=== PATIENT | female | born 1945 | race Caucasian/White ===

== ENCOUNTER → 2018-06-30 09:51 | Outpatient (CLI) | payer MEDICARE, SELFPAY ==
--- NOTE | 2018-06-30 09:55 | BI_ITS ---
MAMMOGRAPHY - BILATERAL SCREENING REASON FOR EXAM: Female, 72 years old. Routine annual screening examination. PERTINENT HISTORY: Non-contributory. Remote right excisional breast biopsy. TECHNIQUE: Digital bilateral breast rin (3D mammographic acquisition) in the CC and MLO projections. 2-D mediolateral oblique (MLO) and craniocaudad (CC) views of both breasts were obtained. CAD: Full Field Digital Mammography with Computer Added Detection was performed. COMPARISON: Comparison is made with prior study dated June 29, 2017 and June 28, 2016. FINDINGS: Breast Composition: There are scattered areas of fibroglandular density. There are no dominant masses or suspicious calcifications. Stable 7.2 mm well-defined nodule in the axillary region of the right breast in keeping with a small lymph node. There are 2 well-defined nodular densities in the retroareolar region of the right breast. The larger measures 4.2 mm. This may represent either a small cyst or dilated retroareolar duct. Correlation with ultrasound is recommended. No other significant abnormalities are identified. There has been no significant change since the prior study. BI/SCREENING MAMM (CAD), BILAT IMPRESSION: Stable bilateral screening mammogram. 2 small nodular densities are seen in the retroareolar region of the right breast. Correlation with ultrasound is recommended. ASSESSMENT CATEGORY: BIRADS Category 0: Incomplete. Need additional imaging evaluation. A letter regarding these results will be sent to the patient by the facility within 30 days. Approximately 10% of breast cancers are not detected by mammography. A normal mammogram should not delay biopsy of a clinically suspicious abnormality. [id number] Electronically Signed: Luke Mcmullen MD at 12:24 EST Tel [phone], Service support ,
--- OUTSIDE RECORDS SUMMARY | 2018-08-25 04:54 | XMS RPT_ITS | Continuity of Care Document ---
:1945 Author Organization [facility] Address [facility] [address] [place] [address] Phone Care Team Providers Name Role Phone Becky De La Cruz DO Unavailable Dr. Wolf Clark Unavailable Carlos Monahan MD Unavailable Sharon Meier Unavailable Unavailable Jessie Sanches Unavailable Unavailable Fannie Madrid Unavailable Unavailable Unavailable Unavailable Problems Name Dates Details Abnormal lung function test (R94.2, 794.2) Status: Active Abnormal mammogram (R92.8, 793.80) Status: Active Abnormal mammogram (R92.8, 793.80) Comments: verify with patietn whether saw surgeon Status: Active Abnormal TSH (R79.89, 790.6) Status: Active Benign Essential Hypertension (Renamed from Benign essential HTN) (I10, 401.1) Comments: chronic stable-continue present regimen Status: Active BMI 30.0-30.9,adult (Z68.30, V85.30) Status: Active Breast screening (Z12.39, V76.10) Status: Active Colon polyp (K63.5, 211.3) Status: Active Colonoscopy 1999 Status: Active Cough (R05, 786.2) Status: Active Deliveries (Parity) Comments: 3 Status: Active Elevated blood pressure (not hypertension) (R03.0, 796.2) Comments: avoid decongestants check bp at home Status: Active Encounter for screening mammogram for breast cancer (Renamed from Encounter for screening mammogram for malignant neoplasm of breast) (Z12.31, V76.12) Comments: end of jun Status: Active Encounter for screening mammogram for breast cancer (Renamed from Encounter for screening mammogram for malignant neoplasm of breast) (Z12.31, V76.12) Status: Active Folliculitis (L73.9, 704.8) Status: Active 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, 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) Status: Active Last Pap Smear, Date 01-Mar-2005 Status: Active Local reaction to immunization, initial encounter (T88.1XXA, 999.52) Comments: take zyrtec if worsen ornot improve in next few days call and will give antiobiic Status: Active Mammogram 13-Apr-2006 Status: Active [facility] Status: Active [facility] Status: Active Migraine (G43.909, 346.80) Comments: chronic stable-continue present regimen Status: Active Mild intermittent asthma without complication (J45.20, 493.90) Comments: no issues even with the weather change Status: Active Need for prophylactic vaccination and inoculation against influenza (Z23, V04.81) Status: Active Need for prophylactic vaccination and inoculation against influenza (Renamed from Need for immunization against influenza) (Z23, V04.81) Status: Active Need for prophylactic vaccination and inoculation against influenza (Renamed from Need for immunization against influenza) (Z23, V04.81) Status: Active Non-smoker (Z78.9, V49.89) Status: Active Osteopenia (M85.80, 733.90) Comments: not due for bone density Status: Active Other hyperlipidemia (E78.49, 272.4) Comments: great control Status: Active Postmenopausal (Renamed from Postmenopausal status) (Z78.0, V49.81) Comments: end of jun Status: Active Pregnancies () Comments: 3 Status: Active Screening for breast cancer (Renamed from Breast cancer screening) (Z12.39, V76.10) Status: Active Unspecified Diagnosis Status: Active Upper respiratory infection, acute (J06.9, 465.9) Status: Active Vitamin D deficiency, unspecified (E55.9, 268.9) Comments: chronic stable-continue present regimen Status: Active Medications Name Dates Details CALCIUM, 500MG (Oral Tablet) Active 1 (one) daily (500 MG) Fluticasone Propionate 50 MCG/ACT Nasal Suspension 2 (two) Suspension each nostril daily, prn for 90 days Quantity: 1 {[place]} Refills: 3 Ordered:22-Aug-2017 Jono ARAYA Becky LYNNnabila Becky A Start : 22-Aug-2017 Active Losartan Potassium 50 MG Oral Tablet 1 (one) Tablet daily for 0 days Quantity: 30 {Tablet} Refills: 6 Ordered:27-Jan-2018 Becky LYNNnabila Becky A Start : 27-Jan-2018 Active Simvastatin 10 MG Oral Tablet 1 (one) Tablet qd for 0 days Quantity: 30 {Tablet} Refills: 6 Ordered:27-Jan-2018 Becky LYNNnabila Becky A Start : 27-Jan-2018 Active Synthroid 88 MCG Oral Tablet 1 (one) Tablet tuesday thru and none tue-tue for 0 days Quantity: 30 {Tablet} Refills: 3 Ordered:21-Mar-2018 Becky LYNNnabila Becky A Start : 21-Mar-2018 Active Vitamin D3 5000 UNIT Oral Capsule 1 (one) Capsule QOD for 0 days Quantity: 30 {Capsule} Refills: 3 Ordered:21-Sep-2017 Becky LYNNnabila , Becky A Start : 21-Sep-2017 Active AUGMENTIN, 875-125MG (Oral Tablet) 1 Tablet Twice daily for 14 days Quantity: 28 {Tablet} Refills: 0 Ordered:28-Jan-2010 Dena Gutierrez CNP Start : 28-Jan-2010 End : 11-Feb-2010 Inactive Calcium 500/D 500-400 MG-UNIT Oral Tablet Chewable 1 (one) Tablet Chewable bid for 0 days Refills: 0 Ordered:21-Sep-2017 Becky LYNNnabila DO, Becky A Start : 10-Jun-2008 End : 21-Sep-2017 Inactive CLARINEX, 5MG (Oral Tablet) 1 (one) Tablet daily for 0 days Quantity: 5 {Tablet} Refills: 0 Ordered:19-Feb-2011 Jessie Sanches Start : 28-Jan-2010 End : 19-Feb-2011 Inactive Doxycycline Hyclate 100 MG Oral Capsule 1 (one) Capsule bid for 0 days Quantity: 20 {Capsule} Refills: 0 Ordered:21-Sep-2017 Fast DO, Becky AFast DO, Becky A Start : 22-Aug-2017 End : 21-Sep-2017 Inactive Losartan Potassium 50 MG Oral Tablet 1 (one) daily (50 MG) Start : 24-Aug-2016 Inactive NASONEX, 50MCG/ACT (Nasal Suspension) 2 (two) Suspension Daily for 0 days Quantity: 1 {Suspension} Refills: 0 Ordered:19-Feb-2011 Jessie Sanches Start : 28-Jan-2010 End : 19-Feb-2011 Inactive BONIVA, 150MG (Oral Tablet) 1 (one) Tablet qmonth for 0 days Quantity: 3 {Tablet} Refills: 3 Ordered:19-Feb-2011 Fast DO, Becky AFast DO, Becky A Start : 19-Feb-2011 End : 19-Feb-2011 Discontinued DOXY-CAPS, 100MG (Oral Capsule) 1 (one) Capsule bid for 0 days Quantity: 20 {Capsule} Refills: 0 Ordered:02-Mar-2010 Jessie Sanches Start : 09-Jan-2010 End : 19-Feb-2011 Discontinued Comments:This order discontinued per [employer]. DRISDOL, 85871JLIK (Oral Capsule) 1 (one) Capsule q week for 0 days Quantity: 12 {Capsule} Refills: 3 Ordered:22-Apr-2015 Fast DO, Becky AFast DO, Becky A Start : 22-Apr-2015 End : 22-Apr-2015 Discontinued FOSAMAX, 35MG (Oral Tablet) one Tablet qweek for 0 days Refills: 0 Ordered:10-Apr-2007 Fast DO, Becky AFast DO, Becky A Start : 10-Apr-2007 End : 10-Apr-2007 Discontinued FOSAMAX, 70MG (Oral Tablet) 1 (one) Tablet q week for 0 days Quantity: 12 {Tablet} Refills: 3 Ordered:10-Apr-2007 Kyra Martines Start : 10-Apr-2007 End : 26-Jun-2008 Discontinued ZITHROMAX Z-BERENICE, 250MG (Oral Tablet) 1 Tablet UAD for 0 days Quantity: 1 {Package(s)} Refills: 0 Ordered:26-Jun-2008 Kyra Martines Start : 26-Jun-2008 End : 01-Jul-2008 Discontinued Allergies and Adverse Reactions Name Dates Details No Known Drug Allergies (Allergy) Onset: 08-Sep-2016 Status: Inactive Prevnar 13 *VACCINES* (Allergy) Status: Active Comments: redness, warmth, swelling and pain at the site after receiving the 2nd vaccine 6 months apart Past Medical History Name Dates Details Abdominal pain, acute, right lower quadrant (R10.31, 789.03) Status: Resolved as of 07-Feb-2012 Acute sinusitis, unspecified (J01.90, 461.9) Status: Resolved as of 02-Mar-2010 Allergic rhinitis due to other allergen (J30.89, 477.8) Status: Inactive as of 21-Sep-2017 BMI 30.0-30.9,adult (Z68.30, V85.30) Status: Inactive as of 11-Apr-2017 BMI 31.0-31.9,adult (Z68.31, V85.31) Status: Inactive as of 21-Sep-2017 boil Status: Resolved as of 02-Mar-2010 Cerumen impaction (H61.20, 380.4) Status: Resolved as of 02-Mar-2010 Encounter for screening mammogram for malignant neoplasm of breast (Z12.31, V76.12) Status: Inactive as of 09-Apr-2013 Foot pain (M79.673, 729.5) Status: Resolved as of 19-Feb-2011 Hematuria (R31.9, 599.7) Comments: us negative -recheck us 5 years Status: Inactive as of 21-Sep-2017 Other specified viral infection, in conditions classified elsewhere and of unspecified site (B97.89, 079.89) Status: Resolved as of 02-Mar-2010 Pharyngitis, acute (J02.9, 462) Status: Resolved as of 02-Mar-2010 Well woman exam with routine gynecological exam (Z01.419, V72.31) Status: Inactive as of 19-Feb-2011 Procedures Procedure Dates Details breast biopsy benign Completed Colonoscopy, Screening Completed May-2015 Comments: small, benign polyps removed from R colon Tonsillectomy Completed Date Value Details 11-Oct-2017 TXT - Blood Flow Screening Result: Comments: See Note; NOTES: [facility] Cardiovascular Services [address] [place] [address] 10/11/17 0832 MR#: [id number] Acct: [id number] Name: AUDREY STREETER Rep #: [id number] : 1945 71 From: Zack Valdes MD Attending Dr: Becky De La Cruz DO Status: REG REF Ordering Dr: Date: 10/11/17 Location: [facility] Sex: F C Admitted: Reason For Study: Blood flow screening Caroti d Duplex Ultrasound Abdominal Aorta The right maximum ICA velocity is 80.5/25.7 cm/s.The maximal outside diameter of the proximal The left maximum ICA velocity is 107.0/38.8 cm/s.aorta measures 1.5 cm i n the longitudinal axis. The right ECA velocity is less than 125 cm/s. The maximal outside diameter of the proximal The left ECA velocity is less than 125 cm/s. aorta measures 1.5 x 1.6 cm in the cross- There is insignificant plaque formation noted on sectional axis. the right side. There is insignificant plaque formation noted on the left side. Ankle Brachial Index The right ankle/ brachial index is 1.0. The left ankle/ brachial index is 1.1. Medical History and Assessment The client presents with a history of high blood pressure. The heart rate is 60 beats per minute. The heart rhythm is irregul ar. The right blood pressure is 128/76. The left blood pressure is 134/76. The assessment was performed by Jaime Dumont RVT. Interpretation Summary Normal carotid artery screening (0 to 15% narrowing). Normal aortic ultrasound exam. The ankle/brachial index is normal (1.0 or greater). .rdering Phys ician: Becky De La Cruz D.O Performed By: Felecia Dumont RVT 10/11/17 1553 Date Zack Valdes MD CC: Becky De La Cruz DO Date Dictated: 10/11/17 0832 Date Transcribed: 10/11/17 155 Primer Press Operator: Signed 29-Jun-2017 SCREENING MAMM (CAD), BILAT Result: Comments: See Note; NOTES: [facility] Imaging Services [address] [place] [address] SCREENING MAMM (CAD), BILAT MR#: [id number] Acct: [id number] Name: AUDREY STREETER Rep #: [id number] : 1945 F 71 From: Vern Hightower MD PCP: Becky De La Cruz DO Status: REG CLI Study: SCREENING MAMM (CAD), BILAT Date of Exam: 06/29/17 Exam# [id number] Ordering Dr: Becky De La Cruz DO MAMMOGRAPH Y - BILATERAL SCREENING REASON FOR EXAM: Female, 71 years old. Routine annual screening examination. PERTINENT HISTORY: History of benign breast biopsy. TECHNIQUE: Digital examination. Mediolateral o blique (MLO) and craniocaudad (CC) views of both breasts were obtained, along with 3D tomosynthesis. CAD: CAD was performed on this study. COMPARISON: 06/28/2016 FI NDINGS: Breast Density: Scattered fibroglandular densities. There are no dominant masses or suspicious calcifications. Stable well-defined 1 cm lymph node in the retroglandular fat of the right breast. No other significant abnormalities are identified. There has been no significant change since the prior study. HPBI/SCREENING MAMM (CAD), BILAT IMPRESSION: Stable bilateral screening mammogram. Yearly follow-up mammogram recommended. (A) ASSESSMENT CATEGORY: BIRADS Category 2: Benign. A letter regarding th linda results will be sent to the patient by the facility within 30 days. BR2 Approximately 10% of breast cancers are not detected by mammography. A normal mammogram should not delay biopsy of a clinica lly suspicious abnormality. [id number] Electronically Signed: Prashant Hightower MD at 14:20 EST , Service support , CC: Becky De La Cruz DO Primer [employer] Operator: Signed 26-Apr-2017 Dexa Bone Density Study (HP) Result: Comments: See Note; NOTES: [facility] Imaging Services [address] [place] [address] Dexa Bone Density Study (HP) MR#: [id number] Acct: [id number] Name: AUDREY STREETER Rep #: [id number] : 1945 F 71 From: Luke Leonard MD PCP: Becky De La Cruz DO Status: REG CLI Study: Dexa Bone Density Study (HP) Date of Exam: 04/26/17 Exam# [id number] Ordering Dr: Becky De La CruzDY: DUAL ENERGY X-RAY ABSORPTIOMETRY / DXA REASON FOR EXAM: Female, 71 years old. The patient is postmenopausal. TECHNIQUE: Bone Mineral Density (BMD) measurements of lumbar spine and bilateral hips were obtained. COMPARISON: Comparison is made with prior study dated July 19, 2012. FINDINGS: Lumbar Spine (L1-L4): g/cm2 (1.090) / T-score (-0.7) / Z-score ( 0.9) Findings are suggestive of normal bone density with a low fracture risk. Increased kyphosis. Left Femur Total: g/cm2 (0.854) / T-score (-1.2) / Z-score (0.3) Left Femoral Neck: g/cm2 (0.831) / T-s core (-1.5) / Z-score (0.3) Right Femur Total: g/cm2 (0.889) / T-score (-0.9) / Z-score (0.6) Right Femoral Neck: g/cm2 (0.740) / T-score (-2.1) / Z-score (- 0.4) The T-Scores on the most recent prior e xamination were: Lumbar Spine (L1-L4): There has been worsening of bone density since the previous examination. Left Femur Total: which represents a worsening of 2.2%. Right Femur Total: which represe nts a worsening of 1.2%. HPBD/Dexa Bone Density Study (HP) IMPRESSION: The patient is considered osteopenic as outlined below according to World Wesley Organization (WHO) criteria with a moderate fracture risk. There has been worsening of bone density since the previous examination. Reference Information: The T-score is the number of standard deviations above or below the standard which is normal for young adults at their peak bone mineral density. The World Health Organization (WHO) interprets the T-scores as follows: Above -1 Normal bone density Between -1 and -2.5 Osteopenia Equal to / or below -2.5 Osteoporosis As a practical clinical guideline, osteopenia may be graded as follows: Mild -1 through - 1.5 Moderate -1.6 through -2.0 Severe -2.1 through -2.4 The Z-score is the number of standard deviations above or below age-matched controls. A Z-score of less than -1.5 would be considered abnormal. References: 1. NIH Osteoporosis and Related Bone Diseases http://www.osteo.org 2. International Society for Clinical Densitometry http://www.iscd.org 3. National Osteoporosis Foundation http://www.nof.o rg Electronically Signed: Luke Leonard MD at 9:52 EDT Tel [phone], Service support , CC: Becky De La Cruz DO Primer [employer] Operator: Signed 12-Sep-2016 Pulmonary Function Report Comp Result: Comments: See Note; NOTES: [facility] Pulmonary Services/Neurology [address] [place] [address] Pulmonary Function Test (Comp) MR#: [id number] Acct: [id number] Name: AUDREY STREETER Rep #: [id number] : 1945 70 From: Tariq Her MD Referring Dr: Becky De La Cruz DO Status: REG CLI Ordering Dr: Becky De La Cruz DO Date: 09/09/16 Location: [facility] Sex: F C DATE OF SERVICE: 017 BRIEF HISTORY OF PRESENT ILLNESS: The patient is a 70-year-old female, currently under the care of Dr. De La Cruz, who presents for a complete pulmonary function test secondary to a diagnosis o f abnormal pulmonary function. Respiratory therapist reported good patient effort and reproducible results. INTERPRETATION: Forced expiration spirometry demonstrates a mild large airways obstructive ve ntilatory defect. There is a significant response to bronchodilators in FEV1. Spirograms are of good quality and do not plateau indicating slowing emptying areas of the lung. The respiratory flow volume loop shows decreased expiratory flow rates at all lung volumes consistent with airways obstruction. Lung volumes by body plethysmography show an elevated total lung capacity at 5.48 L, 124% of predict ed. Remaining lung volumes are increased symmetrically. Diffusion capacity by single breath carbon monoxide is preserved at 81% of predicted. Airway resistance is elevated. No previous studies are joseph ilable for comparison. IMPRESSION: Partially reversible mild large airways obstructive ventilatory defect resulting in hyperinflation. TARIQ HER MD C C: Becky De La Cruz DO T: NTS JOB: [id number] 07/17 0600 <Electronically signed by Tariq Her MD> Date Tariq Her MD CC: Tariq Her MD; Becky De La Cruz DO Date Dictated: 09/11/16 113 6 Date Transcribed: 09/11/16 1136 Primer Press Operator: Signed 09-Sep-2016 Kidney and Bladder Result: Comments: See Note; NOTES: [facility] Imaging Services [address] [place] [address] Yosephdalukas 4d Kidney and Bladder MR#: [id number] Acct: [id number] Name: AUDREY STREETER Rep # : [id number] : 1945 F 70 From: Ho Sam MD PCP: Becky De La Cruz DO Status: REG CLI Study: Kidney and Bladder Date of Exam: 09/09/16 Exam# [id number] Ordering Dr: Becky De La Cruz DO STUDY: LAST MCCRARY ULTRASOUND - COMPLETE REASON FOR EXAM: Female, 70 years old. Hematuria TECHNIQUE: Ultrasound evaluation of the kidneys was performed with real-time and static jenkins-scale imaging. COMPARISON: None. FINDINGS: RIGHT KIDNEY: Normal location of the right kidney, which is normal in size. The right kidney measures 8.9 cm x 4.5 cm x 4.1 cm. There is a normal cortex of the right kidney. The renal cortex measures 1.0 cm. There is no right renal mass or cyst. There are no right renal calculi. There is no right hydronephrosis. DISTAL RIGHT URETER: There is non-visual ization of the distal right ureter. There is no demonstrated right ureterovesical junction calculus. There is no demonstrated right ureteral jet. LEFT KIDNEY: Normal location of the left kidney, which is normal in size. The left kidney measures 10.3 cm x 3.9 cm x 4.8 cm. There is a normal cortex of the left kidney. The renal cortex measures 1.6 cm. There is no left renal mass or cyst. There are no le ft renal calculi. There is no left hydronephrosis. DISTAL LEFT URETER: There is non-visualization of the distal left ureter. There is no demonstrated left ureterovesical junction calculus. There is no demonstrated left ureteral jet. BLADDER: The distended urinary bladder has a volume of 57 ml. There is a normal wall thickness of the distended urinary bladder. There is no demonstrated mass within the urinary bladder. There are no demonstrated bladder calculi. US/Kidney and Bladder IMPRESSION: Normal ultrasound of the kidneys and urinary bladd er. Electronically Signed: Vern Sam MD at 23:19 EST Tel , Service support [phone], CC: Becky De La Cruz DO Primer [employer] Operator: Signed 08-Sep-2016 Chest PA and Lateral Result: Comments: See Note; NOTES: [facility] Imaging Services [address] [place] [address] Verdana 4d Chest PA and Lateral MR#: [id number] Acct: [id number] Name: AUDREY STREETER Rep #: [id number] : 1945 F 70 From: Ho Sam MD PCP: Becky De La Cruz DO Status: REG CLI Study: Chest PA and Lateral Date of Exam: 09/08/16 Exam# [id number] Ordering Dr: Becky De La Cruz DO STUDY: X-RAY CHEST REASON FOR EXAM: Female, 70 years old. Abnormal lung sounds TECHNIQUE: PA and lateral views of the chest. COMPARISON: None. FINDINGS: The lungs are clear and expanded. There is no demonstrated pleural abnormality. Normal size heart. Normal mediastinum and natalie. Normal visualized pulmonary arteries. Normal visualized aortic arch and descending thor acic aorta. There is an increased kyphosis of the thoracic spine. Spondylosis is seen throughout the thoracic spine, and there is generalized osteopenia. There is no demonstrated abnormality of the vi sualized soft tissue structures of the upper abdomen. RAD/Chest PA and Lateral IMPRESSION: No acute intrathoracic process is demonstrated. Elect ronically Signed: Vern Sam MD at 7:56 EST Tel , Service support [phone], CC: Becky De La Cruz DO [employer] Press Operator: Signed 28-Jun-2016 Bilat Scrn Digital AND CAD Result: Comments: See Note; NOTES: [facility] Imaging Services [address] [place] [address] Verdana 4d Bilat Scrn Digital AND CAD MR#: [id number] Acct: [id number] Name: BIANCA STREETER MA Rep #: [id number] : 1945 F 70 From: Vern Hightower MD PCP: Becky De La Cruz DO Status: REG CLI Study: Bilat Scrn Digital AND CAD Date of Exam: 06/28/16 Exam# [id number] Ordering Dr: Becky De La Cruz DO M AMMOGRAPHY - BILATERAL SCREENING REASON FOR EXAM: Female, 70 years old. Routine annual screening examination. PERTINENT HISTORY: History of benign breast biopsy. TECHNIQUE: Digital examination. Medio lateral oblique (MLO) and craniocaudad (CC) views of both breasts were obtained, along with 3-D tomosynthesis. CAD: CAD was performed on this study. COMPARISON: 04/15/2015 FINDINGS: Breast Density: Scattered fibroglandular densities. There are no dominant masses or suspicious calcifications. Stable 1 cm lymph node in the retroglandular fat of the right breast. No other significant abnormalities are identified. There has been no significant change since the prior study. BI/Bilat Scrn Digital AND CAD IMPR ESSION: Stable bilateral screening mammogram. Yearly follow-up mammogram recommended. (A) ASSESSMENT CATEGORY: BIRADS Category 2: Benign. A letter regarding these r esults will be sent to the patient by the facility within 30 days. BR2 Approximately 10% of breast cancers are not detected by mammography. A normal mammogram should not delay biopsy of a clinically s uspicious abnormality. [id number] Electronically Signed: Prashant Hightower MD at 9:18 EST Tel , Service support [phone], CC: Becky De La Cruz DO Primer [employer] Operator: Signed 15-Apr-2015 Bilat Scrn Digital AND CAD Result: Comments: See Note; NOTES: [facility] Imaging Services [address] [place] [address] Breast Imaging Report MR#: [id number] Acct: [id number] Name: AUDREY STREETER Rep #: [id number] : 1945 F 69 From: Luke Leonard MD PCP: Becky De La Cruz DO Status: REG CLI Study: Kelsey Bateman Digital AND CAD Date of Exam: 04/15/15 Exam# [id number] Ordering Dr: Becky De La Cruz DO MAMMOGRAPHY - BILATERAL SCREENING REASON FOR EXAM: Female, 69 years old. Routine annual screening examination. PERTINENT HISTORY: Prior right excisional breast biopsy. TECHNIQUE: Digital exami [facility]. Mediolateral oblique (MLO) and craniocaudad (CC) views of both breasts were obtained. CAD: CAD was performed on this study. COMPARISON: Comparison is made with prior study dated April 08, 2014 and March 30, 2013. FINDINGS: Breast Composition: There are scattered areas of fibroglandular density. There are no dominant masses or suspicious calcif ications. Stable benign appearing lymph nodes in the right axillary region. This measures 4 mm. No other significant abnormalities are identified. There has been no significant change since the prio r study. IMPRESSION: Stable bilateral screening mammogram. Yearly follow-up recommended. (A) ASSESSMENT CATEGORY: BIRADS Category 2: Benign. A letter regarding these results will be sent to the patient by the facility within 30 days. Approximately 10% of breast cancers are not detected by mammography. A normal mammogr am should not delay biopsy of a clinically suspicious abnormality. Electronically Signed: Luke Leonard MD at 10:51 EDT Tel [phone], Service support [phone], Fax CC: Becky De La Cruz DO Primer Press Operator: Signed 15-Apr-2015 Dexa Bone Density Study (HP) Result: Comments: See Note; NOTES: [facility] Imaging Services [address] [place] [address] Bone Density Report MR#: [id number] Acct: [id number] Name: AUDREY STREETER Rep #: [id number] : 1945 F 69 From: Luke Leonard MD PCP: Becky De La Cruz DO Status: REG CLI Study: Dexa Bone Density Study (HP) Date of Exam: 04/15/15 Exam# [id number] Ordering Dr: Becky De La Cruz DO STUDY: DUAL ENERGY X-RAY ABSORPTIOMETRY / DXA REASON FOR EXAM: Female, 69 years old. The patient is postmenopausal. TECHNIQUE: Bone Mineral Density (BMD) measurements of lumbar spine and bilater al hips were obtained. COMPARISON: Comparison is made with prior study dated July 19, 2012. FINDINGS: Lumbar Spine (L1-L4): g/cm2 (1.037) / T-score (-1.4) / Z-score (0.3) Findings are suggestive of osteopenia with a low fracture risk. Left Femur Total: g/cm2 (0.873) / T-score (-1.1) / Z-score (0.3) Left Femoral Neck: g/cm2 (0.744) / T-score (-2.1) / Z -score (-0.5) Right Femur Total: g/cm2 (0.900) / T-score (-0.9) / Z-score (0.6) Right Femoral Neck: g/cm2 (0.724) / T-score (-2.3) / Z-score (-0.6) The T- Scores on the most recent prior examination were: Lumbar Spine (L1-L4): There has been worsening of bone density since the previous examination. Left Femur Total: which represents an improvement of O.8 percent. Right Femur Total: which repr esents no significant change. . IMPRESSION: The patient is considered osteopenic as outlined below according to World Wesley Organization (WHO) criteria with a mo derate fracture risk. There has been worsening of bone density since the previous examination. Reference Information: The T-score is the number of standard cody ations above or below the standard which is normal for young adults at their peak bone mineral density. The World Health Organization (WHO) interprets the T-scores as follows: Above -1 Normal bone density Between -1 and -2.5 Osteopenia Equal to / or below -2.5 Osteoporosis As a practical clinical guideline, osteopenia may be graded as follows: Mild -1 through -1.5 Moderate -1.6 through -2.0 Severe -2.1 through -2.4 The Z-score is the number of standard deviations above or below age-matched controls. A Z-score of less than -1.5 would be considered abnormal. References: 1. NIH Osteop orosis and Related Bone Diseases http://www.osteo.org 2. International Society for Clinical Densitometry http://www.iscd.org 3. National Osteoporosis Foundation http://www.nof.org Electronically Sig steve: Luke Leonard MD at 10:50 EDT Tel [phone], Service support [phone], CC: Becky De La Cruz DO [employer] Operator: Signed 08-Apr-2014 Breast Unilateral Result: Comments: See Note; NOTES: [facility] Imaging Services [address] [place] [id number] Ultrasound Report MR#: [id number] Acct: [id number] Name: AUDREY STREETER Rep #: [id number] : [id number] F [id number] From: Luke Leonard MD PCP: Becky De La Cruz DO Status: REG CLI Study: Breast Unilateral Date of Exam: 04/08/14 Exam# [id number] Ordering Dr: Becky De La Cruz DO STUDY: ULTR ASOUND BREAST(S) - RIGHT REASON FOR EXAM: Female, 68 years old. Followup examination for right breast cyst. TECHNIQUE: Axial and longitudinal images of the RIGHT breast were performed with a high resolution ultrasound transducer. COMPARISON: Comparison is made with prior mammogram done earlier in the day and prior ultrasound of the right breast performed on August 29, 2013. FINDINGS: RIGHT BREAST: Once again, there is a 4 mm x 4 mm x 4 mm cyst in the inferior retroareolar region of the breasts. This is unchanged. __ IMPRESSION: Stable examination. ASSESSMENT CATEGORY: Electronically Signed: Luke Leonard MD at 9:10 EDT Tel [phone], Service suppor t [phone], CC: Becky De La Cruz DO [employer] Operator: Signed 08-Apr-2014 Bilat Scrn Digital & CAD Result: Comments: See Note; NOTES: [facility] Imaging Services [address] [place] [address] Breast Imaging Report MR#: [id number] Acct: [id number] Name: AUDREY STREETER Rep #: [id number] : 1945 F 68 From: Luke Leonard MD PCP: Becky De La Cruz DO Status: REG CLI Exam# [id number] Ordering Dr: Becky De La Cruz DO MAMMOGRAPHY - BILATERAL SCREENING REASON FOR EXAM: Fe male, 68 years old. Routine annual screening examination. PERTINENT HISTORY: Prior right excisional biopsy. TECHNIQUE: Digital examination. Mediolateral oblique (MLO) and craniocaudad (CC) views o f both breasts were obtained. CAD: CAD was performed on this study. COMPARISON: Comparison is made with prior study dated March 30, 2013 and February 03, 2012. FIN DINGS: Breast Composition: There are scattered areas of fibroglandular density. There are no dominant masses or suspicious calcifications. There is a stable 4 mm well-defined nodule in the inferior slightly lateral aspect of the right breast. No new abnormality is seen. No other significant abnormalities are identified. There has been no significant change since the prior study. IMPRESSION: Stable bilateral screening mammogram. Yearly follow-up recommended. (A) ASSESSMENT CATEGORY: BIRADS Category 2: Benign findi ng(s). A letter regarding these results will be sent to the patient by the facility within 30 days. Approximately 10% of breast cancers are not detected by mammography. A normal mammogram should not delay biopsy of a clinically suspicious abnormality. Electronically Signed: Luke Leonard MD at 8:44 EDT Tel [phone], Service support [phone], CC: Becky De La Cruz DO [employer] Operator: Signed Immunization Name Dates Details Pneumococcal (2 years and up) on: 06-Jun-2007 Family History Unknown Family Member Name Dates Details Brother 1 Comments: brother - Mi- in his late 60s Status: Active Father Comments: brain aneurysm possibly- 68- no autopsy, migraines Status: Active high blood pressure Status: Active Mother Comments: age 90- cva, Mi older age likely 80s, chol elevated- Alzheimers last 5 years of life Status: Active Sister 2 Comments: 2 sisters are healthy Status: Active Social History Name Dates Details Caffeine Use Comments: 3 glasses per day Status: Active Exercise History Comments: Moderate, 3 days per week; treadmill Status: Active Living Situation Comments: Lives with spouse; ; heterosexual Status: Active No Drug Use Status: Active Non Drinker/No Alcohol Use Status: Active Non Smoker/No Tobacco Use Status: Active Tobacco use: Never smoker. Status: Active Smoking Status Name Dates Details Never smoker Vital Signs Date Test Result Details :28 Temperature 97.1 f Comments: Method: Temporal Pulse 68 /min Comments: Pattern: Regular Respiration Rate 16 /min Comments: Pattern: Unlabored BP Systolic 122 mm[Hg] Comments: Patient Position: Sitting; Cuff Location: Left Arm; Cuff Size: Standard BP Diastolic 82 mm[Hg] Comments: Patient Position: Sitting; Cuff Location: Left Arm; Cuff Size: Standard Weight 159.25 lb Height 61.5 in Body Mass Index Calculated 29.6 kg/m2 Body Surface Area Calculated 1.73 m2 :54 Temperature 97.2 f Comments: Method: Temporal Pulse 74 /min Comments: Pattern: Regular Respiration Rate 16 /min Comments: Pattern: Unlabored BP Systolic 115 mm[Hg] Comments: Patient Position: Sitting; Cuff Location: Left Arm; Cuff Size: Standard BP Diastolic 80 mm[Hg] Comments: Patient Position: Sitting; Cuff Location: Left Arm; Cuff Size: Standard Weight 162 lb Height 61.5 in Body Mass Index Calculated 30.11 kg/m2 Body Surface Area Calculated 1.74 m2 :28 Temperature 97.6 f Pulse 91 /min Comments: Pattern: Regular Respiration Rate 16 /min Comments: Pattern: Unlabored O2 SAT 98 % Comments: Room air BP Systolic 124 mm[Hg] Comments: Patient Position: Sitting; Cuff Location: Left Arm; Cuff Size: Standard BP Diastolic 82 mm[Hg] Comments: Patient Position: Sitting; Cuff Location: Left Arm; Cuff Size: Standard Weight 167 lb Height 61.5 in Body Mass Index Calculated 31.04 kg/m2 Body Surface Area Calculated 1.76 m2 :05 Temperature 97.2 f Comments: Method: Temporal Pulse 76 /min Comments: Pattern: Regular Respiration Rate 16 /min Comments: Pattern: Unlabored O2 SAT 97 % Comments: Room air BP Systolic 114 mm[Hg] Comments: Patient Position: Sitting; Cuff Location: Left Arm; Cuff Size: Standard BP Diastolic 86 mm[Hg] Comments: Patient Position: Sitting; Cuff Location: Left Arm; Cuff Size: Standard Weight 167 lb Height 61.5 in Body Mass Index Calculated 31.04 kg/m2 Body Surface Area Calculated 1.76 m2 :59 Temperature 97.6 f Comments: Method: Temporal Pulse 86 /min Comments: Pattern: Regular Respiration Rate 16 /min Comments: Pattern: Unlabored BP Systolic 116 mm[Hg] Comments: Patient Position: Sitting; Cuff Location: Left Arm; Cuff Size: Standard BP Diastolic 70 mm[Hg] Comments: Patient Position: Sitting; Cuff Location: Left Arm; Cuff Size: Standard Weight 167 lb Height 61.5 in Body Mass Index Calculated 31.04 kg/m2 Body Surface Area Calculated 1.76 m2 :56 Temperature 97.8 f Comments: Method: Temporal Pulse 82 /min Comments: Pattern: Regular Respiration Rate 16 /min Comments: Pattern: Unlabored BP Systolic 122 mm[Hg] Comments: Patient Position: Sitting; Cuff Location: Left Arm; Cuff Size: Standard BP Diastolic 78 mm[Hg] Comments: Patient Position: Sitting; Cuff Location: Left Arm; Cuff Size: Standard Weight 165 lb Height 61.5 in Body Mass Index Calculated 30.67 kg/m2 Body Surface Area Calculated 1.75 m2 :07 Temperature 96.6 f Comments: Method: Temporal Pulse 70 /min Comments: Pattern: Regular Respiration Rate 16 /min Comments: Pattern: Unlabored O2 SAT 99 % Comments: Room air BP Systolic 118 mm[Hg] Comments: Patient Position: Sitting; Cuff Location: Left Arm; Cuff Size: Standard BP Diastolic 80 mm[Hg] Comments: Patient Position: Sitting; Cuff Location: Left Arm; Cuff Size: Standard Weight 166 lb Height 61.5 in Body Mass Index Calculated 30.86 kg/m2 Body Surface Area Calculated 1.76 m2 :09 Temperature 96.8 f Comments: Method: Temporal Pulse 68 /min Comments: Pattern: Regular Respiration Rate 16 /min Comments: Pattern: Unlabored O2 SAT 98 % Comments: Room air BP Systolic 124 mm[Hg] Comments: Patient Position: Sitting; Cuff Location: Left Arm; Cuff Size: Standard BP Diastolic 82 mm[Hg] Comments: Patient Position: Sitting; Cuff Location: Left Arm; Cuff Size: Standard Weight 166 lb Height 61.5 in Body Mass Index Calculated 30.86 kg/m2 Body Surface Area Calculated 1.76 m2 :02 Temperature 97.8 f Comments: Method: Temporal Pulse 62 /min Comments: Pattern: Regular Respiration Rate 15 /min Comments: Pattern: Unlabored O2 SAT 96 % Comments: Room air BP Systolic 118 mm[Hg] Comments: Patient Position: Sitting; Cuff Location: Left Arm; Cuff Size: Large BP Diastolic 76 mm[Hg] Comments: Patient Position: Sitting; Cuff Location: Left Arm; Cuff Size: Large Weight 167 lb Height 61.5 in Body Mass Index Calculated 31.04 kg/m2 Body Surface Area Calculated 1.76 m2 :16 Temperature 97.4 f Comments: Method: Temporal Pulse 78 /min Comments: Pattern: Regular Respiration Rate 16 /min Comments: Pattern: Unlabored O2 SAT 98 % Comments: Room air BP Systolic 146 mm[Hg] Comments: Patient Position: Sitting; Cuff Location: Left Arm; Cuff Size: Standard BP Diastolic 86 mm[Hg] Comments: Patient Position: Sitting; Cuff Location: Left Arm; Cuff Size: Standard Weight 167 lb Height 61.5 in Body Mass Index Calculated 31.04 kg/m2 Body Surface Area Calculated 1.76 m2 :59 BP Systolic 144 mm[Hg] Comments: Patient Position: Sitting BP Diastolic 82 mm[Hg] Comments: Patient Position: Sitting :16 Temperature 96.3 f Pulse 64 /min Comments: Pattern: Regular Respiration Rate 16 /min Comments: Pattern: Unlabored BP Systolic 168 mm[Hg] Comments: Patient Position: Sitting; Cuff Location: Right Arm; Cuff Size: Large BP Diastolic 82 mm[Hg] Comments: Patient Position: Sitting; Cuff Location: Right Arm; Cuff Size: Large Weight 169 lb Height 61.5 in Body Mass Index Calculated 31.41 kg/m2 Body Surface Area Calculated 1.77 m2 :56 Temperature 98.1 f Comments: Method: Temporal Pulse 85 /min Comments: Pattern: Regular Respiration Rate 16 /min Comments: Pattern: Unlabored BP Systolic 118 mm[Hg] Comments: Patient Position: Sitting; Cuff Location: Left Arm; Cuff Size: Standard BP Diastolic 76 mm[Hg] Comments: Patient Position: Sitting; Cuff Location: Left Arm; Cuff Size: Standard Weight 166 lb Height 61.5 in Body Mass Index Calculated 30.86 kg/m2 Body Surface Area Calculated 1.76 m2 :24 Temperature 96.6 f Pulse 72 /min Comments: Pattern: Regular Respiration Rate 16 /min Comments: Pattern: Unlabored BP Systolic 128 mm[Hg] Comments: Patient Position: Sitting; Cuff Location: Left Arm; Cuff Size: Large BP Diastolic 80 mm[Hg] Comments: Patient Position: Sitting; Cuff Location: Left Arm; Cuff Size: Large Weight 166 lb Height 61.5 in Body Mass Index Calculated 30.86 kg/m2 Body Surface Area Calculated 1.76 m2 :44 BP Systolic 122 mm[Hg] Comments: Patient Position: Sitting BP Diastolic 82 mm[Hg] Comments: Patient Position: Sitting :13 Temperature 96.8 f Pulse 72 /min Comments: Pattern: Regular Respiration Rate 16 /min Comments: Pattern: Unlabored BP Systolic 128 mm[Hg] Comments: Patient Position: Sitting; Cuff Location: Left Arm; Cuff Size: Large BP Diastolic 88 mm[Hg] Comments: Patient Position: Sitting; Cuff Location: Left Arm; Cuff Size: Large Weight 163 lb Height 61.5 in Body Mass Index Calculated 30.3 kg/m2 Body Surface Area Calculated 1.74 m2 :34 Temperature 96.4 f Pulse 76 /min Comments: Pattern: Regular Respiration Rate 16 /min Comments: Pattern: Unlabored BP Systolic 122 mm[Hg] Comments: Patient Position: Sitting; Cuff Location: Left Arm; Cuff Size: Standard BP Diastolic 80 mm[Hg] Comments: Patient Position: Sitting; Cuff Location: Left Arm; Cuff Size: Standard Weight 167 lb Height 61.5 in Body Mass Index Calculated 31.04 kg/m2 Body Surface Area Calculated 1.76 m2 :19 Temperature 98.1 f Comments: Method: Oral Pulse 68 /min Comments: Pattern: Regular Respiration Rate 16 /min Comments: Pattern: Unlabored BP Systolic 130 mm[Hg] Comments: Patient Position: Sitting; Cuff Location: Left Arm; Cuff Size: Standard BP Diastolic 82 mm[Hg] Comments: Patient Position: Sitting; Cuff Location: Left Arm; Cuff Size: Standard Weight 165.9 lb Height 61.5 in Body Mass Index Calculated 30.84 kg/m2 Body Surface Area Calculated 1.76 m2 :09 Temperature 96.8 f Pulse 72 /min Comments: Pattern: Regular Respiration Rate 18 /min Comments: Pattern: Unlabored BP Systolic 118 mm[Hg] Comments: Patient Position: Sitting; Cuff Location: Right Arm; Cuff Size: Large BP Diastolic 64 mm[Hg] Comments: Patient Position: Sitting; Cuff Location: Right Arm; Cuff Size: Large Weight 166 lb Height 61.5 in Body Mass Index Calculated 30.86 kg/m2 Body Surface Area Calculated 1.76 m2 :55 BP Systolic 120 mm[Hg] Comments: Patient Position: Sitting BP Diastolic 84 mm[Hg] Comments: Patient Position: Sitting :28 Temperature 97.3 f Pulse 82 /min Comments: Pattern: Regular Respiration Rate 16 /min Comments: Pattern: Unlabored BP Systolic 128 mm[Hg] Comments: Patient Position: Sitting; Cuff Location: Left Arm; Cuff Size: Large BP Diastolic 90 mm[Hg] Comments: Patient Position: Sitting; Cuff Location: Left Arm; Cuff Size: Large Weight 166 lb Height 61.75 in Body Mass Index Calculated 30.61 kg/m2 Body Surface Area Calculated 1.76 m2 :22 Temperature 97.2 f Pulse 64 /min Comments: Pattern: Regular Respiration Rate 16 /min Comments: Pattern: Unlabored BP Systolic 118 mm[Hg] Comments: Patient Position: Sitting; Cuff Location: Left Arm; Cuff Size: Standard BP Diastolic 72 mm[Hg] Comments: Patient Position: Sitting; Cuff Location: Left Arm; Cuff Size: Standard Weight 166 lb Height 61.5 in Body Mass Index Calculated 30.86 kg/m2 Body Surface Area Calculated 1.76 m2 :50 Temperature 96.9 f Comments: Method: Oral Pulse 78 /min Comments: Pattern: Regular Respiration Rate 17 /min Comments: Pattern: Unlabored BP Systolic 130 mm[Hg] Comments: Patient Position: Sitting; Cuff Location: Left Arm; Cuff Size: Standard BP Diastolic 80 mm[Hg] Comments: Patient Position: Sitting; Cuff Location: Left Arm; Cuff Size: Standard Weight 166 lb :15 Pulse 64 /min Comments: Pattern: Regular Respiration Rate 18 /min Comments: Pattern: Unlabored BP Systolic 140 mm[Hg] Comments: Patient Position: Sitting; Cuff Location: Left Arm; Cuff Size: Large BP Diastolic 108 mm[Hg] Comments: Patient Position: Sitting; Cuff Location: Left Arm; Cuff Size: Large [id number] Temperature 97.9 f Comments: Method: Undefined Pulse 88 /min Comments: Pattern: Regular Respiration Rate 18 /min Comments: Pattern: Undefined BP Systolic 144 mm[Hg] Comments: Patient Position: Sitting; Cuff Location: Right Arm; Cuff Size: Standard BP Diastolic 88 mm[Hg] Comments: Patient Position: Sitting; Cuff Location: Right Arm; Cuff Size: Standard Weight 0 lb Height 0 in Head Circumference 0.00 cm :25 Temperature 97.9 f Comments: Method: Oral Pulse 68 /min Comments: Pattern: Regular Respiration Rate 20 /min Comments: Pattern: Unlabored BP Systolic 132 mm[Hg] Comments: Patient Position: Sitting; Cuff Location: Left Arm; Cuff Size: Large BP Diastolic 84 mm[Hg] Comments: Patient Position: Sitting; Cuff Location: Left Arm; Cuff Size: Large Weight 166 lb Height 0 in Head Circumference 0.00 cm :57 Temperature 98.2 f Comments: Method: Oral Pulse 76 /min Comments: Pattern: Regular Respiration Rate 16 /min Comments: Pattern: Unlabored BP Systolic 122 mm[Hg] Comments: Patient Position: Sitting; Cuff Location: Left Arm; Cuff Size: Standard BP Diastolic 78 mm[Hg] Comments: Patient Position: Sitting; Cuff Location: Left Arm; Cuff Size: Standard Weight 0 lb Height 0 in Head Circumference 0.00 cm :14 Temperature 96.9 f Comments: Method: Oral Pulse 78 /min Comments: Pattern: Regular Respiration Rate 18 /min Comments: Pattern: Unlabored BP Systolic 132 mm[Hg] Comments: Patient Position: Sitting; Cuff Location: Left Arm; Cuff Size: Standard BP Diastolic 70 mm[Hg] Comments: Patient Position: Sitting; Cuff Location: Left Arm; Cuff Size: Standard Weight 166 lb Height 0 in Head Circumference 0.00 cm :58 Temperature 97.3 f Comments: Method: Oral Pulse 74 /min Comments: Pattern: Regular Respiration Rate 18 /min Comments: Pattern: Unlabored BP Systolic 118 mm[Hg] Comments: Patient Position: Sitting; Cuff Location: Left Arm; Cuff Size: Standard BP Diastolic 76 mm[Hg] Comments: Patient Position: Sitting; Cuff Location: Left Arm; Cuff Size: Standard Weight 166 lb Height 0 in Head Circumference 0.00 cm :41 Temperature 97 f Comments: Method: Oral Pulse 78 /min Comments: Pattern: Regular Respiration Rate 18 /min Comments: Pattern: Unlabored BP Systolic 120 mm[Hg] Comments: Patient Position: Sitting; Cuff Location: Right Arm; Cuff Size: Standard BP Diastolic 88 mm[Hg] Comments: Patient Position: Sitting; Cuff Location: Right Arm; Cuff Size: Standard Weight 167 lb Height 0 in Head Circumference 0.00 cm :45 Temperature 96.5 f Comments: Method: Undefined Pulse 80 /min Comments: Pattern: Regular Respiration Rate 16 /min Comments: Pattern: Undefined BP Systolic 160 mm[Hg] Comments: Patient Position: Sitting; Cuff Location: Right Arm; Cuff Size: Standard BP Diastolic 94 mm[Hg] Comments: Patient Position: Sitting; Cuff Location: Right Arm; Cuff Size: Standard Weight 168 lb Height 0 in Head Circumference 0.00 cm :25 Pulse 72 /min Comments: Pattern: Regular Respiration Rate 16 /min Comments: Pattern: Unlabored BP Systolic 126 mm[Hg] Comments: Patient Position: Sitting; Cuff Location: Left Arm; Cuff Size: Large BP Diastolic 80 mm[Hg] Comments: Patient Position: Sitting; Cuff Location: Left Arm; Cuff Size: Large Weight 166.125 lb Height 0 in Head Circumference 0.00 cm :50 BP Systolic 140 mm[Hg] Comments: Patient Position: Sitting; Cuff Location: Undefined; Cuff Size: Undefined BP Diastolic 88 mm[Hg] Comments: Patient Position: Sitting; Cuff Location: Undefined; Cuff Size: Undefined Weight 0 lb Height 0 in Head Circumference 0.00 cm :16 Temperature 97.6 f Comments: Method: Oral Pulse 80 /min Comments: Pattern: Regular Respiration Rate 16 /min Comments: Pattern: Unlabored BP Systolic 130 mm[Hg] Comments: Patient Position: Sitting; Cuff Location: Left Arm; Cuff Size: Standard BP Diastolic 94 mm[Hg] Comments: Patient Position: Sitting; Cuff Location: Left Arm; Cuff Size: Standard Weight 163 lb Height 0 in Head Circumference 0.00 cm :49 Temperature 97.8 f Comments: Method: Oral Pulse 76 /min Comments: Pattern: Regular Respiration Rate 16 /min Comments: Pattern: Unlabored BP Systolic 124 mm[Hg] Comments: Patient Position: Sitting; Cuff Location: Left Arm; Cuff Size: Standard BP Diastolic 82 mm[Hg] Comments: Patient Position: Sitting; Cuff Location: Left Arm; Cuff Size: Standard Weight 161 lb Height 61.75 in Body Mass Index Calculated 29.69 kg/m2 Body Surface Area Calculated 1.74 m2 Head Circumference 0.00 cm Results Date Description Value Details :19 TSH (66050) Comments: PATIENT WAS FASTINGPERFORMED BY: [email or web address] [id number] [facility] [id number] TSH 1.660 {uIU/mL} (Normal) Range: 0.450-4.500 :19 LIPID PANEL (03919) Comments: PATIENT WAS FASTINGPERFORMED BY: [email or web address] [facility] [id number] LDL/HDL Ratio 1.4 {ratio} (Normal) Range: 0.0-3.2 Comments: LDL/HDL Ratio Men Women 1/2 Avg.Risk 1.0 1.5 Av g.Risk 3.6 3.2 2X Avg.Risk 6.2 5.0 3X Avg.Risk 8.0 6.1 LDL Cholesterol Calc 83 mg/dL (Normal) Range: 0-99 VLDL Cholesterol Grant 20 mg/dL (Normal) Range: 5-40 HDL Cholesterol 60 mg/dL (Normal) Triglycerides 99 mg/dL (Normal) Range: 0-149 Cholesterol, Total 163 mg/dL (Normal) Range: 100-199 :19 METABOLIC PANEL, COMPREHENSIVE Comments: PATIENT WAS FASTINGPERFORMED BY: [email or web address] [facility] [id number] ([id number]) ALT (SGPT) 16 [iU]/L (Normal) Range: 0-32 AST (SGOT) 19 [iU]/L (Normal) Range: 0-40 Alkaline Phosphatase 73 [iU]/L (Normal) Range: 39-117 Bilirubin, Total 0.5 mg/dL (Normal) Range: 0.0-1.2 A/G Ratio 1.9 (Normal) Range: 1.2-2.2 Globulin, Total 2.4 g/dL (Normal) Range: 1.5-4.5 Albumin 4.5 g/dL (Normal) Range: 3.5-4.8 Protein, Total 6.9 g/dL (Normal) Range: 6.0-8.5 Calcium 9.4 mg/dL (Normal) Range: 8.7-10.3 Carbon Dioxide, Total 24 mmol/L (Normal) Range: 20-29 Chloride 103 mmol/L (Normal) Range: 96-106 Potassium 4.7 mmol/L (Normal) Range: 3.5-5.2 Sodium 142 mmol/L (Normal) Range: 134-144 BUN/Creatinine Ratio 15 (Normal) Range: 12-28 eGFR If Africn Am 61 mL/min/1.73 (Normal) eGFR If NonAfricn Am 53 mL/min/1.73 (Abnormal) Creatinine 1.05 mg/dL (Abnormal) Range: 0.57-1.00 BUN 16 mg/dL (Normal) Range: 8-27 Glucose 83 mg/dL (Normal) Range: 65-99 :19 Vitamin D Hydroxy (06308) Comments: PATIENT WAS FASTINGPERFORMED BY: [employer] [place] [id number] Vitamin D, 25-Hydroxy 59.6 ng/mL (Normal) Range: 30.0-100.0 Comments: Vitamin D deficiency has been defined by the [place] [employer] and an Endocrine Society practice guideline as alevel of serum 25-OH vitamin D less than 20 ng/mL (1,2).The Endocrine Society went on to further define vitamin Dinsufficiency as a level between 21 and 29 ng/mL (2).1. IOM ([place] [employer]). 2010. Dietary reference intakes for calcium and D. [place]: The National Academies Press.2. Baljinder MF, [place], Tere HOLLOWAY, et al. Evaluation, treatment, and prevention of vitamin D deficiency: an Endocrine Society clinical practice guideline. JCEM. 2010; 96(7):1911-30. [id number] METABOLIC PANEL, COMPREHENSIVE Comments: PATIENT NOT FASTINGPERFORMED BY: [employer] [place] [id number]; will review on 09/21 ([id number]) ALT (SGPT) 18 [iU]/L (Normal) Range: 0-32 AST (SGOT) 19 [iU]/L (Normal) Range: 0-40 Alkaline Phosphatase, S 84 [iU]/L (Normal) Range: 39-117 Bilirubin, Total 0.5 mg/dL (Normal) Range: 0.0-1.2 A/G Ratio 1.6 (Normal) Range: 1.2-2.2 Globulin, Total 2.9 g/dL (Normal) Range: 1.5-4.5 Albumin, Serum 4.5 g/dL (Normal) Range: 3.5-4.8 Protein, Total, Serum 7.4 g/dL (Normal) Range: 6.0-8.5 Calcium, Serum 9.6 mg/dL (Normal) Range: 8.7-10.3 Carbon Dioxide, Total 24 mmol/L (Normal) Range: 18-29 Chloride, Serum 101 mmol/L (Normal) Range: 96-106 Potassium, Serum 4.4 mmol/L (Normal) Range: 3.5-5.2 Sodium, Serum 142 mmol/L (Normal) Range: 134-144 BUN/Creatinine Ratio 15 (Normal) Range: 12-28 eGFR If Africn Am 60 mL/min/1.73 (Normal) eGFR If NonAfricn Am 52 mL/min/1.73 (Abnormal) Creatinine, Serum 1.08 mg/dL (Abnormal) Range: 0.57-1.00 BUN 16 mg/dL (Normal) Range: 8-27 Glucose, Serum 94 mg/dL (Normal) Range: 65-99 [id number] CBC W/AUTO DIFF WBC Comments: PATIENT NOT FASTINGPERFORMED BY: [facility]CoHam[facility] [id number] [facility] [id number] Information: NURSE DRAW ([id number]) Immature Grans (Abs) 0.0 {x10E3/uL} (Normal) Range: 0.0-0.1 Immature Granulocytes 0 % (Normal) Baso (Absolute) 0.0 {x10E3/uL} (Normal) Range: 0.0-0.2 Eos (Absolute) 0.2 {x10E3/uL} (Normal) Range: 0.0-0.4 Monocytes(Absolute) 0.5 {x10E3/uL} (Normal) Range: 0.1-0.9 Lymphs (Absolute) 1.8 {x10E3/uL} (Normal) Range: 0.7-3.1 Neutrophils (Absolute) 4.3 {x10E3/uL} (Normal) Range: 1.4-7.0 Basos 0 % (Normal) Eos 2 % (Normal) Monocytes 8 % (Normal) Lymphs 26 % (Normal) Neutrophils 64 % (Normal) Platelets 269 {x10E3/uL} (Normal) Range: 150-379 RDW 13.8 % (Normal) Range: 12.3-15.4 MCHC 32.6 g/dL (Normal) Range: 31.5-35.7 MCH 27.4 pg (Normal) Range: 26.6-33.0 MCV 84 fL (Normal) Range: 79-97 Hematocrit 39.3 % (Normal) Range: 34.0-46.6 Hemoglobin 12.8 g/dL (Normal) Range: 11.1-15.9 RBC 4.68 {x10E6/uL} (Normal) Range: 3.77-5.28 WBC 6.7 {x10E3/uL} (Normal) Range: 3.4-10.8 :56 Vitamin D Hydroxy Comments: PATIENT WAS FASTINGPERFORMED BY: BN [facility] Ebjichsgim0338 [facility] [id number] BY: CB [facility] Wgwaek4105 [facility] [id number] ([id number]) Vitamin D, 25-Hydroxy 56.5 ng/mL (Normal) Range: 30.0-100.0 Comments: Vitamin D deficiency has been defined by the [place] [facility] and an Endocrine Society practice guideline as alevel of serum 25-OH vitamin D less than 20 ng/mL (1,2).The Endocrine Society went on to further define vitamin Dinsufficiency as a level between 21 and 29 ng/mL (2).1. IOM ([place] of Medicine). 2010. Dietary reference intakes for calcium and D. [place]: The National Academies Press.2. Baljinder MF, Quincy ROSE, Tere HOLLOWAY, et al. Evaluation, treatment, and prevention of vitamin D deficiency: an Endocrine Society clinical practice guideline. JCEM. 2010; 96(7):1911-30. :56 CBC W/AUTO DIFF WBC Comments: PATIENT WAS FASTINGPERFORMED BY: GloopleChristopher [place] [address] [facility] [id number] BY: GloopleMary Ville 3478470 [facility] [id number] ([id number]) Immature Grans (Abs) 0.0 {x10E3/uL} (Normal) Range: 0.0-0.1 Immature Granulocytes 0 % (Normal) Baso (Absolute) 0.0 {x10E3/uL} (Normal) Range: 0.0-0.2 Eos (Absolute) 0.1 {x10E3/uL} (Normal) Range: 0.0-0.4 Monocytes(Absolute) 0.4 {x10E3/uL} (Normal) Range: 0.1-0.9 Lymphs (Absolute) 1.7 {x10E3/uL} (Normal) Range: 0.7-3.1 Neutrophils (Absolute) 3.3 {x10E3/uL} (Normal) Range: 1.4-7.0 Basos 1 % (Normal) Eos 2 % (Normal) Monocytes 7 % (Normal) Lymphs 31 % (Normal) Neutrophils 59 % (Normal) Platelets 230 {x10E3/uL} (Normal) Range: 150-379 RDW 15.3 % (Normal) Range: 12.3-15.4 MCHC 32.3 g/dL (Normal) Range: 31.5-35.7 MCH 25.7 pg (Abnormal) Range: 26.6-33.0 MCV 80 fL (Normal) Range: 79-97 Hematocrit 37.2 % (Normal) Range: 34.0-46.6 Hemoglobin 12.0 g/dL (Normal) Range: 11.1-15.9 RBC 4.67 {x10E6/uL} (Normal) Range: 3.77-5.28 WBC 5.6 {x10E3/uL} (Normal) Range: 3.4-10.8 :56 METABOLIC PANEL, Comments: PATIENT WAS FASTINGPERFORMED BY: Gloople[address] [id number] BY: GloopleHampton Behavioral Health CenterVhhdbz6842 [facility] [id number] [facility] (17324) ALT (SGPT) 22 [iU]/L (Normal) Range: 0-32 AST (SGOT) 21 [iU]/L (Normal) Range: 0-40 Alkaline Phosphatase, S 81 [iU]/L (Normal) Range: 39-117 Bilirubin, Total 0.7 mg/dL (Normal) Range: 0.0-1.2 A/G Ratio 2.0 (Normal) Range: 1.2-2.2 Globulin, Total 2.3 g/dL (Normal) Range: 1.5-4.5 Albumin, Serum 4.6 g/dL (Normal) Range: 3.5-4.8 Protein, Total, Serum 6.9 g/dL (Normal) Range: 6.0-8.5 Calcium, Serum 9.2 mg/dL (Normal) Range: 8.7-10.3 Carbon Dioxide, Total 24 mmol/L (Normal) Range: 18-29 Chloride, Serum 102 mmol/L (Normal) Range: 96-106 Potassium, Serum 4.7 mmol/L (Normal) Range: 3.5-5.2 Sodium, Serum 142 mmol/L (Normal) Range: 134-144 BUN/Creatinine Ratio 16 (Normal) Range: 12-28 eGFR If Africn Am 66 mL/min/1.73 (Normal) eGFR If NonAfricn Am 58 mL/min/1.73 (Abnormal) Creatinine, Serum 0.99 mg/dL (Normal) Range: 0.57-1.00 BUN 16 mg/dL (Normal) Range: 8-27 Glucose, Serum 93 mg/dL (Normal) Range: 65-99 25-Oxi-04115:56 LIPOPROTEIN, BLD, BY NMR Comments: PATIENT WAS FASTINGPERFORMED BY: BN [facility] [address] [id number] BY: CB [facility] Ppujio6857 [facility] [id number] ([id number]) LP-IR Score 51 (Abnormal) Comments: INSULIN RESISTANCE MARKER <--Insulin Sensitive Insulin Resistant--> Percentile in Reference PopulationInsulin Resistance ScoreLP-IR Score Low 25th 50th 75th High <27 27 45 63 >63LP-IR Score is inaccurate if patient is non-fasting. .The LP-IR score is a laboratory developed i jes that has beenassociated with insulin resistance and diabetes risk and should beused as one component of a physician's clinical assessment. TheLP-IR score listed above has not been cleared by the [place] Food andDrug Administration. LDL Size 21.2 nm (Normal) Comments: INTERPRETATIVE INFORMATION PARTICLE CONCENTRATION AND SIZE <--Lower CVD Risk Highe r CVD Risk--> LDL AND HDL PARTICLES Percentile in Reference Population HDL-P (total) High 75th 50th 25th Low >34.9 34.9 30.5 26.7 <26.7 . Small LDL-P Low 25th 50th 75th High <117 117 527 839 >839 . LDL Size <-Large (Pattern A)-> <-Small (Pattern B)-> 23.0 20.6 20.5 19.0 Small LDL-P and LDL Size are associated with CVD risk, but not afterLDL-P is taken into account. .These assays were developed and their performance characteristicsdetermined by [employer]. These assays have not been cleared by [place] Food and Drug Administration. The clinical utility of theselaboratory values have not been fully established. Small LDL-P 428 nmol/L (Normal) HDL-P (Total) 39.5 umol/L (Normal) Cholesterol, Total 175 mg/dL (Normal) Range: 100-199 Triglycerides 142 mg/dL (Normal) Range: 0-149 HDL-C 59 mg/dL (Normal) LDL-C 88 mg/dL (Normal) Range: 0-99 Comments: . Optimal < 100 Above optimal 100 - 129 Borderline 1 30 - 159 High 160 - 189 Very high > 189 .LDL-C is inaccurate if patient is non-fasting. LDL-P 1124 nmol/L (Abnormal) Comments: Low < 1000 Moderate 1000 - 1299 Borderline-High 1300 - 1599 High 1600 - 2000 Very High > 2000 5-Gyt-059213:56 TSH ([id number]) Comments: 6 weeks; PATIENT NOT FASTINGPERFORMED BY: [facility]6370 [facility] [id number] TSH 3.990 {uIU/mL} (Normal) Range: 0.450-4.500 :03 TSH (49653) Comments: PATIENT NOT FASTINGPERFORMED BY: [facility]6370 [facility] [id number] TSH 0.006 {uIU/mL} (Abnormal) Range: 0.450-4.500 :03 T4, FREE (THYROXINE) (67243) Comments: PATIENT NOT FASTINGPERFORMED BY: [facility]6370 [facility] [id number] T4,Free(Direct) 1.81 ng/dL (Abnormal) Range: 0.82-1.77 :03 T3, FREE (TRIDOTHYRONINE) (56715) Comments: PATIENT NOT FASTINGPERFORMED BY: [facility]6370 [facility] [id number] Triiodothyronine,Free,Serum 3.4 pg/mL (Normal) Range: 2.0-4.4 4-Fqv-293136:58 TSH (98192) Comments: PATIENT NOT FASTINGPERFORMED BY: LabBarton County [facility] HospitalFccakx4725 [facility]in [place] [id number] TSH <0.006 {uIU/mL} (Abnormal) Range: 0.450-4.500 :29 LIPOPROTEIN, BLD, BY NMR Comments: PATIENT WAS FASTINGPERFORMED BY: [address] [id number] BY: [facility]6370 [facility]in [place] [id number]; non-emergent till apt (57094) LP-IR Score 66 (Abnormal) Comments: INSULIN RESISTANCE MARKER <--Insulin Sensitive Insulin Resistant--> Percentile in Reference PopulationInsulin Resistance ScoreLP-IR Score Low 25th 50th 75th High <27 27 45 63 >63LP-IR Score is inaccurate if patient is non-fasting. .The LP-IR score is a laboratory developed i jes that has beenassociated with insulin resistance and diabetes risk and should beused as one component of a physician's clinical assessment. TheLP-IR score listed above has not been cleared by the US Food andDrug Administration. LDL Size 20.8 nm (Normal) Comments: INTERPRETATIVE INFORMATION PARTICLE CONCENTRATION AND SIZE <--Lower CVD Risk Highe r CVD Risk--> LDL AND HDL PARTICLES Percentile in Reference Population HDL-P (total) High 75th 50th 25th Low >34.9 34.9 30.5 26.7 <26.7 . Small LDL-P Low 25th 50th 75th High <117 117 527 839 >839 . LDL Size <-Large (Pattern A)-> <-Small (Pattern B)-> 23.0 20.6 20.5 19.0 Small LDL-P and LDL Size are associated with CVD risk, but not afterLDL-P is taken into account. .These assays were developed and their performance characteristicsdetermined by [employer]. These assays have not been cleared by [place] Food and Drug Administration. The clinical utility of theselaboratory values have not been fully established. Small LDL-P 413 nmol/L (Normal) HDL-P (Total) 35.9 umol/L (Normal) Cholesterol, Total 145 mg/dL (Normal) Range: 100-199 Triglycerides 124 mg/dL (Normal) Range: 0-149 HDL-C 50 mg/dL (Normal) LDL-C 70 mg/dL (Normal) Range: 0-99 Comments: . Optimal < 100 Above optimal 100 - 129 Borderline 1 30 - 159 High 160 - 189 Very high > 189 .LDL-C is inaccurate if patient is non-fasting. LDL-P 879 nmol/L (Normal) Comments: Low < 1000 Moderate 1000 - 1299 Borderline-High 1300 - 1599 High 1600 - 2000 Very High > 2000 :29 CBC W/AUTO DIFF WBC Comments: PATIENT WAS FASTINGPERFORMED BY: BN [facility] Kziiuokbov6241 [facility] [id number] BY: CB [facility] Psbwtf3852 [facility] [id number] ([id number]) Immature Grans (Abs) 0.0 {x10E3/uL} (Normal) Range: 0.0-0.1 Immature Granulocytes 0 % (Normal) Baso (Absolute) 0.0 {x10E3/uL} (Normal) Range: 0.0-0.2 Eos (Absolute) 0.1 {x10E3/uL} (Normal) Range: 0.0-0.4 Monocytes(Absolute) 0.5 {x10E3/uL} (Normal) Range: 0.1-0.9 Lymphs (Absolute) 1.6 {x10E3/uL} (Normal) Range: 0.7-3.1 Neutrophils (Absolute) 2.9 {x10E3/uL} (Normal) Range: 1.4-7.0 Basos 0 % (Normal) Eos 1 % (Normal) Monocytes 10 % (Normal) Lymphs 32 % (Normal) Neutrophils 57 % (Normal) Platelets 219 {x10E3/uL} (Normal) Range: 150-379 RDW 13.8 % (Normal) Range: 12.3-15.4 MCHC 32.1 g/dL (Normal) Range: 31.5-35.7 MCH 26.5 pg (Abnormal) Range: 26.6-33.0 MCV 83 fL (Normal) Range: 79-97 Hematocrit 35.8 % (Normal) Range: 34.0-46.6 Hemoglobin 11.5 g/dL (Normal) Range: 11.1-15.9 RBC 4.34 {x10E6/uL} (Normal) Range: 3.77-5.28 WBC 5.1 {x10E3/uL} (Normal) Range: 3.4-10.8 :29 METABOLIC PANEL, Comments: PATIENT WAS FASTINGPERFORMED BY: LabStephanie Ville 8[address]497 [facility] [id number] BY: [facility]Prom[facility]6370 [facility] [id number] COMPREHENSIVE ([id number]) ALT (SGPT) 17 [iU]/L (Normal) Range: 0-32 AST (SGOT) 16 [iU]/L (Normal) Range: 0-40 Alkaline Phosphatase, S 74 [iU]/L (Normal) Range: 39-117 Bilirubin, Total 0.6 mg/dL (Normal) Range: 0.0-1.2 A/G Ratio 1.7 (Normal) Range: 1.2-2.2 Globulin, Total 2.4 g/dL (Normal) Range: 1.5-4.5 Albumin, Serum 4.1 g/dL (Normal) Range: 3.5-4.8 Protein, Total, Serum 6.5 g/dL (Normal) Range: 6.0-8.5 Calcium, Serum 9.3 mg/dL (Normal) Range: 8.7-10.3 Carbon Dioxide, Total 22 mmol/L (Normal) Range: 18-29 Chloride, Serum 102 mmol/L (Normal) Range: 96-106 Potassium, Serum 4.2 mmol/L (Normal) Range: 3.5-5.2 Sodium, Serum 141 mmol/L (Normal) Range: 134-144 BUN/Creatinine Ratio 21 (Normal) Range: 12-28 eGFR If Africn Am 75 mL/min/1.73 (Normal) eGFR If NonAfricn Am 65 mL/min/1.73 (Normal) Creatinine, Serum 0.90 mg/dL (Normal) Range: 0.57-1.00 BUN 19 mg/dL (Normal) Range: 8-27 Glucose, Serum 94 mg/dL (Normal) Range: 65-99 :30 T3, FREE (TRIDOTHYRONINE) (28010) Comments: PATIENT NOT FASTINGPERFORMED BY: [facility]6370 [facility] [id number] Triiodothyronine,Free,Serum 3.8 pg/mL (Normal) Range: 2.0-4.4 :30 T4, FREE (THYROXINE) (71169) Comments: PATIENT NOT FASTINGPERFORMED BY: [place] 2178270 [facility] [id number] T4,Free(Direct) 1.97 ng/dL (Abnormal) Range: 0.82-1.77 :30 TSH (80630) Comments: PATIENT NOT FASTINGPERFORMED BY: [address] [id number] TSH 0.062 {uIU/mL} (Abnormal) Range: 0.450-4.500 7-Edw-385123:21 Urinalysis, Office (62860) UA - LEUKOCYTE ESTERASE Negative (Normal) UA - NITRITE Negative (Normal) URINE UROBILINGN SHANNON TIMED Normal mg/dL (Normal) UA - PROTEIN Negative mg/dL (Normal) UA - PH 7 (Normal) UA - BLOOD Non Hemolyzed Moderate (Normal) UA - SPECIFIC GRAVITY 1.015 (Normal) UA - KETONES Negative mg/dL (Normal) UA - BILIRUBIN Negative (Normal) UA - GLUCOSE Negative (Normal) 0-Rpy-326679:29 Anti-TPO Antibody (38372) Comments: PATIENT NOT FASTINGPERFORMED BY: [facility] [place] [address] [id number] Thyroid Peroxidase (TPO) Ab 79 {IU/mL} (Abnormal) Range: 0-34 2-Fty-540255:29 TSH (01077) Comments: PATIENT NOT FASTINGPERFORMED BY: [address] [id number] TSH 4.520 {uIU/mL} (Abnormal) Range: 0.450-4.500 6-Gsu-087600:29 T4, FREE (THYROXINE) (41549) Comments: PATIENT NOT FASTINGPERFORMED BY: [address] [id number] T4,Free(Direct) 1.07 ng/dL (Normal) Range: 0.82-1.77 0-Zdx-168687:29 T3, FREE (TRIDOTHYRONINE) (44627) Comments: PATIENT NOT FASTINGPERFORMED BY: [address] RoadDublin [place] [id number] Triiodothyronine,Free,Serum 2.6 pg/mL (Normal) Range: 2.0-4.4 :43 Vitamin D Hydroxy (41587) Comments: PATIENT WAS FASTINGPERFORMED BY: [facility]6370 [facility] [id number] Vitamin D, 25-Hydroxy 49.9 ng/mL (Normal) Range: 30.0-100.0 Comments: Vitamin D deficiency has been defined by the [place] ofMedicine and an Endocrine Society practice guideline as alevel of serum 25-OH vitamin D less than 20 ng/mL (1,2).The Endocrine Society went on to further define vitamin Dinsufficiency as a level between 21 and 29 ng/mL (2).1. IOM ([place] of Medicine). 2010. Dietary reference intakes for calcium and D. [place]: The National Academies Press.2. Baljinder MF, [place] ROSE, Tere HOLLOWAY, et al. Evaluation, treatment, and prevention of vitamin D deficiency: an Endocrine Society clinical practice guideline. JCEM. 2010; 96(7):1911-30. :43 LIPID PANEL (98571) Comments: PATIENT WAS FASTINGPERFORMED BY: [facility]6370 [facility] [id number]; non-emergent till apt LDL/HDL Ratio 2.3 {ratio_units} (Normal) Range: 0.0-3.2 Comments: LDL/HDL Ratio Men Women 1/2 Avg.Risk 1.0 1.5 Av g.Risk 3.6 3.2 2X Avg.Risk 6.2 5.0 3X Avg.Risk 8.0 6.1 LDL Cholesterol Calc 135 mg/dL (Abnormal) Range: 0-99 VLDL Cholesterol Grant 27 mg/dL (Normal) Range: 5-40 HDL Cholesterol 58 mg/dL (Normal) Comments: According to ATP-III Guidelines, HDL-C >59 mg/dL is considered anegative risk factor for CHD. Triglycerides 136 mg/dL (Normal) Range: 0-149 Cholesterol, Total 220 mg/dL (Abnormal) Range: 100-199 :43 METABOLIC PANEL, Comments: PATIENT WAS FASTINGPERFORMED BY: LabCoHampton Behavioral Health CenterYorcre4421 [facility] [id number] Information: [id number] [facility] (69169) ALT (SGPT) 21 [iU]/L (Normal) Range: 0-32 AST (SGOT) 21 [iU]/L (Normal) Range: 0-40 Alkaline Phosphatase, S 78 [iU]/L (Normal) Range: 39-117 Bilirubin, Total 0.6 mg/dL (Normal) Range: 0.0-1.2 A/G Ratio 1.7 (Normal) Range: 1.1-2.5 Globulin, Total 2.6 g/dL (Normal) Range: 1.5-4.5 Albumin, Serum 4.3 g/dL (Normal) Range: 3.6-4.8 Protein, Total, Serum 6.9 g/dL (Normal) Range: 6.0-8.5 Calcium, Serum 9.3 mg/dL (Normal) Range: 8.7-10.3 Carbon Dioxide, Total 25 mmol/L (Normal) Range: 18-29 Chloride, Serum 102 mmol/L (Normal) Range: 97-108 Potassium, Serum 4.3 mmol/L (Normal) Range: 3.5-5.2 Sodium, Serum 141 mmol/L (Normal) Range: 134-144 BUN/Creatinine Ratio 16 (Normal) Range: 11-26 eGFR If Africn Am 71 mL/min/1.73 (Normal) eGFR If NonAfricn Am 61 mL/min/1.73 (Normal) Creatinine, Serum 0.95 mg/dL (Normal) Range: 0.57-1.00 BUN 15 mg/dL (Normal) Range: 8-27 Glucose, Serum 96 mg/dL (Normal) Range: 65-99 :43 CBC (AUTO) (49478) Comments: PATIENT WAS FASTINGPERFORMED BY: LabPreventiceHampton Behavioral Health CenterTewlyd3952 [facility] [id number] Platelets 238 {x10E3/uL} Range: 150-379 (Normal) RDW 14.1 % (Normal) Range: 12.3-15.4 MCHC 33.8 g/dL (Normal) Range: 31.5-35.7 MCH 27.0 pg (Normal) Range: 26.6-33.0 MCV 80 fL (Normal) Range: 79-97 Hematocrit 37.3 % (Normal) Range: 34.0-46.6 Hemoglobin 12.6 g/dL (Normal) Range: 11.1-15.9 RBC 4.66 {x10E6/uL} Range: 3.77-5.28 (Normal) WBC 4.7 {x10E3/uL} Range: 3.4-10.8 (Normal) :0 COLON BIOPSY (CHOOSE See Note (Normal) Comments: [facility] Nnxkgihhvb[address] [place], [place], [address] 0 SITE) Comments: Patient: AUDREY STREETER : 1945 (69/F) Acct Num: [id number] Phys: Wolf Clark Unit Num: [id number] Loc: LABSPEC Specimen: [id number] Received: 05/22/151655 Spec Type: COLON BX TISSUES TISSUES: GROSS DESCRIPTION Received is one container labeled with the patient name and designated biopsy polyp cecum. The specimen consists of multiple irregular f ragments of light menezes soft tissue that in aggregate measure 0.5 x 0.2 x 0.1 cm. The specimen is totally submitted in one cassette. / DANILO:janet 05/23/15 TC:1 CPT: 66521 HEADER OPERATION: [place] py with biopsy PRE-OP DIAGNOSIS: Screening/polyp TISSUE SUBMITTED: Biopsy polyps cecum - rule out adenoma MICROSCOPIC DESCRIPTION Slides are reviewed. MICROSCOPIC DIAGNOSIS Polyps cecum, biopsy: Fragments of hyperplastic polyp. SJ:janet 05/26/15 Signed Piter Hauser 05/26/15 <signature on file> 3-Nyk-147112:39 Metabolic Panel, Basic Comments: PATIENT NOT FASTINGPERFORMED BY: [facility] Psphvv4444 [facility] [id number] Information: [id number] ([id number]) Calcium, Serum 9.2 mg/dL (Normal) Range: 8.7-10.3 Carbon Dioxide, Total 25 mmol/L (Normal) Range: 18-29 Chloride, Serum 100 mmol/L (Normal) Range: 97-108 Potassium, Serum 4.0 mmol/L (Normal) Range: 3.5-5.2 Sodium, Serum 140 mmol/L (Normal) Range: 134-144 BUN/Creatinine Ratio 18 (Normal) Range: 11-26 eGFR If Africn Am 65 mL/min/1.73 (Normal) eGFR If NonAfricn Am 56 mL/min/1.73 (Abnormal) Creatinine, Serum 1.02 mg/dL (Abnormal) Range: 0.57-1.00 BUN 18 mg/dL (Normal) Range: 8-27 Glucose, Serum 121 mg/dL (Abnormal) Range: 65-99 93-Wms-77695:29 CBC W/AUTO DIFF WBC Comments: PATIENT WAS FASTINGPERFORMED BY: LabCoHampton Behavioral Health CenterXghmuk0426 [facility] [id number] Information: [id number] (04522) Immature Grans (Abs) 0.0 {x10E3/uL} (Normal) Range: 0.0-0.1 Immature Granulocytes 0 % (Normal) Baso (Absolute) 0.0 {x10E3/uL} (Normal) Range: 0.0-0.2 Eos (Absolute) 0.2 {x10E3/uL} (Normal) Range: 0.0-0.4 Monocytes(Absolute) 0.4 {x10E3/uL} (Normal) Range: 0.1-0.9 Lymphs (Absolute) 1.6 {x10E3/uL} (Normal) Range: 0.7-3.1 Neutrophils (Absolute) 3.8 {x10E3/uL} (Normal) Range: 1.4-7.0 Basos 1 % (Normal) Eos 3 % (Normal) Monocytes 7 % (Normal) Lymphs 26 % (Normal) Neutrophils 63 % (Normal) Platelets 232 {x10E3/uL} (Normal) Range: 150-379 RDW 14.0 % (Normal) Range: 12.3-15.4 MCHC 34.1 g/dL (Normal) Range: 31.5-35.7 MCH 27.9 pg (Normal) Range: 26.6-33.0 MCV 82 fL (Normal) Range: 79-97 Hematocrit 37.8 % (Normal) Range: 34.0-46.6 Hemoglobin 12.9 g/dL (Normal) Range: 11.1-15.9 RBC 4.63 {x10E6/uL} (Normal) Range: 3.77-5.28 WBC 6.0 {x10E3/uL} (Normal) Range: 3.4-10.8 :29 METABOLIC PANEL, COMPREHENSIVE Comments: PATIENT WAS FASTINGPERFORMED BY: LabCo Kkwnpy2161 [facility] [id number] ([id number]) ALT (SGPT) 21 [iU]/L (Normal) Range: 0-32 AST (SGOT) 17 [iU]/L (Normal) Range: 0-40 Alkaline Phosphatase, S 87 [iU]/L (Normal) Range: 39-117 Bilirubin, Total 0.5 mg/dL (Normal) Range: 0.0-1.2 A/G Ratio 1.8 (Normal) Range: 1.1-2.5 Globulin, Total 2.5 g/dL (Normal) Range: 1.5-4.5 Albumin, Serum 4.4 g/dL (Normal) Range: 3.6-4.8 Protein, Total, Serum 6.9 g/dL (Normal) Range: 6.0-8.5 Calcium, Serum 9.1 mg/dL (Normal) Range: 8.7-10.3 Carbon Dioxide, Total 23 mmol/L (Normal) Range: 18-29 Chloride, Serum 101 mmol/L (Normal) Range: 97-108 Potassium, Serum 4.3 mmol/L (Normal) Range: 3.5-5.2 Sodium, Serum 141 mmol/L (Normal) Range: 134-144 BUN/Creatinine Ratio 17 (Normal) Range: 11-26 eGFR If Africn Am 68 mL/min/1.73 (Normal) eGFR If NonAfricn Am 59 mL/min/1.73 (Abnormal) Creatinine, Serum 0.98 mg/dL (Normal) Range: 0.57-1.00 BUN 17 mg/dL (Normal) Range: 8-27 Glucose, Serum 96 mg/dL (Normal) Range: 65-99 Comments: Specimen received in contact with cells. No visible hemolysispresent. However GLUC may be decreased and K increased. Clinicalcorrelation indicated. :29 LIPID PANEL (75400) Comments: PATIENT WAS FASTINGPERFORMED BY: Gloople Fjjojo0354 [facility] [id number]; apt. 04-22-15 LDL/HDL Ratio 2.5 {ratio_units} (Normal) Range: 0.0-3.2 Comments: LDL/HDL Ratio Men Women 1/2 Avg.Risk 1.0 1.5 Av g.Risk 3.6 3.2 2X Avg.Risk 6.2 5.0 3X Avg.Risk 8.0 6.1 LDL Cholesterol Calc 136 mg/dL (Abnormal) Range: 0-99 VLDL Cholesterol Grant 34 mg/dL (Normal) Range: 5-40 HDL Cholesterol 55 mg/dL (Normal) Comments: According to ATP-III Guidelines, HDL-C >59 mg/dL is considered anegative risk factor for CHD. Triglycerides 170 mg/dL (Abnormal) Range: 0-149 Cholesterol, Total 225 mg/dL (Abnormal) Range: 100-199 :29 Vitamin D Hydroxy (73231) Comments: PATIENT WAS FASTINGPERFORMED BY: Gloople Iuaedb7045 [facility] [id number] Vitamin D, 25-Hydroxy 32.1 ng/mL (Normal) Range: 30.0-100.0 Comments: Vitamin D deficiency has been defined by the [place] of[place]icine and an Endocrine Society practice guideline as alevel of serum 25-OH vitamin D less than 20 ng/mL (1,2).The Endocrine Society went on to further define vitamin Dinsufficiency as a level between 21 and 29 ng/mL (2).1. IOM ([place] of Medicine). 2010. Dietary reference intakes for calcium and D. [place]: The National Academies Press.2. Baljinder MF, [place]cy ROSE, Tere HOLLOWAY, et al. Evaluation, treatment, and prevention of vitamin D deficiency: an Endocrine Society clinical practice guideline. JCEM. 2010; 96(7):1911-30. 67-Lna-269804:43 Microscopic Examination Comments: PATIENT WAS FASTINGPERFORMED BY: Gloople Etraah0658 [facility] [id number] Bacteria Few (Normal) Mucus Threads Present (Normal) Cast Type Hyaline casts (Normal) Casts Present {/lpf} (Abnormal) Epithelial Cells (non renal) 0-10 {/hpf} (Normal) Range: 0 - 10 RBC 11-30 {/hpf} (Abnormal) Range: 0 - 2 WBC 0-5 {/hpf} (Normal) Range: 0 - 5 40-Ecy-054720:43 CBC WITH MANUAL DIFF Comments: PATIENT WAS FASTINGPERFORMED BY: DIANE [facility] Iwsznr0038 [facility] [id number] Information: [id number] (55611) Immature Grans (Abs) 0.0 {x10E3/uL} (Normal) Range: 0.0-0.1 Immature Granulocytes 0 % (Normal) Baso (Absolute) 0.0 {x10E3/uL} (Normal) Range: 0.0-0.2 Eos (Absolute) 0.3 {x10E3/uL} (Normal) Range: 0.0-0.4 Monocytes(Absolute) 0.5 {x10E3/uL} (Normal) Range: 0.1-0.9 Lymphs (Absolute) 1.3 {x10E3/uL} (Normal) Range: 0.7-3.1 Neutrophils (Absolute) 4.8 {x10E3/uL} (Normal) Range: 1.4-7.0 Basos 0 % (Normal) Eos 4 % (Normal) Monocytes 7 % (Normal) Lymphs 19 % (Normal) Neutrophils 70 % (Normal) Platelets 250 {x10E3/uL} (Normal) Range: 150-379 RDW 13.7 % (Normal) Range: 12.3-15.4 MCHC 33.2 g/dL (Normal) Range: 31.5-35.7 MCH 26.8 pg (Normal) Range: 26.6-33.0 MCV 81 fL (Normal) Range: 79-97 Hematocrit 39.4 % (Normal) Range: 34.0-46.6 Hemoglobin 13.1 g/dL (Normal) Range: 11.1-15.9 RBC 4.88 {x10E6/uL} (Normal) Range: 3.77-5.28 WBC 6.9 {x10E3/uL} (Normal) Range: 3.4-10.8 :43 METABOLIC PANEL, COMPREHENSIVE Comments: PATIENT WAS FASTINGPERFORMED BY: Gloople [id number] [facility] [id number] ([id number]) ALT (SGPT) 24 [iU]/L (Normal) Range: 0-32 AST (SGOT) 28 [iU]/L (Normal) Range: 0-40 Alkaline Phosphatase, S 89 [iU]/L (Normal) Range: 39-117 Bilirubin, Total 0.5 mg/dL (Normal) Range: 0.0-1.2 A/G Ratio 1.6 (Normal) Range: 1.1-2.5 Globulin, Total 2.8 g/dL (Normal) Range: 1.5-4.5 Albumin, Serum 4.6 g/dL (Normal) Range: 3.6-4.8 Protein, Total, Serum 7.4 g/dL (Normal) Range: 6.0-8.5 Calcium, Serum 9.4 mg/dL (Normal) Range: 8.6-10.2 Carbon Dioxide, Total 25 mmol/L (Normal) Range: 18-29 Chloride, Serum 99 mmol/L (Normal) Range: 97-108 Potassium, Serum 4.7 mmol/L (Normal) Range: 3.5-5.2 Sodium, Serum 140 mmol/L (Normal) Range: 134-144 BUN/Creatinine Ratio 14 (Normal) Range: 11-26 eGFR If Africn Am 70 mL/min/1.73 (Normal) eGFR If NonAfricn Am 61 mL/min/1.73 (Normal) Creatinine, Serum 0.96 mg/dL (Normal) Range: 0.57-1.00 BUN 13 mg/dL (Normal) Range: 8-27 Glucose, Serum 90 mg/dL (Normal) Range: 65-99 :43 URINALYSIS, W/ MICRO (78580) Comments: PATIENT WAS FASTINGPERFORMED BY: [facility] CenterJffanq1539 [facility] [id number] Microscopic Examination See below: (Normal) Comments: Microscopic was indicated and was performed. Nitrite, Urine Negative (Normal) Urobilinogen,Semi-Qn 0.2 mg/dL (Normal) Range: 0.0-1.9 Bilirubin Negative (Normal) Occult Blood 3+ (Abnormal) Ketones Negative (Normal) Glucose Negative (Normal) Protein Negative (Normal) WBC Esterase Negative (Normal) Appearance Clear (Normal) Urine-Color Yellow (Normal) pH 6.0 (Normal) Range: 5.0-7.5 Specific [place] 1.020 (Normal) Range: 1.005-1.030 22-Mop-104126:43 LIPID PANEL (56732) Comments: PATIENT WAS FASTINGPERFORMED BY: [facility] CenterSdocty6046 [facility] [id number]; non-emergent till apt next week. LDL/HDL Ratio 2.8 {ratio_units} (Normal) Range: 0.0-3.2 Comments: LDL/HDL Ratio Men Women 1/2 Avg.Risk 1.0 1.5 Av g.Risk 3.6 3.2 2X Avg.Risk 6.2 5.0 3X Avg.Risk 8.0 6.1 LDL Cholesterol Calc 151 mg/dL (Abnormal) Range: 0-99 VLDL Cholesterol Grant 35 mg/dL (Normal) Range: 5-40 HDL Cholesterol 54 mg/dL (Normal) Comments: According to ATP-III Guidelines, HDL-C >59 mg/dL is considered anegative risk factor for CHD. Triglycerides 175 mg/dL (Abnormal) Range: 0-149 Cholesterol, Total 240 mg/dL (Abnormal) Range: 100-199 34-Smd-540611:43 Vitamin D Hydroxy (71318) Comments: PATIENT WAS FASTINGPERFORMED BY: [id number] [facility] [id number] Vitamin D, 25-Hydroxy 35.8 ng/mL (Normal) Range: 30.0-100.0 Comments: Vitamin D deficiency has been defined by the [place] of[place] and an Endocrine Society practice guideline as alevel of serum 25-OH vitamin D less than 20 ng/mL (1,2).The Endocrine Society went on to further define vitamin Dinsufficiency as a level between 21 and 29 ng/mL (2).1. IOM ([place] of [employer]). 2010. Dietary reference intakes for calcium and D. [place]: The National Academies Press.2. Baljinder MILES, [place] ROSE, Tere HOLLOWAY, et al. Evaluation, treatment, and prevention of vitamin D deficiency: an Endocrine Society clinical practice guideline. JCEM. 2010; 96(7):1911-30. :28 METABOLIC PANEL, Comments: PATIENT WAS FASTINGPERFORMED BY: [email or web address] [facility] [id number] Information: [id number] COMPREHENSIVE (38264) ALT (SGPT) 21 [iU]/L (Normal) Range: 0-32 AST (SGOT) 20 [iU]/L (Normal) Range: 0-40 Alkaline Phosphatase, S 86 [iU]/L (Normal) Range: 39-117 Bilirubin, Total 0.4 mg/dL (Normal) Range: 0.0-1.2 A/G Ratio 1.9 (Normal) Range: 1.1-2.5 Globulin, Total 2.4 g/dL (Normal) Range: 1.5-4.5 Albumin, Serum 4.5 g/dL (Normal) Range: 3.6-4.8 Protein, Total, Serum 6.9 g/dL (Normal) Range: 6.0-8.5 Calcium, Serum 9.2 mg/dL (Normal) Range: 8.6-10.2 Carbon Dioxide, Total 25 mmol/L (Normal) Range: 18-29 Comments: Please note reference interval change Chloride, Serum 102 mmol/L (Normal) Range: 97-108 Potassium, Serum 4.4 mmol/L (Normal) Range: 3.5-5.2 Sodium, Serum 142 mmol/L (Normal) Range: 134-144 BUN/Creatinine Ratio 20 (Normal) Range: 11-26 eGFR If Africn Am 77 mL/min/1.73 (Normal) eGFR If NonAfricn Am 67 mL/min/1.73 (Normal) Creatinine, Serum 0.89 mg/dL (Normal) Range: 0.57-1.00 BUN 18 mg/dL (Normal) Range: 8-27 Glucose, Serum 88 mg/dL (Normal) Range: 65-99 :28 Vitamin D Hydroxy (61491) Comments: PATIENT WAS FASTINGPERFORMED BY: [email or web address] [facility] [id number] Vitamin D, 25-Hydroxy 25.8 ng/mL (Abnormal) Range: 30.0-100.0 Comments: Vitamin D deficiency has been defined by the [place] of[place] and an Endocrine Society practice guideline as alevel of serum 25-OH vitamin D less than 20 ng/mL (1,2).The Endocrine Society went on to further define vitamin Dinsufficiency as a level between 21 and 29 ng/mL (2).1. IOM ([place] of [place]). 2010. Dietary reference intakes for calcium and D. [place]: The National AcademLeti Arts Press.2. Baljinder MF, [place] ROSE, Tere HOLLOWAY, et al. Evaluation, treatment, and prevention of vitamin D deficiency: an Endocrine Society clinical practice guideline. JCEM. 2010; 96(7): 1911-30.; ADDENDA: apt next week to review- non emergent till then 54-Rtn-28341:28 LIPID PANEL (69303) Comments: PATIENT WAS FASTINGPERFORMED BY: [facility]Co[facility] CenterUnsizh5589 [facility] [id number] LDL/HDL Ratio 2.4 {ratio_units} (Normal) Range: 0.0-3.2 LDL Cholesterol Calc 135 mg/dL (Abnormal) Range: 0-99 VLDL Cholesterol Grant 34 mg/dL (Normal) Range: 5-40 HDL Cholesterol 56 mg/dL (Normal) Comments: According to ATP-III Guidelines, HDL-C >59 mg/dL is considered anegative risk factor for CHD. Triglycerides 169 mg/dL (Abnormal) Range: 0-149 Cholesterol, Total 225 mg/dL (Abnormal) Range: 100-199 5-Xjy-652653:21 BREAST UNILATERAL Radiology Report See Note Comments: STUDY: ULTRASOUND BREAST(S) - RIGHT REASON FOR EXAM: Female, 67 years old. Abnormal screening mammogram. TECHNIQUE: Axial and longitudinal images of the RIGHT breast wereperformed with a high res (Normal) olution ultrasound transducer. COMPARISON: Comparison is made with prior mammogram dated March. FINDINGS: RIGHT BREAST:The inferior half of the right breast was examined. There is a 3 mm x 4mmx 4 mm septated cyst at the 6:00 position of the breast in theretroareolarposition. This corresponds to the mammographic findings. _ IMPRESSION:3 mm x 4 mm x 4 mm cyst in the retroareolar region of the right breast . ASSESSMENT CATEGORY:BIRADS Category 2: Benign finding(s). Signed:Luke jaramillo M.D.April 04, 2013 at 2:57:58 PM [id number] Signed GP/GP If you are the referring physician and would like to consult with theradiologist who provided this interpretation, ple ase contact Marcia Vang at [phone]. If this radiologist is unavailable, youwill be directed to another radiologist to assist. If you are a patient with a question regarding this report, pleasecontactyour referring physician directly. Professional Interpretation Provided By: [employer], Phone , These documents contain legally protected and confidential he althinformation intended only for the use of the individual or entity namedabove. If you are not the intended recipient, you are hereby notifiedthatany disclosure, copying, distribution, or other use of these documents isstrictly prohibited. If you have received this information in error,pleasenotify the sender immediately and arrange for the return or destructionofthese documents. Dictated on 11/11 1457 by Kinga Leonard MDscribed on 04/04/13 1500 by ITS IMPORTSign by Luke Leonard MD on 04/04/13 1501 Sign by: Luke Leonard MD 14-Tvv-[id number]:24 BILAT SCRN DIGITAL & CAD Radiology See Note Comments: MAMMOGRAPHY - BILATERAL SCREENING REASON FOR EXAM: Female, 67 years old. Routine annual screeningexamination. PERTINENT HISTORY: History of right breast biopsy TECHNIQUE: Digital examination. Me Report (Normal) diolateral oblique (MLO) andcraniocaudad (CC) views of both breasts were obtained. CAD: CAD wasperformed on this study. COMPARISON: 02/03/12 FINDINGS:The breast compos ition is composed of scattered fibroglandular tissuesranging from 25% to 50% of the breast. No suspicious clustered pleomorphic microcalcifications lower abnormalskinthickening are seen. There is a 4.6 mm nodule in the lower subareolarright breast. On the previous study this measured 4 mm. This needsfurther evaluation with ultrasound. No other significant abnormalities are identified. IMPRESSION:Tiny nodule in the right breast increasing in size. Needs furtherevaluation. ASSESSMENT CATEGORY:BIRADS Category 0: Incomplete. Nee d additional imaging evaluation. Aletter regarding these results will be sent to the patient by the[facility]within [facility]. Approximately 10% of breast cancers are not detected by mammography. Anormal mammogram should not delay biopsy of a clinically suspiciousabnormality. Signed:Herber Mullins M.D.March 30, 2013 at 6:55:25 PM [id number] Signed RU/RU If you are the referring felicia lozano and would like to consult with theradiologist who provided this interpretation, please contact Marcia Ruelas at [phone]. If this radiologist is unavailable, youwillbe directed to anot her radiologist to assist. If you are a patient with a question regarding this report, pleasecontactyour referring physician directly. Professional Interpretation Provided By: [employer], Phone , These documents contain legally protected and confidential healthinformation intended only for the use of the individual or entity namedabove. If you are not the intended recipi ent, you are hereby notifiedthatany disclosure, copying, distribution, or other use of these documents isstrictly prohibited. If you have received this information in error,pleasenotify the sender immed iately and arrange for the return or destructionofthese documents. Dictated on 03/30/131854 by Herber MullinsTranscribed on 03/30/131899 by ITS IMPORTSign by Herber Mullins on 03/30/131900 S ign by: Herber Mullins 28-Fzj-38874:21 METABOLIC PANEL, Comments: PATIENT WAS FASTINGPERFORMED BY: [facility] CenterTvtths7797 [facility] [id number] Information: [id number] COMPREHENSIVE (62375) ALT (SGPT) 27 [iU]/L (Normal) Range: 0-32 AST (SGOT) 26 [iU]/L (Normal) Range: 0-40 Alkaline Phosphatase, S 83 [iU]/L (Normal) Range: 47-112 Bilirubin, Total 0.5 mg/dL (Normal) Range: 0.0-1.2 A/G Ratio 1.6 (Normal) Range: 1.1-2.5 Globulin, Total 2.7 g/dL (Normal) Range: 1.5-4.5 Albumin, Serum 4.4 g/dL (Normal) Range: 3.6-4.8 Protein, Total, Serum 7.1 g/dL (Normal) Range: 6.0-8.5 Calcium, Serum 9.4 mg/dL (Normal) Range: 8.6-10.2 Carbon Dioxide, Total 24 mmol/L (Normal) Range: 19-28 Chloride, Serum 103 mmol/L (Normal) Range: 97-108 Potassium, Serum 4.2 mmol/L (Normal) Range: 3.5-5.2 Sodium, Serum 141 mmol/L (Normal) Range: 134-144 BUN/Creatinine Ratio 24 (Normal) Range: 11-26 eGFR If Africn Am 78 mL/min/1.73 (Normal) eGFR If NonAfricn Am 67 mL/min/1.73 (Normal) Creatinine, Serum 0.89 mg/dL (Normal) Range: 0.57-1.00 BUN 21 mg/dL (Normal) Range: 8-27 Glucose, Serum 92 mg/dL (Normal) Range: 65-99 :21 LIPID PANEL (83486) Comments: PATIENT WAS FASTINGPERFORMED BY: [employer]6370 [facility] [id number] LDL/HDL Ratio 2.7 {ratio_units} (Normal) Range: 0.0-3.2 LDL Cholesterol Calc 145 mg/dL (Abnormal) Range: 0-99 HDL Cholesterol 54 mg/dL (Normal) Comments: According to ATP-III Guidelines, HDL-C >59 mg/dL is considered anegative risk factor for CHD. VLDL Cholesterol Grant 27 mg/dL (Normal) Range: 5-40 Triglycerides 136 mg/dL (Normal) Range: 0-149 Cholesterol, Total 226 mg/dL (Abnormal) Range: 100-199 :21 Vitamin D Hydroxy (46418) Comments: PATIENT WAS FASTINGPERFORMED BY: [employer] [facility] Doykol8175 [facility] [id number] Vitamin D, 25-Hydroxy 36.8 ng/mL (Normal) Range: 30.0-100.0 Comments: Vitamin D deficiency has been defined by the [place] and an Endocrine Society practice guideline as alevel of serum 25-OH vitamin D less than 20 ng/mL (1,2).The Endocrine Society went on to further define vitamin Dinsufficiency as a level between 21 and 29 ng/mL (2).1. IOM ([place] of [place]). 2010. Dietary reference intakes for calcium and D. [place]: The National Academies Press.2. Baljinder MF, [place], Tere HOLLOWAY, et al. Evaluation, treatment, and prevention of vitamin D deficiency: an Endocrine Society clinical practice guideline. JCEM. 2010; 96(7):1911-30. :47 DEXA BONE DENSITY STUDY (HP) Radiology Report See Note (Normal) Comments: PROCEDURE: DUAL ENERGY X-RAY ABSORPTIOMETRY / DXA REASON FOR EXAM: Female, 66 years old. The patient is postmenopausal. TECHNIQUE: Bone Mineral Density (BMD) measurements of lumbar spine andbilate ral hips were obtained. COMPARISON: Comparison is made with prior study dated June 09, 2010. FINDINGS: Lumbar Spine (L1-L4): g/cm2 (1.110) / T- score (-0.6) / Z-score (1.0) Left Femur Total: g /cm2 (0.866) / T-score (-1.1) / Z-score (0.1)Left Femoral Neck: g/cm2 (0.731) / T-score (-2.2) / Z-score (-0.7)Right Femur Total: g/cm2 (0.900) / T-score (-0.9) / Z-score (0.4)Right Femora l Neck: g/cm2 (0.726) / T-score (-2.2) / Z-score (-0.7) The T-Scores on the most recent prior examination were: Lumbar Spine (L1-L4): which represents an improvement of 1.2%.Left Femur Total: which represents a worsening of 6.4%.Right Femur Total: which represents a worsening of 3.7%. IMPRESSION:The patient is considered osteopenic, as outlined above, according to[facility] Organi zation (WHO) criteria. Fracture risk is moderate. Reference Information:The T-score is the number of standard deviations above or below thestandard which is normal for young adults at their peak bone m ineraldensity. The World Health Organization (WHO) interprets the T-scores asfollows: Above -1 Normal bone densityBetween -1 and -2.5 OsteopeniaEqual to / or below -2.5 Osteoporosis As a p ractical clinical guideline, osteopenia may be graded as follows:Mild -1 through -1.5Moderate -1.6 through -2.0Severe -2.1 through -2.4 The Z-score is the number of standard deviations above or below age-matchedcontrols. A Z-score of less than -1.5 would be considered abnormal. References:1. NIH Osteoporosis and Related Bone Diseases http://www.osteo.org2. International Society for Clinical Densi tometry http://www.iscd.org3. National Osteoporosis Foundation http://www.nof.org Signed:Luke Leonard M.D.July 19, 2012 at 10:30:02 AM [id number] Signed GP/GP If you are t he referring physician and would like to consult with theradiologist who provided this interpretation, please contact Marcia Vang at [phone]. If this radiologist is unavailable, youwill be directed to another radiologist to assist. If you are a patient with a question regarding this report, pleasecontactyour referring physician directly. Professional Interpretation Provided By: Melisa garcía, Phone , These documents contain legally protected and confidential healthinformation intended only for the use of the individual or entity namedabove. If you are not the intended recipient, you are hereby notifiedthatany disclosure, copying, distribution, or other use of these documents isstrictly prohibited. If you have received this information in error,pleasenot janae the sender immediately and arrange for the return or destructionofthese documents. Dictated on 07/19/12 1000 by Marcial Leonard MDranscribed on 07/19/12 1039 by ITS IMPORTSign by Luke Leonard MD on 07/19/12 1040 Sign by: Luke Leonard MD 60-Gvn-52923:38 LIPID PANEL (30916) Comments: PATIENT WAS FASTINGPERFORMED BY: [facility] CenterChonve3803 [facility] [id number] Information: [id number] LDL/HDL Ratio 2.1 {ratio_units} (Normal) Range: 0.0-3.2 LDL Cholesterol Calc 121 mg/dL (Abnormal) Range: 0-99 VLDL Cholesterol Grant 23 mg/dL (Normal) Range: 5-40 HDL Cholesterol 57 mg/dL (Normal) Comments: According to ATP-III Guidelines, HDL-C >59 mg/dL is considered anegative risk factor for CHD. Triglycerides 114 mg/dL (Normal) Range: 0-149 Cholesterol, Total 201 mg/dL (Abnormal) Range: 100-199 :38 Vitamin D Hydroxy (73608) Comments: PATIENT WAS FASTINGPERFORMED BY: [facility] CenterQietae4603 [address] [id number] Vitamin D, 25-Hydroxy 39.3 ng/mL (Normal) Range: 30.0-100.0 Comments: Vitamin D deficiency has been defined by the [place] of[place] and an Endocrine Society practice guideline as alevel of serum 25-OH vitamin D less than 20 ng/mL (1,2).The Endocrine Society went on to further define vitamin Dinsufficiency as a level between 21 and 29 ng/mL (2).1. IOM ([place] of [place]). 2010. Dietary reference intakes for calcium and D. [place]: The National AcademLeti Arts Press.2. Baljinder MF, [place], Tere HOLLOWAY, et al. Evaluation, treatment, and prevention of vitamin D deficiency: an Endocrine Society clinical practice guideline. JCEM. 2010; 96(7):1911-30. [id number]:54 BILAT SCRN DIGITAL & CAD Radiology Report See Note (Normal) Comments: MAMMOGRAPHY - BILATERAL SCREENING REASON FOR EXAM: Female, 66 years old. Routine annual screeningexamination. PERTINENT HISTORY: Non-contributory. TECHNIQUE: Digital examination. Med iolateral ob lique (MLO) andcraniocaudad (CC) views of both breasts were obtained. CAD: CAD wasperformed on this study. COMPARISON: Comparison is made with prior studies dated January 27ndAugust 18, 2009. FIN DINGS:The breast composition is composed of scattered fibroglandular densities. There are no dominant masses or suspicious calcifications. No other significant abnormalities are identified. There has b een nosignificant change since the prior study. IMPRESSION:Stable bilateral screening mammogram. Yearly follow-up recommended. (A) ASSESSMENT CATEGORY:BIRADS Category 2: Benign finding(s). A letter regarding these resultswill be sent to the patient by the facility within 30 days. Approximately 10% of breast cancers are not detected by mammography. Anormal mammogram should not delay biopsy of a c linically suspiciousabnormality. Signed:Luke Leonard M.D.February 03, 2012 at 11:22:07 AM [id number] Signed GP/GP If you are the referring physician and would like to consult with t heradiologist who provided this interpretation, please contact Marcia Vang at [phone]. If this radiologist is unavailable, youwill be directed to another radiologist to assist. If you a re a patient with a question regarding this report, pleasecontactyour referring physician directly. Professional Interpretation Provided By: [employer], Phone , Dictate d on 02/03/12 1102 by Benedict CONRAD,Marcialranscribed on 02/03/12 1643 by ITS IMPORTSign by Luke Leonard MD on 02/03/12 164 Sign by: Benedict CONRAD,Luke 02-Sew-56246:39 CMP GAP 11 (Normal) Range: 5-15 CO2 27.0 mmol/L (Normal) Range: 21.0-32.0 CL 104 mmol/L (Normal) Range: 98-107 K 4.1 mmol/L (Normal) Range: 3.5-5.1 NA 142 mmol/L (Normal) Range: 136-145 BIT 0.50 mg/dL (Normal) Range: 0.00-1.00 ALT 29 U/L (Normal) Range: 12-78 ALK 72 U/L (Normal) Range: 50-136 AST 21 U/L (Normal) Range: 15-37 CA 8.7 mg/dL (Normal) Range: 8.5-10.1 AG 1.2 {RATIO} (Normal) Range: 0.9-2.4 GLOB 3.4 g/dL (Normal) Range: 2.7-4.2 ALB 4.1 g/dL (Normal) Range: 3.4-5.0 TPROT 7.5 g/dL (Normal) Range: 6.4-8.2 BC 17.8 {RATIO} (Normal) Range: 10-20 GFRAA 81 mL/min (Normal) GFR 67 mL/min (Normal) CREAT 0.9 mg/dL (Normal) Range: 0.6-1.0 BUN 16 mg/dL (Normal) Range: 7-18 GLU 86 mg/dL (Normal) Range: 70-110 :39 LIPID Comments: f/u 02/07/12 LDL 150 mg/dL (Abnormal) Range: 0-130 VLDL 31 mg/dL (Normal) Range: 5-40 HDL 52 mg/dL (Normal) Comments: Reference Range HDL <40 mg/dL Low HDL Cholesterol HDL >or= 60 mg/dL High HDL Cholesterol TRIG 156 mg/dL (Normal) Comments: Serum Triglycerides Reference Interval Normal <150 mg/dL Borderline high 150 - 199 mg/dL High 200 - 499 mg/dL Very High > or = 500 mg/dL CHOL 233 mg/dL (Abnormal) Comments: <200 mg/dL Desirable 200-240 mg/dL Borderline >240 mg/dL High Risk :39 VITD 26.1 ng/mL (Abnormal) Range: 30.0-100.0 Comments: Vitamin D deficiency has been defined by the [place] of[place] and an Endocrine Society practice guideline as alevel of serum 25-OH vitamin D less than 20 ng/mL (1,2).The Endocrine Society went on to further define vitamin Dinsufficiency as a level between 21 and 29 ng/mL (2).1. IOM ([place]). 2010. Dietary reference intakes for calcium and D. [place]: The National Academies Press.2. Baljinder MF, [place], Tere HOLLOWAY, et al. Evaluation, treatment, and prevention of vitamin D deficiency: an Endocrine Society clinical practice guideline. JCEM. 2010; 96(7): 1911-30.Performed at: - [facility] [id number] Director: Josette Garcia MD, Phone: [phone] :[phone] [facility] [place] See Note {CFU/mL} (Normal) Comments: COLONY COUNT 1000- 10,000 ORGANISM 1: MIXED GRAM POSITIVE ORGANISMS [id number]:34 ABDOMEN/PELVIS WITH CONTRAST Radiology Report See Note (Normal) Comments: PROCEDURE: CT ABDOMEN AND PELVIS WITH CONTRAST REASON FOR EXAM: Female, 65 years old. Right lower quadrant abdominalpain TECHNIQUE: Transaxial images were obtained from the dome of the diaphragmto the symphysis pubis with oral contrast. 100 ml of Isovue 300 contrastwas administered. COMPARISON: None. FINDINGS:The visualized lung bases are unremarkable. There is a 1.2 cm cyst anteriorly of the liver. Normal gallbladder andextrahepatic biliary system. Normal enhanced spleen. Normal pancreas. Normal bilateral adrenal glands. Normal size of the right kidney. There is no right renal mass. Th ereareno right renal calculi. There is no right hydronephrosis. Normalvisualized right ureter. Normal size of the left kidney. There is no left renal mass. There arenoleft renal calculi. There is n o left hydronephrosis. Normal visualizedleft ureter. Small hiatal hernia. Normal small intestine. Normal colon. Theappendixis visualized and appears normal. There is no demonstrated peritoneal fluid . Normal abdominal aorta. Normal inferior vena cava. Normalretroperitoneum. Normal urinary bladder. There is no pelvic mass lesion orlymphadenopathy.There is no pelvic fluid. Normal abdominal wall. Normal osseous structures. IMPRESSION:Small cyst of the liver.Small hiatal hernia. To consult with a radiologist regarding this report, please call our [id number] line @ Dictated on 0 10/25/111744 by Ammon Omer DOranscribed on 10/25/111840 by ITS IMPORTSign by Rocky Omer DO on 10/25/111841 Sign by: Rocky Omer DO 86-Iwj-[id number]:05 CBCMD RBCM NORM C+C {NORMAL} (Normal) PE ADEQUATE (Normal) BAS 1 % (Normal) Range: 0-1 EOS 3 % (Normal) Range: 0-5 MON 10 % (Normal) Range: 0-10 LYMPH 31 % (Normal) Range: 19-41 BAND 1 % (Normal) Range: 0-5 PMN 54 % (Normal) Range: 47-70 RAMESH 100 (Normal) ANC 3.9 3/uL (Normal) Range: 2.0-7.7 PLT 292 K/mm3 (Normal) Range: 150-450 RDW 13.5 % (Normal) Range: 11.6-14.6 MCHC 34.4 g/dL (Normal) Range: 32-36 MCH 28.3 pg (Normal) Range: 27.0-32.0 MCV 82.3 fL (Normal) Range: 81-99 HCT 36.6 % (Abnormal) Range: 37-47 HGB 12.6 g/dL (Normal) Range: 12.0-16.0 RBC 4.45 {M/mm3} (Normal) Range: 4.2-5.4 WBC 6.6 K/mm3 (Normal) Range: 4.4-11.0 :05 CMP GAP 8 (Normal) Range: 5-15 CO2 29.0 mmol/L (Normal) Range: 21.0-32.0 CL 104 mmol/L (Normal) Range: 98-107 K 4.2 mmol/L (Normal) Range: 3.5-5.1 NA 141 mmol/L (Normal) Range: 136-145 BIT 0.50 mg/dL (Normal) Range: 0.00-1.00 ALT 39 U/L (Normal) Range: 12-78 ALK 80 U/L (Normal) Range: 50-136 AST 24 U/L (Normal) Range: 15-37 CA 9.5 mg/dL (Normal) Range: 8.5-10.1 AG 1.2 {RATIO} (Normal) Range: 0.9-2.4 GLOB 3.5 g/dL (Normal) Range: 2.7-4.2 ALB 4.3 g/dL (Normal) Range: 3.4-5.0 TPROT 7.8 g/dL (Normal) Range: 6.4-8.2 BC 20.0 {RATIO} (Normal) Range: 10-20 GFRAA 72 mL/min (Normal) GFR 59 mL/min (Abnormal) CREAT 1.0 mg/dL (Normal) Range: 0.6-1.0 BUN 20 mg/dL (Abnormal) Range: 7-18 GLU 89 mg/dL (Normal) Range: 70-110 :05 CRP 30.70 mg/L (Abnormal) Range: 0.0-3.0 Comments: C-Reactive Protein (CRP) provides useful information for thediagnosis, therapy and monitoring of inflammatory processesand associated diseases. For the evaluation of Relative Riskfor Cardiovascular Dise ase, a High Sensitivity CRP (HSCRP)should be ordered. :05 SED tSEDRATE 34 mm/h (Abnormal) Range: 0-30 :38 Urinalysis, Office (13611) UA - BILIRUBIN Negative (Normal) UA - BLOOD Hemolyzed Large (Normal) UA - GLUCOSE Negative (Normal) UA - KETONES Small mg/dL (Normal) UA - LEUKOCYTE ESTERASE Negative (Normal) UA - NITRITE Negative (Normal) UA - PH 6.0 (Normal) UA - PROTEIN Trace mg/dL (Normal) UA - SPECIFIC GRAVITY 1.025 (Normal) URINE UROBILINGN SHANNON TIMED Normal mg/dL (Normal) :14 CBCD Comments: appt 06/23/11 ABSOLUTE NEUT 3.6 3/uL (Normal) Range: 2.0-7.7 BASO% 0.2 % (Normal) Range: 0-1 EO% 2.2 % (Normal) Range: 0-5 MONO% 7.5 % (Normal) Range: 0-10 LY% 26.9 % (Normal) Range: 19-41 NEUT% 63.2 % (Normal) Range: 47-70 MPV 8.1 fL (Normal) Range: 6.5-12.0 PLT 224 K/mm3 (Normal) Range: 150-450 RDW 13.7 % (Normal) Range: 11.6-14.6 MCHC 33.9 g/dL (Normal) Range: 32-36 MCH 28.6 pg (Normal) Range: 27.0-32.0 MCV 84.1 fL (Normal) Range: 81-99 HCT 36.8 % (Abnormal) Range: 37-47 HGB 12.5 g/dL (Normal) Range: 12.0-16.0 RBC 4.38 {M/mm3} (Normal) Range: 4.2-5.4 WBC 5.8 K/mm3 (Normal) Range: 4.4-11.0 :14 CBCD,SMEAR DIFF RED CELL MORPH SeeNote {NORMAL} (Normal) Comments: Result: NORM C+C PLT EST SeeNote (Normal) Comments: Result: ADEQUATE EOS 2 % (Normal) Range: 0-5 MONOCYTE 6 % (Normal) Range: 0-10 LYMPH 31 % (Normal) Range: 19-41 SEGS 61 % (Normal) Range: 47-70 CELLS COUNTED 100 (Normal) ABSOLUTE NEUT 3.6 3/uL (Normal) Range: 2.0-7.7 PLT 224 K/mm3 (Normal) Range: 150-450 RDW 13.7 % (Normal) Range: 11.6-14.6 MCHC 33.9 g/dL (Normal) Range: 32-36 MCH 28.6 pg (Normal) Range: 27.0-32.0 MCV 84.1 fL (Normal) Range: 81-99 HCT 36.8 % (Abnormal) Range: 37-47 HGB 12.5 g/dL (Normal) Range: 12.0-16.0 RBC 4.38 {M/mm3} (Normal) Range: 4.2-5.4 WBC 5.8 K/mm3 (Normal) Range: 4.4-11.0 :14 COMP METABOLIC GAP 7 (Normal) Range: 5-15 CO2 30.0 mmol/L (Normal) Range: 21.0-32.0 CL 102 mmol/L (Normal) Range: 98-107 K 4.1 mmol/L (Normal) Range: 3.5-5.1 NA 139 mmol/L (Normal) Range: 136-145 T BILI 0.80 mg/dL (Normal) Range: 0.00-1.00 ALT 40 U/L (Normal) Range: 12-78 ALK P 82 U/L (Normal) Range: 50-136 AST 27 U/L (Normal) Range: 15-37 CA 8.9 mg/dL (Normal) Range: 8.5-10.1 A/G 1.4 {RATIO} (Normal) Range: 0.9-2.4 GLOB 3.1 g/dL (Normal) Range: 2.7-4.2 ALB 4.3 g/dL (Normal) Range: 3.4-5.0 T PROT 7.4 g/dL (Normal) Range: 6.4-8.2 BUN/CRE 22.2 {RATIO} (Abnormal) Range: 10-20 EST GFR - AA 81 mL/min (Normal) EST GFR 67 mL/min (Normal) CREAT,SERUM 0.9 mg/dL (Normal) Range: 0.6-1.0 BUN 20 mg/dL (Abnormal) Range: 7-18 GLU 94 mg/dL (Normal) Range: 70-110 :14 LIPID VLDL 28 mg/dL (Normal) Range: 5-40 LDL 135 mg/dL (Abnormal) Range: 0-130 HDL 52 mg/dL (Normal) Comments: Reference Range HDL <40 mg/dL Low HDL Cholesterol HDL >or= 60 mg/dL High HDL Cholesterol TRIG 141 mg/dL (Normal) Comments: Serum Triglycerides Reference Interval Normal <150 mg/dL Borderline high 150 - 199 mg/dL High 200 - 499 mg/dL Very High > or = 500 mg/dL CHOL 215 mg/dL (Abnormal) Comments: <200 mg/dL Desirable 200-240 mg/dL Borderline >240 mg/dL High Risk :14 VIT D,25 47749 37.4 ng/mL (Normal) Range: 32.0-100.0 Comments: Effective June 21, 2011 Vitamin D, 25-Hydroxy reference intervals will be changing to 30-100. .Recent studies consider the lower li dave of 32.0 ng/mL to be athreshold for optimal health.Rafael RODRIGUEZ. J Nutr. 2004;135(2):317-22.Performed at: [address] [id number] Director: Josette Garcia MD, Phone: [phone] [id number] KELSEY SCRTrudy DIGITAL & CAD Radiology Report See Note (Normal) Comments: MAMMOGRAPHY - BILATERAL SCREENING REASON FOR EXAM: Female, 65 years old. Routine annual screeningexamination. PERTINENT HISTORY: Non-contributory. The patient has a history ofpriorright stereotac tic biopsy. . TECHNIQUE: Digital examination. Mediolateral oblique (MLO) andcraniocaudad (CC) views of both breasts were obtained. CAD: CAD wasperformed on this study. COMPARISON: Comparison is mad e with prior study dated June. FINDINGS:The breast composition is composed of scattered fibroglandular densities. There are no masses or suspicious microcalcifications. No other significant abnormalities are identified. There has been nosignificant change since the prior study. IMPRESSION:Normal bilateral screening mammogram. One year follow- up recommended. (A) ASSESSMENT CATEGORY:BIRADS Category 2: Benign finding(s). A letter regarding these resultswill be sent to the patient by the facility within 30 days. Approximately 10% of breast cancers are not detected by mammography. Anorma l mammogram should not delay biopsy of a clinically suspiciousabnormality. Dictated on 01/27/11 1432 by Marcial Leonard MDranscribed on 01/27/11 1558 by ITS IMPORTSign by Luke Leonard MD 01/27/11 1559 Sign by: Luke Leonard MD [id number]: VIT D,25 01928 24.3 ng/mL Range: 32.0-100.0 42 (Abnormal) Comments: Recent studies consider the lower limit of 32.0 ng/mL to edgar threshold for optimal health.Rafael RODRIGUEZ. J Nutr. 2004;135(2):317- 22.Performed at: [address] Director: Josette Garcia MD, Phone: [phone] [id number]:57 DEXA BONE DENSITY STUDY (HP) Radiology Report See Note (Normal) Comments: Exam Number: [id number] LINICAL:This is a 64-year-old female patient with history of postmenopausal follow-up. EXAMINATION:DUAL ENERGY X-RAY ABSORPTIOMETRY / DEXA. TECHNIQUE:Bone Density Fredy urements (BM D) of lumbar spine and bilateral hips were obtained using a [employer] scanner.. COMPARISON:Comparison is made with prior study dated May 30, 2008. FINDINGS: Lumbar Spine (L1-L4): g/c m2 (1.097) / T-score (-0.7) / Z-score (0.5)Left Femur Total: g/cm2 (0.891) / T-score (-0.9) / Z-score (0.0)Right Femur Total: g/cm2 (0.906) / T- score (-0.8) / Z-score (0.1) Since prior exa mination, there has been an improvement of 8.4% in the bone density. IMPRESSION:The patient is considered normal, as outlined above, according to World Health Organization (WHO) criteria. Fracture risk is low. Reference Information:The T-score is the number of standard deviations above or below the standard which is normal for young adults at their peak bone mineral density. The World Health Organiza tion (WHO) interprets the T-scores as follows: Above -1 Normal bone densityBetween -1 and -2.5 OsteopeniaEqual to / or below -2.5 Osteoporosis As a practical clinical guideline, osteopenia may be graded as follows:Mild -1 through -1.5Moderate -1.6 through -2.0Severe -2.1 through -2.4 The Z-score is the number of standard deviations above or below age-matched controls. A Z-score of less than -1.5 would be considered abnormal. References:1. NIH Osteoporosis and Related Bone Diseases http://www.osteo.org2. International Society for Clinical Densitometry http://www.iscd. org3. National Osteoporosis Foundation http://www.nof.org Reported By: LUKE LEONARD [id number]: VIT D,25 41182 38.5 ng/mL (Normal) Range: 32.0-100.0 35 Comments: Recent studies consider the lower limit of 32.0 ng/mL to edgar threshold for optimal health.Rafael RODRIGUEZ. J Nutr. 2004;135(2):317-22.Performed at: [place] [id number] Director: Josette Garcia MD, Phone: [phone] [id number]-[id number]:50 COLON BX P-COLBX (Normal) Comments: OPERATIONColonoscopy with biopsyPRE-OPERATIVE DIAGNOSISScreening colonoscopyTISSUE SUBMITTED1 - Polyp mid ascending, rule out adenoma, 2 - Polyp splenic flexure/distal transverse,rule out adenomaMICROSC OPIC DIAGNOSISA. Polyp mid ascending colon, biopsy:Fragments of hyperplastic polyp.B. Polyp splenic flexure/distal transverse colon, biopsy:Fragments of colonic mucosa, no pathologic diagnosis.SJ:janet 04/20/10GROSS DESCRIPTIONA - Received is one container designated mid ascending colon. The specimen consists ofmultiple irregular fragments of light menezes soft tissue that in aggregate measure 0.5 x 0.3 x0.1 cm. The specimen is totally submitted in one cassette.B - Received is one container designated splenic flexure polyp. The specimen consists ofmultiple irregular fragments of light menezes soft tissu e that in aggregate measure 0.2 x 0.2x 0.1 cm. The specimen is totally submitted in one cassette. / AM: 04/17/10 TC:1REPORT SIGNED: PITER HAUSER 04/20/1021-Feb-[id number]: VIT D,25 40585 21.0 ng/mL (Abnormal) Range: 32.0-100.0 41 Comments: Recent studies consider the lower limit of 32.0 ng/mL to edgar threshold for optimal health.Rafael RODRIGUEZ. J Nutr. 2004;135(2):317-22.Performed at: [facility] [place] [address]Lab Director: Josette Garcia MD, Phone: [phone] [id number]:04 CBCD,SMEAR DIFF ABSOLUTE NEUT 3.4 3/uL (Normal) Range: 2.0-7.7 CELLS COUNTED 100 (Normal) EOS 5 % (Normal) Range: 0-5 LYMPH 33 % (Normal) Range: 19-41 MONOCYTE 8 % (Normal) Range: 0-10 PLT 253 K/mm3 (Normal) Range: 150-450 PLT EST SeeNote (Normal) Comments: Result: ADEQUATE RED CELL MORPH SeeNote {NORMAL} (Normal) Comments: Result: NORM C+C SEGS 54 % (Normal) Range: 47-70 HCT 37.5 % (Normal) Range: 37-47 HGB 12.7 g/dL (Normal) Range: 12.0-16.0 MCH 27.9 pg (Normal) Range: 27.0-32.0 MCHC 33.9 g/dL (Normal) Range: 32-36 MCV 82.4 fL (Normal) Range: 81-99 RBC 4.55 {M/mm3} (Normal) Range: 4.2-5.4 RDW 13.7 % (Normal) Range: 11.6-14.6 WBC 5.6 K/mm3 (Normal) Range: 4.4-11.0 67-Ncs-[id number]:57 TSH 2.41 {uIU/mL} (Normal) Range: 0.358-3.74 :57 LIPID CHOL 201 mg/dL (Abnormal) Comments: <200 mg/dL Ivyjyyclx452-282 mg/dL Borderline>240 mg/dL High Risk HDL 50 mg/dL (Normal) Comments: Reference RangeHDL <40 mg/dL Low HDL CholesterolHDL >or= 60 mg/dL High HDL Cholesterol LDL 113 mg/dL (Normal) Range: 0-130 TRIG 188 mg/dL (Normal) Comments: Serum Triglycerides Reference IntervalNormal <150 mg/dLBorderline high 150 - 199 mg/dLHigh 200 - 499 mg/ dLVery High > or = 500 mg/dL VLDL 38 mg/dL (Normal) Range: 5-40 :57 COMP METABOLIC GAP 9 (Normal) Range: 5-15 A/G 1.2 {RATIO} (Normal) Range: 0.9-2.4 ALB 4.1 g/dL (Normal) Range: 3.4-5.0 ALK P 89 U/L (Normal) Range: 50-136 ALT 28 U/L (Normal) Range: 12-78 AST 19 U/L (Normal) Range: 15-37 BUN/CRE 11.7 {RATIO} (Normal) Range: 10-20 CA 8.7 mg/dL (Normal) Range: 8.5-10.1 CL 99 mmol/L (Normal) Range: 98-107 CO2 28.0 mmol/L (Normal) Range: 21.0-32.0 EST GFR 48 mL/min (Abnormal) EST GFR - AA 58 mL/min (Abnormal) GLOB 3.4 g/dL (Normal) Range: 2.7-4.2 K 4.2 mmol/L (Normal) Range: 3.5-5.1 NA 136 mmol/L (Normal) Range: 136-145 T BILI 0.60 mg/dL (Normal) Range: 0.00-1.00 T PROT 7.5 g/dL (Normal) Range: 6.4-8.2 CREAT,SERUM 1.2 mg/dL (Abnormal) Range: 0.6-1.0 BUN 14 mg/dL (Normal) Range: 7-18 GLU 88 mg/dL (Normal) Range: 70-110 :45 COMPLETE UA BACTERIA RARE {/hpf} (Normal) LEUK ESTERASE SeeNote (Normal) Comments: Result: NEGATIVE MUCUS, URINE 0 SEEN {/hpf} (Normal) OCCULT BLOOD-UR 3+ (Abnormal) RBC-UA SeeNote {/hpf} (Normal) Range: 0-5 Comments: Result: 5-10 SEEN SQUAM EPI SeeNote {/hpf} (Normal) Range: 5-10 Comments: Result: 0-5 SEEN WBC 0 SEEN {/hpf} (Normal) Range: 0-5 BILIRUBIN URINE SeeNote (Normal) Comments: Result: NEGATIVE GLUCOSE, UR SeeNote (Normal) Comments: Result: NEGATIVE KETONE UR SeeNote mg/dL (Normal) Comments: Result: NEGATIVE NITRITE UR SeeNote (Normal) Comments: Result: NEGATIVE pH UR 5.5 (Normal) Range: 5.0-8.0 PROT DIPSTX SeeNote (Normal) Comments: Result: NEGATIVE SP.GR. DIPSTX 1.020 (Normal) Range: 1.002-1.030 UROBILI 0.2 EU/dl (Normal) Range: 0.2 - 1.0 CLARITY CLEAR (Normal) COLOR YELLOW (Normal) [id number]-[id number]:43 FOOT,MIN 3 VIEWS (MT) Radiology Report See Note (Normal) Comments: Exam Number: [id number] CLINICAL:This is a 64-year-old female patient with history of pain along thelateral aspect of the foot. X-RAY EXAMINATION: RIGHT FOOT TECHNIQUE:Three views of the foot. COMPARISON :None. FINDINGS:Normal visualized bones of the rear and mid foot. There is aplantar calcaneal spur. Normal visualized articulations of the rear and mid foot. Normal visualized metatarsi. Normal visuali zed phalanges. There is degenerative arthrosis of the metatarsophalangeal joint ofthe great toe. Normal visualized tibial and fibular sesamoid bones. Normal visualized interphalangeal joint of the grea t toe. Normal 2nd-5th metatarsophalangeal joints. Normal visualized interphalangeal joints. There is no demonstrated soft tissue swelling. IMPRESSION:Chronic degenerative changes, as discussed above. No demonstrated fracture. Reported By: LUKE LEONARD 41-[id number]:55 BILAT SCR[facility] DIGITAL & CAD Radiology Report See Note (Normal) Comments: Exam Number: [id number] DIGITAL BILATERAL MAMMOGRAM HISTORYThis is a 63-year-old female patient with history of routine annualscreening. Digital oblique and craniocaudal views were obtained. Comparison ismade with the prior examination dated May 30, 2008. Interpretationwas made with the benefit of the CAD system. FINDINGSThere is a small amount of fibroglandular tissue. No dominant masslesion is seen. No cluster of microcalcification is present. Theoverlying skin is not thickened. There has been no change since priorexamination. IMPRESSION1. There has been no change since prior examination.2 . Routine annual mammographic followup is suggested.3. BIRADS Category 1. Negative. A letter regarding the results has been sent to the patient. This interpretation was rendered by a radiologist cert ified under theMammography Quality Standards Act of 1992 (MQSA). The mammograms werealso examined with computer-aided detection software ([employer] Reported By: LUKE LEONARD 43-Hpf-59609:58 Rapid Strep Test, Office (92622) Rapid Strep Test, Office Negative (Normal) [id number] BILAT [facility] DIGITAL & CAD Radiology Report See Note (Normal) Comments: Exam Number: [id number] BILATERAL SCREENING MAMMOGRAM COMPARISON STUDYSept2005, May 19, 2007 and December 04, 2007. Routine MLO and CC views were acquired. There are scatteredfibrogl andular elim ira ents present. There are a few benign scatteredcalcifications and benign vascular calcifications present bilaterally.No suspicious cluster of microcalcification, area of architecturaldistortion or 3-dim ensional spiculated mass. There has been nosignificant change. IMPRESSION1. No mammographic evidence for malignancy.2. BIRADS Code 2, benign findings.3. Followup in 1 year. A letter regarding the re sults has been sent to the patient. This interpretation was rendered by a radiologist certified under theMammography Quality Standards Act of 1992 (MQSA). The mammograms werealso examined with compute r-aided detection software ([employer] Reported By: BABATUNDE REDDING M.D. [id number]-[id number]:58 DEXA BONE DENSITY STUDY () Radiology Report See Note (Normal) Comments: Exam Number: [id number] BONE DENSITOMETRY HISTORYOsteopenia. TECHNIQUE Bone densitometry of the lumbar spine and left hip was performed. Thebest criteria for evaluation of osteoporosis is the T-valu e, whichrepresents the comparison of the patient's bone mass to an expectedpeak bone mass. For most patients, the mean T-value of L1 through L4is used to evaluate the lumbar spine. Based on the newest WorldHealth Organization classifications, the hip is evaluated by utilizingthe lower of the T-value of the total hip or the T-value of thefemoral neck. FINDINGSIn this patient, the mean T-value of L1 through L4 is -1.4 which is inthe range of osteopenia. Bone mineral density is measured at 8.6%less than in 2001 and 1.8% less than in 2005. Digital lateral view forevaluation of vertebral deformity o nly demonstrates no obviouscompression fractures. The T-value of the left femoral neck is -1.7which is in the range of osteopenia. The T-value of the total left hipis -1 which is low normal. Bone minera l density is measured at 2.5%greater than in 2001 and 1.2% greater than in 2006. IMPRESSIONThere is osteopenia of the lumbar spine and left hip. Reported By: ELA ELLISON M.D. 47-Xjt-[id number]:59 LIPID CHOL 225 mg/dL (Abnormal) Comments: <200 mg/dL Desirable 200-240 mg/dL Borderline >240 mg/dL High Risk HDL 53 mg/dL (Normal) Comments: Reference Range HDL <40 mg/dL Low HDL Cholesterol HDL >or= 60 mg/dL High HDL Cholesterol LDL 145 mg/dL (Abnormal) Range: 0-130 TRIG 135 mg/dL (Normal) Comments: Serum Triglycerides Reference Interval Normal <150 mg/dL Borderline high 150 - 199 mg/dL High 200 - 499 mg/dL Very High > or = 500 mg/dL VLDL 27 mg/dL (Normal) Range: 5-40 [id number]-[id number]:59 LIVER ALB 3.9 g/dL (Normal) Range: 3.4-5.0 ALK P 97 U/L (Normal) Range: 50-136 ALT 49 U/L (Normal) Range: 30-65 AST 24 U/L (Normal) Range: 15-37 D BILI 0.10 mg/dL (Normal) Range: 0.00-0.30 T BILI 0.54 mg/dL (Normal) Range: 0.00-1.00 T PROT 7.8 g/dL (Normal) Range: 6.4-8.2 [id number]-[id number]:38 UNILAT LT DIAG DIGITAL & CAD Radiology Report See Note (Normal) Comments: Exam Number: [id number] UNILATERAL LEFT DIAGNOSTIC MAMMOGRAM CLINICAL STATEMENTSix-month followup. COMPARISON STUDYOct2006 and May 19, 2007. Routine MLO and CC views of the left breast were performed. There isscattered fibroglandular tissue present. Benign vascularcalcifications are present. Area of asymmetric density describedpreviously is less conspicuous. The calcifications question ed on theprior screening study which were not confirmed on the priormagnification views, are not confirmed on today's study. One or 2benign calcifications are likely shown on the inferior MLO view. No suspicious cluster or grouping, however, is shown. IMPRESSION1. No mammographic evidence for malignancy.2. BIRADS code 2, benign findings.3. Follow up with return to routine annual screening. This should beperformed in 6 months to maintain yearly screening for the rightbreast. A letter regarding the results has been sent to the patient. This interpretation was rendered by a radiologist certifie d under theMammography Quality Standards Act of 1992 (MQSA). The mammograms werealso examined with computer-aided detection software ([employer] Reported By: BABATUNDE REDDING M.D. 02-Dec-20078:31 CBCD,SMEAR DIFF BAND 1 % (Normal) Range: 0-5 CELLS COUNTED 100 (Normal) EOS 3 % (Normal) Range: 0-5 HCT 36.2 % (Abnormal) Range: 37-47 HGB 12.5 g/dL (Normal) Range: 12.0-16.0 LYMPH 27 % (Normal) Range: 19-41 MCH 27.7 pg (Normal) Range: 27.0-32.0 MCHC 34.5 g/dL (Normal) Range: 32-36 MCV 80.4 fL (Abnormal) Range: 81-99 PLT 262 K/mm3 (Normal) Range: 150-450 PLT EST SeeNote (Normal) Comments: Result: ADEQUATE RBC 4.50 {M/mm3} (Normal) Range: 4.2-5.4 RDW 13.5 % (Normal) Range: 11.6-14.6 RED CELL MORPH SeeNote {NORMAL} (Normal) Comments: Result: NORM C+C SEGS 69 % (Normal) Range: 47-70 WBC 4.8 K/mm3 (Normal) Range: 4.4-11.0 :31 COMP METABOLIC A/G 1.1 {RATIO} (Normal) Range: 0.9-2.4 ALB 3.8 g/dL (Normal) Range: 3.4-5.0 ALK P 84 U/L (Normal) Range: 50-136 ALT 40 [iU]/L (Normal) Range: 30-65 AST 23 U/L (Normal) Range: 15-37 BUN 15 mg/dL (Normal) Range: 7-18 BUN/CRE 16.7 {RATIO} (Normal) Range: 10-20 CA 8.9 mg/dL (Normal) Range: 8.5-10.1 CL 103 mmol/L (Normal) Range: 98-107 CO2 28.4 mmol/L (Normal) Range: 21.0-32.0 CREAT,SERUM 0.9 mg/dL (Normal) Range: 0.6-1.0 GAP 7 (Normal) Range: 5-15 GLOB 3.6 g/dL (Normal) Range: 2.7-4.2 GLU 82 mg/dL (Normal) Range: 70-110 K 3.8 mmol/L (Normal) Range: 3.5-5.1 NA 138 mmol/L (Normal) Range: 136-145 T BILI 0.54 mg/dL (Normal) Range: 0.00-1.00 T PROT 7.4 g/dL (Normal) Range: 6.4-8.2 :31 COMPLETE UA BACTERIA 0 SEEN {/hpf} (Normal) BILIRUBIN URINE SeeNote (Normal) Comments: Result: NEGATIVE CLARITY CLEAR (Normal) COLOR YELLOW (Normal) GLUCOSE, UR SeeNote (Normal) Comments: Result: NEGATIVE KETONE UR SeeNote mg/dL (Normal) Comments: Result: NEGATIVE LEUK ESTERASE SeeNote (Normal) Comments: Result: NEGATIVE MUCUS, URINE 0 SEEN {/hpf} (Normal) NITRITE UR SeeNote (Normal) Comments: Result: NEGATIVE OCCULT BLOOD-UR 3+ (Abnormal) pH UR 5.5 (Normal) Range: 5.0-8.0 PROT DIPSTX SeeNote (Normal) Comments: Result: NEGATIVE RBC-UA SeeNote {/hpf} (Normal) Range: 0-5 Comments: Result: 0-5 SEEN SP.GR. DIPSTX 1.025 (Normal) Range: 1.002-1.030 SQUAM EPI SeeNote {/hpf} (Normal) Range: 5-10 Comments: Result: 0-5 SEEN UROBILI 0.2 EU/dl (Normal) Range: 0.2 - 1.0 WBC 0 SEEN {/hpf} (Normal) Range: 0-5 :31 LIPID CHOL 198 mg/dL (Normal) Comments: <200 mg/dL Desirable 200-240 mg/dL Borderline >240 mg/dL High Risk HDL 49 mg/dL (Normal) Comments: Reference Range HDL <40 mg/dL Low HDL Cholesterol HDL >or= 60 mg/dL High HDL Cholesterol LDL 123 mg/dL (Normal) Range: 0-130 TRIG 129 mg/dL (Normal) Comments: Serum Triglycerides Reference Interval Normal <150 mg/dL Borderline high 150 - 199 mg/dL High 200 - 499 mg/dL Very High > or = 500 mg/dL VLDL 26 mg/dL (Normal) Range: 5-40 :31 TSH 1.92 {uIU/mL} (Normal) Range: 0.34-4.82 98-[id number]:15 UNILAT LT DIAG DIGITAL & CAD Radiology Report See Note (Normal) Comments: Exam Number: [id number] LEFT DIGITAL DIAGNOSTIC MAMMOGRAM CLINICAL INFORMATIONAbnormal left mammogram. Digital diagnostic mammogram of the left breast was performed forfurther evaluation of f indings on t he mammogram of May 19, 2007. First of all, with regard to an area of questionable calcificationseen inferiorly on the MLO view, these were no reproducible withmagnification views. On one of the ma gnification views, there may be1 or 2 visible calcifications. Given the fact that they appearedfairly convincingly present on the MLO view initially, they areconsidered probably benign and 6-month foll owup study is recommended. Regarding the area of density in the upper outer quadrant of the leftbreast, this appears to be merely the result of overlap offibroglandular and trabecular elements. With sp ot compression, thereis no evidence of mass, spiculation or distortion. IMPRESSIONThe density in the upper outer quadrant of the left breast is thoughtto have been the result of superimposed parenchym al elements. Thecalcifications questioned inferiorly were difficult to reproduce onmagnification views. Since they appeared convincing in the standardMLO view, they would be considered probably benign with 6-monthfollowup recommended. BIRADS Category 3. Probably benign. Six- month followup. A letter regarding the results has been sent to the patient. This interpretation was rendered by a radiologi st certified under theMammography Quality Standards Act of 1992 (MQSA). The mammograms werealso examined with computer-aided detection software ([employer] Reported By: BABATUNDE GOLDEN M.D. 97-Qiw-16126:30 CALC U24 3269 CALCIUM,U [address] 6.5 mg/dL (Normal) CALCIUM,U24 65.0 {mg/24_hr} (Abnormal) Range: 100.0-300.0 Comments: Performed At: [facility] [place], [place] [id number] 64-Bgj-91872:23 BILAT SCRN DIGITAL & CAD Radiology Report See Note (Normal) Comments: Exam Number: [id number] MAMMOGRAM, BILATERAL SCREENING DIGITAL AND CAD HISTORYRoutine screening. TECHNIQUEFull field digital images were obtained in mediolateral oblique andcraniocaudal proje ctions. CAD images were reviewed. COMPARISONThe current study is compared to the examinations of March of 2004and April of 2006. FINDINGSThere is no skin thickening or retraction and no architecturaldistortio n. There is a small density in the upper right breast whichhas been seen previously. There is a group of calcifications seenagainst the chest wall in the lower left breast. These cannot be seenprevio usly. A magnification spot view of these calcifications isrecommended. In the upper outer quadrant of the breast in themid-depth is a density which is not definitely seen previously. Spotcompression views of this density are recommended. IMPRESSIONThere are changes on the left for which additional views arerecommended. FINAL ASSESSMENTNeed additional imaging evaluation. BIRADS Category 0. A letter regarding these results has been sent to the patient. This interpretation was rendered by a radiologist certified under theMammography Quality Standards Act of 1992 (MQSA). The mammograms werealso ex amined with computer-aided detection software ([employer] Reported By: ELA ELLISON M.D. :45 LIPID CHOL 200 mg/dL (Normal) Comments: <200 mg/dL Desirable 200-240 mg/dL Borderline >240 mg/dL High Risk HDL 50 mg/dL (Normal) Comments: Reference Range HDL <40 mg/dL Low HDL Cholesterol HDL >or= 60 mg/dL High HDL Cholesterol LDL 129 mg/dL (Normal) Range: 0-130 TRIG 107 mg/dL (Normal) Comments: Serum Triglycerides Reference Interval Normal <150 mg/dL Borderline high 150 - 199 mg/dL High 200 - 499 mg/dL Very High > or = 500 mg/dL VLDL 21 mg/dL (Normal) Range: 5-40 :45 LIVER ALB 4.0 g/dL (Normal) Range: 3.4-5.0 ALK P 93 U/L (Normal) Range: 50-136 ALT 37 [iU]/L (Normal) Range: 30-65 AST 23 U/L (Normal) Range: 15-37 D BILI 0.16 mg/dL (Normal) Range: 0.00-0.30 T BILI 0.56 mg/dL (Normal) Range: 0.00-1.00 T PROT 7.3 g/dL (Normal) Range: 6.4-8.2 Plan of Care Name Dates Details Instructions Other hyperlipidemia : Eprescribed prescriptions (G8553) Indication: Other hyperlipidemia [facility] : Eprescribed prescriptions (G8553) Indication: [facility] Cough : Eprescribed prescriptions (G8553) Indication: Cough Non-smoker : Eprescribed prescriptions (G8553) Indication: Non-smoker Benign Essential Hypertension (Renamed from Benign essential HTN) : Eprescribed prescriptions (G8553) Indication: Benign Essential Hypertension (Renamed from Benign essential HTN) Benign Essential Hypertension (Renamed from Benign essential HTN) : Eprescribed prescriptions (G8553) Indication: Benign Essential Hypertension (Renamed from Benign essential HTN) Non-smoker : Eprescribed prescriptions (G8553) Indication: Non-smoker [facility] : Eprescribed prescriptions (G8553) Indication: [facility] Benign Essential Hypertension (Renamed from Benign essential HTN) : Eprescribed prescriptions (G8553) Indication: Benign Essential Hypertension (Renamed from Benign essential HTN) Vitamin D deficiency, unspecified : Eprescribed prescriptions (G8553) Indication: Vitamin D deficiency, unspecified Other hyperlipidemia : Diet, Exercise, and Wt loss Indication: Other hyperlipidemia Other hyperlipidemia : Eprescribed prescriptions (G8553) Indication: Other hyperlipidemia Need for prophylactic vaccination and inoculation against influenza : Flu (Influenza) *: flu shot Indication: Need for prophylactic vaccination and inoculation against influenza Osteopenia : Eprescribed prescriptions (G8553) Indication: Osteopenia Other hyperlipidemia : Diet, Exercise, and Wt loss Indication: Other hyperlipidemia Osteopenia : Osteoporosis in Women *: bone loss Indication: Osteopenia Other hyperlipidemia : Diet, Exercise, and Wt loss Indication: Other hyperlipidemia Allergic rhinitis due to other allergen : ALLERGY PROOFING Indication: Allergic rhinitis due to other allergen Allergic rhinitis due to other allergen : ALLERGY CONTROL Indication: Allergic rhinitis due to other allergen Allergic rhinitis due to other allergen : *URI Symptoms Indication: Allergic rhinitis due to other allergen boil : *Antibiotic Usage Education - Female Indication: boil Acute sinusitis, unspecified : Antibiotic Usage Education - Female Indication: Acute sinusitis, unspecified Acute sinusitis, unspecified : Antibiotic Usage Education - Female Indication: Acute sinusitis, unspecified Acute sinusitis, unspecified : URI Symptoms Indication: Acute sinusitis, unspecified Acute sinusitis, unspecified : *URI Treatment Indication: Acute sinusitis, unspecified Acute sinusitis, unspecified : Antibiotic Usage Education - Female Indication: Acute sinusitis, unspecified Acute sinusitis, unspecified : *URI Treatment Indication: Acute sinusitis, unspecified Acute sinusitis, unspecified : Antibiotic Usage Education - Female Indication: Acute sinusitis, unspecified Acute sinusitis, unspecified : URI Symptoms Indication: Acute sinusitis, unspecified Other specified viral infection, in conditions classified elsewhere and of unspecified site : *URI Symptoms Indication: Other specified viral infection, in conditions classified elsewhere and of unspecified site Other specified viral infection, in conditions classified elsewhere and of unspecified site : *URI Treatment Indication: Other specified viral infection, in conditions classified elsewhere and of unspecified site Pharyngitis, acute : *URI Treatment Indication: Pharyngitis, acute Other hyperlipidemia : Diet and Exercise Indication: Other hyperlipidemia Elevated blood pressure (not hypertension) : Diet and Exercise Indication: Elevated blood pressure (not hypertension) Well woman exam with routine gynecological exam : Pap/Pelvic/Bimanual/Rectal/Breast Exam was done. Indication: Well woman exam with routine gynecological exam Planned Observations URINALYSIS, W/ MICRO ([id number])Indication: Benign Essential Hypertension (Renamed from Benign essential HTN) On: :53 Request CBC W/AUTO DIFF WBC ([id number])Indication: Benign Essential Hypertension (Renamed from Benign essential HTN) On: :53 Request METABOLIC PANEL, COMPREHENSIVE ([id number])Indication: Other hyperlipidemia On: :53 Request Vitamin D Hydroxy (85679)Indication: Osteopenia On: :14 Request LIPOPROTEIN, BLD, BY NMR ([id number])Indication: Other hyperlipidemia On: :14 Request METABOLIC PANEL, COMPREHENSIVE (75383)Indication: Benign Essential Hypertension (Renamed from Benign essential HTN) On: 0-Bfd-015209:14 Request T4, FREE (THYROXINE) (07444)Indication: 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 On: 99-Mck-14970:50 Request TSH (03577)Indication: 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 On: 40-Ojf-89933:50 Request Vitamin D Hydroxy (10317)Indication: Other hyperlipidemia On: :51 Request LIPID PANEL (42948)Indication: Other hyperlipidemia On: :51 Request CBC W/AUTO DIFF WBC ([id number])Indication: Benign Essential Hypertension (Renamed from Benign essential HTN) On: :51 Request METABOLIC PANEL, COMPREHENSIVE ([id number])Indication: Benign Essential Hypertension (Renamed from Benign essential HTN) On: :51 Request URINE SHALINI CULTURE-IDENTIFICATN ([id number])Indication: Abdominal pain, acute, right lower quadrant On: 79-Crz-903758:00 Request METABOLIC PANEL, COMPREHENSIVE ([id number])Indication: Abdominal pain, acute, right lower quadrant On: 19-Ghn-780378:56 Request C-REACTIVE PROTEIN ([id number])Indication: Abdominal pain, acute, right lower quadrant On: :56 Request SED RATE ERYTHROCYTE ([id number])Indication: Abdominal pain, acute, right lower quadrant On: :56 Request CBC WITH MANUAL DIFF ([id number])Indication: Abdominal pain, acute, right lower quadrant On: :56 Request METABOLIC PANEL, COMPREHENSIVE ([id number])Indication: Migraine On: :36 Request LIPID PANEL ([id number])Indication: Other hyperlipidemia On: :36 Request Vitamin D Hydroxy ([id number])Indication: Vitamin D deficiency, unspecified On: :36 Request METABOLIC PANEL, COMPREHENSIVE ([id number])Indication: Elevated blood pressure (not hypertension) On: :51 Request CBC WITH MANUAL DIFF ([id number])Indication: Elevated blood pressure (not hypertension) On: :51 Request LIPID PANEL ([id number])Indication: Other hyperlipidemia On: :50 Request Vitamin D Hydroxy ([id number])Indication: Vitamin D deficiency, unspecified On: :50 Request CALCIFEDIOL ([id number])Indication: Vitamin D deficiency, unspecified On: 41-Eao-016525:24 Request Vitamin D Hydroxy (04604)Indication: Vitamin D deficiency, unspecified On: :51 Request LIPID PANEL ([id number])Indication: Elevated blood pressure (not hypertension) On: :57 Request URINALYSIS, W/ MICRO ([id number])Indication: Elevated blood pressure (not hypertension) On: :57 Request TSH ([id number])Indication: Elevated blood pressure (not hypertension) On: :57 Request METABOLIC PANEL, COMPREHENSIVE ([id number])Indication: Elevated blood pressure (not hypertension) On: :57 Request CBC WITH MANUAL DIFF ([id number])Indication: Elevated blood pressure (not hypertension) On: :57 Request Vitamin D Hydroxy (37188)Indication: Osteopenia On: :57 Request HEPATIC FUNCTION PANEL ([id number])Indication: Other hyperlipidemia On: :14 Request LIPID PANEL ([id number])Indication: Other hyperlipidemia On: :14 Request HEPATIC FUNCTION PANEL (53930)Indication: Other hyperlipidemia On: :41 Request LIPID PANEL ([id number])Indication: Other hyperlipidemia On: :41 Request URINALYSIS W/O MICRO ([id number])Indication: Elevated blood pressure (not hypertension) On: :52 Request TSH ([id number])Indication: Elevated blood pressure (not hypertension) On: :52 Request METABOLIC PANEL, COMPREHENSIVE ([id number])Indication: Elevated blood pressure (not hypertension) On: :52 Request CBC WITH MANUAL DIFF ([id number])Indication: Elevated blood pressure (not hypertension) On: :52 Request LIPID PANEL ([id number])Indication: Other hyperlipidemia On: :52 Request HEPATIC FUNCTION PANEL ([id number])Indication: Other hyperlipidemia On: :35 Request LIPID PANEL (90176)Indication: Other hyperlipidemia On: :35 Request FECAL OCCULT HGB ASSAY- tubes sent home (37600)Indication: Well woman exam with routine gynecological exam On: :33 Request Thin prep Pap ([id number])Indication: Well woman exam with routine gynecological exam On: 89-Jon-675394:33 Request Planned Encounters Medical; [facility] (DF Nurse) - On: 06-Sep-2018 8:15 [facility] NURSE, DF Medical; [facility] Exam (Doctor) - On: 20-Sep-2018 8:00 [facility] Fast DO, Becky A Fast DO, Becky A Planned Procedures Flu Vaccine (Quadrivalent) On: 19-May-2018 Intent 31706Xv: Fannie [place] Comments: Lot #[id number]-L dltd, IMDose prefilled syringegiven by:JENNIFER Vilchis reviewed and ABN signed SCREENING DIGITAL On: 21-Mar-2018 Intent TOMOSYNTHESIS OF BREAST Comments: nov (21050)By: Jono DO, Becky A Fast DO, Becky A ELECTROCARDIOGRAM, COMPLETE On: 21-Sep-2017 Intent (ECG) (04581)By: Jono DO, Comments: ekg showed normal sinus rhythym, normal axis, no acute st/t wave changes Becky A Fast DO, Becky A Flu Vaccine (Quadrivalent) On: 26-Apr-2017 Intent 01450Nk: Visit, Nurse Comments: Lot:[id number]:01/16/18Dose:0.5mLRoute:IMSite:L DltdGiven By:VELIA signed DEXA SCAN AXIAL SKELETON On: 11-Apr-2017 Intent (10788)By: Fast DO, Becky A Fast DO, Becky A SCREENING DIGITAL On: 11-Apr-2017 Intent TOMOSYNTHESIS OF BREAST (51889)By: Fast DO, Becky A Fast DO, Becky A DEXA SCAN AXIAL SKELETON On: 07-Dec-2016 Intent (43567)By: Fast DO, Becky A Comments: sept Fast DO, Becky A PFT - CompleteBy: Fast DO, On: 08-Sep-2016 Intent Becky A Fast DO, Becky A Radiology - Chest- PA and On: 08-Sep-2016 Intent LatBy: Fast DO, Becky A Fast DO, Becky A Ultrasound - RenalBy: Fast On: 08-Sep-2016 Intent DO, Becky A Fast DO, Becky A ELECTROCARDIOGRAM, COMPLETE On: 08-Sep-2016 Intent (ECG) ([id number])By: Fast DO, Comments: ekg showed normal sinus rhythym, normal axis, no acute st/t wave changes Becky A Fast DO, Becky A BILATERAL MAMMOGRAMS On: 07-Jun-2016 Intent ([id number])By: Fast DO, Becky A Fast DO, Becky A Flu Vaccine (Quadrivalent) On: 22-Apr-2015 Intent 48838Bc: Fast DO, Becky A Comments: Lot #:[id number] date: 11/2015Amount given:prefilled syringeSite given:L Dltd, IMGiven by: ALFREDO Miranda and ABN signed Fast DO, Becky A ADMINISTRATION OF INFLUENZA On: 22-Apr-2015 Intent VIRUS VACCINE ([id number])By: Fast DO, Becky A Fast DO, Becky A Bone Density StudyBy: Fast On: 26-Mar-2015 Intent DO, Becky A Fast DO, Becky A BILATERAL MAMMOGRAMS On: 26-Mar-2015 Intent ([id number])By: Fast DO, Becky A Fast DO, Becky A EKG (37557)By: Fast DO, On: 06-Aug-2014 Intent Becky A Fast DO, Becky A Comments: ekg showed normal sinus rhythym, normal axis, no acute st/t wave changes IMMUNIZ ADMNIN, 1 VAC, On: 17-May-2014 Intent SNGL/COMBO (24640)By: Visit, Nurse CHARBEL VAC, SPLIT, >3 YEARS, On: 17-May-2014 Intent INTRAMUSC (89119)By: Visit, Comments: Lot:[id number]/16Amt:0.5mlRoute:IMSite: L DltdGiven By: KARIN Holt signed Nurse Breast Ultrasound - On: 03-Apr-2014 Intent BilateralBy: Fast DO, Becky A Fast DO, Becky A BILATERAL MAMMOGRAMS On: 03-Apr-2014 Intent ([id number])By: Fast DO, Becky A Fast DO, Becky A DEXA SCAN AXIAL SKELETON On: 30-Jan-2014 Intent (51133)By: Fast DO, Becky A Comments: dec Fast DO, Becky A PNEUM VAC ADLT/IMUMNOSPR, On: 09-Apr-2013 Intent SBC/INTRM (18631)By: Jono ARAYA, Comments: lot: [id number]: 02/17/14site/route: L deltoid/IMamt: 0.5mLVIS signed when applicable: KJ Fregoso Becky A Fast DO, Becky A IMMUNIZ ADMNIN, 1 VAC, On: 09-Apr-2013 Intent SNGL/COMBO ([id number])By: Fast DO, Becky A Fast DO, Becky A Eprescribed prescriptions On: 09-Apr-2013 Intent (G8553)By: Jessie Sanches Breast Screening - On: 23-Mar-2013 Intent BilateralBy: Fast DO, Becky A Fast DO, Becky A EKG ([id number])By: Myron, On: 15-Aug-2012 Intent Jessie Comments: ekg showed normal sinus rhythym, normal axis, no acute st/t wave changes Eprescribed prescriptions On: 15-Aug-2012 Intent (G8553)By: Jessie Sanches DXA, BONE DENSITY, AXIAL On: 07-Feb-2012 Intent SKELETON (53237)By: Fast DO, Comments: nov Becky A Fast DO, Becky A Breast Screening - On: 24-Jan-2012 Intent BilateralBy: Fast DO, Becky A Fast DO, Becky A CT - Abdomen & PelvisBy: Fast On: 25-Oct-2011 Intent DO, Becky A Fast DO, Becky A Comments: stat- call wet read TDAP VACCINE >7 IM (13513)By: On: 23-Jun-2011 Intent Jessie Sanches Comments: Lot #[id number]-L arm, IMDose prefilledgiven by:Myriam EKG ([id number])By: Myron, On: 23-Jun-2011 Intent Jessie Comments: ekg showed normal sinus rhythym, normal axis, no acute st/t wave changes FLU VAC, SPLIT, >3 YEARS, On: 23-Jun-2011 Intent INTRAMUSC (62067)By: Myron, Comments: [facility] [place] Breast Screening - On: 06-Jan-2011 Intent BilateralBy: Fast DO, Becky A Fast DO, Becky A IMMUNIZ ADMNIN, 1 VAC, On: 15-May-2010 Intent SNGL/COMBO (16938)By: Carlos Comments: Lot #: [id number] date: mount given: 0.5 mlRoute: IMSite given: left deltoidGiven by: Phani Benson RN RN, Mandy FLU VAC, SPLIT, >3 YEARS, On: 15-May-2010 Intent INTRAMUSC (00107)By: Helene Gonzalez RN DXA, BONE DENSITY, AXIAL On: 02-Mar-2010 Intent SKELETON (00957)By: Jono ARAYA, Comments: due in may Becky A Fast DO, Becky A EKG (86886)By: Myron, On: 02-Mar-2010 Intent Jessie Comments: ekg showed normal sinus rhythym, normal axis, no acute st/t wave changes Radiology - Foot - RightBy: On: 09-Jan-2010 Intent Fast DO, Becky A Fast DO, Comments: stat reading- pain lateral mid foot-trauma- rule out stress fracture Becky A MAMMOGRAM, SCREENING, BOTH On: 06-Jun-2009 Intent BREASTS ([id number])By: Tran Paul DO Ear Irrigation ([id number])By: On: 09-Sep-2008 Intent Tran aPul DO Comments: rebecca used L pt sun well MAMMOGRAM, SCREENING, BOTH On: 05-Dec-2007 Intent BREASTS ([id number])By: Fast DO, Becky A Fast DO, Becky A DXA, BONE DENSITY, AXIAL On: 05-Dec-2007 Intent SKELETON ([id number])By: Fast DO, Becky A Fast DO, Becky A IMMUNIZ ADMNIN, 1 VAC, On: 06-Jun-2007 Intent SNGL/COMBO (97192)By: Fast DO, Becky A Fast DO, Becky A PNEUM VAC ADLT/IMUMNOSPR, On: 06-Jun-2007 Intent SBC/INTRM ([id number])By: Fast DO, Becky A Fast DO, Becky A Breast Screening - LeftBy: On: 06-Jun-2007 Intent Fast DO, Becky A Fast DO, Becky A MAMMOGRAM, SCREENING, BOTH On: 10-Apr-2007 Intent BREASTS ([id number])By: Fast DO, Becky A Fast DO, Becky A Instructions Name Dates Details Other hyperlipidemia : How to access health information online Indication: Other hyperlipidemia Other hyperlipidemia : How to access health information online - Detail Indication: Other hyperlipidemia Other hyperlipidemia : Patient Instructions Indication: Other hyperlipidemia [facility] : How to access health information online Indication: [facility] : How to access health information online - Detail Indication: [facility] : Patient Instructions Indication: [facility] Cough : How to access health information online Indication: Cough Cough : How to access health information online - Detail Indication: Cough Cough : Patient Instructions Indication: Cough Non-smoker : How to access health information online Indication: Non-smoker Non-smoker : How to access health information online - Detail Indication: Non-smoker Non-smoker : Patient Instructions Indication: Non-smoker Benign Essential Hypertension (Renamed from Benign essential HTN) : How to access health information online Indication: Benign Essential Hypertension (Renamed from Benign essential HTN) Benign Essential Hypertension (Renamed from Benign essential HTN) : How to access health information online - Detail Indication: Benign Essential Hypertension (Renamed from Benign essential HTN) Benign Essential Hypertension (Renamed from Benign essential HTN) : Patient Instructions Indication: Benign Essential Hypertension (Renamed from Benign essential HTN) Benign Essential Hypertension (Renamed from Benign essential HTN) : How to access health information online Indication: Benign Essential Hypertension (Renamed from Benign essential HTN) Benign Essential Hypertension (Renamed from Benign essential HTN) : How to access health information online - Detail Indication: Benign Essential Hypertension (Renamed from Benign essential HTN) Benign Essential Hypertension (Renamed from Benign essential HTN) : Patient Instructions Indication: Benign Essential Hypertension (Renamed from Benign essential HTN) Non-smoker : How to access health information online Indication: Non-smoker Non-smoker : Patient Instructions Indication: Non-smoker Non-smoker : How to access health information online - Detail Indication: Non-smoker [facility] : How to access health information online Indication: [facility] : How to access health information online - Detail Indication: [facility] : Patient Instructions Indication: [facility] Benign Essential Hypertension (Renamed from Benign essential HTN) : How to access health information online Indication: Benign Essential Hypertension (Renamed from Benign essential HTN) Benign Essential Hypertension (Renamed from Benign essential HTN) : How to access health information online - Detail Indication: Benign Essential Hypertension (Renamed from Benign essential HTN) Benign Essential Hypertension (Renamed from Benign essential HTN) : Patient Instructions Indication: Benign Essential Hypertension (Renamed from Benign essential HTN) Vitamin D deficiency, unspecified : How to access health information online Indication: Vitamin D deficiency, unspecified Vitamin D deficiency, unspecified : How to access health information online - Detail Indication: Vitamin D deficiency, unspecified Vitamin D deficiency, unspecified : Patient Instructions Indication: Vitamin D deficiency, unspecified Other hyperlipidemia : Patient Instructions Indication: Other hyperlipidemia Allergic rhinitis due to other allergen : How to access health information online Indication: Allergic rhinitis due to other allergen Allergic rhinitis due to other allergen : How to access health information online - Detail Indication: Allergic rhinitis due to other allergen Osteopenia : Patient Instructions Indication: Osteopenia Allergic rhinitis due to other allergen : Patient Instructions Indication: Allergic rhinitis due to other allergen Osteopenia : Patient Instructions Indication: Osteopenia Pharyngitis, acute : Sore throat: diagnosis and treatment Indication: Pharyngitis, acute Encounters Office Visit On: 19-May-2018 10:28 Encounter Reason: Injections - The medication the patient is here to receive is other (flu shot).Encounter Diagnosis: Need for prophylactic vaccination and inoculation against influenza (Renamed from Need for immunization against influenza) End: 19-May-2018 15:05 [facility] Office Visit On: 21-Mar-2018 8:24 Encounter Reason: Follow up tests - Date: (03/10 blood work)., [ADDITIONAL REASON] Follow up for chronic medical issues - The patient feels well with no complaints End: 21-Mar-2018 9:07 , has good energy level and is sleeping well. Patient has been compliant with instructions. Current medication use: no side effects and compliant with dosing regimen. Patient sleeps 7 hours per night. N utrition: balanced diet, supplemental vitamins and low salt diet. The medical issues the patient is following up for include All identified problems below, high blood pressure (elevated), high cholester ol, osteoporosis/osteopenia and other (allergic rhinitis, migraine). 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 The patient's appetite is normal. Nutrition: normal/adequate. Exercises 5 days per week. End: 02-Oct-2017 22:04 Sleeps on average 8 hours per night. Elimination problems include constipation (occasionally). Safety measures include appropriate use of safety belts and home smoke detectors. There are no current emo tional problems. 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 The cough is described as moist (clear). Cough onset was gradual 1 week(s) ago. The cough occurs constantly. Symptoms are exacerbated by lying down. Associ End: 23-Aug-2017 12:18 ated symptoms include postnasal drainage. Previous presentation included a cough. Note for Cough: uses nose spray and helps, [ADDITIONAL REASON] Skin Lesions - Symptoms include multiple skin lesions. Lesion(s) are located on the left side of the face, left side of the neck, left arm and right arm. The patient describes this as unchanged. Symptoms are not exacerbated by fatigue, friction, humidity, perspiration, physical exe rtion, scratching or stress. Associated symptoms do not include chills, fever, joint pain, nausea, bleeding, numbness, shortness of breath, vomiting or wheezing. Note for Skin lesions: - went away aga in 3 days in got same rash which went away with doxy- not itchy same places Encounter Diagnosis: Non-smoker, BMI 31.0-31.9,adult, Cough, Folliculitis, Upper respiratory infection, acute [facility] Office Visit On: 01-Jul-2017 11:02 Encounter Reason: Rash - Symptoms include skin bumps and skin redness, while symptoms do not include crusting, draining, pain or pruritus. The skin rash is located on the left side of the neck, left arm, left leg, right End: 01-Jul-2017 12:11 side of the neck, right arm and right leg. Onset was sudden 5 day(s) ago. There is no known event that preceded symptom onset. The symptoms occur constantly. The patient describes this as worsening. Ass ociated symptoms do not include fever, pustules, purulent drainage or serous discharge. The patient is not currently being treated for this problem. Note for Rash: not groslly itchy did travel checked beds- bath calms down but heat actually makes redder- spreading on neck arms hands legs- tried cortisone no help- feels well otherwise no fever or body aches - - no oral lesions- no feverEncounter Diagnosis: BMI 31.0-31.9,adult, Non-smoker, Folliculitis [facility] Office Visit On: 26-Apr-2017 10:06 Encounter Reason: Injections - The medication the patient is here to receive is other.Encounter Diagnosis: Need for prophylactic vaccination and inoculation against influenza (Renamed from Need for immunization against influenza) End: 26-Apr-2017 10:24 [facility] Office Visit On: 11-Apr-2017 10:54 Encounter Reason: Follow up for chronic medical issues - The patient feels well with no complaints, has good energy level and is sleeping well. Patient has been compliant with instructions. Current medication use: no adriel End: 11-Apr-2017 11:20 e effects and compliant with dosing regimen. Patient sleeps 7 hours per night. Nutrition: balanced diet, supplemental vitamins and low salt diet. The medical issues the patient is following up for inclu de All identified problems below, high blood pressure (elevated), high cholesterol, osteoporosis/osteopenia and other (allergic rhinitis, migraine). 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, Other hyperlipidemia, BMI 31.0-31.9,adult, Encounter for screening mammogram for breast cancer (Renamed from Encounter for screening mammogram for malignant neoplasm of breast), Postmenopausal (Renamed from Postmenopausal status), Vitamin D deficiency, unspecified, Mild intermittent asthma without complication [facility] Phone Encounter On: 19-Jan-2017 13:12 Encounter Diagnosis: Abnormal TSH End: 19-Jan-2017 13:22 [facility] Phone Encounter On: 10-Dec-2016 11:40 Encounter Diagnosis: Abnormal TSH End: 10-Dec-2016 11:45 [facility] Office Visit On: 07-Dec-2016 10:20 Encounter Reason: Follow up for chronic medical issues - The patient feels well with no complaints, has good energy level and is sleeping well. Patient has been compliant with instructions. Current medication use: no adriel End: 07-Dec-2016 11:37 e effects and compliant with dosing regimen. Patient sleeps 7 hours per night. Nutrition: balanced diet, supplemental vitamins and low salt diet. The medical issues the patient is following up for inclu de All identified problems below, high blood pressure (elevated), high cholesterol, osteoporosis/osteopenia and other (allergic rhinitis, migraine). Note for Follow up for chronic medical issues: jemma garcia well feeling well- tolerating simvistatin well and had great results b-p good no breahting issues and no gerd- nomigraines, [ADDITIONAL REASON] Follow up, Laboratory Test Results - Date: (11/2016). 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 Date: (09/09/16 and 09/12/16). Follow up visit with no current symptoms. 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 The patient's appetite is normal. Nutrition: normal/adequate. Exercises 5 days per week. End: 26-Sep-2016 20:58 Sleeps on average 8 hours per night. Elimination problems include constipation (occasionally). Safety measures include appropriate use of safety belts and home smoke detectors. There are no current emo tional problems. Note for Physical exam: [facility]- weight was stable and your bp was goodEncounter Diagnosis: [facility], Non-smoker, Hematuria (599.7), Other hyperlipidemia, Abnormal TSH, Abnormal lung function test [facility] Phone Encounter On: 07-Jun-2016 17:15 Encounter Diagnosis: Screening for breast cancer (Renamed from Breast cancer screening) End: 07-Jun-2016 17:17 [facility] Office Visit On: 21-Oct-2015 13:38 Encounter Reason: Follow up for chronic medical issues - The patient feels well with minor complaints (local reaction to the 2nd vaccine of the prevnar 13- redness, warmth), has good energy level and is sleeping well. Pa End: 21-Oct-2015 21:36 tient has been compliant with instructions. Current medication use: no side effects and compliant with dosing regimen. Patient sleeps 7 hours per night. Nutrition: balanced diet, supplemental vitamins a nd low salt diet. The medical issues the patient is following up for include All identified problems below, high blood pressure (elevated), high cholesterol, osteoporosis/osteopenia and other (allergic rhinitis, migraine). Note for Follow up for chronic medical issues: she started on the losarten and tolerating well and perfect bp , [ADDITIONAL REASON] Follow up, Laboratory Test Results - Date: (10/10/15). Encounter Diagnosis: Benign Essential Hypertension (Renamed from Benign essential HTN), Allergic rhinitis due to other allergen (477.8), Local reaction to immunization, initial encounter, Osteopenia (733.90), Other hyperlipidemia, Vitamin D deficiency, unspecified [facility] Historical Summary On: 20-Oct-2015 14:50 [facility] End: 20-Oct-2015 14:53 Historical Summary On: 09-Jun-2015 17:54 [facility] End: 09-Jun-2015 17:55 Office Visit On: 22-Apr-2015 14:13 Encounter Reason: Follow up for chronic medical issues - The patient feels well with no complaints, has good energy level and is sleeping well. Patient has been compliant with instructions. Current medication use: no adriel End: 23-Apr-2015 19:36 e effects and compliant with dosing regimen. Patient sleeps 7 hours per night. Nutrition: balanced diet, supplemental vitamins and low salt diet. The medical issues the patient is following up for inclu de All identified problems below, high blood pressure (elevated), high cholesterol, osteoporosis/osteopenia and other (allergic rhinitis, migraine). Note for Follow up for chronic medical issues: she definitely has htn her bps run tyoically 140-150// mid 80s, [ADDITIONAL REASON] Follow up, Laboratory Test Results - Date: (04/14/15). Encounter Diagnosis: VITAMIN D DEFICIENCY, NOS (268.9), Allergic rhinitis due to other allergen (477.8), Need for prophylactic vaccination and inoculation against influenza (Renamed from Need for immunization against influenza), Benign Essential Hypertension (Renamed from Benign essential HTN), Colon polyp (211.3), Osteopenia (733.90), Hyperlipidemia, Unspecified (272.4) [facility] Phone Encounter On: 26-Mar-2015 11:05 Encounter Diagnosis: Breast screening (V76.10), Osteopenia (733.90) End: 26-Mar-2015 11:08 [facility] Office Visit On: 06-Aug-2014 13:09 Encounter Reason: Follow up for chronic medical issues - The patient feels well with no complaints, has good energy level and is sleeping well. Patient has been compliant with instructions. Current medication use: no adriel End: 07-Aug-2014 21:58 e effects and compliant with dosing regimen. Patient sleeps 7 hours per night. Nutrition: balanced diet, supplemental vitamins and low salt diet. The medical issues the patient is following up for inclu de All identified problems below, high blood pressure (elevated), high cholesterol, osteoporosis/osteopenia and other (allergic rhinitis, migraine). Note for Follow up for chronic medical issues: she not exercising like was due to heel spur - and weight up few pounds and bp up - she hasnt been watching diet- no holloway dizzy cp - feels fine- no nsaids- but tokk decongestant ast night - so avoid, [ADDITIONAL REASON] Follow up, Laboratory Test Results - Date: (07/30/14). Encounter Diagnosis: Hyperlipidemia, Unspecified (272.4), VITAMIN D DEFICIENCY, NOS (268.9), Allergic rhinitis due to other allergen (477.8), Hematuria (599.7), Elevated Blood Pressure(796.2), Osteopenia (733.90), Colon polyp (211.3) [facility] Office Visit On: 17-May-2014 8:34 Encounter Diagnosis: Need for prophylactic vaccination and inoculation against influenza (V04.81) End: 17-May-2014 8:56 [facility] Phone Encounter On: 03-Apr-2014 14:40 Encounter Diagnosis: Abnormal mammogram End: 03-Apr-2014 14:44 [facility] Office Visit On: 30-Jan-2014 14:55 Encounter Reason: Follow up for chronic medical issues - The patient feels well with no complaints, has good energy level and is sleeping well. Patient has been compliant with instructions. Current medication use: no adriel End: 05-Feb-2014 8:31 e effects and compliant with dosing regimen. Patient sleeps 7 hours per night. Nutrition: balanced diet, supplemental vitamins and low salt diet. The medical issues the patient is following up for inclu de All identified problems below, high blood pressure (elevated), high cholesterol, osteoporosis/osteopenia and other (allergic rhinitis, migraine). Note for Follow up for chronic medical issues: saw Carlos monahan for her breast he thought lesion actually shrunk and doing 6 month followup- hasnt been taking vit d ran out and migraines better now that stress of schol done , [ADDITIONAL REASON] Follow up, Laboratory Test Results - Date: (December 2013). Encounter Diagnosis: Osteopenia (733.90), Colon polyp (211.3), Elevated Blood Pressure(796.2), VITAMIN D DEFICIENCY, NOS (268.9), Abnormal mammogram (793.80), Migraine (346.80), Hematuria (599.7), Hyperlipidemia, Unspecified (272.4), Allergic rhinitis due to other allergen (477.8) [facility] Office Visit On: 09-Apr-2013 13:12 Encounter Reason: Follow up for chronic medical issues - The patient feels well with no complaints, has good energy level and is sleeping well. Patient has been compliant with instructions. Current medication use: no adriel End: 09-Apr-2013 14:17 e effects and compliant with dosing regimen. Patient sleeps 7 hours per night. Nutrition: balanced diet, supplemental vitamins and low salt diet. The medical issues the patient is following up for inclu de All identified problems below, high blood pressure (elevated), high cholesterol, osteoporosis/osteopenia and other (allergic rhinitis, migraine). Note for Follow up for chronic medical issues: feels well and bp is good, [ADDITIONAL REASON] Follow up, Laboratory Test Results - Date: (03/23/13). Encounter Diagnosis: Allergic rhinitis due to other allergen (477.8), VITAMIN D DEFICIENCY, NOS (268.9), Abnormal mammogram (793.80), Hyperlipidemia, Unspecified (272.4) [facility] Phone Encounter On: 23-Mar-2013 13:54 Encounter Diagnosis: Breast screening (V76.10) End: 23-Mar-2013 13:55 [facility] Office Visit On: 15-Aug-2012 14:06 Encounter Reason: Follow up for chronic medical issues - The patient feels well with no complaints, has good energy level and is sleeping well. Patient has been compliant with instructions. Current medication use: no adriel End: 15-Aug-2012 14:52 e effects and compliant with dosing regimen. Patient sleeps 7 hours per night. Nutrition: balanced diet, supplemental vitamins and low salt diet. The medical issues the patient is following up for inclu de All identified problems below, high blood pressure (elevated), high cholesterol, osteoporosis/osteopenia and other (allergic rhinitis, migraine). Note for Follow up for chronic medical issues: she is feeling well and her weight down 4 pounds- - the migraines are doing well hardly having any- dosnt check bps at home - she doesnt want to do meds for bones - she hasnt been doing weight bearing exerc ise so she will work hard on that - d level is good- she is taking calcium once a day- so encoruage bid, [ADDITIONAL REASON] Follow up, Laboratory Test Results - Date: (07/20/12). Encounter Diagnosis: Osteopenia (733.90), VITAMIN D DEFICIENCY, NOS (268.9), Allergic rhinitis due to other allergen (477.8), Hyperlipidemia, Unspecified (272.4) [facility] Office Visit On: 07-Feb-2012 11:18 Encounter Reason: Follow up for chronic medical issues - The patient feels well with no complaints, has good energy level and is sleeping well. Patient has been compliant with instructions. Current medication use: no adriel End: 07-Feb-2012 12:01 e effects and compliant with dosing regimen. Patient sleeps 7 hours per night. Nutrition: balanced diet, supplemental vitamins and low salt diet. The medical issues the patient is following up for inclu de All identified problems below, high blood pressure (elevated), high cholesterol, osteoporosis/osteopenia and other (allergic rhinitis, migraine). Note for Follow up for chronic medical issues: she is feeling good no more abd pain or foot pain and bp is good and weight is stable and had been off vit d prior to rx now back on, [ADDITIONAL REASON] Follow up, Laboratory Test Results - Date: (01/24/12). Encounter Diagnosis: VITAMIN D DEFICIENCY, NOS (268.9), Hyperlipidemia, Unspecified (272.4), Abdominal Pain,RLQ (789.03), Hematuria (599.7), Migraine (346.80), Osteopenia (733.90) [facility] Phone Encounter On: 24-Jan-2012 14:58 Encounter Diagnosis: SCREENING MAMMOGRAM NEC (V76.12) End: 24-Jan-2012 14:59 [facility] Office Visit On: 25-Oct-2011 14:19 Encounter Reason: pelvic pain - ongoing for 2 days, denies n,v,d. ??States did have blood in stool one day. ??Describes as gas pain and rated at 6 o pain scale 0-10- woke her up thur night in middle of night- had been wo End: 25-Oct-2011 21:20 rking in the yard that day- took off work on tuesday - had pain all the way across lower abd- and gas and bloating and pain would go once had bm- sat am - stool was not solid with little pink mixed in- s at afternoon pain and gas and back pain got better - this am- normal bm this am- no urinary sx and feels well today- no fever and normal appetite- had colonsocopy last yearEncounter Diagnosis: Abdominal Pain,RLQ (789.03) [facility] Office Visit On: 23-Jun-2011 12:58 Encounter Reason: Follow up for chronic medical issues - The patient feels well with no complaints, has good energy level and is sleeping well. Patient has been compliant with instructions. Current medication use: no adriel End: 23-Jun-2011 14:35 e effects and compliant with dosing regimen. Patient sleeps 7 hours per night. Nutrition: balanced diet, supplemental vitamins and low salt diet. The medical issues the patient is following up for inclu de All identified problems below, high blood pressure (elevated), high cholesterol, osteoporosis/osteopenia and other (allergic rhinitis, migraine). Note for Follow up for chronic medical issues: nice bp and feeling well and weight is stable ??- no migraines- chol up a bit -still exerciasing- , [ADDITIONAL REASON] Follow up, Laboratory Test Results - Date: (06/10/11). Encounter Diagnosis: Allergic rhinitis due to other allergen (477.8), Need for prophylactic vaccination and inoculation against influenza (V04.81), Hyperlipidemia, Unspecified (272.4), Migraine (346.80), VITAMIN D DEFICIENCY, NOS (268.9), Osteopenia (733.90) [facility] Office Visit On: 19-Feb-2011 9:19 Encounter Reason: Follow up for chronic medical issues - The patient feels well with no complaints, has good energy level and is sleeping well. Patient has been compliant with instructions. Current medication use: no adriel End: 19-Feb-2011 9:56 e effects and compliant with dosing regimen. Patient sleeps 7 hours per night. Nutrition: balanced diet, supplemental vitamins and low salt diet. The medical issues the patient is following up for inclu de All identified problems below, high blood pressure (elevated), high cholesterol, osteoporosis/osteopenia and other (allergic rhinitis, migraine). Note for Follow up for chronic medical issues: moth er in aug -had stroke in jun- weight stable and bp is up- only one migraine in last year- - foot much better- saw pick pulling machine tender- told was tendinitis- got inserts in shoes- and this helped- -she saw doretha and had colonsoopy - 2 polyps recheck 5 years- had mammo- and neg- had been off vit d for quite a while- her bps at home have been good, [ADDITIONAL REASON] Follow up, Laboratory Test Results - Date: (01/06/11). Encounter Diagnosis: VITAMIN D DEFICIENCY, NOS (268.9), Osteopenia (733.90), Foot pain (729.5), Colon polyp (211.3), Migraine (346.80), Hyperlipidemia, Unspecified (272.4), Elevated Blood Pressure(796.2) [facility] Phone Encounter On: 06-Jan-2011 11:12 Encounter Diagnosis: Well Woman Exam (V72.31) (Pap,Mammo,Routine Female) End: 06-Jan-2011 11:21 [facility] Phone Encounter On: 15-Dec-2010 17:24 Encounter Diagnosis: VITAMIN D DEFICIENCY, NOS (268.9) End: 15-Dec-2010 17:24 [facility] Office Visit On: 15-May-2010 9:10 Encounter Reason: Injections - The medication the patient is here to receive is other (flu vaccine).Encounter Diagnosis: Need for prophylactic vaccination and inoculation against influenza (V04.81) End: 15-May-2010 9:21 [facility] Office Visit On: 02-Mar-2010 10:22 Encounter Reason: Follow up for chronic medical issues - The patient feels well with no complaints ,has good energy level and is sleeping well. Patient has been compliant with instructions. Current medication use: no adriel End: 02-Mar-2010 11:16 e effects and compliant with dosing regimen. Patient sleeps 7 hours per night. Nutrition: balanced diet ,supplemental vitamins and low salt diet. The medical issues the patient is following up for inclu de All identified problems below ,high blood pressure (elevated) ,high cholesterol ,osteoporosis/osteopenia and other (allergic rhinitis, migraine). Note for Follow up for chronic medical issues: her sinus is gone - on occasion still has foot issues but not routinely- xray was negtive- she is willing to see pick pulling machine tender- had run out of boniva- no gerd or dysphagia and bp is good-- boil going down- no migraines, [ADDITIONAL REASON] Follow up, Laboratory Test Results - Date: (02/19/10). Encounter Diagnosis: Osteopenia (733.90), Hyperlipidemia, Unspecified (272.4), Foot pain (729.5), Migraine (346.80), Elevated Blood Pressure(796.2), VITAMIN D DEFICIENCY, NOS (268.9), Abnormal mammogram (793.80) [facility] Office Visit On: 28-Jan-2010 14:43 Encounter Reason: Sinusitis/ - The duration of the symptoms are 5 days The course has been worsening. The sinusitis/ has no relieving factors. Associated features include The symptoms have been associated with cough (pro End: 28-Jan-2010 15:18 ductive- yellow) ,ear pain (bilatteral) ,nasal discharge/stuffy nose (clear) ,sinus pain (facial) and teeth pain, while the symptoms have not been associated with sore throat or swollen lymph glands. No previous evaluations were reported. none reported. Encounter Diagnosis: Acute sinusitis, unspecified (461.9), Allergic rhinitis due to other allergen (477.8) [facility] Office Visit On: 09-Jan-2010 9:15 Encounter Reason: Foot Pain - The onset of the foot pain has been gradual following no specific incident and has been occurring in an intermittent pattern for 3 weeks. The course has been recurrent. The foot pain is mild End: 11-Jan-2010 20:46 to moderate. The foot pain is characterized as a burning sensation. The foot pain is described as being located in the lateral column. The foot pain is aggravated by physical activity. The pain has not been relieved by anything. The symptoms have been associated with swelling ,pain in ankle ,painful ROM ,decreased ROM ,burning sensation and difficulty with shoe wear, while the symptoms have not been associated with muscle swelling ,muscle weakness ,pain in calf ,warmth ,fever ,chills or difficulty going up and down stairs. Note for Foot Pain: she was planting [place]ral and kept pushing shovel with foot- tinks this when started- - pain primarily when walk- [place] 1 weekEncounter Diagnosis: Foot pain (729.5), boil, Osteopenia (733.90), Elevated Blood Pressure(796.2) [facility] Office Visit On: 23-Jul-2009 13:54 Encounter Reason: Sinusitis/ - The duration of the symptoms are 1 week The course has been gradually worsening. The sinusitis/ has no relieving factors. Associated features include The symptoms have been associated with End: 23-Jul-2009 14:22 ear pain ,nasal discharge/stuffy nose ,purulent nasal discharge ,sinus pain and sore throat, while the symptoms have not been associated with cough ,purulent discharge from ear ,red eyes ,swollen lymph glands or teeth pain. No previous evaluations were reported. none reported. Encounter Diagnosis: Acute sinusitis, unspecified (461.9) [facility] Historical Summary On: 06-Jun-2009 16:02 [facility] End: 06-Jun-2009 16:03 Office Visit On: 06-Jun-2009 11:11 Encounter Reason: Sinusitis/ - The duration of the symptoms are 1 1/2 weeks The course has been worsening. The sinusitis/ has no relieving factors. Associated features include The symptoms have been associated with cough End: 06-Jun-2009 12:04 ,nasal discharge/stuffy nose ,sinus pain and teeth pain, while the symptoms have not been associated with ear pain or sore throat. No previous evaluations were reported. Encounter Diagnosis: Acute sinusitis, unspecified (461.9) [facility] Office Visit On: 09-Sep-2008 7:56 Encounter Reason: Sinusitis/ - The duration of the symptoms are 5 days The course has been gradually worsening. The sinusitis/ has no relieving factors. Associated features include The symptoms have been associated with End: 09-Sep-2008 8:49 cough ,nasal discharge/stuffy nose and sinus pain. Encounter Diagnosis: Acute sinusitis, unspecified (461.9), Cerumen impaction (380.4) [facility] Office Visit On: 01-Jul-2008 11:32 Encounter Diagnosis: Elevated Blood Pressure(796.2), Acute sinusitis, unspecified (461.9) End: 01-Jul-2008 13:28 [facility] Office Visit On: 26-Jun-2008 7:50 Encounter Reason: Sore throat - The onset of the sore throat has been acute and has been occurring in a persistent pattern for 1 weeks. The course has been worsening. The symptoms have been associated with cough ,difficu End: 26-Jun-2008 8:07 lty in swallowing ,ear pain (feel clogged) ,post-nasal drip ,purulent sputum (yellow) ,recent contact with a person with sore throat and swelling of neck glands, while the symptoms have not been associa ezra with chills ,difficulty in breathing or runny nose. Encounter Diagnosis: Acute sinusitis, unspecified (461.9), ACUTE PHARYNGITIS (462.), Viral infection, unspecified (079.99) [facility] Office Visit On: 17-Jun-2008 16:04 Encounter Reason: Follow up acute care visit - The patient feeling better since last seen. Patient has been compliant with instructions. Current medication use: no side effects and compliant with dosing regimen. Patient End: 17-Jun-2008 16:59 sleeps 8 hours per night. Nutrition: balanced diet. The medical issues the patient is following up for include high blood pressure. Encounter Diagnosis: Elevated Blood Pressure(796.2) [facility] Office Visit On: 10-Jun-2008 16:45 Encounter Reason: Follow up for chronic medical issues - The patient feels well with no complaints ,has good energy level and is sleeping well. Patient has been compliant with instructions. Current medication use: no adriel End: 10-Jun-2008 20:54 e effects and compliant with dosing regimen. Patient sleeps 8 hours per night. Nutrition: balanced diet ,supplemental vitamins and low salt diet. The medical issues the patient is following up for inclu de All identified problems below ,high cholesterol ,osteoporosis/osteopenia and other (migraine, elevated bp). Note for Follow up for chronic medical issues: she had flu vaccine and is feeling well- n o issues with the boniva no gerd and no migraines - bp is up-- had ham yesterday, [ADDITIONAL REASON] Follow up, Laboratory Test Results - Date: (05/25/08). Encounter Diagnosis: Osteopenia (733.90), Hyperlipidemia, Unspecified (272.4), Abnormal mammogram (793.80), Migraine (346.80), Elevated Blood Pressure(796.2) [facility] Office Visit On: 05-Dec-2007 11:23 Encounter Reason: Follow up for chronic medical issues - The patient feels well with no complaints and is sleeping well. Patient has been compliant with instructions. Current medication use: no side effects. Patient slee End: 05-Dec-2007 11:49 ps 6 hours per night. Nutrition: balanced diet and supplemental vitamins. Note for Follow up for chronic medical issues: she is exercising routinely and bp is better she is feeling well and no breast lumps and mammo good - back to routine screening-- she has had some sinus headaches- but not very often-- she has no blood in stool or dark stools or abdominal pain or change in bowel habits, [ADDITIONAL REASON] Follow up, Laboratory Test Results - Date: (08 on face sheet. ). Encounter Diagnosis: Osteopenia (733.90), Abnormal mammogram (793.80), Hyperlipidemia, Unspecified (272.4), Migraine (346.80) [facility] Historical Summary On: 06-Jun-2007 12:25 [facility] End: 06-Jun-2007 12:26 Office Visit On: 06-Jun-2007 11:16 Encounter Reason: Follow up, Laboratory Test Results - Date: (05/19/07 and 05/20/07). Note for Follow up, Laboratory Test Results: no issues with the migraines, End: 06-Jun-2007 12:19 [ADDITIONAL REASON] Follow up, Diagnostic Procedure Results - Diagnostic tests include other (diagnostic left mammo). Date: (05/30/07). Encounter Diagnosis: Abnormal mammogram (793.80), Hematuria (599.7), Migraine (346.80), Hyperlipidemia, Unspecified (272.4), Elevated Blood Pressure(796.2) [facility] Office Visit On: 10-Apr-2007 10:44 Encounter Reason: Well Women Exam - The patient feels well with no complaints ,has good energy level and is sleeping well. Pap smear: history of abnormal pap and date of last pap: (02/28/06). Contraceptive history: The ia End: 10-Apr-2007 11:37 fariba is not using any method of contraception at this time. Patient exercises 3 - 4 times per week. The patient's libido is normal. The patient reports that she performs monthly self breast exam. Calci um intake includes 1200 mg with Vit D daily supplement. The patient denies the use of oral contraceptives or hormone replacement therapy. Note for Well Women Exam: she is taking calcium 1500 mg aday a nd vit d- had secondary workup for osteopenia- but was neg except didnt do 24 hour urineEncounter Diagnosis: Well Woman Exam (V72.31) (Pap,Mammo,Routine Female), Osteopenia (733.90), Hyperlipidemia, Unspecified (272.4) [facility] Historical Summary On: 07-Apr-2007 13:50 [facility] End: 07-Apr-2007 15:05 Payers [employer]/MedicareNORMA VANSICKLE; a guarantor
--- OUTSIDE RECORDS SUMMARY | 2018-08-25 04:55 | XMS RPT_ITS | Continuity of Care Document ---
:1945 Author Organization [facility] Address [facility] [address] [place] [address] Phone Care Team Providers Name Role Phone Becky De La Cruz DO Unavailable Dr. Wolf Clark Unavailable Carlos Monahan MD Unavailable Ashley CONRAD, Gordy Hopper Unavailable Sharon Meier Unavailable Unavailable Kacie Araiza Unavailable Unavailable Jessie Sanches Unavailable Unavailable Fannie [...] daily, prn for 90 days Quantity: 1 {[place]} Refills: 3 Ordered:22-Aug-2017 Jono ARAYA, Becky AFast DO, Becky A Start : 22-Aug-2017 Active Losartan Potassium 50 MG Oral Tablet 1 (one) Tablet daily for 0 days Quantity: 30 {Tablet} Refills: 6 Ordered:27-Jan-2018 DO, Becky AFast DO, Becky A Start : 27-Jan-2018 Active Simvastatin 10 MG Oral Tablet 1 (one) Tablet qd for 0 days Quantity: 30 {Tablet} Refills: 6 Ordered:27-Jan-2018 , Becky AFast DO, Becky A Start : 27-Jan-2018 Active Synthroid 88 MCG Oral Tablet 1 (one) Tablet tuesday thru and none for 0 days Quantity: 30 {Tablet} Refills: 3 Ordered:21-Mar-2018 Jono ARAYA, Becky AFast DO, Becky A Start : 21-Mar-2018 Active Vitamin D3 5000 UNIT Oral Capsule 1 (one) Capsule QOD for 0 days Quantity: 30 {Capsule} Refills: 3 Ordered:21-Sep-2017 , Becky AFast DO, Becky A Start : 21-Sep-2017 Active AUGMENTIN, 875-125MG (Oral Tablet) 1 Tablet Twice daily for 14 days Quantity: 28 {Tablet} Refills: 0 Ordered:28-Jan-2010 Dena Gutierrez CNP Start : 28-Jan-2010 End : 11-Feb-2010 Inactive Calcium 500/D 500-400 MG-UNIT Oral Tablet Chewable 1 (one) Tablet Chewable bid for 0 days Refills: 0 Ordered:21-Sep-2017 Abhi De La Cruz DOa AFast DO, Becky A Start : 10-Jun-2008 End [...] 19-Feb-2011 Discontinued Comments:This order discontinued per [employer]. GARTH, 12090TXSL (Oral Capsule) 1 (one) Capsule q week [...] R colon Tonsillectomy Completed Date Value Details 03-Jul-2018 Breast Limited Unilateral Result: Comments: See Note; NOTES: [facility] Imaging Services [address] [place] [address] Breast Limited Unilateral MR#: [id number] Acct: [id number] Name: AUDREY STREETER Rep #: [id number] : 1945 F 72 From: Luke Leonard MD PCP: Becky De La Cruz DO Status: REG CLI Study: Breast Limited Unilateral Date of Exam: 07/03/18 Exam# [id number] Ordering Dr: Becky De La Cruz DO STUDY: ULTRASOUND BREAST - RIGHT REASON FOR EXAM: Female, 72 years old. Abnormal screening mammogram. TECHNIQUE: Axial and longitudinal images of the RIGHT breast were performed with a high resolution ultra sound transducer. COMPARISON: Comparison is made with prior mammogram dated June 30, 2018 and prior ultrasound of the right breast dated April 08, 2014. FIND INGS: RIGHT Breast: There is a 4 mm x 4 mm x 2 mm cyst in the retroareolar region of the breast. Adjacent to this, there is a 4 mm x 5 mm x 4 mm cyst. These correspond to the mammographic findings. ___ US/Breast Limited Unilateral IMPRESSION: The mammographic abnormality corresponds to 2 small retroareolar cysts. ASSESSMENT CATEGORY: BIRADS Category 2: Benign. A letter regarding these results will be sent to the patient by the facility within 30 days. Electronically Signed: Luke Leonard MD a t 14:10 EST Tel [phone], Service support , CC: Becky De La Cruz DO Flavoring Oil Filterer: Signed 30-Jun-2018 SCREENING MAMM (CAD), BILAT Result: Comments: See Note; NOTES: [facility] Imaging Services [address] [place] [address] SCREENING MAMM (CAD), BILAT MR#: [id number] Acct: [id number] Name: AUDREY STREETER Rep # : [id number] : 1945 F 72 From: Luke Leonard MD PCP: Becky De La Cruz DO Status: REG CLI Study: SCREENING MAMM (CAD), BILAT Date of Exam: 06/30/18 Exam# [id number] Ordering Dr: Becky De La Cruz DO MA MMOGRAPHY - BILATERAL SCREENING REASON FOR EXAM: Female, 72 years old. Routine annual screening examination. PERTINENT HISTORY: Non-contributory. Remote right excisional breast biopsy. TECHNIQUE: Dig ital bilateral breast rin (3D mammographic acquisition) in the CC and MLO projections. 2-D mediolateral oblique (MLO) and craniocaudad (CC) views of both breasts were obtained. CAD: Full Field Digital Mammography with Computer Added Detection was performed. COMPARISON: Comparison is made with prior study dated June 29, 2017 and June 28, 2016. FINDINGS: Br east Composition: There are scattered areas of fibroglandular density. There are no dominant masses or suspicious calcifications. Stable 7.2 mm well-defined nodule in the axillary region of the right b reast in keeping with a small lymph node. There are 2 well-defined nodular densities in the retroareolar region of the right breast. The larger measures 4.2 mm. This may represent either a small cyst or dilated retroareolar duct. Correlation with ultrasound is recommended. No other significant abnormalities are identified. There has been no significant change since the prior study. BI/SCREENING MAMM (CAD), BILAT IMPRESSION: Stable bilateral screening mammogram. 2 small nodular densities are seen in the retroareolar region of the right breast. Correlation with ultrasound is recommended. ASSESSMENT CATEGORY: BIRADS Category 0: Incomplete. Need additional imaging evaluation. A letter regarding these result s will be sent to the patient by the facility within 30 days. Approximately 10% of breast cancers are not detected by mammography. A normal mammogram should not delay biopsy of a clinically suspicious abnormality. [id number] Electronically Signed: Luke Leonard MD at 12:24 EST Tel [phone], Service support , CC: Becky De La Cruz DO Flavoring Oil Filterer: Signed 11-Oct-2017 TXT - Blood Flow Screening Result: Comments: See Note; NOTES: [facility] Cardiovascular Services [address] [place] [address] 10/11/17 0832 MR#: [id number] Acct: [id number] Name: AUDREY STREETER Rep #: [id number] : 1945 71 From: Zack Valdes MD Attending Dr: Becky De La Cruz DO Status: REG REF Ordering Dr: Date: 10/11/17 Location: [facility] Sex: F C Admitted: Reason For [...] DO Date Dictated: 10/11/17 0832 Date Transcribed: 10/11/171552 Flavoring Oil Filterer: Signed 29-Jun-2017 SCREENING MAMM (CAD), BILAT Result: Comments: See Note; NOTES: [facility] Imaging Services [address] [place] [address] SCREENING MAMM (CAD), BILAT MR#: [id number] Acct: [id number] Name: AUDREY STREETER Rep #: [id number] : 1945 F 71 From: Vern Hightower MD PCP: Becky De La Cruz DO Status: REG CLI Study: SCREENING MAMM (CAD), BILAT Date of Exam: 06/29/17 Exam# [id number] Ordering Dr: Becky De La Cruz DO [...] biopsy of a clinica lly suspicious abnormality. [id number] Electronically Signed: Prashant Hightower MD at 14:20 EST , Service support , CC: Becky De La Cruz DO Flavoring Oil Filterer: Signed 26-Apr-2017 Dexa Bone Density Study (HP) Result: Comments: See Note; NOTES: [facility] Imaging Services [address] [place] [address] Dexa Bone Density Study (HP) MR#: [id number] Acct: [id number] Name: AUDREY STREETER Rep #: [id number] : 1945 F 71 From: Luke Leonard MD PCP: Becky De La Cruz DO Status: REG CLI Study: Dexa Bone Density Study (HP) Date of Exam: 04/26/17 Exam# [id number] Ordering Dr: Becky De La Cruz TUDY: DUAL ENERGY X-RAY ABSORPTIOMETRY / DXA REASON [...] Luke Leonard MD at 9:52 EDT Tel [phone], Service support , CC: Becky De La Cruz DO Flavoring Oil Filterer: Signed 12-Sep-2016 Pulmonary Function Report Comp Result: Comments: See Note; NOTES: [facility] Pulmonary Services/Neurology [facility] [place] [address] Pulmonary Function Test (Comp) MR#: [id number] Acct: [id number] Name: AUDREY STREETER Rep #: [id number] : 1945 70 From: Tariq Her MD Referring Dr: Becky De La Cruz DO Status: REG CLI Ordering Dr: Becky De La Cruz DO Date: 09/09/16 Location: [facility] Sex: F C DATE OF SERVICE: [...] C: Becky De La Cruz DO T: [facility] JOB: [id number] 07/17 0600 <Electronically signed by Tariq Her MD> Date Tariq Her MD CC: Tariq Her MD; Becky De La Cruz DO Date Dictated: 09/11/16 113 6 Date Transcribed: 09/11/16 1136 Flavoring Oil Filterer: Signed 09-Sep-2016 Kidney and Bladder Result: Comments: See Note; NOTES: [facility] Imaging Services [address] [place] [address] Verdana 4d Kidney and Bladder MR#: [id number] Acct: [id number] Name: AUDREY STREETER Rep # : [id number] : 1945 F 70 From: Ho Sam MD PCP: Becky De La Cruz DO Status: REG CLI Study: Kidney and Bladder Date of Exam: 09/09/16 Exam# [id number] Ordering Dr: Becky De La Cruz DO [...] at 23:19 EST Tel , Service support [phone], CC: Becky De La Cruz DO Flavoring Oil Filterer: Signed 08-Sep-2016 Chest PA and Lateral Result: Comments: See Note; NOTES: [facility] Imaging Services [address] [place] [address] Verdana 4d Chest PA and Lateral MR#: [id number] Acct: [id number] Name: AUDREY STREETER Rep #: [id number] : 1945 F 70 From: Ho Sam MD PCP: Becky De La Cruz DO Status: REG CLI Study: Chest PA and Lateral Date of Exam: 09/08/16 Exam# [id number] Ordering Dr: Becky De La Cruz DO [...] at 7:56 EST Tel , Service support [phone], CC: Becky De La Cruz DO Flavoring Oil Filterer: Signed 28-Jun-2016 Bilat Scrn Digital AND CAD Result: Comments: See Note; NOTES: [facility] Imaging Services [address] [place] [address] Verdana 4d Bilat Scrn Digital AND CAD MR#: [id number] Acct: [id number] Name: SYL,BIANCA RICE Rep #: [id number] : 1945 F 70 From: Vern Hightower MD PCP: Becky De La Cruz DO Status: REG CLI Study: Bilat Scrn Digital AND CAD Date of Exam: 06/28/16 Exam# [id number] Ordering Dr: Becky De La Cruz DO [...] no significant change since the prior study. HPBI/Bilat Scrn Digital AND CAD IMPR ESSION: Stable bilateral screening mammogram. Yearly follow-up mammogram recommended. (A) ASSESSMENT CATEGORY: BIRADS Category 2: Benign. A letter regarding these r esults will be sent to the patient by the facility within 30 days. BR2 Approximately 10% of breast cancers are not detected by mammography. A normal mammogram should not delay biopsy of a clinically s uspicious abnormality. [id number] Electronically Signed: Prashant Hightower MD at 9:18 EST Tel , Service support [phone], CC: Becky De La Cruz DO Flavoring Oil Filterer: Signed 15-Apr-2015 Leticia Bateman Digital AND CAD Result: Comments: See Note; NOTES: [facility] Imaging Services [address] [place] [address] Breast Imaging Report MR#: [id number] Acct: [id number] Name: AUDREY STREETER Rep #: [id number] : 1945 F 69 From: Luke Leonard MD PCP: Becky De La Cruz DO Status: REG CLI Study: Bilyogi Scrn Digital AND CAD Date of Exam: 04/15/15 Exam# [id number] Ordering Dr: Becky De La Cruz DO MAMMOGRAPHY - BILATERAL SCREENING REASON FOR EXAM: Female, 69 years old. Routine annual screening examination. PERTINENT HISTORY: Prior right excisional breast biopsy. TECHNIQUE: Digital exami nation. Mediolateral oblique (MLO) and craniocaudad (CC) views [...] Luke Leonard MD at 10:51 EDT Tel [phone], Service support [phone], Fax CC: Becky De La Cruz DO Flavoring Oil Filterer: Signed 15-Apr-2015 Dexa Bone Density Study (HP) Result: Comments: See Note; NOTES: [facility] Imaging Services [address] [place] [address] Bone Density Report MR#: [id number] Acct: [id number] Name: AUDREY STREETER Rep #: [id number] : 1945 F 69 From: Luke Leonard MD PCP: Becky De La Cruz DO Status: [facility] CLI Study: Dexa Bone Density Study (HP) Date of Exam: 04/15/15 Exam# [id number] Ordering Dr: Becky De La Cruz DO [...] Luke Leonard MD at 10:50 EDT Tel [phone], Service support [phone], CC: Becky De La Cruz DO Flavoring Oil Filterer: Signed 08-Apr-2014 Breast Unilateral Result: Comments: See Note; NOTES: [facility] Imaging Services [address] [place] [address] Ultrasound Report MR#: [id number] Acct: [id number] Name: AUDERY STREETER Rep #: [id number] : 1945 F 68 From: Luke Leonard MD PCP: Becky De La Cruz DO Status: REG CLI Study: Breast Unilateral Date of Exam: 04/08/14 Exam# [id number] Ordering Dr: Becky De La Cruz DO [...] Luke Leonard MD at 9:10 EDT Tel [phone], Service suppor t [phone], CC: Becky De La Cruz DO Flavoring Oil Filterer: Signed 08-Apr-2014 Leticia Bateman Digital & CAD Result: Comments: See Note; NOTES: [facility] Imaging Services [address] [place] [address] Breast Imaging Report MR#: [id number] Acct: [id number] Name: AUDREY STREETER Rep #: [id number] : 1945 F 68 From: Luke Leonard MD PCP: Becky De La Cruz DO Status: REG CLI Exam# [id number] Ordering Dr: Becky De La Cruz DO [...] Luke Leonard MD at 8:44 EDT Tel [phone], Service support [phone], CC: Becky De La Cruz DO Flavoring Oil Filterer: Signed Immunization Name Dates Details Pneumococcal (2 [...] kg/m2 Body Surface Area Calculated 1.74 m2 39-Qol-356371:28 Temperature 97.6 f Pulse 91 /min Comments: [...] Cuff Location: Left Arm; Cuff Size: Large :54 Temperature 97.9 f Comments: Method: Undefined Pulse [...] Results Date Description Value Details :19 TSH (59748) Comments: PATIENT WAS FASTINGPERFORMED BY: CB [facility] Sigduz4065 [facility] [id number] TSH 1.660 {uIU/mL} (Normal) Range: 0.450-4.500 :19 LIPID PANEL (19381) Comments: PATIENT WAS FASTINGPERFORMED BY: CB [facility] Kfvhiy7802 [facility] [id number] LDL/HDL Ratio 1.4 {ratio} (Normal) Range: 0.0-3.2 [...] PANEL, COMPREHENSIVE Comments: PATIENT WAS FASTINGPERFORMED BY: [facility] Rcvaoc0456 [facility] [id number] (96518) ALT (SGPT) 16 [iU]/L (Normal) Range: 0-32 [...] 8-27 Glucose 83 mg/dL (Normal) Range: 65-99 58-Gnr-42126:19 Vitamin D Hydroxy (49725) Comments: PATIENT WAS FASTINGPERFORMED BY: [facility] Xxxdqu6845 [facility] [id number] Vitamin D, 25-Hydroxy 59.6 ng/mL (Normal) Range: 30.0-100.0 Comments: Vitamin D deficiency has been defined by the [place] of[place]icine and an Endocrine Society practice guideline as alevel of serum 25-OH vitamin D less than 20 ng/mL (1,2).The Endocrine Society went on to further define vitamin Dinsufficiency as a level between 21 and 29 ng/mL (2).1. IOM ([place] of Medicine). 2010. Dietary reference intakes for calcium and D. [place]: The National Academies Press.2. Baljinder MF, [place]cy ROSE, Tere HOLLOWAY, et al. Evaluation, treatment, and prevention of vitamin D deficiency: an Endocrine Society clinical practice guideline. JCEM. 2010; 96(7):1911-30. 8-Fen-653733:16 METABOLIC PANEL, COMPREHENSIVE Comments: PATIENT NOT FASTINGPERFORMED BY: [facility]Newton [facility] CenterMlnsqc8116 [facility] [id number]; will review on 09/21 (15204) ALT (SGPT) 18 [iU]/L (Normal) Range: 0-32 [...] Glucose, Serum 94 mg/dL (Normal) Range: 65-99 4-Mci-856823:16 CBC W/AUTO DIFF WBC Comments: PATIENT NOT FASTINGPERFORMED BY: [facility] 1868470 [facility] [id number] Information: NURSE DRAW (38828) Immature Grans (Abs) 0.0 {x10E3/uL} (Normal) Range: [...] D Hydroxy Comments: PATIENT WAS FASTINGPERFORMED BY: LabCo[address] [id number] BY: [facility] CenterNwqyxa5532 [facility] [id number] (69061) Vitamin D, 25-Hydroxy 56.5 ng/mL (Normal) Range: 30.0-100.0 Comments: Vitamin D deficiency has been defined by the [place] of[place]icine and an Endocrine Society practice guideline as alevel of serum 25-OH vitamin D less than 20 ng/mL (1,2).The Endocrine Society went on to further define vitamin Dinsufficiency as a level between 21 and 29 ng/mL (2).1. IOM ([place] of [employer]). 2010. Dietary reference intakes for calcium and D. [place]: The National Academies Press.2. Baljinder MF, [place]cy ROSE, Tere HOLLOWAY, et al. Evaluation, treatment, and prevention of vitamin D deficiency: an Endocrine Society clinical practice guideline. JCEM. 2010; 96(7):1911-30. :56 CBC W/AUTO DIFF WBC Comments: PATIENT WAS FASTINGPERFORMED BY: BN [facility] Nhkswhmdkc8800 [facility] [id number] BY: CB [facility] Bforsw3811 [facility] [id number] (05232) Immature Grans (Abs) 0.0 {x10E3/uL} (Normal) Range: [...] METABOLIC PANEL, Comments: PATIENT WAS FASTINGPERFORMED BY: BN [facility] Vqqqpdudut4822 [facility] [id number] BY: CB [facility] Yakwgh7399 [facility] [id number] [facility] (31131) ALT (SGPT) 22 [iU]/L (Normal) Range: 0-32 [...] Glucose, Serum 93 mg/dL (Normal) Range: 65-99 :56 LIPOPROTEIN, BLD, BY NMR Comments: PATIENT WAS FASTINGPERFORMED BY: BN [facility] Bjargdfkmh3366 [facility] [id number] BY: CB [facility] Mtkanx6543 Riccardo [place] [id number] (05529) LP-IR Score 51 (Abnormal) Comments: INSULIN RESISTANCE MARKER <--Insulin Sensitive Insulin Resistant--> Percentile in Reference PopulationInsulin Resistance ScoreLP-IR Score Low 25th 50th 75th High <27 27 45 63 >63LP-IR Score is inaccurate if patient is non-fasting. .The LP-IR score is a laboratory developed i [facility] that has beenassociated with insulin resistance and [...] were developed and their performance characteristicsdetermined by [employer]. These assays have not been cleared by [...] 1600 - 2000 Very High > 2000 8-Ivc-018651:56 TSH (35433) Comments: 6 weeks; PATIENT NOT FASTINGPERFORMED BY: [employer] Rmawzp4750 [facility] [id number] TSH 3.990 {uIU/mL} (Normal) Range: 0.450-4.500 15-Waa-944105:03 TSH (40994) Comments: PATIENT NOT FASTINGPERFORMED BY: [employer]6370 [facility] [id number] TSH 0.006 {uIU/mL} (Abnormal) Range: 0.450-4.500 :03 T4, FREE (THYROXINE) (55063) Comments: PATIENT NOT FASTINGPERFORMED BY: [employer] Wxjxvu4463 [facility] [id number] T4,Free(Direct) 1.81 ng/dL (Abnormal) Range: 0.82-1.77 :03 T3, FREE (TRIDOTHYRONINE) (26168) Comments: PATIENT NOT FASTINGPERFORMED BY: [employer] Cftweq1623 [facility] [id number] Triiodothyronine,Free,Serum 3.4 pg/mL (Normal) Range: 2.0-4.4 :58 TSH (78896) Comments: PATIENT NOT FASTINGPERFORMED BY: CB [facility] Yraays9177 [facility] [place] [id number] TSH <0.006 {uIU/mL} (Abnormal) Range: 0.450-4.500 60-Pnk-80565:29 LIPOPROTEIN, BLD, BY NMR Comments: PATIENT WAS FASTINGPERFORMED BY: [facility] Zggajfosaw7145 [facility] [id number] BY: [facility] Bppwyb0677 Gu Roadbl[address] [place] [id number]; non-emergent till apt (10821) LP-IR Score 66 (Abnormal) Comments: INSULIN RESISTANCE MARKER <--Insulin Sensitive Insulin Resistant--> Percentile in Reference PopulationInsulin Resistance ScoreLP-IR Score Low 25th 50th 75th High <27 27 45 63 >63LP-IR Score is inaccurate if patient is non-fasting. .The LP-IR score is a laboratory developed i [facility] that has beenassociated with insulin resistance and [...] were developed and their performance characteristicsdetermined by [employer]. These assays have not been cleared by [...] 1600 - 2000 Very High > 2000 48-Wuv-75169:29 CBC W/AUTO DIFF WBC Comments: PATIENT WAS FASTINGPERFORMED BY: [facility] [address] [id number] BY: [facility] [address] [id number] (21392) Immature Grans (Abs) 0.0 {x10E3/uL} (Normal) Range: [...] 3.77-5.28 WBC 5.1 {x10E3/uL} (Normal) Range: 3.4-10.8 46-Fuo-05155:29 METABOLIC PANEL, Comments: PATIENT WAS FASTINGPERFORMED BY: [facility] [address] [id number] BY: [facility] Oakhwi4958 [facility] [id number] [facility] (81107) ALT (SGPT) 17 [iU]/L (Normal) Range: 0-32 [...] (Normal) Range: 65-99 :30 T3, FREE (TRIDOTHYRONINE) (80665) Comments: PATIENT NOT FASTINGPERFORMED BY: [employer] Idc917[facility] [id number] Triiodothyronine,Free,Serum 3.8 pg/mL (Normal) Range: 2.0-4.4 :30 T4, FREE (THYROXINE) (79211) Comments: PATIENT NOT FASTINGPERFORMED BY: [facility] [id number] T4,Free(Direct) 1.97 ng/dL (Abnormal) Range: 0.82-1.77 :30 TSH (36555) Comments: PATIENT NOT FASTINGPERFORMED BY: [facility] [id number] TSH 0.062 {uIU/mL} (Abnormal) Range: 0.450-4.500 5-Ksz-813660:21 Urinalysis, Office (78558) UA - LEUKOCYTE ESTERASE Negative (Normal) UA - NITRITE Negative (Normal) URINE UROBILINGN SHANNON TIMED Normal mg/dL (Normal) UA - PROTEIN Negative mg/dL (Normal) UA - PH 7 (Normal) UA - BLOOD Non Hemolyzed Moderate (Normal) UA - SPECIFIC GRAVITY 1.015 (Normal) UA - KETONES Negative mg/dL (Normal) UA - BILIRUBIN Negative (Normal) UA - GLUCOSE Negative (Normal) 0-Xzq-754166:29 Anti-TPO Antibody (29748) Comments: PATIENT NOT FASTINGPERFORMED BY: [employer] Idc917[facility] [id number] Thyroid Peroxidase (TPO) Ab 79 {IU/mL} (Abnormal) Range: 0-34 2-Zbm-370177:29 TSH (84831) Comments: PATIENT NOT FASTINGPERFORMED BY: CB [facility] Ddkyoe7863 [address] Road[address]ublin [place] [id number] TSH 4.520 {uIU/mL} (Abnormal) Range: 0.450-4.500 :29 T4, FREE (THYROXINE) (60491) Comments: PATIENT NOT FASTINGPERFORMED BY: CB [facility] Qkbwyu8265 [address] Road[address]ublin [place] [id number] T4,Free(Direct) 1.07 ng/dL (Normal) Range: 0.82-1.77 :29 T3, FREE (TRIDOTHYRONINE) (28159) Comments: PATIENT NOT FASTINGPERFORMED BY: CB [facility] Aovode2361 [address] Road[address] [place] [id number] Triiodothyronine,Free,Serum 2.6 pg/mL (Normal) Range: 2.0-4.4 :43 Vitamin D Hydroxy (79198) Comments: PATIENT WAS FASTINGPERFORMED BY: CB [facility] Tkqkbu7992 [address] Road[address]ublin [place] [id number] Vitamin D, 25-Hydroxy 49.9 ng/mL (Normal) Range: 30.0-100.0 Comments: Vitamin D deficiency has been defined by the [place] of[place]icine and an Endocrine Society practice guideline as alevel of serum 25-OH vitamin D less than 20 ng/mL (1,2).The Endocrine Society went on to further define vitamin Dinsufficiency as a level between 21 and 29 ng/mL (2).1. IOM ([place] of [place]). 2010. Dietary reference intakes for calcium and D. [place]: The National Academies Press.2. Baljinder MF, [place], Tere HOLLOWAY, et al. Evaluation, treatment, and prevention of vitamin D deficiency: an Endocrine Society clinical practice guideline. JCEM. 2010; 96(7):1911-30. :43 LIPID PANEL (14921) Comments: PATIENT WAS FASTINGPERFORMED BY: CB [facility] Zcpdls9967 Gu RoadDublin [place] [id number]; non-emergent till apt LDL/HDL Ratio 2.3 {ratio_units} [...] METABOLIC PANEL, Comments: PATIENT WAS FASTINGPERFORMED BY: [facility] CenterPzsams7424 [facility] [id number] Information: [id number] COMPREHENSIVE (53739) ALT (SGPT) 21 [iU]/L (Normal) Range: 0-32 [...] Glucose, Serum 96 mg/dL (Normal) Range: 65-99 66-Ygg-48572:43 CBC (AUTO) (00266) Comments: PATIENT WAS FASTINGPERFORMED BY: [facility]CoNewton [facility] CenterAoovjq4082 [facility] [id number] Platelets 238 {x10E3/uL} Range: 150-379 (Normal) RDW 14.1 % (Normal) Range: 12.3-15.4 MCHC 33.8 g/dL (Normal) Range: 31.5-35.7 MCH 27.0 pg (Normal) Range: 26.6-33.0 MCV 80 fL (Normal) Range: 79-97 Hematocrit 37.3 % (Normal) Range: 34.0-46.6 Hemoglobin 12.6 g/dL (Normal) Range: 11.1-15.9 RBC 4.66 {x10E6/uL} Range: 3.77-5.28 (Normal) WBC 4.7 {x10E3/uL} Range: 3.4-10.8 (Normal) :0 COLON BIOPSY (CHOOSE See Note (Normal) Comments: [facility] Kenexrhjre[address] [facility] [place], [address] 0 SITE) Comments: Patient: AUDREY STREETER : 1945 (69/F) Acct Num: [id number] Phys: Wolf Clark Unit Num: [id number] Loc: [facility] Specimen: [id number] Received: 05/22/151655 Spec Type: COLON BX TISSUES TISSUES: GROSS DESCRIPTION Received is one container labeled with the patient name and designated biopsy polyp cecum. The specimen consists of multiple irregular f ragments of light menezes soft tissue that in aggregate measure 0.5 x 0.2 x 0.1 cm. The specimen is totally submitted in one cassette. / DANILO:janet 05/23/15 TC:1 CPT: 18160 HEADER OPERATION: [place] py with biopsy PRE-OP DIAGNOSIS: Screening/polyp TISSUE SUBMITTED: Biopsy polyps cecum - rule out adenoma MICROSCOPIC DESCRIPTION Slides are reviewed. MICROSCOPIC DIAGNOSIS Polyps cecum, biopsy: Fragments of hyperplastic polyp. SJ:janet 05/26/15 Signed Piter Hauser 05/26/15 <signature on file> 1-Lcr-333969:39 Metabolic Panel, Basic Comments: PATIENT NOT FASTINGPERFORMED BY: Pulse TechnologiesNewton Medical CenterShwslc8930 [facility] [id number] Information: [id number] (69866) Calcium, Serum 9.2 mg/dL (Normal) Range: 8.7-10.3 [...] Glucose, Serum 121 mg/dL (Abnormal) Range: 65-99 :29 CBC W/AUTO DIFF WBC Comments: PATIENT WAS FASTINGPERFORMED BY: [employer] Rjgumh4806 [facility] [id number] Information: [id number] (20231) Immature Grans (Abs) 0.0 {x10E3/uL} (Normal) Range: [...] 3.77-5.28 WBC 6.0 {x10E3/uL} (Normal) Range: 3.4-10.8 70-Yqp-18822:29 METABOLIC PANEL, COMPREHENSIVE Comments: PATIENT WAS FASTINGPERFORMED BY: LabCoNewton Medical CenterVujykt9116 [facility] [id number] (27801) ALT (SGPT) 21 [iU]/L (Normal) Range: 0-32 [...] K increased. Clinicalcorrelation indicated. :29 LIPID PANEL (26595) Comments: PATIENT WAS FASTINGPERFORMED BY: [employer] SystemsStepOne [place] [id number]; apt. 04-22-15 LDL/HDL Ratio 2.5 {ratio_units} (Normal) [...] (Abnormal) Range: 100-199 :29 Vitamin D Hydroxy (64529) Comments: PATIENT WAS FASTINGPERFORMED BY: CashStar70 HandelabraGamesUNC Health Rex [id number] Vitamin D, 25-Hydroxy 32.1 ng/mL (Normal) Range: 30.0-100.0 Comments: Vitamin D deficiency has been defined by the [place] ofMedicine and an Endocrine Society practice guideline as alevel of serum 25-OH vitamin D less than 20 ng/mL (1,2).The Endocrine Society went on to further define vitamin Dinsufficiency as a level between 21 and 29 ng/mL (2).1. IOM ([place] of Medicine). 2010. Dietary reference intakes for calcium and D. [place]: The National Academies Press.2. Baljinder MF, [place], Tere HOLLOWAY, et al. Evaluation, treatment, and prevention of vitamin D deficiency: an Endocrine Society clinical practice guideline. JCEM. 2010; 96(7):1911-30. 86-Jar-069792:43 Microscopic Examination Comments: PATIENT WAS FASTINGPERFORMED BY: FonalityNewton Medical CenterKmwhcy8417 [facility] [id number] Bacteria Few (Normal) Mucus Threads Present (Normal) Cast Type Hyaline casts (Normal) Casts Present {/lpf} (Abnormal) Epithelial Cells (non renal) 0-10 {/hpf} (Normal) Range: 0 - 10 RBC 11-30 {/hpf} (Abnormal) Range: 0 - 2 WBC 0-5 {/hpf} (Normal) Range: 0 - 5 00-Ulq-926512:43 CBC WITH MANUAL DIFF Comments: PATIENT WAS FASTINGPERFORMED BY: FonalityNewton Medical CenterInazzb9309 [facility] [id number] Information: [id number] (97387) Immature Grans (Abs) 0.0 {x10E3/uL} (Normal) Range: [...] 3.77-5.28 WBC 6.9 {x10E3/uL} (Normal) Range: 3.4-10.8 54-Fbv-949764:43 METABOLIC PANEL, COMPREHENSIVE Comments: PATIENT WAS FASTINGPERFORMED BY: LabCoNewton Medical CenterSgrhco2966 [facility] [id number] (62913) ALT (SGPT) 24 [iU]/L (Normal) Range: 0-32 [...] Glucose, Serum 90 mg/dL (Normal) Range: 65-99 31-Rel-552777:43 URINALYSIS, W/ MICRO (32574) Comments: PATIENT WAS FASTINGPERFORMED BY: Cash[employer]70 [facility] [id number] Microscopic Examination See below: (Normal) Comments: Microscopic was indicated and was performed. Nitrite, Urine Negative (Normal) Urobilinogen,Semi-Qn 0.2 mg/dL (Normal) Range: 0.0-1.9 Bilirubin Negative (Normal) Occult Blood 3+ (Abnormal) Ketones Negative (Normal) Glucose Negative (Normal) Protein Negative (Normal) WBC Esterase Negative (Normal) Appearance Clear (Normal) Urine-Color Yellow (Normal) pH 6.0 (Normal) Range: 5.0-7.5 Specific [place] 1.020 (Normal) Range: 1.005-1.030 62-Nlo-991526:43 LIPID PANEL (48177) Comments: PATIENT WAS FASTINGPERFORMED BY: [employer]70 [facility] [id number]; non-emergent till apt next week. LDL/HDL Ratio [...] Cholesterol, Total 240 mg/dL (Abnormal) Range: 100-199 04-Ywr-867140:43 Vitamin D Hydroxy (52524) Comments: PATIENT WAS FASTINGPERFORMED BY: InmooChristian HospitalWlzkwt4407 [facility] [id number] Vitamin D, 25-Hydroxy 35.8 ng/mL (Normal) Range: 30.0-100.0 Comments: Vitamin D deficiency has been defined by the [place] of[place]icine and an Endocrine Society practice guideline as alevel of serum 25-OH vitamin D less than 20 ng/mL (1,2).The Endocrine Society went on to further define vitamin Dinsufficiency as a level between 21 and 29 ng/mL (2).1. IOM ([place] of Medicine). 2010. Dietary reference intakes for calcium and D. [place]: The National Academies Press.2. Baljinder MF, [place] ROSE, Tere HOLLOWAY, et al. Evaluation, treatment, and prevention of vitamin D deficiency: an Endocrine Society clinical practice guideline. JCEM. 2010; 96(7):1911-30. 04-Sph-52972:28 METABOLIC PANEL, Comments: PATIENT WAS FASTINGPERFORMED BY: FonalityPresbyterian Kaseman HospitalRrdakz3125 [facility] [id number] Information: [id number] COMPREHENSIVE (66204) ALT (SGPT) 21 [iU]/L (Normal) Range: 0-32 [...] (Normal) Range: 65-99 :28 Vitamin D Hydroxy (11795) Comments: PATIENT WAS FASTINGPERFORMED BY: CashStar70 Gu [facility] Medical CenterMobilitieUNC Health Rex [id number] Vitamin D, 25-Hydroxy 25.8 ng/mL (Abnormal) Range: 30.0-100.0 Comments: Vitamin D deficiency has been defined by the [place] ofCos[facility] Medical Centercine and an Endocrine Society practice guideline as alevel of serum 25-OH vitamin D less than 20 ng/mL (1,2).The Endocrine Society went on to further define vitamin Dinsufficiency as a level between 21 and 29 ng/mL (2).1. IOM ([place] of [place]). 2010. Dietary reference intakes for calcium and D. [place]: The National Academies Press.2. Baljinder MF, [place], Tere HOLLOWAY, et al. Evaluation, treatment, and prevention of vitamin D deficiency: an Endocrine Society clinical practice guideline. JCEM. 2010; 96(7): 1911-30.; ADDENDA: apt next week to review- non emergent till then :28 LIPID PANEL (08149) Comments: PATIENT WAS FASTINGPERFORMED BY: LabCo Vnioxa8323 [facility] [id number] LDL/HDL Ratio 2.4 {ratio_units} (Normal) Range: 0.0-3.2 LDL Cholesterol Calc 135 mg/dL (Abnormal) Range: 0-99 VLDL Cholesterol [place] 34 mg/dL (Normal) Range: 5-40 HDL Cholesterol 56 mg/dL (Normal) Comments: According to ATP-III Guidelines, HDL-C >59 mg/dL is considered anegative risk factor for CHD. Triglycerides 169 mg/dL (Abnormal) Range: 0-149 Cholesterol, Total 225 mg/dL (Abnormal) Range: 100-199 6-Srw-941500:21 BREAST UNILATERAL Radiology Report See Note Comments: [...] jaramillo M.D.April 04, 2013 at 2:57:58 PM [id number] Signed GP/GP If you are the referring physician and would like to consult with theradiologist who provided this interpretation, ple ase contact Marcia Vang at [phone]. If this radiologist is unavailable, youwill be directed to another radiologist to assist. If you are a patient with a question regarding this report, pleasecontactyour referring physician directly. Professional Interpretation Provided By: [employer] Phone , These documents contain legally protected [...] destructionofthese documents. Dictated on 11/11 1457 by Marcial Leonard MDranscribed on 04/04/13 1500 by ITS IMPORTSign by Luke Leonard MD on 04/04/13 1501 Sign by: Luke Leonard MD 71-Icb-139041:24 BILAT SCRN DIGITAL & CAD Radiology See [...] will be sent [facility] the patient by [facility]in [facility] days. Approximately 10% of breast cancers are not detected by mammography. Anormal mammogram should not delay biopsy of a clinically suspiciousabnormality. Signed:Herber Mullins M.D.March 30, 2013 at 6:55:25 PM [phone] Signed RU/RU If you are the referring felicia lozano and would like to consult with theradiologist who provided this interpretation, please contact Enrico Ruelas. at [phone]. If this radiologist is unavailable, youwillbe directed to anot her radiologist to assist. If you are a patient with a question regarding this report, pleasecontactyour referring physician directly. Professional Interpretation Provided By: [employer] Phone , These documents contain legally protected [...] the return or destructionofthese documents. Dictated on 03/30/13 185 by Herber MullinsTranscribed on 03/30/131899 by ITS IMPORTSign by Herber Mullins on 03/30/131900 S ign by: Herber Mullins 42-Vuz-77370:21 METABOLIC PANEL, Comments: PATIENT WAS FASTINGPERFORMED BY: [facility]Henry [facility]6370 [facility] [id number] Information: [id number] COMPREHENSIVE (15414) ALT (SGPT) 27 [iU]/L (Normal) Range: 0-32 [...] mg/dL (Normal) Range: 65-99 :21 LIPID PANEL (21365) Comments: PATIENT WAS FASTINGPERFORMED BY: CashStar70 [facility] [id number] LDL/HDL Ratio 2.7 {ratio_units} (Normal) Range: 0.0-3.2 LDL Cholesterol Calc 145 mg/dL (Abnormal) Range: 0-99 HDL Cholesterol 54 mg/dL (Normal) Comments: According to ATP-III Guidelines, HDL-C >59 mg/dL is considered anegative risk factor for CHD. VLDL Cholesterol Grant 27 mg/dL (Normal) Range: 5-40 Triglycerides 136 mg/dL (Normal) Range: 0-149 Cholesterol, Total 226 mg/dL (Abnormal) Range: 100-199 :21 Vitamin D Hydroxy (31812) Comments: PATIENT WAS FASTINGPERFORMED BY: [employer]6370 [employer] [facility] [id number] Vitamin D, 25-Hydroxy 36.8 ng/mL (Normal) Range: 30.0-100.0 Comments: Vitamin D deficiency has been defined by the [place] of[place]icine and an Endocrine Society practice guideline as alevel of serum 25-OH vitamin D less than 20 ng/mL (1,2).The Endocrine Society went on to further define vitamin Dinsufficiency as a level between 21 and 29 ng/mL (2).1. IOM ([place]). 2010. Dietary reference intakes for calcium and D. [place]: The National AcademMeasy Press.2. Baljinder MF, [place], Tere HOLLOWAY, et al. Evaluation, treatment, and prevention of vitamin D deficiency: an Endocrine Society clinical practice guideline. JCEM. 2010; 96(7):1911-30. 29-Oia-54050:47 DEXA BONE DENSITY STUDY (HP) Radiology Report [...] is considered osteopenic, as outlined above, according toWorldHealth Organi zation (WHO) criteria. Fracture risk is [...] Leonard M.D.July 19, 2012 at 10:30:02 AM [phone] Signed GP/GP If you are t he referring physician and would like to consult with theradiologist who provided this interpretation, please contact Marcia Vang at [phone]. If this radiologist is unavailable, youwill be [...] destructionofthese documents. Dictated on 07/19/12 1000 by Kinga Leonard MDscribed on 07/19/12 1039 by ITS IMPORTSign by Luke Leonard MD on 07/19/12 1040 Sign by: Benedict CONRADLuke :38 LIPID PANEL (75678) Comments: PATIENT WAS FASTINGPERFORMED BY: [facility]6370 [facility] [id number] Information: [id number] LDL/HDL Ratio 2.1 {ratio_units} (Normal) Range: 0.0-3.2 LDL Cholesterol Calc 121 mg/dL (Abnormal) Range: 0-99 VLDL Cholesterol Grant 23 mg/dL (Normal) Range: 5-40 HDL Cholesterol 57 mg/dL (Normal) Comments: According to ATP-III Guidelines, HDL-C >59 mg/dL is considered anegative risk factor for CHD. Triglycerides 114 mg/dL (Normal) Range: 0-149 Cholesterol, Total 201 mg/dL (Abnormal) Range: 100-199 :38 Vitamin D Hydroxy (12139) Comments: PATIENT WAS FASTINGPERFORMED BY: LabCoNewton Medical CenterNeamda0363 [facility] [id number] Vitamin D, 25-Hydroxy 39.3 ng/mL (Normal) Range: 30.0-100.0 Comments: Vitamin D deficiency has been defined by the [place] of[place]icine and an Endocrine Society practice guideline as alevel of serum 25-OH vitamin D less than 20 ng/mL (1,2).The Endocrine Society went on to further define vitamin Dinsufficiency as a level between 21 and 29 ng/mL (2).1. IOM ([place] of [place]). 2010. Dietary reference intakes for calcium and D. [place]: The National Academies Press.2. Baljinder MF, [place], Tere HOLLOWAY, et al. Evaluation, treatment, and prevention of vitamin D deficiency: an Endocrine Society clinical practice guideline. JCEM. 2010; 96(7):1911-30. 0-Cjy-062981:54 BILAT SCRN DIGITAL & CAD Radiology Report [...] Leonard M.D.February 03, 2012 at 11:22:07 AM [id number] Signed GP/GP If you are the referring physician and would like to consult with t heradiologist who provided this interpretation, please contact Marcia Vang at [phone]. If this radiologist is unavailable, youwill be directed to another radiologist to assist. If you a re a patient with a question regarding this report, pleasecontactyour referring physician directly. Professional Interpretation Provided By: [employer] Phone , Dictate d on 02/03/12 1102 by Marcial Leonard MDranscribed on 02/03/12 1643 by ITS IMPORTSign by Luke Leonard MD on 02/03/12 164 Sign by: Luke Leonard MD 33-Zqc-80025:39 CMP GAP 11 (Normal) Range: 5-15 CO2 [...] D deficiency has been defined by the [place] of[place]icine and an Endocrine Society practice guideline as alevel of serum 25-OH vitamin D less than 20 ng/mL (1,2).The Endocrine Society went on to further define vitamin Dinsufficiency as a level between 21 and 29 ng/mL (2).1. IOM ([place]). 2010. Dietary reference intakes for calcium and D. [place]: The National Academies Press.2. Baljinder MILES, [place] ROSE, Tere HOLLOWAY, et al. Evaluation, treatment, and prevention of vitamin D deficiency: an Endocrine Society clinical practice guideline. JCEM. 2010; 96(7): 1911-30.Performed at: [address] [id number] Director: Josette Garcia MD, Phone: [phone] 36-Jvv-05774:33 CUUR URC See Note {CFU/mL} (Normal) Comments: COLONY COUNT 1000- 10,000 ORGANISM 1: MIXED GRAM POSITIVE ORGANISMS 61-Zgb-157001:34 ABDOMEN/PELVIS WITH CONTRAST Radiology Report See Note [...] radiologist regarding this report, please call our 51S3ajdttxz line @ Dictated on 0 10/25/11 1745 by Sue Omer DOinTranscribed on 10/25/111840 by ITS IMPORTSign by Rocky Omer DO on 10/25/111841 Sign by: Rocky Omer DO :05 CBCMD RBCM NORM C+C {NORMAL} (Normal) PE [...] mm/h (Abnormal) Range: 0-30 :38 Urinalysis, Office (43810) UA - BILIRUBIN Negative (Normal) UA - [...] >240 mg/dL High Risk :14 VIT D,25 50409 37.4 ng/mL (Normal) Range: 32.0-100.0 Comments: Effective June 21, 2011 Vitamin D, 25-Hydroxy reference intervals will be changing to 30-100. .Recent studies consider the lower li dave of 32.0 ng/mL to be athreshold for optimal health.Rafael RODRIGUEZ. J Nutr. 2004;135(2):317-22.Performed at: - Lab[address] [id number] Director: Josette Garcia MD, Phone: [phone] 11-Uqi-002190:19 BILAT SCRN DIGITAL & CAD Radiology Report [...] 01/27/11 1559 Sign by: Luke Leonard MD 8-Nvs-578413: VIT D,25 62304 24.3 ng/mL Range: 32.0-100.0 42 (Abnormal) Comments: Recent studies consider the lower limit of 32.0 ng/mL to edgar threshold for optimal health.Rafael RODRIGUEZ. J Nutr. 2004;135(2):317- 22.Performed at: [place] [address]Lab Director: Josette Garcia MD, Phone: [phone] 5-Rai-158263:57 DEXA BONE DENSITY STUDY (HP) Radiology Report See Note (Normal) Comments: Exam Number: [id number] LINICAL:This is a 64-year-old female patient with history of postmenopausal follow-up. EXAMINATION:DUAL ENERGY X-RAY ABSORPTIOMETRY / DEXA. TECHNIQUE:Bone Density Fredy urements (BM D) of lumbar spine and bilateral hips were obtained using a OnLive scanner.. COMPARISON:Comparison is made with prior study [...] Osteoporosis Foundation http://www.nof.org Reported By: LUKE LEONARD 49-Ajy-17357: VIT D,25 42293 38.5 ng/mL (Normal) Range: 32.0-100.0 35 Comments: Recent studies consider the lower limit of 32.0 ng/mL to edgar threshold for optimal health.Rafael RODRIGUEZ. J Nutr. 2004;135(2):317-22.Performed at: [place] [id number] Director: Josette Garcia MD, Phone: [phone] 09-Chl-399526:50 COLON BX P-COLBX (Normal) Comments: OPERATIONColonoscopy with biopsyPRE-OPERATIVE DIAGNOSISScreening colonoscopyTISSUE SUBMITTED1 - Polyp mid ascending, rule out adenoma, 2 - Polyp splenic flexure/distal transverse,rule out adenomaMICROSC OPIC DIAGNOSISA. Polyp mid ascending colon, biopsy:Fragments of hyperplastic polyp.B. Polyp splenic flexure/distal transverse colon, biopsy:Fragments of colonic mucosa, no pathologic diagnosis.SJ: 04/20/10GROSS DESCRIPTIONA - Received is one container [...] / AM: 04/17/10 TC:1REPORT SIGNED: PITER HAUSER 04/20/1021-Feb-201003-Def-803558: VIT D,25 23791 21.0 ng/mL (Abnormal) Range: 32.0-100.0 41 Comments: Recent studies consider the lower limit of 32.0 ng/mL to edgar threshold for optimal health.Rafael RODRIGUEZ. J Nutr. 2004;135(2):317-22.Performed at: - LabCoNewton Medical CenterUowpnh9090 [place], [place] [address] 296Lab Director: Josette Garcia MD, Phone: [phone] 54-Vom-276048:04 CBCD,SMEAR DIFF ABSOLUTE NEUT 3.4 3/uL (Normal) [...] 11.6-14.6 WBC 5.6 K/mm3 (Normal) Range: 4.4-11.0 :57 TSH 2.41 {uIU/mL} (Normal) Range: 0.358-3.74 :57 LIPID CHOL 201 mg/dL (Abnormal) Comments: <200 mg/dL Wkvchuftb730-637 mg/dL Borderline>240 mg/dL High Risk HDL 50 [...] 7-18 GLU 88 mg/dL (Normal) Range: 70-110 43-Fhw-064803:45 COMPLETE UA BACTERIA RARE {/hpf} (Normal) LEUK [...] 1.0 CLARITY CLEAR (Normal) COLOR YELLOW (Normal) 24-Xjh-615411:43 FOOT,MIN 3 VIEWS (MT) Radiology Report See Note (Normal) Comments: Exam Number: [id number] CLINICAL:This is a 64-year-old female patient with [...] No demonstrated fracture. Reported By: LUKE LEONARD 76-Tpu-15512:55 [facility] DIGITAL & CAD Radiology Report See Note (Normal) Comments: Exam Number: [id number] DIGITAL BILATERAL MAMMOGRAM HISTORYThis is a 63-year-old [...] mammograms werealso examined with computer-aided detection software ([employer], [employer] Reported By: LUKE LEONARD 26-Fvs-54932:58 Rapid Strep Test, Office (32423) Rapid Strep Test, Office Negative (Normal) 55-Quk-967042:58 [facility] DIGITAL & CAD Radiology Report See Note (Normal) Comments: Exam Number: [id number] BILATERAL SCREENING MAMMOGRAM COMPARISON STUDYSeptember 2005, May 19, 2007 and December 04, 2007. Routine MLO and CC views were acquired. There are scatteredfibrogl andular wrangell ents present. There are a few benign [...] werealso examined with compute r-aided detection software ([employer].). Reported By: BABATUNDE REDDING M.D. 55-Sbf-197075:58 DEXA BONE DENSITY STUDY () Radiology Report See Note (Normal) Comments: Exam Number: [id number] BONE DENSITOMETRY HISTORYOsteopenia. TECHNIQUE Bone densitometry of [...] in 2001 and 1.8% less than in 2006. Digital lateral view forevaluation of vertebral deformity [...] left hip. Reported By: ELA ELLISON M.D. 81-Snu-712945:59 LIPID CHOL 225 mg/dL (Abnormal) Comments: <200 [...] mg/dL VLDL 27 mg/dL (Normal) Range: 5-40 45-Mcg-579843:59 LIVER ALB 3.9 g/dL (Normal) Range: 3.4-5.0 ALK P 97 U/L (Normal) Range: 50-136 ALT 49 U/L (Normal) Range: 30-65 AST 24 U/L (Normal) Range: 15-37 D BILI 0.10 mg/dL (Normal) Range: 0.00-0.30 T BILI 0.54 mg/dL (Normal) Range: 0.00-1.00 T PROT 7.8 g/dL (Normal) Range: 6.4-8.2 2-Tdb-571634:38 UNILAT LT DIAG DIGITAL & CAD Radiology Report See Note (Normal) Comments: Exam Number: [id number] UNILATERAL LEFT DIAGNOSTIC MAMMOGRAM CLINICAL STATEMENTSix-month followup. [...] This interpretation was rendered by a radiologist bety d under theMammography Quality Standards Act of 1992 (MQSA). The mammograms werealso examined with computer-aided detection software ([employer] Reported By: BABATUNDE REDDING M.D. :31 CBCD,SMEAR DIFF BAND 1 % (Normal) Range: [...] :31 TSH 1.92 {uIU/mL} (Normal) Range: 0.34-4.82 55-Keh-278448:15 UNILAT LT DIAG DIGITAL & CAD Radiology Report See Note (Normal) Comments: Exam Number: [id number] LEFT DIGITAL DIAGNOSTIC MAMMOGRAM CLINICAL INFORMATIONAbnormal left mammogram. Digital diagnostic mammogram of the left breast was performed forfurther evaluation of f nia on t he mammogram of May 19, [...] mammograms werealso examined with computer-aided detection software ([employer], [employer] Reported By: BABTAUNDE GOLDEN M.D. 39-Jzi-17012:30 CALC U24 3269 CALCIUM,U [address] 6.5 mg/dL (Normal) CALCIUM,U24 65.0 {mg/24_hr} (Abnormal) Range: 100.0-300.0 Comments: Performed At: [facility] [place], [place] [id number] 36-Jse-52075:23 [facility] D[facility] Radiology Report See Note (Normal) Comments: Exam Number: [id number] MAMMOGRAM, BILATERAL SCREENING DIGITAL AND CAD HISTORYRoutine [...] werealso ex amined with computer-aided detection software ([employer], [employer].). Reported By: ELA ELLISON M.D. 09-Evz-35451:45 LIPID CHOL 200 mg/dL (Normal) Comments: <200 [...] gynecological exam Planned Observations URINALYSIS, W/ MICRO (00432)Indication: Benign Essential Hypertension (Renamed from Benign essential HTN) On: 02-Pex-65572:53 Request CBC W/AUTO DIFF WBC (22284)Indication: Benign Essential Hypertension (Renamed from Benign essential HTN) On: 69-Hbr-59651:53 Request METABOLIC PANEL, COMPREHENSIVE (18601)Indication: Other hyperlipidemia On: 11-Yer-91803:53 Request Vitamin D Hydroxy (81996)Indication: Osteopenia On: 0-Esq-361288:14 Request LIPOPROTEIN, BLD, BY NMR (46240)Indication: Other hyperlipidemia On: 3-Pbc-855592:14 Request METABOLIC PANEL, COMPREHENSIVE (82259)Indication: Benign Essential Hypertension (Renamed from Benign essential HTN) On: 7-Fdb-456711:14 Request T4, FREE (THYROXINE) (33968)Indication: 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 On: :50 Request TSH (57586)Indication: 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 On: 49-Tut-46417:50 Request Vitamin D Hydroxy (78586)Indication: Other hyperlipidemia On: 60-Ryp-961873:51 Request LIPID PANEL (98398)Indication: Other hyperlipidemia On: :51 Request CBC W/AUTO DIFF WBC (84825)Indication: Benign Essential Hypertension (Renamed from Benign essential HTN) On: :51 Request METABOLIC PANEL, COMPREHENSIVE (52656)Indication: Benign Essential Hypertension (Renamed from Benign essential HTN) On: :51 Request URINE SHALINI CULTURE-IDENTIFICATN (74039)Indication: Abdominal pain, acute, right lower quadrant On: 20-Dws-561330:00 Request METABOLIC PANEL, COMPREHENSIVE (82556)Indication: Abdominal pain, acute, right lower quadrant On: :56 Request C-REACTIVE PROTEIN (24484)Indication: Abdominal pain, acute, right lower quadrant On: :56 Request SED RATE ERYTHROCYTE (97331)Indication: Abdominal pain, acute, right lower quadrant On: :56 Request CBC WITH MANUAL DIFF (60488)Indication: Abdominal pain, acute, right lower quadrant On: :56 Request METABOLIC PANEL, COMPREHENSIVE (41843)Indication: Migraine On: :36 Request LIPID PANEL (23787)Indication: Other hyperlipidemia On: :36 Request Vitamin D Hydroxy (31167)Indication: Vitamin D deficiency, unspecified On: :36 Request METABOLIC PANEL, COMPREHENSIVE (89018)Indication: Elevated blood pressure (not hypertension) On: :51 Request CBC WITH MANUAL DIFF (56756)Indication: Elevated blood pressure (not hypertension) On: :51 Request LIPID PANEL (02938)Indication: Other hyperlipidemia On: :50 Request Vitamin D Hydroxy (09260)Indication: Vitamin D deficiency, unspecified On: :50 Request CALCIFEDIOL (17757)Indication: Vitamin D deficiency, unspecified On: :24 Request Vitamin D Hydroxy (70278)Indication: Vitamin D deficiency, unspecified On: 7-Qog-806951:51 Request LIPID PANEL (85059)Indication: Elevated blood pressure (not hypertension) On: :57 Request URINALYSIS, W/ MICRO (27163)Indication: Elevated blood pressure (not hypertension) On: :57 Request TSH (17289)Indication: Elevated blood pressure (not hypertension) On: :57 Request METABOLIC PANEL, COMPREHENSIVE (82942)Indication: Elevated blood pressure (not hypertension) On: :57 Request CBC WITH MANUAL DIFF (77967)Indication: Elevated blood pressure (not hypertension) On: :57 Request Vitamin D Hydroxy (95447)Indication: Osteopenia On: :57 Request HEPATIC FUNCTION PANEL (04284)Indication: Other hyperlipidemia On: :14 Request LIPID PANEL (17545)Indication: Other hyperlipidemia On: :14 Request HEPATIC FUNCTION PANEL (47904)Indication: Other hyperlipidemia On: :41 Request LIPID PANEL (60403)Indication: Other hyperlipidemia On: :41 Request URINALYSIS W/O MICRO (98250)Indication: Elevated blood pressure (not hypertension) On: 9-Bym-708547:52 Request TSH (92943)Indication: Elevated blood pressure (not hypertension) On: 2-Elg-983298:52 Request METABOLIC PANEL, COMPREHENSIVE (45835)Indication: Elevated blood pressure (not hypertension) On: 8-Gar-356956:52 Request CBC WITH MANUAL DIFF (21609)Indication: Elevated blood pressure (not hypertension) On: 0-Eih-957101:52 Request LIPID PANEL (76340)Indication: Other hyperlipidemia On: :52 Request HEPATIC FUNCTION PANEL (43765)Indication: Other hyperlipidemia On: :35 Request LIPID PANEL (02116)Indication: Other hyperlipidemia On: :35 Request FECAL OCCULT HGB ASSAY- tubes sent home (74865)Indication: Well woman exam with routine gynecological exam On: :33 Request Thin prep Pap (91336)Indication: Well woman exam with routine gynecological exam On: :33 Request Planned Encounters Medical; GURJITP Pre Wellness Exam (DF Nurse) - On: 06-Sep-2018 8:15 [facility] NURSE, DF Medical; [facility] Exam (Doctor) - On: 20-Sep-2018 8:00 [facility] Fast DO, Becky A Fast DO, Becky A Planned Procedures Flu Vaccine (Quadrivalent) On: 19-May-2018 Intent 48901Er: Fannie [place] Comments: Lot #[id number]/30/[id number]-L dltd, IMDose prefilled syringegiven by:JENNIFER Vilchis reviewed and ABN signed SCREENING DIGITAL On: 21-Mar-2018 Intent TOMOSYNTHESIS OF BREAST Comments: nov (28605)By: Fast DO, Becky A Fast DO, Becky A ELECTROCARDIOGRAM, COMPLETE On: 21-Sep-2017 Intent (ECG) (63582)By: Jono DO, Comments: ekg showed normal sinus rhythym, normal axis, no acute st/t wave changes Becky A Fast DO, Becky A Flu Vaccine (Quadrivalent) On: 26-Apr-2017 Intent 53918Vh: Visit, Nurse Comments: Lot:[id number]:01/16/18Dose:0.5mLRoute:IMSite:L DltdGiven By:VELIA signed DEXA SCAN AXIAL SKELETON On: 11-Apr-2017 Intent (12110)By: Fast DO, Becky A Fast DO, Becky A SCREENING DIGITAL On: 11-Apr-2017 Intent TOMOSYNTHESIS OF BREAST (21637)By: Fast DO, Becky A Fast DO, Becky A DEXA SCAN AXIAL SKELETON On: 07-Dec-2016 Intent (82055)By: Fast DO, Becky A Comments: apr Fast DO, Becky A PFT - CompleteBy: Fast DO, On: 08-Sep-2016 Intent Becky A Fast DO, Becky A Radiology - Chest- PA and On: 08-Sep-2016 Intent LatBy: Fast DO, Becky A Fast DO, Becky A Ultrasound - RenalBy: Fast On: 08-Sep-2016 Intent DO, Becky A Fast DO, Becky A ELECTROCARDIOGRAM, COMPLETE On: 08-Sep-2016 Intent (ECG) (72945)By: Fast DO, Comments: ekg showed normal sinus rhythym, normal axis, no acute st/t wave changes Becky A Fast DO, Becky A BILATERAL MAMMOGRAMS On: 07-Jun-2016 Intent (52887)By: Fast DO, Becky A Fast DO, Becky A Flu Vaccine (Quadrivalent) On: 22-Apr-2015 Intent 92004Wh: Fast DO, Becky A Comments: Lot #:[id number] date: 11/2015Amount given:prefilled syringeSite given:L Dltd, IMGiven by: ALFREDO Miranda and ABN signed Fast DO, Becky A ADMINISTRATION OF INFLUENZA On: 22-Apr-2015 Intent VIRUS VACCINE (G0008)By: Fast DO, Becky A Fast DO, Becky A Bone Density StudyBy: Fast On: 26-Mar-2015 Intent DO, Becky A Fast DO, Becky A BILATERAL MAMMOGRAMS On: 26-Mar-2015 Intent (68982)By: Fast DO, Becky A Fast DO, Becky A EKG (05672)By: Jono ARAYA, On: 06-Aug-2014 Intent Becky A Fast DO, Becky A Comments: ekg showed normal sinus rhythym, normal axis, no acute st/t wave changes IMMUNIZ ADMNIN, 1 VAC, On: 17-May-2014 Intent SNGL/COMBO (81609)By: Visit, Nurse FLU VAC, SPLIT, >3 YEARS, On: 17-May-2014 Intent INTRAMUSC (95343)By: Visit, Comments: Lot:[id number]:04/16Amt:0.5mlRoute:IMSite: L DltdGiven By: KARIN Holt signed Nurse Breast Ultrasound - On: 03-Apr-2014 Intent BilateralBy: Fast DO, Becky A Fast DO, Becky A BILATERAL MAMMOGRAMS On: 03-Apr-2014 Intent (70762)By: Jono ARAYA, Becky A Fast DO, Becky A DEXA SCAN AXIAL SKELETON On: 30-Jan-2014 Intent (54737)By: Fast DO, Becky A Comments: dec Fast DO, Becky A PNEUM VAC ADLT/IMUMNOSPR, On: 09-Apr-2013 Intent SBC/INTRM (58561)By: Jono ARAYA, Comments: lot: [id number]: 02/17/14site/route: L deltoid/IMamt: 0.5mLVIS signed when applicable: KJ Fregosoa A Fast DO, Becky A IMMUNIZ ADMNIN, 1 VAC, On: 09-Apr-2013 Intent SNGL/COMBO (38955)By: Fast DO, Becky A Fast DO, Becky A Eprescribed prescriptions On: 09-Apr-2013 Intent (G8553)By: Jessie Sanches Breast Screening - On: 23-Mar-2013 Intent BilateralBy: Fast DO, Becky A Fast DO, Becky A EKG (22019)By: Myron, On: 15-Aug-2012 Intent Jessie Comments: ekg showed normal sinus rhythym, normal axis, no acute st/t wave changes Eprescribed prescriptions On: 15-Aug-2012 Intent (G8553)By: Jessie Sanches DXA, BONE DENSITY, AXIAL On: 07-Feb-2012 Intent SKELETON (72010)By: Jono ARAYA, Comments: jun Becky A Fast DO, Becky A Breast Screening - On: 24-Jan-2012 Intent BilateralBy: Fast DO, Becky A Fast DO, Becky A CT - Abdomen & PelvisBy: Fast On: 25-Oct-2011 Intent DO, Becky A Fast DO, Becky A Comments: stat- call wet read TDAP VACCINE >7 IM (95368)By: On: 23-Jun-2011 Intent Jessie Sanches Comments: Lot #[id number]-L arm, IMDose prefilledgiven by:Myriam EKG (56997)By: Myron, On: 23-Jun-2011 Intent Jessie Comments: ekg showed normal sinus rhythym, normal axis, no acute st/t wave changes FLU VAC, SPLIT, >3 YEARS, On: 23-Jun-2011 Intent INTRAMUSC (24718)By: Myron, Comments: pharmacy [facility] Breast Screening - On: 06-Jan-2011 Intent BilateralBy: Fast DO, Becky A Fast DO, Becky A IMMUNIZ ADMNIN, 1 VAC, On: 15-May-2010 Intent SNGL/COMBO (44430)By: Carlos Comments: Lot #: [id number] date: mount given: 0.5 mlRoute: IMSite given: left deltoidGiven by: Phani Benson RN RN, Helene FLU VAC, SPLIT, >3 YEARS, On: 15-May-2010 Intent INTRAMUSC (58815)By: Mast SARA, Helene DXA, BONE DENSITY, AXIAL On: 02-Mar-2010 Intent SKELETON (96484)By: Jono ARAYA, Comments: due in may Becky A Fast DO, Becky A EKG (22326)By: Myron, On: 02-Mar-2010 Intent Jessie Comments: ekg showed normal sinus rhythym, normal axis, no acute st/t wave changes Radiology - Foot - RightBy: On: 09-Jan-2010 Intent Fast DO, Becky A Fast DO, Comments: stat reading- pain lateral mid foot-trauma- rule out stress fracture Becky A MAMMOGRAM, SCREENING, BOTH On: 06-Jun-2009 Intent BREASTS (58077)By: Tran Paul DO Ear Irrigation (97488)By: On: 09-Sep-2008 Intent Tran Paul DO Comments: currette used L pt sun well MAMMOGRAM, SCREENING, BOTH On: 05-Dec-2007 Intent BREASTS (99214)By: Fast DO, Becky A Fast DO, Becky A DXA, BONE DENSITY, AXIAL On: 05-Dec-2007 Intent SKELETON (43756)By: Fast DO, Becky A Fast DO, Becky A IMMUNIZ ADMNIN, 1 VAC, On: 06-Jun-2007 Intent SNGL/COMBO (18970)By: Fast DO, Becky A Fast DO, Becky A PNEUM VAC ADLT/IMUMNOSPR, On: 06-Jun-2007 Intent SBC/INTRM (62384)By: Fast DO, Becky A Fast DO, Becky A Breast Screening - LeftBy: On: 06-Jun-2007 Intent Fast DO, Becky A Fast DO, Becky A MAMMOGRAM, SCREENING, BOTH On: 10-Apr-2007 Intent BREASTS (13549)By: Fast DO, Becky A Fast DO, Becky [...] [facility] : Patient Instructions Indication: [facility] WELLNESS PHYSICAL Cough : How to access [...] health information online - Detail Indication: Non-smoker [facility] [employer] Physical : How to access health information online Indication: [facility] Wellness Physical [facility] [employer] Physical : How to access health information online - Detail Indication: [facility] Wellness Physical [facility] Wellness Physical : Patient Instructions Indication: [facility] Wellness Physical Benign Essential Hypertension (Renamed from [...] Indication: Pharyngitis, acute Encounters Office Visit On: 07-Jul-2018 15:32 Encounter Diagnosis: Abnormal mammogram End: 09-Jul-2018 17:37 [facility] Office Visit On: 19-May-2018 10:28 Encounter Reason: [...] emo tional problems. Note for Physical exam: [facility] Wellness Physical- weight was stable and your [...] is sleeping well. Pa End: 21-Oct-2015 21:36 fariba has been compliant with instructions. Current medication [...] o pain scale 0-10- woke her up th night in middle of night- had been [...] last year- - foot much better- saw photographic specialist- told was tendinitis- got inserts in shoes- [...] was negtive- she is willing to see photographic specialist- had run out of boniva- no gerd [...] Follow up, Laboratory Test Results - Date: (12.02.07 on face sheet. ). Encounter Diagnosis: Osteopenia [...] of last pap: (02/28/06). Contraceptive history: The ok End: 10-Apr-2007 11:37 fariba is not using [...] [facility] End: 07-Apr-2007 15:05 Payers Rosemarie Mitchell Ins/MedicareNORMA VANSICKLE; phani guarantor
--- OUTSIDE RECORDS SUMMARY | 2018-08-25 04:56 | XMS RPT_ITS ---
:1945 Author Organization [facility] Care Team Providers Name Role Phone Jose Gordy Attending Unavailable Fast, Becky Attending Unavailable Fast, Becky Primary Care Unavailable Fast, Becky Attending Unavailable Fast, Becky Referring Unavailable Fast, Becky Primary Care Unavailable Fast, Becky Attending Unavailable Fast, Becky Primary Care Unavailable PROBLEMS PROBLEMS DATE TYPE CONDITION / CODE ATTENDING STATUS SOURCE 07/03/2018 Unknown R92.8 - Other Fast, Becky Active [facility] abnormal and [facility] inconclusive Hospital findings on Repository diagnostic imaging of breast / R92.8(ICD-10) 06/30/2018 Unknown Z12.31 - Encounter Fast, Becky Active [facility] for screening [facility] mammogram for Hospital malignant neoplasm Repository of breast / Z12.31(ICD-10) PROCEDURES PROCEDURES No Procedure Records FoundRESULTS RESULTS BREAST LIMITED Observed: 07/03/2018 Status: F Source: [place] UNILATERAL 10:55 AM [facility] HOSPITAL REPOSITORY [facility] Imaging Services [address] [place] [address] Breast Limited Unilateral MR#: [id number] Acct: [id number] Name: AUDREY STREETER Rep #: [id number] : 1945 F 72 From: Luke Mcmullen MD PCP: Becky De La Cruz DO Status: REG CLI Study: Breast Limited Unilateral Date of Exam: 07/03/18 Exam# [id number] Ordering Dr: Becky De La Cruz DO STUDY: ULTRASOUND BREAST - RIGHT REASON FOR EXAM: Female, 72 years old. Abnormal screening mammogram. TECHNIQUE: Axial and longitudinal images of the RIGHT breast were performed with a high resolution ultrasound transducer. COMPARISON: Comparison is made with prior mammogram dated June 30, 2018 and prior ultrasound of the right breast dated April 08, 2014. FINDINGS: RIGHT Breast: There is a 4 mm x 4 mm x 2 mm cyst in the retroareolar region of the breast. Adjacent to this, there is a 4 mm x 5 mm x 4 mm cyst. These correspond to the mammographic findings. US/Breast Limited Unilateral IMPRESSION: The mammographic abnormality corresponds to 2 small retroareolar cysts. ASSESSMENT CATEGORY: BIRADS Category 2: Benign. A letter regarding these results will be sent to the patient by the facility within 30 days. Electronically Signed: Luke Mcmullen MD at 14:10 EST Tel [phone], Service support , CC: Becky De La Cruz DO Bow Maker: Signed SCREENING MAMM (CAD), Observed: 06/30/2018 Status: F Source: [place] BILAT 9:55 AM [facility] REPOSITORY [facility] Imaging Services [address] [place] [address] SCREENING MAMM (CAD), BILAT MR#: [id number] Acct: [id number] Name: AUDREY STREETER Rep #: [id number] : 1945 F 72 From: Luke Mcmullen MD PCP: Becky De La Cruz DO Status: REG CLI Study: SCREENING MAMM (CAD), BILAT Date of Exam: 06/30/18 Exam# [id number] Ordering Dr: Becky De La Cruz DO MAMMOGRAPHY - BILATERAL SCREENING REASON FOR EXAM: Female, 72 years old. Routine annual screening examination. PERTINENT HISTORY: Non-contributory. Remote right excisional breast biopsy. TECHNIQUE: Digital bilateral breast rin (3D mammographic acquisition) in the CC and MLO projections. 2-D mediolateral oblique (MLO) and craniocaudad (CC) views of both breasts were obtained. CAD: Full Field Digital Mammography with Computer Added Detection was performed. COMPARISON: Comparison is made with prior study dated June 29, 2017 and June 28, 2016. FINDINGS: Breast Composition: There are scattered areas of fibroglandular density. There are no dominant masses or suspicious calcifications. Stable 7.2 mm well-defined nodule in the axillary region of the right breast in keeping with a small lymph node. [...] additional imaging evaluation. A letter regarding these results will be sent to the patient by the facility within 30 days. Approximately 10% of breast cancers are not detected by mammography. A normal mammogram should not delay biopsy of a clinically suspicious abnormality. [id number] Electronically Signed: Luke Mcmullen MD at 12:24 EST Tel [phone], Service support , CC: Bceky De La Cruz DO Bow Maker: Signed TXT - BLOOD FLOW Observed: 10/11/2017 Status: F Source: [place] SCREENING 3:54 PM [facility] REPOSITORY [facility] Cardiovascular Services [address] [address] 10/11/17 0832 MR#: [id number] Acct: [id number] Name: AUDREY STREETER Rep #: [id number] : 1945 71 From: Zack Valdes MD Attending Dr: Becky De La Cruz DO Status: REG REF Ordering Dr: Date: 10/11/17 Location: [facility] Sex: F C Admitted: Reason For Study: Blood flow screening Carotid Duplex Ultrasound Abdominal Aorta The right maximum ICA velocity is 80.5/25.7 cm/s.The maximal outside diameter of the proximal The left maximum ICA velocity is 107.0/38.8 cm/s.aorta measures 1.5 cm in the longitudinal axis. The right ECA velocity [...] beats per minute. The heart rhythm is irregular. The right blood pressure is 128/76. The left blood pressure is 134/76. The assessment was performed by Jaime Dumont RVT. Interpretation Summary Normal carotid artery screening (0 to 15% narrowing). Normal aortic ultrasound exam. The ankle/brachial index is normal (1.0 or greater). .rdering Physician: Becky De La Cruz D.O Performed By: Felecia Dumont RVT 10/11/17 1553 Date Zack Valdes MD CC: Becky De La Cruz DO Date Dictated: 10/11/17 0832 Date Transcribed: 10/11/17 155 Bow Maker: Signed ALLERGIES ALLERGIES DATE TYPE / CODE NAME / CODE REACTION SEVERITY SOURCE 07/14/2018 Drug No Known Unknown [facility] Allergy/4160 Allergies/F00 Hospital 24876(SNOMED 5610156(RXNOR Repository CT) M) ENCOUNTERS ENCOUNTERS ADMIT/DISCHARGE ACCOUNT ADMITTING ENCOUNTER LOCATION SOURCE NUMBER CLASS 07/14/2018/ [id number] [facility] [place] [facility] 07/[facility]/2018 [id number] Ambulatory [place] 1 [facility] ing:OPUS Repository 06/30/2018 [id number] Ambulatory [place] 7 [facility] ing:OPBI Repository 10/11/2017 [id number] Ambulatory [place] 8 [facility] ing:[facility] Repository PAYERS PAYERS ENCOUNTER GUARANTOR PAYER SUBSCRIBER SOURCE 07/14/2018 AUDREY Little Primary [place]REY [place] [id number] Insurance:MAYELIN OSMANOB: [facility] [place]: [id number] [id number] Repository [address]Sqd: 330) Date:1512-21-75FC [phone] ( [id number] [phone]: 07/14/2018 Secondary NOT GIVENUNK [place] Insurance:SELF PAY [facility] Number: Effective Repository Date:2018-07-14 07/03/2018 AUDREY Little Primary AUDREY Little [place] [id number] Insurance:AETNA ADAMALEDOB: [facility] [place]: [id number] [id number] Repository [address]Lwn: ([phone]) Date:0921-42-28ZT [phone] () [id number] SYL [place]RU[place] [phone]: 07/03/2018 Secondary NOT GIVENUNK [place] Insurance:SELF PAY [facility] Number: Effective Repository Date:2018-06-30 06/30/2018 AUDREY J Primary AUDREY J [place] [id number] Insurance:AETKRISTI OSMANOB: [facility] Number: [id number] [id number] Repository [address]Yyz: (330) Date:3106-69-06DP [phone] () [id number] [phone]: 06/30/2018 Secondary NOT GIVENUNK [place] Insurance:SELF PAY [facility] Number: Effective Repository Date:2018-03-21 10/11/2017 Audrey Primary NOT GIVENUNK [place] [id number] Insurance:SELF PAY [place] Number: Effective Repository [id number]: ([phone]) Date:2017-09-21 [phone] ()
== END ==
PROVIDERS: Family Provider Internal Medicine; PCP Internal Medicine; Referring Provider Internal Medicine; Visit Provider Internal Medicine
DX: Z12.31 Encounter for screening mammogram for malignant neoplasm of breast (principal)
CPT/HCPCS: 77063; 77067

== ENCOUNTER → 2018-07-03 10:51 | Outpatient (CLI) | payer MEDICARE, SELFPAY ==
--- NOTE | 2018-07-03 10:54 | US_ITS ---
STUDY: ULTRASOUND BREAST - RIGHT REASON FOR EXAM: Female, 72 years old. Abnormal screening mammogram. TECHNIQUE: Axial and longitudinal images of the RIGHT breast were performed with a high resolution ultrasound transducer. COMPARISON: Comparison is made with prior mammogram dated June 30, 2018 and prior ultrasound of the right breast dated April 08, 2014. FINDINGS: RIGHT Breast: There is a 4 mm x 4 mm x 2 mm cyst in the retroareolar region of the breast. Adjacent to this, there is a 4 mm x 5 mm x 4 mm cyst. These correspond to the mammographic findings. US/Breast Limited Unilateral IMPRESSION: The mammographic abnormality corresponds to 2 small retroareolar cysts. ASSESSMENT CATEGORY: BIRADS Category 2: Benign. A letter regarding these results will be sent to the patient by the facility within 30 days. Electronically Signed: Luke Mcmullen MD at 14:10 EST Tel [phone], Service support ,
--- OUTSIDE RECORDS SUMMARY | 2018-08-26 16:15 | XMS RPT_ITS | Continuity of Care Document ---
:1945 Author Organization [facility] Address [facility]7 [facility] [address] [place] [address] Phone Care Team Providers Name Role Phone Becky De La Cruz DO Unavailable Dr. Wolf Clark Unavailable Carlos Monahan MD Unavailable Ashley CONRAD, Gordy Hopper Unavailable Sharon Meier Unavailable Unavailable Kacie Araiza Unavailable Unavailable Jessie Sanches Unavailable Unavailable Fannie Madrdi Unavailable Unavailable Unavailable Unavailable Problems Name Dates [...] daily, prn for 90 days Quantity: 1 {[place]} Refills: 3 Ordered:22-Aug-2017 Jono ARAYA, Becky AFast [...] Discontinued Comments:This order discontinued per [employer]. GARTH, [id number] (Oral Capsule) 1 (one) Capsule q week [...] Limited Unilateral Result: Comments: See Note; NOTES: [facility] Imaging Services [address] [place] [address] Breast Limited Unilateral MR#: [id number] Acct: [id number] Name: AUDREY STREETER Rep #: [id number] : 1945 F 72 From: Luke Leonard MD PCP: Becky De La Cruz DO Status: REG CLI Study: Breast Limited Unilateral Date of Exam: 07/03/18 Exam# [id number] Ordering Dr: Becky De La Cruz DO [...] Leonard MD a t 14:10 EST Tel [phone], Service support , CC: Becky De La Cruz DO Coal Inspector: Signed 30-Jun-2018 SCREENING MAMM (CAD), BILAT Result: Comments: See Note; NOTES: [facility] Imaging Services [address] [place] [address] SCREENING MAMM (CAD), BILAT MR#: [id number] Acct: [id number] Name: AUDREY STREETER Rep # : [id number] : 1945 F 72 From: Luke Leonard MD PCP: Becky De La Cruz DO Status: REG CLI Study: SCREENING MAMM (CAD), BILAT Date of Exam: 06/30/18 Exam# [id number] Ordering Dr: Becky De La Cruz DO [...] delay biopsy of a clinically suspicious abnormality. [id number] Electronically Signed: Luke Leonard MD at 12:24 EST Tel [phone], Service support , CC: Becky De La Cruz DO Coal Inspector: Signed 11-Oct-2017 TXT - Blood Flow Screening Result: Comments: See Note; NOTES: [facility] Cardiovascular Services [address] [place] [address] 10/11/17 0832 MR#: [id number] Acct: [id number] Name: AUDREY STREETER Rep #: [id number] : 1945 71 From: Zack Valdes MD Attending Dr: Becky De La Cruz DO Status: REG REF Ordering Dr: Date: 10/11/17 Location: [facility] Sex: F C Admitted: Reason For Study: [...] Date Dictated: 10/11/17 0832 Date Transcribed: 10/11/171552 Coal Inspector: Signed 29-Jun-2017 SCREENING MAMM (CAD), BILAT Result: Comments: See Note; NOTES: [facility] Imaging Services [address] [place] [address] SCREENING MAMM (CAD), BILAT MR#: [id number] Acct: [id number] Name: AUDREY STREETER Rep #: [id number] : 1945 F 71 From: Vern Hightower MD PCP: Becky De La Cruz DO Status: REG CLI Study: SCREENING MAMM (CAD), BILAT Date of Exam: 06/29/17 Exam# [id number] Ordering Dr: Becky De La Cruz DO [...] biopsy of a clinica lly suspicious abnormality. [id number] Electronically Signed: Prashant Hightower MD at 14:20 EST , Service support , CC: Becky De La Cruz DO Coal Inspector: Signed 26-Apr-2017 Dexa Bone Density Study (HP) Result: Comments: See Note; NOTES: [facility] Imaging Services [address] [place] [address] Dexa Bone Density Study (HP) MR#: [id number] Acct: [id number] Name: AUDREY STREETER Rep #: [id number] : 1945 F 71 From: Luke Leonard MD PCP: Becky De La Cruz DO Status: REG CLI Study: Dexa Bone Density Study (HP) Date of Exam: 04/26/17 Exam# [id number] Ordering Dr: Becky De La Cruz TUDY: [...] Luke Leonard MD at 9:52 EDT Tel [phone], Service support , CC: Becky De La Cruz DO Coal Inspector: Signed 12-Sep-2016 Pulmonary Function Report Comp Result: Comments: See Note; NOTES: [facility] Pulmonary Services/Neurology [facility] [place] [address] Pulmonary Function Test (Comp) MR#: [id number] Acct: [id number] Name: AUDREY STREETER Rep #: [id number] : 1945 70 From: Tariq Her MD Referring Dr: Becky De La Cruz DO Status: REG CLI Ordering Dr: Becky De La Cruz DO Date: 09/09/16 Location: [facility] Sex: F C DATE OF SERVICE: 017 [...] C: Becky De La Cruz DO T: [facility] JOB: [id number] 07/17 0600 <Electronically signed by Tariq Her MD> Date Tariq Her MD CC: Tariq Her MD; Becky De La Cruz DO Date Dictated: 09/11/16 113 6 Date Transcribed: 09/11/16 1136 Coal Inspector: Signed 09-Sep-2016 Kidney and Bladder Result: Comments: See Note; NOTES: [facility] Imaging Services [address] [place] [address] Verdana 4d Kidney and Bladder MR#: [id number] Acct: [id number] Name: AUDREY STREETER Rep # : [id number] : 1945 F 70 From: Ho Sam MD PCP: Becky De La Cruz DO Status: REG CLI Study: Kidney and Bladder Date of Exam: 09/09/16 Exam# [id number] Ordering Dr: Becky De La Cruz DO [...] at 23:19 EST Tel , Service support [phone], CC: Becky De La Cruz DO Coal Inspector: Signed 08-Sep-2016 Chest PA and Lateral Result: Comments: See Note; NOTES: [facility] Imaging Services [address] [place] [address] Verdana 4d Chest PA and Lateral MR#: [id number] Acct: [id number] Name: AUDREY STREETER Rep #: [id number] : 1945 F 70 From: Ho Sam MD PCP: Becky De La Cruz DO Status: REG CLI Study: Chest PA and Lateral Date of Exam: 09/08/16 Exam# [id number] Ordering Dr: Becky De La Cruz DO [...] at 7:56 EST Tel , Service support [phone], CC: Becky De La Cruz DO Coal Inspector: Signed 28-Jun-2016 Bilat Scrn Digital AND CAD Result: Comments: See Note; NOTES: [facility] Imaging Services [address] [place] [address] Verdana 4d Bilat Scrn Digital AND CAD MR#: [id number] Acct: [id number] Name: SYL,BIANCA RICE Rep #: [id number] : 1945 F 70 From: Vern Hightower MD PCP: Becky De La Cruz DO Status: REG CLI Study: Bilat Scrn Digital AND CAD Date of Exam: 06/28/16 Exam# [id number] Ordering Dr: Becky De La Cruz DO [...] biopsy of a clinically s uspicious abnormality. [id number] Electronically Signed: Prashant Hightower MD at 9:18 EST Tel , Service support [phone], CC: Becky De La Cruz DO Coal Inspector: Signed 15-Apr-2015 Leticia Bateman Digital AND CAD Result: Comments: See Note; NOTES: [facility] Imaging Services [address] [place] [address] Breast Imaging Report MR#: [id number] Acct: [id number] Name: AUDREY STREETER Rep #: [id number] : 1945 F 69 From: Luke Leonard MD PCP: Becky De La Cruz DO Status: REG CLI Study: Bilyogi Scrn Digital AND CAD Date of Exam: 04/15/15 Exam# [id number] Ordering Dr: Becky De La Cruz DO [...] Luke Leonard MD at 10:51 EDT Tel [phone], Service support [phone], Fax CC: Becky De La Cruz DO Coal Inspector: Signed 15-Apr-2015 Dexa Bone Density Study (HP) Result: Comments: See Note; NOTES: [facility] Imaging Services [address] [place] [address] Bone Density Report MR#: [id number] Acct: [id number] Name: AUDREY STREETER Rep #: [id number] : 1945 F 69 From: Luke Leonard MD PCP: Becky De La Cruz DO Status: [facility] CLI Study: Dexa Bone Density Study (HP) Date of Exam: 04/15/15 Exam# [id number] Ordering Dr: Becky De La Cruz DO [...] Osteoporosis Foundation [email or web address] Electronically Sig steve: Luke Leonadr MD at 10:50 EDT Tel [phone], Service support [phone], CC: Becky De La Cruz DO Coal Inspector: Signed 08-Apr-2014 Breast Unilateral Result: Comments: See Note; NOTES: [facility] Imaging Services [address] [place] [address] Ultrasound Report MR#: [id number] Acct: [id number] Name: AUDREY STREETER Rep #: [id number] : 1945 F 68 From: Luke Leonard MD PCP: Becky De La Cruz DO Status: REG CLI Study: Breast Unilateral Date of Exam: 04/08/14 Exam# [id number] Ordering Dr: Becky De La Cruz DO [...] Luke Leonard MD at 9:10 EDT Tel [phone], Service suppor t [phone], CC: Becky De La Cruz DO Coal Inspector: Signed 08-Apr-2014 Leticia Bateman Digital & CAD Result: Comments: See Note; NOTES: [facility] Imaging Services [address] [place] [address] Breast Imaging Report MR#: [id number] Acct: [id number] Name: AUDREY STREETER Rep #: [id number] : 1945 F 68 From: Luke Leonard MD PCP: Becky De La Cruz DO Status: REG CLI Exam# [id number] Ordering Dr: Becky De La Cruz DO [...] Luke Leonard MD at 8:44 EDT Tel [phone], Service support [phone], CC: Becky De La Cruz DO Coal Inspector: Signed Immunization Name Dates Details Pneumococcal (2 [...] kg/m2 Body Surface Area Calculated 1.74 m2 98-Ywc-763546:28 Temperature 97.6 f Pulse 91 /min Comments: [...] Results Date Description Value Details :19 TSH (99612) Comments: PATIENT WAS FASTINGPERFORMED BY: CB [facility] Poaxde1803 [facility] [id number] TSH 1.660 {uIU/mL} (Normal) Range: 0.450-4.500 :19 LIPID PANEL (13272) Comments: PATIENT WAS FASTINGPERFORMED BY: CB [facility] Nuvzdf5557 [facility] [id number] LDL/HDL Ratio 1.4 {ratio} (Normal) Range: 0.0-3.2 [...] COMPREHENSIVE Comments: PATIENT WAS FASTINGPERFORMED BY: [facility] Dxfwyu9885 [facility] [id number] (39168) ALT (SGPT) 16 [iU]/L (Normal) Range: 0-32 [...] 8-27 Glucose 83 mg/dL (Normal) Range: 65-99 50-Ble-54877:19 Vitamin D Hydroxy (54461) Comments: PATIENT WAS FASTINGPERFORMED BY: [facility] Atjhvr8377 [facility] [id number] Vitamin D, 25-Hydroxy 59.6 ng/mL (Normal) Range: 30.0-100.0 Comments: Vitamin D deficiency has been defined by the [place] ofMedicine and an Endocrine Society practice guideline as alevel of serum 25-OH vitamin D less than 20 ng/mL (1,2).The Endocrine Society went on to further define vitamin Dinsufficiency as a level between 21 and 29 ng/mL (2).1. IOM ([place] of Medicine). 2010. Dietary reference intakes for calcium and D. [place]: The National Academies Press.2. Baljinder MF, Quincy ROSE, Tere HOLLOWAY, et al. Evaluation, treatment, and prevention of vitamin D deficiency: an Endocrine Society clinical practice guideline. JCEM. 2010; 96(7):1911-30. 5-Uvd-843098:16 METABOLIC PANEL, COMPREHENSIVE Comments: PATIENT NOT FASTINGPERFORMED BY: LabCoThe Valley HospitalJsjkxl2373 [facility] [id number]; will review on 09/21 (99998) ALT (SGPT) 18 [iU]/L (Normal) Range: 0-32 [...] Glucose, Serum 94 mg/dL (Normal) Range: 65-99 9-Sbi-073030:16 CBC W/AUTO DIFF WBC Comments: PATIENT NOT FASTINGPERFORMED BY: LabCoJeremy V[place] 6476270 [facility] [id number] Information: NURSE DRAW (36735) Immature Grans (Abs) 0.0 {x10E3/uL} (Normal) Range: [...] D Hydroxy Comments: PATIENT WAS FASTINGPERFORMED BY: LabCo[address] [id number] BY: LabCoThe Valley HospitalMpcyyq1306 [facility] [id number] (48948) Vitamin D, 25-Hydroxy 56.5 ng/mL (Normal) Range: 30.0-100.0 Comments: Vitamin D deficiency has been defined by the [place] ofMedicine and an Endocrine Society practice guideline as alevel of serum 25-OH vitamin D less than 20 ng/mL (1,2).The Endocrine Society went on to further define vitamin Dinsufficiency as a level between 21 and 29 ng/mL (2).1. IOM ([place]rill of Medicine). 2010. Dietary reference intakes for calcium and D. [place]: The National Academies Press.2. Baljinder MF, Quincy ROSE, Tere HOLLOWAY, et al. Evaluation, treatment, and prevention of vitamin D deficiency: an Endocrine Society clinical practice guideline. JCEM. 2010; 96(7):1911-30. :56 CBC W/AUTO DIFF WBC Comments: PATIENT WAS FASTINGPERFORMED BY: BN [facility] Ihrgyszopq5896 [facility] [id number] BY: CB [facility] Dycogx2451 [facility] [id number] (53399) Immature Grans (Abs) 0.0 {x10E3/uL} (Normal) Range: [...] Comments: PATIENT WAS FASTINGPERFORMED BY: BN [facility] Izthsrynrt8092 [facility] [id number] BY: CB [facility] Izvzpk6749 [facility] [id number] [facility] (79395) ALT (SGPT) 22 [iU]/L (Normal) Range: 0-32 [...] Comments: PATIENT WAS FASTINGPERFORMED BY: BN [facility] Cufcixzlwr9621 [facility] [id number] BY: CB [facility] Htcifi7800 [place]cardo [place] [id number] (96362) LP-IR Score 51 (Abnormal) Comments: INSULIN RESISTANCE MARKER <--Insulin Sensitive Insulin Resistant--> Percentile in Reference PopulationInsulin Resistance ScoreLP-IR Score Low 25th 50th 75th High <27 27 45 63 >63LP-IR Score is inaccurate if patient is non-fasting. .The LP-IR score is a laboratory developed i [facility] that has beenassociated with insulin resistance and [...] 1600 - 2000 Very High > 2000 4-Uqj-304421:56 TSH (05496) Comments: 6 weeks; PATIENT NOT FASTINGPERFORMED BY: [employer] Kcfgxw9262 [facility] [id number] TSH 3.990 {uIU/mL} (Normal) Range: 0.450-4.500 14-Usz-245708:03 TSH (50276) Comments: PATIENT NOT FASTINGPERFORMED BY: Pingup6370 [facility] [id number] TSH 0.006 {uIU/mL} (Abnormal) Range: 0.450-4.500 :03 T4, FREE (THYROXINE) (45439) Comments: PATIENT NOT FASTINGPERFORMED BY: [employer] Cthenu4700 [facility] [id number] T4,Free(Direct) 1.81 ng/dL (Abnormal) Range: 0.82-1.77 :03 T3, FREE (TRIDOTHYRONINE) (32136) Comments: PATIENT NOT FASTINGPERFORMED BY: [employer] Nzhlgm5406 [facility] [id number] Triiodothyronine,Free,Serum 3.4 pg/mL (Normal) Range: 2.0-4.4 :58 TSH (59292) Comments: PATIENT NOT FASTINGPERFORMED BY: CB [facility] Ssqydn8377 [facility] [place] [id number] TSH <0.006 {uIU/mL} (Abnormal) Range: 0.450-4.500 01-Cbh-63317:29 LIPOPROTEIN, BLD, BY NMR Comments: PATIENT WAS FASTINGPERFORMED BY: [facility] Wdgiuupdmc0015 [facility] [id number] BY: [facility] Wsntpm6101 Gu Roadblin [place] [id number]; non-emergent till apt (54888) LP-IR Score 66 (Abnormal) Comments: INSULIN RESISTANCE MARKER <--Insulin Sensitive Insulin Resistant--> Percentile in Reference PopulationInsulin Resistance ScoreLP-IR Score Low 25th 50th 75th High <27 27 45 63 >63LP-IR Score is inaccurate if patient is non-fasting. .The LP-IR score is a laboratory developed i [facility] that has beenassociated with insulin resistance and [...] were developed and their performance characteristicsdetermined by [employer]. These assays have not been cleared by [...] 1600 - 2000 Very High > 2000 50-Vbi-59215:29 CBC W/AUTO DIFF WBC Comments: PATIENT WAS FASTINGPERFORMED BY: [facility] [address] [id number] BY: [facility] [address] [id number] (45172) Immature Grans (Abs) 0.0 {x10E3/uL} (Normal) Range: [...] 3.77-5.28 WBC 5.1 {x10E3/uL} (Normal) Range: 3.4-10.8 71-Djb-42944:29 METABOLIC PANEL, Comments: PATIENT WAS FASTINGPERFORMED BY: [facility] [address] [id number] BY: [facility] Aelqgl0690 [facility] [id number] [facility] (41661) ALT (SGPT) 17 [iU]/L (Normal) Range: 0-32 [...] (Normal) Range: 65-99 :30 T3, FREE (TRIDOTHYRONINE) (72038) Comments: PATIENT NOT FASTINGPERFORMED BY: [employer] [facility] [id number] Triiodothyronine,Free,Serum 3.8 pg/mL (Normal) Range: 2.0-4.4 :30 T4, FREE (THYROXINE) (47516) Comments: PATIENT NOT FASTINGPERFORMED BY: PBJ [facility] [id number] T4,Free(Direct) 1.97 ng/dL (Abnormal) Range: 0.82-1.77 :30 TSH (37125) Comments: PATIENT NOT FASTINGPERFORMED BY: [facility] CommunicationsSaint [facility] [id number] TSH 0.062 {uIU/mL} (Abnormal) Range: 0.450-4.500 8-Aaz-551183:21 Urinalysis, Office (10102) UA - LEUKOCYTE ESTERASE Negative (Normal) UA - NITRITE Negative (Normal) URINE UROBILINGN SHANNON TIMED Normal mg/dL (Normal) UA - PROTEIN Negative mg/dL (Normal) UA - PH 7 (Normal) UA - BLOOD Non Hemolyzed Moderate (Normal) UA - SPECIFIC GRAVITY 1.015 (Normal) UA - KETONES Negative mg/dL (Normal) UA - BILIRUBIN Negative (Normal) UA - GLUCOSE Negative (Normal) 2-Uzj-924842:29 Anti-TPO Antibody (51417) Comments: PATIENT NOT FASTINGPERFORMED BY: [facility] [id number] Thyroid Peroxidase (TPO) Ab 79 {IU/mL} (Abnormal) Range: 0-34 4-Exq-150221:29 TSH (11315) Comments: PATIENT NOT FASTINGPERFORMED BY: CB [facility] Profzp5796 Gu RoadDublin [place] [id number] TSH 4.520 {uIU/mL} (Abnormal) Range: 0.450-4.500 :29 T4, FREE (THYROXINE) (09119) Comments: PATIENT NOT FASTINGPERFORMED BY: CB [facility] Noenjm7466 Gu RoadDublin [place] [id number] T4,Free(Direct) 1.07 ng/dL (Normal) Range: 0.82-1.77 :29 T3, FREE (TRIDOTHYRONINE) (04099) Comments: PATIENT NOT FASTINGPERFORMED BY: CB [facility] Gdfjjh4514 Gu RoadDublin [place] [id number] Triiodothyronine,Free,Serum 2.6 pg/mL (Normal) Range: 2.0-4.4 :43 Vitamin D Hydroxy (24389) Comments: PATIENT WAS FASTINGPERFORMED BY: CB [facility] Vmxbfu2291 Gu RoadDublin [place] [id number] Vitamin D, 25-Hydroxy 49.9 ng/mL (Normal) Range: 30.0-100.0 Comments: Vitamin D deficiency has been defined by the [place] ofMedicine and an Endocrine Society practice guideline as alevel of serum 25-OH vitamin D less than 20 ng/mL (1,2).The Endocrine Society went on to further define vitamin Dinsufficiency as a level between 21 and 29 ng/mL (2).1. IOM ([place] of Medicine). 2010. Dietary reference intakes for calcium and D. [place]: The National Academies Press.2. Baljinder MF, [place], Tere HOLLOWAY, et al. Evaluation, treatment, and prevention of vitamin D deficiency: an Endocrine Society clinical practice guideline. JCEM. 2010; 96(7):1911-30. :43 LIPID PANEL (86827) Comments: PATIENT WAS FASTINGPERFORMED BY: CB [facility] Leijnk7584 Gu RoadDublin [place] [id number]; non-emergent till apt LDL/HDL Ratio 2.3 {ratio_units} [...] METABOLIC PANEL, Comments: PATIENT WAS FASTINGPERFORMED BY: LabCoThe Valley HospitalYzhvth8907 [facility] [id number] Information: [id number] COMPREHENSIVE (16070) ALT (SGPT) 21 [iU]/L (Normal) Range: 0-32 [...] Glucose, Serum 96 mg/dL (Normal) Range: 65-99 01-Eax-06539:43 CBC (AUTO) (29231) Comments: PATIENT WAS FASTINGPERFORMED BY: LabCoThe Valley HospitalYuhqzu7465 [facility] [id number] Platelets 238 {x10E3/uL} Range: 150-379 (Normal) RDW 14.1 % (Normal) Range: 12.3-15.4 MCHC 33.8 g/dL (Normal) Range: 31.5-35.7 MCH 27.0 pg (Normal) Range: 26.6-33.0 MCV 80 fL (Normal) Range: 79-97 Hematocrit 37.3 % (Normal) Range: 34.0-46.6 Hemoglobin 12.6 g/dL (Normal) Range: 11.1-15.9 RBC 4.66 {x10E6/uL} Range: 3.77-5.28 (Normal) WBC 4.7 {x10E3/uL} Range: 3.4-10.8 (Normal) :0 COLON BIOPSY (CHOOSE See Note (Normal) Comments: [facility] [address]ff[address]av[address] [place], [address] 0 SITE) Comments: Patient: AUDREY STREETER : 1945 (69/F) Acct Num: [id number] Phys: Wolf Clark Unit Num: [id number] Loc: [facility] Specimen: [id number] Received: 05/22/151655 Spec Type: COLON BX TISSUES TISSUES: GROSS DESCRIPTION Received is one container labeled with the patient name and designated biopsy polyp cecum. The specimen consists of multiple irregular f ragments of light menezes soft tissue that in aggregate measure 0.5 x 0.2 x 0.1 cm. The specimen is totally submitted in one cassette. / DANILO:janet 05/23/15 TC:1 CPT: 33456 HEADER OPERATION: [place] py with biopsy PRE-OP DIAGNOSIS: Screening/polyp TISSUE SUBMITTED: Biopsy polyps cecum - rule out adenoma MICROSCOPIC DESCRIPTION Slides are reviewed. MICROSCOPIC DIAGNOSIS Polyps cecum, biopsy: Fragments of hyperplastic polyp. SJ:janet 05/26/15 Signed Piter Hauser 05/26/15 <signature on file> 5-Kfd-860524:39 Metabolic Panel, Basic Comments: PATIENT NOT FASTINGPERFORMED BY: SourcebazaarThe Valley HospitalPlexoy2101 [facility] [id number] Information: [id number] (40389) Calcium, Serum 9.2 mg/dL (Normal) Range: 8.7-10.3 [...] DIFF WBC Comments: PATIENT WAS FASTINGPERFORMED BY: [employer] Nasbok5931 [facility] [id number] Information: [id number] (08687) Immature Grans (Abs) 0.0 {x10E3/uL} (Normal) Range: [...] 3.77-5.28 WBC 6.0 {x10E3/uL} (Normal) Range: 3.4-10.8 34-Bto-20818:29 METABOLIC PANEL, COMPREHENSIVE Comments: PATIENT WAS FASTINGPERFORMED BY: LabCoThe Valley HospitalRzljti2211 [facility] [id number] (91619) ALT (SGPT) 21 [iU]/L (Normal) Range: 0-32 [...] K increased. Clinicalcorrelation indicated. :29 LIPID PANEL (25627) Comments: PATIENT WAS FASTINGPERFORMED BY: [employer] World[place]ide[employer] [id number]; apt. 04-22-15 LDL/HDL Ratio 2.5 {ratio_units} (Normal) [...] (Abnormal) Range: 100-199 :29 Vitamin D Hydroxy (44568) Comments: PATIENT WAS FASTINGPERFORMED BY: [employer]70 [facility] [id number] Vitamin D, 25-Hydroxy 32.1 ng/mL (Normal) Range: 30.0-100.0 Comments: Vitamin D deficiency has been defined by the [place] ofMedicine and an Endocrine Society practice guideline as alevel of serum 25-OH vitamin D less than 20 ng/mL (1,2).The Endocrine Society went on to further define vitamin Dinsufficiency as a level between 21 and 29 ng/mL (2).1. IOM ([place] of Medicine). 2010. Dietary reference intakes for calcium and D. [place]: The National Academies Press.2. Baljinder MF, [place], Tere HOLLOWAY, et al. Evaluation, treatment, and prevention of vitamin D deficiency: an Endocrine Society clinical practice guideline. JCEM. 2010; 96(7):1911-30. 39-Pzx-763847:43 Microscopic Examination Comments: PATIENT WAS FASTINGPERFORMED BY: DKT TechnologyThe Valley HospitalWpjone0827 [facility] [id number] Bacteria Few (Normal) Mucus Threads Present (Normal) Cast Type Hyaline casts (Normal) Casts Present {/lpf} (Abnormal) Epithelial Cells (non renal) 0-10 {/hpf} (Normal) Range: 0 - 10 RBC 11-30 {/hpf} (Abnormal) Range: 0 - 2 WBC 0-5 {/hpf} (Normal) Range: 0 - 5 87-Rbc-736935:43 CBC WITH MANUAL DIFF Comments: PATIENT WAS FASTINGPERFORMED BY: DKT TechnologyThe Valley HospitalPgusul3822 [facility] [id number] Information: [id number] (29720) Immature Grans (Abs) 0.0 {x10E3/uL} (Normal) Range: [...] 3.77-5.28 WBC 6.9 {x10E3/uL} (Normal) Range: 3.4-10.8 20-Ava-364034:43 METABOLIC PANEL, COMPREHENSIVE Comments: PATIENT WAS FASTINGPERFORMED BY: LabCoThe Valley HospitalKywrqx7492 [facility] [id number] (63711) ALT (SGPT) 24 [iU]/L (Normal) Range: 0-32 [...] Glucose, Serum 90 mg/dL (Normal) Range: 65-99 94-Chk-198971:43 URINALYSIS, W/ MICRO (67269) Comments: PATIENT WAS FASTINGPERFORMED BY: [employer]70 Gu [facility] [id number] Microscopic Examination See below: (Normal) Comments: Microscopic was indicated and was performed. Nitrite, Urine Negative (Normal) Urobilinogen,Semi-Qn 0.2 mg/dL (Normal) Range: 0.0-1.9 Bilirubin Negative (Normal) Occult Blood 3+ (Abnormal) Ketones Negative (Normal) Glucose Negative (Normal) Protein Negative (Normal) WBC Esterase Negative (Normal) Appearance Clear (Normal) Urine-Color Yellow (Normal) pH 6.0 (Normal) Range: 5.0-7.5 Specific [place] 1.020 (Normal) Range: 1.005-1.030 76-Qzl-669862:43 LIPID PANEL (23388) Comments: PATIENT WAS FASTINGPERFORMED BY: [employer]70 [facility] [id number]; non-emergent till apt next week. LDL/HDL Ratio [...] Cholesterol, Total 240 mg/dL (Abnormal) Range: 100-199 51-Nvc-265344:43 Vitamin D Hydroxy (38486) Comments: PATIENT WAS FASTINGPERFORMED BY: MyWebzzCoxhealthHanyjl4217 [facility] [id number] Vitamin D, 25-Hydroxy 35.8 ng/mL (Normal) Range: 30.0-100.0 Comments: Vitamin D deficiency has been defined by the [place] ofMedicine and an Endocrine Society practice guideline as alevel of serum 25-OH vitamin D less than 20 ng/mL (1,2).The Endocrine Society went on to further define vitamin Dinsufficiency as a level between 21 and 29 ng/mL (2).1. IOM ([place] of Medicine). 2010. Dietary reference intakes for calcium and D. [place]: The National Academies Press.2. Baljinder MF, [place] ROSE, Tere HOLLOWAY, et al. Evaluation, treatment, and prevention of vitamin D deficiency: an Endocrine Society clinical practice guideline. JCEM. 2010; 96(7):1911-30. 68-Ybf-52748:28 METABOLIC PANEL, Comments: PATIENT WAS FASTINGPERFORMED BY: DKT TechnologyPlains Regional Medical CenterRjqgjx5757 [facility] [id number] Information: [id number] COMPREHENSIVE (25426) ALT (SGPT) 21 [iU]/L (Normal) Range: 0-32 [...] (Normal) Range: 65-99 :28 Vitamin D Hydroxy (99971) Comments: PATIENT WAS FASTINGPERFORMED BY: [employer]70 Gu [facility] HospitalSepSensorAmerican Healthcare Systems [id number] Vitamin D, 25-Hydroxy 25.8 ng/mL (Abnormal) Range: 30.0-100.0 Comments: Vitamin D deficiency has been defined by the [place] ofWright-Patterson Medical Centercine and an Endocrine Society practice guideline as alevel of serum 25-OH vitamin D less than 20 ng/mL (1,2).The Endocrine Society went on to further define vitamin Dinsufficiency as a level between 21 and 29 ng/mL (2).1. IOM ([place] of Medicine). 2010. Dietary reference intakes for calcium and D. [place]: The National Academies Press.2. Baljinder MF, [place], Tere HOLLOWAY, et al. Evaluation, treatment, and prevention of vitamin D deficiency: an Endocrine Society clinical practice guideline. JCEM. 2010; 96(7): 1911-30.; ADDENDA: apt next week to review- non emergent till then :28 LIPID PANEL (86481) Comments: PATIENT WAS FASTINGPERFORMED BY: [facility] Lvclys0241 [facility] [id number] LDL/HDL Ratio 2.4 {ratio_units} (Normal) Range: 0.0-3.2 LDL Cholesterol Calc 135 mg/dL (Abnormal) Range: 0-99 VLDL Cholesterol Grant 34 mg/dL (Normal) Range: 5-40 HDL Cholesterol 56 mg/dL (Normal) Comments: According to ATP-III Guidelines, HDL-C >59 mg/dL is considered anegative risk factor for CHD. Triglycerides 169 mg/dL (Abnormal) Range: 0-149 Cholesterol, Total 225 mg/dL (Abnormal) Range: 100-199 3-Wcl-244531:21 BREAST UNILATERAL Radiology Report See Note Comments: [...] . ASSESSMENT CATEGORY:BIRADS Category 2: Benign finding(s). Signed:Luek jaramillo M.D.April 04, 2013 at 2:57:58 PM [id number] Signed GP/GP If you are the referring physician and would like to consult with theradiologist who provided this interpretation, ple ase contact Marcia Vang at [phone]. If this radiologist is unavailable, youwill be directed to another radiologist to assist. If you are a patient with a question regarding this report, pleasecontactyour referring physician directly. Professional Interpretation Provided By: Mems-ID, Phone , These documents contain legally protected [...] 04/04/13 1501 Sign by: Luke Leonard MD 22-Ezm-864312:24 BILAT SCRN DIGITAL & CAD Radiology See [...] will [facility]. Approximately 10% of breast cancers are not detected by mammography. Anormal mammogram should not delay biopsy of a clinically suspiciousabnormality. Signed:Herber Mullins M.D.March 30, 2013 at 6:55:25 PM [phone] Signed RU/RU If you are the referring felicia lozano and would like to consult with theradiologist who provided this interpretation, please contact Enrico Ruelas. at [phone]. If this radiologist is unavailable, youwillbe directed to anot her radiologist to assist. If you are a patient with a question regarding this report, pleasecontactyour referring physician directly. Professional Interpretation Provided By: Mems-ID, Phone , These documents contain legally protected [...] on 03/30/131900 S ign by: Herber Mullins 07-Whg-50945:21 METABOLIC PANEL, Comments: PATIENT WAS FASTINGPERFORMED BY: [facility]6370 [facility] [id number] Information: [id number] COMPREHENSIVE (40886) ALT (SGPT) 27 [iU]/L (Normal) Range: 0-32 [...] mg/dL (Normal) Range: 65-99 :21 LIPID PANEL (38159) Comments: PATIENT WAS FASTINGPERFORMED BY: [employer]70 [facility] [id number] LDL/HDL Ratio 2.7 {ratio_units} (Normal) Range: 0.0-3.2 LDL Cholesterol Calc 145 mg/dL (Abnormal) Range: 0-99 HDL Cholesterol 54 mg/dL (Normal) Comments: According to ATP-III Guidelines, HDL-C >59 mg/dL is considered anegative risk factor for CHD. VLDL Cholesterol Grant 27 mg/dL (Normal) Range: 5-40 Triglycerides 136 mg/dL (Normal) Range: 0-149 Cholesterol, Total 226 mg/dL (Abnormal) Range: 100-199 :21 Vitamin D Hydroxy (14091) Comments: PATIENT WAS FASTINGPERFORMED BY: [employer] [place] [facility] [id number] Vitamin D, 25-Hydroxy 36.8 ng/mL (Normal) Range: 30.0-100.0 Comments: Vitamin D deficiency has been defined by the [place] ofMedicine and an Endocrine Society practice guideline as alevel of serum 25-OH vitamin D less than 20 ng/mL (1,2).The Endocrine Society went on to further define vitamin Dinsufficiency as a level between 21 and 29 ng/mL (2).1. IOM ([place] of Medicine). 2010. Dietary reference intakes for calcium and D. [place]: The National AcademSkystream Markets Press.2. Baljinder MF, [place], Tere HOLLOWAY, et al. Evaluation, treatment, and prevention of vitamin D deficiency: an Endocrine Society clinical practice guideline. JCEM. 2010; 96(7):1911-30. 40-Erv-23849:47 DEXA BONE DENSITY STUDY (HP) Radiology Report [...] Leonard M.D.July 19, 2012 at 10:30:02 AM [phone] Signed GP/GP If you are t he referring physician and would like to consult with theradiologist who provided this interpretation, please contact Marcia Vang at [phone]. If this radiologist is unavailable, youwill be [...] Sign by: Benedict CONRADLuke :38 LIPID PANEL (72716) Comments: PATIENT WAS FASTINGPERFORMED BY: [facility]6370 [facility] [id number] Information: [id number] LDL/HDL Ratio 2.1 {ratio_units} (Normal) Range: 0.0-3.2 LDL Cholesterol Calc 121 mg/dL (Abnormal) Range: 0-99 VLDL Cholesterol Grant 23 mg/dL (Normal) Range: 5-40 HDL Cholesterol 57 mg/dL (Normal) Comments: According to ATP-III Guidelines, HDL-C >59 mg/dL is considered anegative risk factor for CHD. Triglycerides 114 mg/dL (Normal) Range: 0-149 Cholesterol, Total 201 mg/dL (Abnormal) Range: 100-199 :38 Vitamin D Hydroxy (80311) Comments: PATIENT WAS FASTINGPERFORMED BY: LabCoThe Valley HospitalTcrvof5302 [facility] [id number] Vitamin D, 25-Hydroxy 39.3 ng/mL (Normal) Range: 30.0-100.0 Comments: Vitamin D deficiency has been defined by the [place] ofMedicine and an Endocrine Society practice guideline as alevel of serum 25-OH vitamin D less than 20 ng/mL (1,2).The Endocrine Society went on to further define vitamin Dinsufficiency as a level between 21 and 29 ng/mL (2).1. IOM ([place] of Medicine). 2010. Dietary reference intakes for calcium and D. [place]: The National Academies Press.2. Baljinder MF, [place], Tere HOLLOWAY, et al. Evaluation, treatment, and prevention of vitamin D deficiency: an Endocrine Society clinical practice guideline. JCEM. 2010; 96(7):1911-30. 7-Hfq-907185:54 BILAT SCRN DIGITAL & CAD Radiology Report [...] Leonard M.D.February 03, 2012 at 11:22:07 AM [id number] Signed GP/GP If you are the referring physician and would like to consult with t heradiologist who provided this interpretation, please contact Marcia Vang at [phone]. If this radiologist is unavailable, youwill be directed to another radiologist to assist. If you a re a patient with a question regarding this report, pleasecontactyour referring physician directly. Professional Interpretation Provided By: Mems-ID, Phone , Dictate d on 02/03/12 1102 by Marcial Leonard MDranscribed on 02/03/12 1643 by ITS IMPORTSign by Luke Leonard MD on 02/03/12 164 Sign by: Luke Leonard MD 06-Qsb-12884:39 CMP GAP 11 (Normal) Range: 5-15 CO2 [...] D deficiency has been defined by the [place] ofMedicine and an Endocrine Society practice guideline as alevel of serum 25-OH vitamin D less than 20 ng/mL (1,2).The Endocrine Society went on to further define vitamin Dinsufficiency as a level between 21 and 29 ng/mL (2).1. IOM ([place] of Medicine). 2010. Dietary reference intakes for calcium and D. [place]: The National Academies Press.2. Baljinder MILES, [place] ROSE, Tere HOLLOWAY, et al. Evaluation, treatment, and prevention of vitamin D deficiency: an Endocrine Society clinical practice guideline. JCEM. 2010; 96(7): 1911-30.Performed at: [address] [id number] Director: Josette Garcia MD, Phone: [phone] 42-Fvh-19430:33 CUUR URC See Note {CFU/mL} (Normal) Comments: COLONY COUNT 1000- 10,000 ORGANISM 1: MIXED GRAM POSITIVE ORGANISMS 39-Wqo-694968:34 ABDOMEN/PELVIS WITH CONTRAST Radiology Report See Note [...] radiologist regarding this report, please call our [id number] line @ Dictated on 0 10/25/11 1745 [...] mm/h (Abnormal) Range: 0-30 :38 Urinalysis, Office (34170) UA - BILIRUBIN Negative (Normal) UA - [...] >240 mg/dL High Risk :14 VIT D,25 27180 37.4 ng/mL (Normal) Range: 32.0-100.0 Comments: Effective June 21, 2011 Vitamin D, 25-Hydroxy reference intervals will be changing to 30-100. .Recent studies consider the lower li dave of 32.0 ng/mL to be athreshold for optimal health.Rafael RODRIGUEZ. J Nutr. 2004;135(2):317-22.Performed at: - Lab[address] [id number] Director: Josette Garcia MD, Phone: [phone] 92-Oso-188191:19 BILAT SCRN DIGITAL & CAD Radiology Report [...] 01/27/11 1559 Sign by: Luke Leonard MD 6-Scp-510297: VIT D,25 96477 24.3 ng/mL Range: 32.0-100.0 42 (Abnormal) Comments: Recent studies consider the lower limit of 32.0 ng/mL to edgar threshold for optimal health.Rafael RODRIGUEZ. J Nutr. 2004;135(2):317- 22.Performed at: [place] [address]Lab Director: Josette Garcia MD, Phone: [phone] 3-Wjr-318717:57 DEXA BONE DENSITY STUDY (HP) Radiology Report See Note (Normal) Comments: Exam Number: [id number] LINICAL:This is a 64-year-old female patient with history of postmenopausal follow-up. EXAMINATION:DUAL ENERGY X-RAY ABSORPTIOMETRY / DEXA. TECHNIQUE:Bone Density Fredy urements (BM D) of lumbar spine and bilateral hips were obtained using a CCTV Wireless scanner.. COMPARISON:Comparison is made with prior study [...] Osteoporosis Foundation http://www.nof.org Reported By: LUKE LEONARD 36-Fqa-54707: VIT D,25 44996 38.5 ng/mL (Normal) Range: 32.0-100.0 35 Comments: Recent studies consider the lower limit of 32.0 ng/mL to edgar threshold for optimal health.Rafael RODRIGUEZ. J Nutr. 2004;135(2):317-22.Performed at: [place] [id number]Lab Director: Josette Garcia MD, Phone: [phone] 27-Mwm-396751:50 COLON BX P-COLBX (Normal) Comments: OPERATIONColonoscopy with [...] / AM: 04/17/10 TC:1REPORT SIGNED: PITER HAUSER 04/20/1021-Feb-201029-Aqj-929192: VIT D,25 22567 21.0 ng/mL (Abnormal) Range: 32.0-100.0 41 Comments: Recent studies consider the lower limit of 32.0 ng/mL to edgar threshold for optimal health.Rafael RODRIGUEZ. J Nutr. 2004;135(2):317-22.Performed at: - LabCoThe Valley HospitalXhahpy57[address] [place], [place] [address]Lab Director: Josette Garcia MD, Phone: [phone] 09-Kvc-481167:04 CBCD,SMEAR DIFF ABSOLUTE NEUT 3.4 3/uL (Normal) [...] CHOL 201 mg/dL (Abnormal) Comments: <200 mg/dL Hgbrzzata472-141 mg/dL Borderline>240 mg/dL High Risk HDL 50 [...] 7-18 GLU 88 mg/dL (Normal) Range: 70-110 88-Bbf-902734:45 COMPLETE UA BACTERIA RARE {/hpf} (Normal) LEUK [...] 1.0 CLARITY CLEAR (Normal) COLOR YELLOW (Normal) 91-Ero-440464:43 FOOT,MIN 3 VIEWS (MT) Radiology Report See Note (Normal) Comments: Exam Number: [id number] CLINICAL:This is a 64-year-old female patient with [...] No demonstrated fracture. Reported By: LUKE LEONARD 16-Zgy-76290:55 [facility] DIGITAL & CAD Radiology Report See Note (Normal) Comments: Exam Number: [id number] DIGITAL BILATERAL MAMMOGRAM HISTORYThis is a 63-year-old [...] mammograms werealso examined with computer-aided detection software ([employer], [employer] Reported By: LUKE LEONARD 13-Ldl-86347:58 Rapid Strep Test, Office (36188) Rapid Strep Test, Office Negative (Normal) 51-Fan-992807:58 [facility] DIGITAL & CAD Radiology Report See Note (Normal) Comments: Exam Number: [id number] BILATERAL SCREENING MAMMOGRAM COMPARISON STUDYSeptember 2005, May 19, 2007 and December 04, 2007. Routine MLO and CC views were acquired. There are scatteredfibrogl andular [place] ents present. There are a few benign [...] werealso examined with compute r-aided detection software ([employer].). Reported By: BABATUNDE REDDING M.D. 72-Pwv-670227:58 DEXA BONE DENSITY STUDY () Radiology Report See Note (Normal) Comments: Exam Number: [id number] BONE DENSITOMETRY HISTORYOsteopenia. TECHNIQUE Bone densitometry of [...] left hip. Reported By: ELA ELLISON M.D. 13-Gyy-915996:59 LIPID CHOL 225 mg/dL (Abnormal) Comments: <200 [...] mg/dL VLDL 27 mg/dL (Normal) Range: 5-40 05-Zmc-851931:59 LIVER ALB 3.9 g/dL (Normal) Range: 3.4-5.0 ALK P 97 U/L (Normal) Range: 50-136 ALT 49 U/L (Normal) Range: 30-65 AST 24 U/L (Normal) Range: 15-37 D BILI 0.10 mg/dL (Normal) Range: 0.00-0.30 T BILI 0.54 mg/dL (Normal) Range: 0.00-1.00 T PROT 7.8 g/dL (Normal) Range: 6.4-8.2 3-Afp-678571:38 UNILAT LT DIAG DIGITAL & CAD Radiology Report See Note (Normal) Comments: Exam Number: [id number] UNILATERAL LEFT DIAGNOSTIC MAMMOGRAM CLINICAL STATEMENTSix-month followup. [...] mammograms werealso examined with computer-aided detection software ([employer].). Reported By: BABATUNDE REDDING M.D. :31 [...] :31 TSH 1.92 {uIU/mL} (Normal) Range: 0.34-4.82 99-Qmd-535747:15 UNILAT LT DIAG DIGITAL & CAD Radiology Report See Note (Normal) Comments: Exam Number: [id number] LEFT DIGITAL DIAGNOSTIC MAMMOGRAM CLINICAL INFORMATIONAbnormal left [...] mammograms werealso examined with computer-aided detection software ([employer], [employer] Reported By: BABATUNDE GOLDEN M.D. 79-Pcy-48919:30 CALC U24 3269 [place],U [address] 6.5 mg/dL (Normal) CALCIUM,U24 65.0 {mg/24_hr} (Abnormal) Range: 100.0-300.0 Comments: Performed At: [facility] [place], [place] [id number] 98-Thp-19906:23 [facility] Rad[facility] Report See Note (Normal) Comments: Exam Number: [id number] MAMMOGRAM, BILATERAL SCREENING DIGITAL AND CAD HISTORYRoutine [...] werealso ex amined with computer-aided detection software ([employer], [employer].). Reported By: ELA ELLISON M.D. 23-Luo-37086:45 LIPID CHOL 200 mg/dL (Normal) Comments: <200 [...] gynecological exam Planned Observations URINALYSIS, W/ MICRO (77569)Indication: Benign Essential Hypertension (Renamed from Benign essential HTN) On: 13-Rfs-16222:53 Request CBC W/AUTO DIFF WBC (82385)Indication: Benign Essential Hypertension (Renamed from Benign essential HTN) On: 37-Drx-69213:53 Request METABOLIC PANEL, COMPREHENSIVE (04860)Indication: Other hyperlipidemia On: 89-Caq-75106:53 Request Vitamin D Hydroxy (12666)Indication: Osteopenia On: 0-Rls-340636:14 Request LIPOPROTEIN, BLD, BY NMR (26491)Indication: Other hyperlipidemia On: 8-Iat-550756:14 Request METABOLIC PANEL, COMPREHENSIVE (75291)Indication: Benign Essential Hypertension (Renamed from Benign essential HTN) On: 6-Tgd-153676:14 Request T4, FREE (THYROXINE) (08956)Indication: 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 On: :50 Request TSH (57971)Indication: 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 On: 43-Ulj-34240:50 Request Vitamin D Hydroxy (43381)Indication: Other hyperlipidemia On: 66-Leb-717225:51 Request LIPID PANEL (62157)Indication: Other hyperlipidemia On: :51 Request CBC W/AUTO DIFF WBC (81926)Indication: Benign Essential Hypertension (Renamed from Benign essential HTN) On: :51 Request METABOLIC PANEL, COMPREHENSIVE (64562)Indication: Benign Essential Hypertension (Renamed from Benign essential HTN) On: :51 Request URINE SHALINI CULTURE-IDENTIFICATN (65172)Indication: Abdominal pain, acute, right lower quadrant On: 19-Flm-922031:00 Request METABOLIC PANEL, COMPREHENSIVE (20682)Indication: Abdominal pain, acute, right lower quadrant On: :56 Request C-REACTIVE PROTEIN (82664)Indication: Abdominal pain, acute, right lower quadrant On: :56 Request SED RATE ERYTHROCYTE (47876)Indication: Abdominal pain, acute, right lower quadrant On: :56 Request CBC WITH MANUAL DIFF (34908)Indication: Abdominal pain, acute, right lower quadrant On: :56 Request METABOLIC PANEL, COMPREHENSIVE (45655)Indication: Migraine On: :36 Request LIPID PANEL (56442)Indication: Other hyperlipidemia On: :36 Request Vitamin D Hydroxy (84384)Indication: Vitamin D deficiency, unspecified On: :36 Request METABOLIC PANEL, COMPREHENSIVE (80245)Indication: Elevated blood pressure (not hypertension) On: :51 Request CBC WITH MANUAL DIFF (22038)Indication: Elevated blood pressure (not hypertension) On: :51 Request LIPID PANEL (91872)Indication: Other hyperlipidemia On: :50 Request Vitamin D Hydroxy (06340)Indication: Vitamin D deficiency, unspecified On: :50 Request CALCIFEDIOL (33280)Indication: Vitamin D deficiency, unspecified On: :24 Request Vitamin D Hydroxy (63725)Indication: Vitamin D deficiency, unspecified On: 2-Dsz-397302:51 Request LIPID PANEL (80532)Indication: Elevated blood pressure (not hypertension) On: :57 Request URINALYSIS, W/ MICRO (59354)Indication: Elevated blood pressure (not hypertension) On: :57 Request TSH (76712)Indication: Elevated blood pressure (not hypertension) On: :57 Request METABOLIC PANEL, COMPREHENSIVE (26003)Indication: Elevated blood pressure (not hypertension) On: :57 Request CBC WITH MANUAL DIFF (31907)Indication: Elevated blood pressure (not hypertension) On: :57 Request Vitamin D Hydroxy (55619)Indication: Osteopenia On: :57 Request HEPATIC FUNCTION PANEL (49251)Indication: Other hyperlipidemia On: :14 Request LIPID PANEL (06798)Indication: Other hyperlipidemia On: :14 Request HEPATIC FUNCTION PANEL (14430)Indication: Other hyperlipidemia On: :41 Request LIPID PANEL (37260)Indication: Other hyperlipidemia On: :41 Request URINALYSIS W/O MICRO (24829)Indication: Elevated blood pressure (not hypertension) On: 9-Jkg-532420:52 Request TSH (83536)Indication: Elevated blood pressure (not hypertension) On: 8-Tyi-760074:52 Request METABOLIC PANEL, COMPREHENSIVE (20353)Indication: Elevated blood pressure (not hypertension) On: 9-Dsp-188177:52 Request CBC WITH MANUAL DIFF (56287)Indication: Elevated blood pressure (not hypertension) On: 8-Kgb-091241:52 Request LIPID PANEL (88770)Indication: Other hyperlipidemia On: :52 Request HEPATIC FUNCTION PANEL (35753)Indication: Other hyperlipidemia On: :35 Request LIPID PANEL (95894)Indication: Other hyperlipidemia On: :35 Request FECAL OCCULT HGB ASSAY- tubes sent home (91414)Indication: Well woman exam with routine gynecological exam On: :33 Request Thin prep Pap (54863)Indication: Well woman exam with routine gynecological exam On: :33 Request Planned Encounters Medical; GURJITP Pre Wellness Exam (DF Nurse) - On: 06-Sep-2018 8:15 [facility] NURSE, DF Medical; [facility] Wellness Exam (Doctor) - On: 20-Sep-2018 8:00 [facility] Fast DO, Becky A Fast DO, Becky A Planned Procedures Flu Vaccine (Quadrivalent) On: 19-May-2018 Intent 09382It: Fannie [place] Comments: Lot #[id number]-1/30/2019Site-L dltd, IMDose prefilled syringegiven by:JENNIFER Vilchis reviewed and ABN signed SCREENING DIGITAL On: 21-Mar-2018 Intent TOMOSYNTHESIS OF BREAST Comments: nov (75118)By: Fast DO, Becky A Fast DO, Becky A ELECTROCARDIOGRAM, COMPLETE On: 21-Sep-2017 Intent (ECG) (29029)By: Jono DO, Comments: ekg showed normal sinus rhythym, normal axis, no acute st/t wave changes Becky A Fast DO, Becky A Flu Vaccine (Quadrivalent) On: 26-Apr-2017 Intent 16253Ex: Visit, Nurse Comments: Lot:[id number]:01/16/18Dose:0.5mLRoute:IMSite:L DltdGiven By:VELIA signed DEXA SCAN AXIAL SKELETON On: 11-Apr-2017 Intent (27870)By: Fast DO, Becky A Fast DO, Becky A SCREENING DIGITAL On: 11-Apr-2017 Intent TOMOSYNTHESIS OF BREAST (52071)By: Fast DO, Becky A Fast DO, Becky A DEXA SCAN AXIAL SKELETON On: 07-Dec-2016 Intent (49531)By: Fast DO, Becky A Comments: apr Fast DO, Becky A PFT - CompleteBy: Fast DO, On: 08-Sep-2016 Intent Becky A Fast DO, Becky A Radiology - Chest- PA and On: 08-Sep-2016 Intent LatBy: Fast DO, Becky A Fast DO, Becky A Ultrasound - RenalBy: Fast On: 08-Sep-2016 Intent DO, Becky A Fast DO, Becky A ELECTROCARDIOGRAM, COMPLETE On: 08-Sep-2016 Intent (ECG) (70186)By: Fast DO, Comments: ekg showed normal sinus rhythym, normal axis, no acute st/t wave changes Becky A Fast DO, Becky A BILATERAL MAMMOGRAMS On: 07-Jun-2016 Intent (89644)By: Fast DO, Becky A Fast DO, Becky A Flu Vaccine (Quadrivalent) On: 22-Apr-2015 Intent 93585Ok: Fast DO, Becky A Comments: Lot #:[id number] date: 11/2015Amount given:prefilled syringeSite given:L Dltd, IMGiven by: ALFREDO Miranda and ABN signed Fast DO, Becky A ADMINISTRATION OF INFLUENZA On: 22-Apr-2015 Intent VIRUS VACCINE (G0008)By: Fast DO, Becky A Fast DO, Becky A Bone Density StudyBy: Fast On: 26-Mar-2015 Intent DO, Becky A Fast DO, Becky A BILATERAL MAMMOGRAMS On: 26-Mar-2015 Intent (98774)By: Fast DO, Becky A Fast DO, Becky A EKG (53470)By: Jono ARAAY, On: 06-Aug-2014 Intent Becky A Fast DO, Becky A Comments: ekg showed normal sinus rhythym, normal axis, no acute st/t wave changes IMMUNIZ ADMNIN, 1 VAC, On: 17-May-2014 Intent SNGL/COMBO (28527)By: Visit, Nurse FLU VAC, SPLIT, >3 YEARS, On: 17-May-2014 Intent INTRAMUSC (20326)By: Visit, Comments: [id number]/16Amt:0.5mlRoute:IMSite: L DltdGiven By: KARIN Holt signed Nurse Breast Ultrasound - On: 03-Apr-2014 Intent BilateralBy: Fast DO, Becky A Fast DO, Becky A BILATERAL MAMMOGRAMS On: 03-Apr-2014 Intent (34075)By: Jono ARAYA, Becky A Fast DO, Becky A DEXA SCAN AXIAL SKELETON On: 30-Jan-2014 Intent (24592)By: Fast DO, Becky A Comments: dec Fast DO, Becky A PNEUM VAC ADLT/IMUMNOSPR, On: 09-Apr-2013 Intent SBC/INTRM (89542)By: Jono ARAYA, Comments: lot: [id number]: 02/17/14site/route: L deltoid/IMamt: 0.5mLVIS signed when applicable: KJ Fregosoa A Fast DO, Becky A IMMUNIZ ADMNIN, 1 VAC, On: 09-Apr-2013 Intent SNGL/COMBO (79657)By: Fast DO, Becky A Fast DO, Becky A Eprescribed prescriptions On: 09-Apr-2013 Intent (G8553)By: Jessie Sanches Breast Screening - On: 23-Mar-2013 Intent BilateralBy: Fast DO, Becky A Fast DO, Becky A EKG (94926)By: Myron, On: 15-Aug-2012 Intent Jessie Comments: ekg showed normal sinus rhythym, normal axis, no acute st/t wave changes Eprescribed prescriptions On: 15-Aug-2012 Intent (G8553)By: Jessie Sanches DXA, BONE DENSITY, AXIAL On: 07-Feb-2012 Intent SKELETON (40381)By: Jono ARAYA, Comments: jun Becky A Fast DO, Becky A Breast Screening - On: 24-Jan-2012 Intent BilateralBy: Fast DO, Becky A Fast DO, Becky A CT - Abdomen & PelvisBy: Fast On: 25-Oct-2011 Intent DO, Becky A Fast DO, Becky A Comments: stat- call wet read TDAP VACCINE >7 IM (02705)By: On: 23-Jun-2011 Intent Jessie Sanches Comments: Lot #[id number]-L arm, IMDose prefilledgiven by:Myriam EKG (40472)By: Myron, On: 23-Jun-2011 Intent Jessie Comments: ekg showed normal sinus rhythym, normal axis, no acute st/t wave changes FLU VAC, SPLIT, >3 YEARS, On: 23-Jun-2011 Intent INTRAMUSC (03266)By: Myron, Comments: pharmacy [facility] Breast Screening - On: 06-Jan-2011 Intent BilateralBy: Fast DO, Becky A Fast DO, Becky A IMMUNIZ ADMNIN, 1 VAC, On: 15-May-2010 Intent SNGL/COMBO (73185)By: Carlos Comments: Lot #: [id number] date: mount given: 0.5 mlRoute: IMSite given: left deltoidGiven by: Phani Benson RN RN, Helene FLU VAC, SPLIT, >3 YEARS, On: 15-May-2010 Intent INTRAMUSC (40524)By: Mast SARA, Helene DXA, BONE DENSITY, AXIAL On: 02-Mar-2010 Intent SKELETON (15924)By: Jono ARAYA, Comments: due in may Becky A Fast DO, Becky A EKG (82248)By: Myron, On: 02-Mar-2010 Intent Jessie Comments: ekg showed normal sinus rhythym, normal axis, no acute st/t wave changes Radiology - Foot - RightBy: On: 09-Jan-2010 Intent Fast DO, Becky A Fast DO, Comments: stat reading- pain lateral mid foot-trauma- rule out stress fracture Becky A MAMMOGRAM, SCREENING, BOTH On: 06-Jun-2009 Intent BREASTS ([id number])By: Tran Paul DO Ear Irrigation ([id number])By: On: 09-Sep-2008 Intent Tran Paul DO Comments: currette used L pt sun well MAMMOGRAM, SCREENING, BOTH On: 05-Dec-2007 Intent BREASTS ([id number])By: Fast DO, Becky A Fast DO, Becky A DXA, BONE DENSITY, AXIAL On: 05-Dec-2007 Intent SKELETON ([id number])By: Fast DO, Becky A Fast DO, Becky A IMMUNIZ ADMNIN, 1 VAC, On: 06-Jun-2007 Intent SNGL/COMBO ([id number])By: Fast DO, Becky A Fast DO, Becky A PNEUM VAC ADLT/IMUMNOSPR, On: 06-Jun-2007 Intent SBC/INTRM ([id number])By: Fast DO, Becky A Fast DO, Becky A Breast Screening - LeftBy: On: 06-Jun-2007 Intent Fast DO, Becky A Fast DO, Becky A MAMMOGRAM, SCREENING, BOTH On: 10-Apr-2007 Intent BREASTS ([id number])By: Fast DO, Becky A Fast DO, Becky [...] [facility] : Patient Instructions Indication: [facility] Cough : How to access [...] health information online - Detail Indication: Non-smoker [facility] Physical : How to access health information online Indication: [facility] Wellness Physical [facility] Physical : How to access health information online - Detail Indication: [facility] Wellness Physical [facility] Well[facility] Physical : Patient Instructions Indication: [facility] Wellness Physical Benign Essential Hypertension (Renamed from [...] emo tional problems. Note for Physical exam: [facility] Wellness Physical- weight was stable and your [...] last year- - foot much better- saw paving stone installer- told was tendinitis- got inserts in shoes- [...] was negtive- she is willing to see paving stone installer- had run out of boniva- no gerd [...] of last pap: (02/28/06). Contraceptive history: [facility]: 10-Apr-2007 11:37 fariba is not using [...]
--- OUTSIDE RECORDS SUMMARY | 2018-08-26 16:16 | XMS RPT_ITS | Continuity of Care Document ---
:1945 Author Organization [facility] Address [facility]7 [facility] [address] [place] [address] Phone Care Team Providers Name Role Phone [...] daily, prn for 90 days Quantity: 1 {S [place]} Refills: 3 Ordered:22-Aug-2017 Jono ARAYA Becky LYNNnabila [...] Discontinued Comments:This order discontinued per [employer]. DRISDOL, [id number] (Oral Capsule) 1 (one) Capsule q week [...] Flow Screening Result: Comments: See Note; NOTES: [facility] Cardiovascular Services [address] [place] [address] 10/11/17 0832 MR#: [id number] Acct: [id number] Name: AUDREY STREETER Rep #: [id number] : 1945 71 From: Zack Valdes MD Attending Dr: Becky De La Cruz DO Status: REG REF Ordering Dr: Date: 10/11/17 Location: [facility] Sex: F C Admitted: Reason [...] Dictated: 10/11/17 0832 Date Transcribed: 10/11/17 155 Pearl Cutter: Signed 29-Jun-2017 SCREENING MAMM (CAD), BILAT Result: Comments: See Note; NOTES: [facility] Imaging Services [address] [place] [address] SCREENING MAMM (CAD), BILAT MR#: [id number] Acct: [id number] Name: AUDREY STREETER Rep #: [id number] : 1945 F 71 From: Vern Hightower MD PCP: Becky De La Cruz DO Status: REG CLI Study: SCREENING MAMM (CAD), BILAT Date of Exam: 06/29/17 Exam# [id number] Ordering Dr: Becky De La Cruz DO [...] biopsy of a clinica lly suspicious abnormality. [id number] Electronically Signed: Prashant Hightower MD at 14:20 EST , Service support , CC: Becky De La Cruz DO Pearl Cutter: Signed 26-Apr-2017 Dexa Bone Density Study (HP) Result: Comments: See Note; NOTES: [facility] Imaging Services [address] [place] [address] Dexa Bone Density Study (HP) MR#: [id number] Acct: [id number] Name: AUDREY STREETER Rep #: [id number] : 1945 F 71 From: Luke Leonard MD PCP: Becky De La Cruz DO Status: REG CLI Study: Dexa Bone Density Study (HP) Date of Exam: 04/26/17 Exam# [id number] Ordering Dr: Becky De La CruzDY: DUAL [...] Luke Leonard MD at 9:52 EDT Tel [phone], Service support , CC: Becky De La Cruz DO Pearl Cutter: Signed 12-Sep-2016 Pulmonary Function Report Comp Result: Comments: See Note; NOTES: [facility] Pulmonary Services/Neurology [address] [place] [address] Pulmonary Function Test (Comp) MR#: [id number] Acct: [id number] Name: AUDREY STREETER Rep #: [id number] : 1945 70 From: Tariq Her MD Referring Dr: Becky De La Cruz DO Status: REG CLI Ordering Dr: Becky D eLa Cruz DO Date: 09/09/16 Location: [facility] Sex: F C DATE OF SERVICE: [...] De La Cruz DO T: NTS JOB: [id number] 07/17 0600 <Electronically signed by Tariq Her MD> Date Tariq Her MD CC: Tariq Her MD; Becky De La Cruz DO Date Dictated: 09/11/16 113 6 Date Transcribed: 09/11/16 1136 Pearl Cutter: Signed 09-Sep-2016 Kidney and Bladder Result: Comments: See Note; NOTES: [facility] Imaging Services [address] [place] [address] Yosephdalukas 4d Kidney and Bladder MR#: [id number] Acct: [id number] Name: AUDREY STREETER Rep # : [id number] : 1945 F 70 From: Ho Sam MD PCP: Becky De La Cruz DO Status: REG CLI Study: Kidney and Bladder Date of Exam: 09/09/16 Exam# [id number] Ordering Dr: Becky De La Cruz DO [...] at 23:19 EST Tel , Service support [phone], CC: Becky De La Cruz DO Pearl Cutter: Signed 08-Sep-2016 Chest PA and Lateral Result: Comments: See Note; NOTES: [facility] Imaging Services [address] [place] [address] Verdana 4d Chest PA and Lateral MR#: [id number] Acct: [id number] Name: AUDREY STREETER Rep #: [id number] : 1945 F 70 From: Ho Sam MD PCP: Becky De La Cruz DO Status: REG CLI Study: Chest PA and Lateral Date of Exam: 09/08/16 Exam# [id number] Ordering Dr: Becky De La Cruz DO [...] at 7:56 EST Tel , Service support [phone], CC: Becky De La Cruz DO Pearl Cutter: Signed 28-Jun-2016 Bilat Scrn Digital AND CAD Result: Comments: See Note; NOTES: [facility] Imaging Services [address] [place] [address] Verdana 4d Bilat Scrn Digital AND CAD MR#: [id number] Acct: [id number] Name: BIANCA STREETER MA Rep #: [id number] : 1945 F 70 From: Vern Hightower MD PCP: Becky De La Cruz DO Status: REG CLI Study: Bilat Scrn Digital AND CAD Date of Exam: 06/28/16 Exam# [id number] Ordering Dr: Becky De La Cruz DO [...] biopsy of a clinically s uspicious abnormality. [id number] Electronically Signed: Prashant Hightower MD at 9:18 EST Tel , Service support [phone], CC: Becky De La Cruz DO Pearl Cutter: Signed 15-Apr-2015 Bilat Scrn Digital AND CAD Result: Comments: See Note; NOTES: [facility] Imaging Services [address] [place] [address] Breast Imaging Report MR#: [id number] Acct: [id number] Name: AUDREY STREETER Rep #: [id number] : 1945 F 69 From: Luke Leonard MD PCP: Becky De La Cruz DO Status: REG CLI Study: Kelsey Bateman Digital AND CAD Date of Exam: 04/15/15 Exam# [id number] Ordering Dr: Becky De La Cruz DO MAMMOGRAPHY - BILATERAL SCREENING REASON FOR EXAM: Female, 69 years old. Routine annual screening examination. PERTINENT HISTORY: Prior right excisional breast biopsy. TECHNIQUE: Digital exami [facility]. Mediolateral oblique (MLO) and craniocaudad (CC) views [...] Luke Leonard MD at 10:51 EDT Tel [phone], Service support [phone], Fax CC: Becky De La Cruz DO Pearl Cutter: Signed 15-Apr-2015 Dexa Bone Density Study (HP) Result: Comments: See Note; NOTES: [facility] Imaging Services [address] [place] [address] Bone Density Report MR#: [id number] Acct: [id number] Name: AUDREY STREETER Rep #: [id number] : 1945 F 69 From: Luke Leonard MD PCP: Becky De La Cruz DO Status: REG CLI Study: Dexa Bone Density Study (HP) Date of Exam: 04/15/15 Exam# [id number] Ordering Dr: Becky De La Cruz DO [...] Luke Leonard MD at 10:50 EDT Tel [phone], Service support [phone], CC: Becky De La Cruz DO Pearl Cutter: Signed 08-Apr-2014 Breast Unilateral Result: Comments: See Note; NOTES: [facility] Imaging Services [address] [place] [address] Ultrasound Report MR#: [id number] Acct: [id number] Name: AUDREY STREETER Rep #: [id number] : 1945 F 68 From: Luke Leonard MD PCP: Becky De La Cruz DO Status: REG CLI Study: Breast Unilateral Date of Exam: 04/08/14 Exam# [id number] Ordering Dr: Becky De La Cruz DO [...] Luke Leonard MD at 9:10 EDT Tel [phone], Service suppor t [phone], CC: Becky De La Cruz DO Pearl Cutter: Signed 08-Apr-2014 Bilat Scrn Digital & CAD Result: Comments: See Note; NOTES: [facility] Imaging Services [address] [place] [address] Breast Imaging Report MR#: [id number] Acct: [id number] Name: AUDREY STREETER Rep #: [id number] : 1945 F 68 From: Luke Leonard MD PCP: Becky De La Cruz DO Status: REG CLI Exam# [id number] Ordering Dr: Becky De La Cruz DO [...] Luke Leonard MD at 8:44 EDT Tel [phone], Service support [phone], CC: Becky De La Cruz DO Pearl Cutter: Signed Immunization Name Dates Details Pneumococcal (2 [...] Cuff Location: Left Arm; Cuff Size: Large 01-Acm-921984:54 Temperature 97.9 f Comments: Method: Undefined Pulse [...] Results Date Description Value Details :19 TSH (30458) Comments: PATIENT WAS FASTINGPERFORMED BY: [employer] Ihenim5023 [facility] [id number] TSH 1.660 {uIU/mL} (Normal) Range: 0.450-4.500 :19 LIPID PANEL (69818) Comments: PATIENT WAS FASTINGPERFORMED BY: Bswift70 [facility] [id number] LDL/HDL Ratio 1.4 {ratio} (Normal) Range: 0.0-3.2 [...] PANEL, COMPREHENSIVE Comments: PATIENT WAS FASTINGPERFORMED BY: [employer]6370 [facility] [id number] (62840) ALT (SGPT) 16 [iU]/L (Normal) Range: 0-32 [...] (Normal) Range: 65-99 :19 Vitamin D Hydroxy (17227) Comments: PATIENT WAS FASTINGPERFORMED BY: [employer] [place] [id number] Vitamin D, 25-Hydroxy 59.6 ng/mL (Normal) Range: 30.0-100.0 Comments: Vitamin D deficiency has been defined by the [place] of[place]icine and an Endocrine Society practice guideline as alevel of serum 25-OH vitamin D less than 20 ng/mL (1,2).The Endocrine Society went on to further define vitamin Dinsufficiency as a level between 21 and 29 ng/mL (2).1. IOM ([place] of Medicine). 2010. Dietary reference intakes for calcium and D. [place]: The National Academies Press.2. Baljinder MF, [place], Tere HOLLOWAY, et al. Evaluation, treatment, and prevention of vitamin D deficiency: an Endocrine Society clinical practice guideline. JCEM. 2010; 96(7):1911-30. 6-Izr-451373:16 METABOLIC PANEL, COMPREHENSIVE Comments: PATIENT NOT FASTINGPERFORMED BY: [employer] [place] [id number]; will review on 09/21 (91951) ALT (SGPT) 18 [iU]/L (Normal) Range: 0-32 [...] Glucose, Serum 94 mg/dL (Normal) Range: 65-99 3-Kxi-922775:16 CBC W/AUTO DIFF WBC Comments: PATIENT NOT FASTINGPERFORMED BY: LabCoThe [facility] Salem CountyWpjhrn9617 [facility] [id number] Information: NURSE DRAW (45082) Immature Grans (Abs) 0.0 {x10E3/uL} (Normal) Range: [...] Comments: PATIENT WAS FASTINGPERFORMED BY: BN [facility] Oschtascln6329 [facility] [id number] BY: CB [facility] Crkpjq2158 [facility] [id number] (83006) Vitamin D, 25-Hydroxy 56.5 ng/mL (Normal) Range: 30.0-100.0 Comments: Vitamin D deficiency has been defined by the [place] of[facility]erc[facility] and an Endocrine Society practice guideline as alevel of serum 25-OH vitamin D less than 20 ng/mL (1,2).The Endocrine Society went on to further define vitamin Dinsufficiency as a level between 21 and 29 ng/mL (2).1. IOM ([place] of Medicine). 2010. Dietary reference intakes for calcium and D. [place]: The National Academies Press.2. Baljinder MF, [place] ROSE, Tere HOLLOWAY, et al. Evaluation, treatment, and prevention of vitamin D deficiency: an Endocrine Society clinical practice guideline. JCEM. 2010; 96(7):1911-30. :56 CBC W/AUTO DIFF WBC Comments: PATIENT WAS FASTINGPERFORMED BY: [place] [address] [facility] [id number] BY: MyWaveAndrew [place] 2740270 [facility] [id number] (82398) Immature Grans (Abs) 0.0 {x10E3/uL} (Normal) Range: [...] METABOLIC PANEL, Comments: PATIENT WAS FASTINGPERFORMED BY: [employer] [id number] BY: MyWaveThe [facility] Hospital [facility] Salem CountyPzbgab4255 [facility] [id number] [facility] (94690) ALT (SGPT) 22 [iU]/L (Normal) Range: 0-32 [...] Glucose, Serum 93 mg/dL (Normal) Range: 65-99 51-Zqp-50300:56 LIPOPROTEIN, BLD, BY NMR Comments: PATIENT WAS FASTINGPERFORMED BY: BN [facility] [address] [id number] BY: CB [facility] Gasqpc1757 [facility] [id number] (32917) LP-IR Score 51 (Abnormal) Comments: INSULIN RESISTANCE [...] were developed and their performance characteristicsdetermined by [facility]. These assays have not been cleared by [...] 1600 - 2000 Very High > 2000 7-Tuf-204527:56 TSH (98395) Comments: 6 weeks; PATIENT NOT FASTINGPERFORMED BY: [facility]6370 [facility] [id number] TSH 3.990 {uIU/mL} (Normal) Range: 0.450-4.500 :03 TSH (75354) Comments: PATIENT NOT FASTINGPERFORMED BY: [facility]6370 [facility] [id number] TSH 0.006 {uIU/mL} (Abnormal) Range: 0.450-4.500 :03 T4, FREE (THYROXINE) (40305) Comments: PATIENT NOT FASTINGPERFORMED BY: [facility]6370 [facility] [id number] T4,Free(Direct) 1.81 ng/dL (Abnormal) Range: 0.82-1.77 :03 T3, FREE (TRIDOTHYRONINE) (44217) Comments: PATIENT NOT FASTINGPERFORMED BY: [facility]6370 [facility] [id number] Triiodothyronine,Free,Serum 3.4 pg/mL (Normal) Range: 2.0-4.4 7-Igx-161847:58 TSH (65653) Comments: PATIENT NOT FASTINGPERFORMED BY: LabCenterpointe HospitalUqeclc0809 [facility] Hospitalin [place] [id number] TSH <0.006 {uIU/mL} (Abnormal) Range: 0.450-4.500 :29 LIPOPROTEIN, BLD, BY NMR Comments: PATIENT WAS FASTINGPERFORMED BY: [address] [id number] BY: [facility]6370 [facility] Hospitalin [place] [id number]; non-emergent till apt (02496) LP-IR Score 66 (Abnormal) Comments: INSULIN RESISTANCE [...] were developed and their performance characteristicsdetermined by [facility]. These assays have not been cleared by [place] Food and Drug Administration. The clinical utility [...] Comments: PATIENT WAS FASTINGPERFORMED BY: BN [facility] Iuqhrygwgs9612 [facility] [id number] BY: CB [facility] Oqulcb5221 [facility] [id number] (30502) Immature Grans (Abs) 0.0 {x10E3/uL} (Normal) Range: [...] METABOLIC PANEL, Comments: PATIENT WAS FASTINGPERFORMED BY: LabWilliam Ville 586527 [facility] [id number] BY: [facility]6370 [facility] [id number] COMPREHENSIVE (21969) ALT (SGPT) 17 [iU]/L (Normal) Range: 0-32 [...] (Normal) Range: 65-99 :30 T3, FREE (TRIDOTHYRONINE) (75207) Comments: PATIENT NOT FASTINGPERFORMED BY: [facility]6370 [facility] [id number] Triiodothyronine,Free,Serum 3.8 pg/mL (Normal) Range: 2.0-4.4 :30 T4, FREE (THYROXINE) (04849) Comments: PATIENT NOT FASTINGPERFORMED BY: [place] 9229870 [facility] [id number] T4,Free(Direct) 1.97 ng/dL (Abnormal) Range: 0.82-1.77 :30 TSH (73201) Comments: PATIENT NOT FASTINGPERFORMED BY: [address] [id number] TSH 0.062 {uIU/mL} (Abnormal) Range: 0.450-4.500 0-Wgg-706684:21 Urinalysis, Office (43933) UA - LEUKOCYTE ESTERASE Negative (Normal) UA - NITRITE Negative (Normal) URINE UROBILINGN SHANNON TIMED Normal mg/dL (Normal) UA - PROTEIN Negative mg/dL (Normal) UA - PH 7 (Normal) UA - BLOOD Non Hemolyzed Moderate (Normal) UA - SPECIFIC GRAVITY 1.015 (Normal) UA - KETONES Negative mg/dL (Normal) UA - BILIRUBIN Negative (Normal) UA - GLUCOSE Negative (Normal) 2-Utg-570582:29 Anti-TPO Antibody (13965) Comments: PATIENT NOT FASTINGPERFORMED BY: [facility] [place] [address] [id number] Thyroid Peroxidase (TPO) Ab 79 {IU/mL} (Abnormal) Range: 0-34 0-Doa-435757:29 TSH (55999) Comments: PATIENT NOT FASTINGPERFORMED BY: [address] [id number] TSH 4.520 {uIU/mL} (Abnormal) Range: 0.450-4.500 5-Bqd-027163:29 T4, FREE (THYROXINE) (25660) Comments: PATIENT NOT FASTINGPERFORMED BY: [address] [id number] T4,Free(Direct) 1.07 ng/dL (Normal) Range: 0.82-1.77 1-Ake-803097:29 T3, FREE (TRIDOTHYRONINE) (83831) Comments: PATIENT NOT FASTINGPERFORMED BY: [address] Road[address]ublin [place] [id number] Triiodothyronine,Free,Serum 2.6 pg/mL (Normal) Range: 2.0-4.4 :43 Vitamin D Hydroxy (34421) Comments: PATIENT WAS FASTINGPERFORMED BY: [facility]6370 [facility] [id number] Vitamin D, 25-Hydroxy 49.9 ng/mL (Normal) Range: 30.0-100.0 Comments: Vitamin D deficiency has been defined by the [place] of[place]icine and an Endocrine Society practice guideline as alevel of serum 25-OH vitamin D less than 20 ng/mL (1,2).The Endocrine Society went on to further define vitamin Dinsufficiency as a level between 21 and 29 ng/mL (2).1. IOM ([place] of [place]). 2010. Dietary reference intakes for calcium and D. [place]: The National Academies Press.2. Baljinder MF, [place] ROSE, Tere HOLLOWAY, et al. Evaluation, treatment, and prevention of vitamin D deficiency: an Endocrine Society clinical practice guideline. JCEM. 2010; 96(7):1911-30. :43 LIPID PANEL (30828) Comments: PATIENT WAS FASTINGPERFORMED BY: [facility]6370 [facility] [id number]; non-emergent till apt LDL/HDL Ratio 2.3 {ratio_units} [...] PANEL, Comments: PATIENT WAS FASTINGPERFORMED BY: LabCoThe [facility] Salem CountyLirzaq0328 [facility] [id number] Information: [id number] [facility] (23952) ALT (SGPT) 21 [iU]/L (Normal) Range: 0-32 [...] mg/dL (Normal) Range: 65-99 :43 CBC (AUTO) (42556) Comments: PATIENT WAS FASTINGPERFORMED BY: LabGold AmericaThe Memorial Hospital of Salem CountyLqvdzk8895 [facility] [id number] Platelets 238 {x10E3/uL} Range: 150-379 (Normal) RDW 14.1 % (Normal) Range: 12.3-15.4 MCHC 33.8 g/dL (Normal) Range: 31.5-35.7 MCH 27.0 pg (Normal) Range: 26.6-33.0 MCV 80 fL (Normal) Range: 79-97 Hematocrit 37.3 % (Normal) Range: 34.0-46.6 Hemoglobin 12.6 g/dL (Normal) Range: 11.1-15.9 RBC 4.66 {x10E6/uL} Range: 3.77-5.28 (Normal) WBC 4.7 {x10E3/uL} Range: 3.4-10.8 (Normal) :0 COLON BIOPSY (CHOOSE See Note (Normal) Comments: [facility] [address] [place], [place], [address] 0 SITE) Comments: Patient: AUDREY STREETER : 1945 (69/F) Acct Num: [id number] Phys: Wolf Clark Unit Num: [id number] Loc: LABSPEC Specimen: [id number] Received: 05/22/151655 Spec Type: COLON BX TISSUES TISSUES: GROSS DESCRIPTION Received is one container labeled with the patient name and designated biopsy polyp cecum. The specimen consists of multiple irregular f ragments of light menezes soft tissue that in aggregate measure 0.5 x 0.2 x 0.1 cm. The specimen is totally submitted in one cassette. / DANILO:janet 05/23/15 TC:1 CPT: 09917 HEADER OPERATION: [place] py with biopsy PRE-OP DIAGNOSIS: Screening/polyp TISSUE SUBMITTED: Biopsy polyps cecum - rule out adenoma MICROSCOPIC DESCRIPTION Slides are reviewed. MICROSCOPIC DIAGNOSIS Polyps cecum, biopsy: Fragments of hyperplastic polyp. SJ:janet 05/26/15 Signed Piter Hauser 05/26/15 <signature on file> 8-Pnb-490843:39 Metabolic Panel, Basic Comments: PATIENT NOT FASTINGPERFORMED BY: [facility] Wtdhqe6545 [facility] [id number] Information: [id number] (63816) Calcium, Serum 9.2 mg/dL (Normal) Range: 8.7-10.3 [...] Glucose, Serum 121 mg/dL (Abnormal) Range: 65-99 74-Zhs-64216:29 CBC W/AUTO DIFF WBC Comments: PATIENT WAS FASTINGPERFORMED BY: LabCoThe [facility] Hospital [facility] Salem CountyEfdkak9008 [facility] [id number] Information: [id number] (30877) Immature Grans (Abs) 0.0 {x10E3/uL} (Normal) Range: [...] COMPREHENSIVE Comments: PATIENT WAS FASTINGPERFORMED BY: LabCo Nwcxtx4455 [facility] [id number] (40462) ALT (SGPT) 21 [iU]/L (Normal) Range: 0-32 [...] K increased. Clinicalcorrelation indicated. :29 LIPID PANEL (34873) Comments: PATIENT WAS FASTINGPERFORMED BY: [employer] Mniczq3509 [facility] [id number]; apt. 04-22-15 LDL/HDL Ratio 2.5 {ratio_units} (Normal) [...] (Abnormal) Range: 100-199 :29 Vitamin D Hydroxy (34338) Comments: PATIENT WAS FASTINGPERFORMED BY: [employer] Nworhb0572 [facility] [id number] Vitamin D, 25-Hydroxy 32.1 ng/mL (Normal) Range: 30.0-100.0 Comments: Vitamin D deficiency has been defined by the [place] of[place]icine and an Endocrine Society practice guideline as alevel of serum 25-OH vitamin D less than 20 ng/mL (1,2).The Endocrine Society went on to further define vitamin Dinsufficiency as a level between 21 and 29 ng/mL (2).1. IOM ([place] of [place]). 2010. Dietary reference intakes for calcium and D. [place]: The National Academies Press.2. Baljinder MF, [place] ROSE, Tere HOLLOWAY, et al. Evaluation, treatment, and prevention of vitamin D deficiency: an Endocrine Society clinical practice guideline. JCEM. 2010; 96(7):1911-30. 80-Jan-924784:43 Microscopic Examination Comments: PATIENT WAS FASTINGPERFORMED BY: [employer] Jreold7042 [facility] [id number] Bacteria Few (Normal) Mucus Threads Present (Normal) Cast Type Hyaline casts (Normal) Casts Present {/lpf} (Abnormal) Epithelial Cells (non renal) 0-10 {/hpf} (Normal) Range: 0 - 10 RBC 11-30 {/hpf} (Abnormal) Range: 0 - 2 WBC 0-5 {/hpf} (Normal) Range: 0 - 5 47-Tgj-669093:43 CBC WITH MANUAL DIFF Comments: PATIENT WAS FASTINGPERFORMED BY: DIANE [facility] Icsyym8704 [facility] [id number] Information: [id number] (47850) Immature Grans (Abs) 0.0 {x10E3/uL} (Normal) Range: [...] PANEL, COMPREHENSIVE Comments: PATIENT WAS FASTINGPERFORMED BY: [employer] Ukzott5313 [facility] [id number] (98532) ALT (SGPT) 24 [iU]/L (Normal) Range: 0-32 [...] (Normal) Range: 65-99 :43 URINALYSIS, W/ MICRO (18268) Comments: PATIENT WAS FASTINGPERFORMED BY: MyWaveThe [facility] Hospital of Salem CountyMvymzg4924 [facility] [id number] Microscopic Examination See below: (Normal) Comments: Microscopic was indicated and was performed. Nitrite, Urine Negative (Normal) Urobilinogen,Semi-Qn 0.2 mg/dL (Normal) Range: 0.0-1.9 Bilirubin Negative (Normal) Occult Blood 3+ (Abnormal) Ketones Negative (Normal) Glucose Negative (Normal) Protein Negative (Normal) WBC Esterase Negative (Normal) Appearance Clear (Normal) Urine-Color Yellow (Normal) pH 6.0 (Normal) Range: 5.0-7.5 Specific [place]illwyn 1.020 (Normal) Range: 1.005-1.030 62-Tlr-011129:43 LIPID PANEL (50918) Comments: PATIENT WAS FASTINGPERFORMED BY: MyWaveThe [facility] Hospital of Salem CountyQbffih5994 [facility] [id number]; non-emergent till apt next week. LDL/HDL Ratio [...] Cholesterol, Total 240 mg/dL (Abnormal) Range: 100-199 59-Rnd-438333:43 Vitamin D Hydroxy (26790) Comments: PATIENT WAS FASTINGPERFORMED BY: [employer]6370 [facility] [id number] Vitamin D, 25-Hydroxy 35.8 ng/mL (Normal) Range: 30.0-100.0 Comments: Vitamin D deficiency has been defined by the [place] of[place]icine and an Endocrine Society practice guideline as alevel of serum 25-OH vitamin D less than 20 ng/mL (1,2).The Endocrine Society went on to further define vitamin Dinsufficiency as a level between 21 and 29 ng/mL (2).1. IOM ([place]). 2010. Dietary reference intakes for calcium and D. [place]: The National Academies Press.2. Baljinder MILES, [place] ROSE, Tere HOLLOWAY, et al. Evaluation, treatment, and prevention of vitamin D deficiency: an Endocrine Society clinical practice guideline. JCEM. 2010; 96(7):1911-30. :28 METABOLIC PANEL, Comments: PATIENT WAS FASTINGPERFORMED BY: Bswift70 [facility] CodeMartin General Hospital [id number] Information: [id number] COMPREHENSIVE (65411) ALT (SGPT) 21 [iU]/L (Normal) Range: 0-32 [...] (Normal) Range: 65-99 :28 Vitamin D Hydroxy (93052) Comments: PATIENT WAS FASTINGPERFORMED BY: Bswift70 [facility] CodeMartin [facility] Hospital [id number] Vitamin D, 25-Hydroxy 25.8 ng/mL (Abnormal) Range: 30.0-100.0 Comments: Vitamin D deficiency has been defined by the [place] of[place]icine and an Endocrine Society practice guideline as alevel of serum 25-OH vitamin D less than 20 ng/mL (1,2).The Endocrine Society went on to further define vitamin Dinsufficiency as a level between 21 and 29 ng/mL (2).1. IOM ([place] of [place]). 2010. Dietary reference intakes for calcium and D. [place]: The National AcademAccuhealth Partners Press.2. Baljinder MF, [place] ROSE, Tere HOLLOWAY, et al. Evaluation, treatment, and prevention of vitamin D deficiency: an Endocrine Society clinical practice guideline. JCEM. 2010; 96(7): 1911-30.; ADDENDA: apt next week to review- non emergent till then 27-Uhp-01569:28 LIPID PANEL (99281) Comments: PATIENT WAS FASTINGPERFORMED BY: LabCoThe [facility] Hospital of Salem CountyXsbxes3729 [facility] [id number] LDL/HDL Ratio 2.4 {ratio_units} (Normal) Range: 0.0-3.2 LDL Cholesterol Calc 135 mg/dL (Abnormal) Range: 0-99 VLDL Cholesterol Grant 34 mg/dL (Normal) Range: 5-40 HDL Cholesterol 56 mg/dL (Normal) Comments: According to ATP-III Guidelines, HDL-C >59 mg/dL is considered anegative risk factor for CHD. Triglycerides 169 mg/dL (Abnormal) Range: 0-149 Cholesterol, Total 225 mg/dL (Abnormal) Range: 100-199 5-Qiv-751960:21 BREAST UNILATERAL Radiology Report See Note Comments: [...] jaramillo M.D.April 04, 2013 at 2:57:58 PM [id number] Signed GP/GP If you are the referring physician and would like to consult with theradiologist who provided this interpretation, ple ase contact Marcia Vang at [phone]. If this radiologist is unavailable, youwill be directed to another radiologist to assist. If you are a patient with a question regarding this report, pleasecontactyour referring physician directly. Professional Interpretation Provided By: [employer], Phone , These documents contain legally protected [...] 04/04/13 1501 Sign by: Luke Leonard MD 22-Lsn-652867:24 BILAT SCRN DIGITAL & CAD Radiology See [...] will [facility] the [facility]. Approximately 10% of breast cancers are not detected by mammography. Anormal mammogram should not delay biopsy of a clinically suspiciousabnormality. Signed:Herber Mullins M.D.March 30, 2013 at 6:55:25 PM [id number] Signed RU/RU If you are the referring felicia lozano and would like to consult with theradiologist who provided this interpretation, please contact Marcia Ruelas at [phone]. If this radiologist is unavailable, youwillbe directed to anot her radiologist to assist. If you are a patient with a question regarding this report, pleasecontactyour referring physician directly. Professional Interpretation Provided By: [employer], Phone , These documents contain legally protected [...] on 03/30/131900 S ign by: Herber Mullins 04-Kbi-83099:21 METABOLIC PANEL, Comments: PATIENT WAS FASTINGPERFORMED BY: [facility] CountyDhexup4858 [facility] [id number] Information: [id number] COMPREHENSIVE (60358) ALT (SGPT) 27 [iU]/L (Normal) Range: 0-32 [...] mg/dL (Normal) Range: 65-99 :21 LIPID PANEL (04882) Comments: PATIENT WAS FASTINGPERFORMED BY: [employer] [facility] [id number] LDL/HDL Ratio 2.7 {ratio_units} (Normal) Range: 0.0-3.2 LDL Cholesterol Calc 145 mg/dL (Abnormal) Range: 0-99 HDL Cholesterol 54 mg/dL (Normal) Comments: According to ATP-III Guidelines, HDL-C >59 mg/dL is considered anegative risk factor for CHD. VLDL Cholesterol Grant 27 mg/dL (Normal) Range: 5-40 Triglycerides 136 mg/dL (Normal) Range: 0-149 Cholesterol, Total 226 mg/dL (Abnormal) Range: 100-199 :21 Vitamin D Hydroxy (10993) Comments: PATIENT WAS FASTINGPERFORMED BY: [employer] [facility] Oxemqv0140 [facility] [id number] Vitamin D, 25-Hydroxy 36.8 ng/mL (Normal) Range: 30.0-100.0 Comments: Vitamin D deficiency has been defined by the [place] of[place]icine and an Endocrine Society practice guideline as alevel of serum 25-OH vitamin D less than 20 ng/mL (1,2).The Endocrine Society went on to further define vitamin Dinsufficiency as a level between 21 and 29 ng/mL (2).1. IOM ([place] of Medicine). 2010. Dietary reference intakes for [...] is considered osteopenic, as outlined above, according to[facility] Organi zation (WHO) criteria. Fracture risk [...] Leonard M.D.July 19, 2012 at 10:30:02 AM [id number] Signed GP/GP If you are t he referring physician and would like to consult with theradiologist who provided this interpretation, please contact Marcia Vang at [phone]. If this radiologist is unavailable, youwill be [...] 07/19/12 1040 Sign by: Luke Leonard MD 49-Fej-34620:38 LIPID PANEL (11672) Comments: PATIENT WAS FASTINGPERFORMED BY: [facility] CountyQwhhvm0880 [facility] [id number] Information: [id number] LDL/HDL Ratio 2.1 {ratio_units} (Normal) Range: 0.0-3.2 LDL Cholesterol Calc 121 mg/dL (Abnormal) Range: 0-99 VLDL Cholesterol Grant 23 mg/dL (Normal) Range: 5-40 HDL Cholesterol 57 mg/dL (Normal) Comments: According to ATP-III Guidelines, HDL-C >59 mg/dL is considered anegative risk factor for CHD. Triglycerides 114 mg/dL (Normal) Range: 0-149 Cholesterol, Total 201 mg/dL (Abnormal) Range: 100-199 :38 Vitamin D Hydroxy (71890) Comments: PATIENT WAS FASTINGPERFORMED BY: [facility] CountyEcvpzi4[address] [place] [id number] Vitamin D, 25-Hydroxy 39.3 ng/mL (Normal) Range: 30.0-100.0 Comments: Vitamin D deficiency has been defined by the [place] of[place] and an Endocrine Society practice guideline as alevel of serum 25-OH vitamin D less than 20 ng/mL (1,2).The Endocrine Society went on to further define vitamin Dinsufficiency as a level between 21 and 29 ng/mL (2).1. IOM ([place]). 2010. Dietary reference intakes for calcium and D. [place]: The National AcademAccuhealth Partners Press.2. Baljinder MF, [place], Tere HOLLOWAY, et al. Evaluation, treatment, and prevention of vitamin D deficiency: an Endocrine Society clinical practice guideline. JCEM. 2010; 96(7):1911-30. 4-Qsk-322323:54 BILAT SCRN DIGITAL & CAD Radiology Report [...] Leonard M.D.February 03, 2012 at 11:22:07 AM [id number] Signed GP/GP If you are the referring physician and would like to consult with t heradiologist who provided this interpretation, please contact Marcia Vang at [phone]. If this radiologist is unavailable, youwill be directed to another radiologist to assist. If you a re a patient with a question regarding this report, pleasecontactyour referring physician directly. Professional Interpretation Provided By: [employer], Phone , Dictate d on 02/03/12 1102 by Benedict CONRAD,Marcialranscribed on 02/03/12 1643 by ITS IMPORTSign by Luke Leonard MD on 02/03/12 164 Sign by: Benedict CONRAD,Luke 69-Bau-30633:39 CMP GAP 11 (Normal) Range: 5-15 CO2 [...] D deficiency has been defined by the [place] of[place] and an Endocrine Society practice guideline as alevel of serum 25-OH vitamin D less than 20 ng/mL (1,2).The Endocrine Society went on to further define vitamin Dinsufficiency as a level between 21 and 29 ng/mL (2).1. IOM ([place]). 2010. Dietary reference intakes for calcium and D. [place]: The National Academies Press.2. Baljinder MF, [place], Tere HOLLOWAY, et al. Evaluation, treatment, and prevention of vitamin D deficiency: an Endocrine Society clinical practice guideline. JCEM. 2010; 96(7): 1911-30.Performed at: - [facility] [id number] Director: Josette Garcia MD, Phone: [phone] [facility] See Note {CFU/mL} (Normal) Comments: COLONY COUNT 1000- 10,000 ORGANISM 1: MIXED GRAM POSITIVE ORGANISMS 83-Jex-225616:34 ABDOMEN/PELVIS WITH CONTRAST Radiology Report See Note [...] radiologist regarding this report, please call our [id number] line @ Dictated on 0 10/25/111744 by Ammon Omer DOranscribed on 10/25/111840 by ITS IMPORTSign by Rocky Omer DO on 10/25/111841 Sign by: Rocky Omer DO 32-Wgq-826295:05 CBCMD RBCM NORM C+C {NORMAL} (Normal) PE [...] mm/h (Abnormal) Range: 0-30 :38 Urinalysis, Office (00620) UA - BILIRUBIN Negative (Normal) UA - [...] >240 mg/dL High Risk :14 VIT D,25 84201 37.4 ng/mL (Normal) Range: 32.0-100.0 Comments: Effective June 21, 2011 Vitamin D, 25-Hydroxy reference intervals will be changing to 30-100. .Recent studies consider the lower li dave of 32.0 ng/mL to be athreshold for optimal health.Rafael RODRIGUEZ. J Nutr. 2004;135(2):317-22.Performed at: [address] [id number] Director: Josette Garcia MD, Phone: [phone] 25-Uqy-959703:19 KELSEY SCRTrudy DIGITAL & CAD Radiology Report [...] 01/27/11 1559 Sign by: Luke Leonard MD 7-Bvm-766365: VIT D,25 06338 24.3 ng/mL Range: 32.0-100.0 42 (Abnormal) Comments: Recent studies consider the lower limit of 32.0 ng/mL to edgar threshold for optimal health.Rafael RODRIGUEZ. J Nutr. 2004;135(2):317- 22.Performed at: [address] Director: Josette Garcia MD, Phone: [phone] 2-Ifs-715531:57 DEXA BONE DENSITY STUDY (HP) Radiology Report See Note (Normal) Comments: Exam Number: [id number] LINICAL:This is a 64-year-old female patient with history of postmenopausal follow-up. EXAMINATION:DUAL ENERGY X-RAY ABSORPTIOMETRY / DEXA. TECHNIQUE:Bone Density Fredy urements (BM D) of lumbar spine and bilateral hips were obtained using a [employer] scanner.. COMPARISON:Comparison is made with prior study [...] Osteoporosis Foundation http://www.nof.org Reported By: LUKE LEONARD 38-Yzk-84171: VIT D,25 15653 38.5 ng/mL (Normal) Range: 32.0-100.0 35 Comments: Recent studies consider the lower limit of 32.0 ng/mL to edgar threshold for optimal health.Rafael RODRIGUEZ. J Nutr. 2004;135(2):317-22.Performed at: [place] [address] Director: Josette Garcia MD, Phone: [phone] 96-Pot-723558:50 COLON BX P-COLBX (Normal) Comments: OPERATIONColonoscopy with [...] / AM: 04/17/10 TC:1REPORT SIGNED: PITER HAUSER 04/20/1021-Feb-201048-Alw-265987: VIT D,25 34057 21.0 ng/mL (Abnormal) Range: 32.0-100.0 41 Comments: Recent studies consider the lower limit of 32.0 ng/mL to edgar threshold for optimal health.Rafael RODRIGUEZ. J Nutr. 2004;135(2):317-22.Performed at: [facility] LabPaul [place] [address] Director: Josette Garcia MD, Phone: [phone] 85-Wio-603764:04 CBCD,SMEAR DIFF ABSOLUTE NEUT 3.4 3/uL (Normal) [...] 11.6-14.6 WBC 5.6 K/mm3 (Normal) Range: 4.4-11.0 33-Ytm-502055:57 TSH 2.41 {uIU/mL} (Normal) Range: 0.358-3.74 :57 LIPID CHOL 201 mg/dL (Abnormal) Comments: <200 mg/dL Zzebxthrc173-152 mg/dL Borderline>240 mg/dL High Risk HDL 50 [...] 1.0 CLARITY CLEAR (Normal) COLOR YELLOW (Normal) 15-Ftj-967165:43 FOOT,MIN 3 VIEWS (MT) Radiology Report See Note (Normal) Comments: Exam Number: [id number] CLINICAL:This is a 64-year-old female patient with [...] No demonstrated fracture. Reported By: LUKE LEONARD 65-Yyq-39099:55 BILAT SCRN DIGITAL & CAD Radiology Report See Note (Normal) Comments: Exam Number: [id number] DIGITAL BILATERAL MAMMOGRAM HISTORYThis is a 63-year-old [...] mammograms werealso examined with computer-aided detection software ([employer] Reported By: LUKE LEONARD 92-Uvv-31402:58 Rapid Strep Test, Office (07755) Rapid Strep Test, Office Negative (Normal) 23-Piu-927820:58 BILAT [facility] DIGITAL & CAD Radiology Report See Note (Normal) Comments: Exam Number: [id number] BILATERAL SCREENING MAMMOGRAM COMPARISON STUDYSept2005, May 19, 2007 and December 04, 2007. Routine MLO and CC views were acquired. There are scatteredfibrogl andular [place] ents present. There are a few benign [...] werealso examined with compute r-aided detection software ([employer] Reported By: BABATUNDE REDDING M.D. 07-Brp-652645:58 DEXA BONE DENSITY STUDY () Radiology Report See Note (Normal) Comments: Exam Number: [id number] BONE DENSITOMETRY HISTORYOsteopenia. TECHNIQUE Bone densitometry of [...] left hip. Reported By: ELA ELLISON M.D. 37-Jgl-085039:59 LIPID CHOL 225 mg/dL (Abnormal) Comments: <200 [...] mg/dL VLDL 27 mg/dL (Normal) Range: 5-40 66-Hsa-143306:59 LIVER ALB 3.9 g/dL (Normal) Range: 3.4-5.0 ALK P 97 U/L (Normal) Range: 50-136 ALT 49 U/L (Normal) Range: 30-65 AST 24 U/L (Normal) Range: 15-37 D BILI 0.10 mg/dL (Normal) Range: 0.00-0.30 T BILI 0.54 mg/dL (Normal) Range: 0.00-1.00 T PROT 7.8 g/dL (Normal) Range: 6.4-8.2 1-Dnn-935217:38 UNILAT LT DIAG DIGITAL & CAD Radiology Report See Note (Normal) Comments: Exam Number: [id number] UNILATERAL LEFT DIAGNOSTIC MAMMOGRAM CLINICAL STATEMENTSix-month followup. [...] mammograms werealso examined with computer-aided detection software ([employer], [employer] Reported By: BABATUNDE REDDING M.D. 02-Dec-20078:31 [...] :31 TSH 1.92 {uIU/mL} (Normal) Range: 0.34-4.82 82-Hcu-526426:15 UNILAT LT DIAG DIGITAL & CAD Radiology Report See Note (Normal) Comments: Exam Number: [id number] LEFT DIGITAL DIAGNOSTIC MAMMOGRAM CLINICAL INFORMATIONAbnormal left [...] mammograms werealso examined with computer-aided detection software ([employer].). Reported By: BABATUNDE GOLDEN M.D. 37-Spc-06887:30 CALC U24 3269 [place]CIUM,U [address] 6.5 mg/dL (Normal) CALCIUM,U24 65.0 {mg/24_hr} (Abnormal) Range: 100.0-300.0 Comments: Performed At: [facility] [place], [place] [id number] 36-Ebx-22686:23 BILAT SCRN DIGITAL & CAD Radiology Report See Note (Normal) Comments: Exam Number: [id number] MAMMOGRAM, BILATERAL SCREENING DIGITAL AND CAD HISTORYRoutine [...] werealso ex amined with computer-aided detection software ([employer] Reported By: ELA ELLISON M.D. :45 [...] gynecological exam Planned Observations URINALYSIS, W/ MICRO (02462)Indication: Benign Essential Hypertension (Renamed from Benign essential HTN) On: :53 Request CBC W/AUTO DIFF WBC (94462)Indication: Benign Essential Hypertension (Renamed from Benign essential HTN) On: :53 Request METABOLIC PANEL, COMPREHENSIVE (51841)Indication: Other hyperlipidemia On: :53 Request Vitamin D Hydroxy (30573)Indication: Osteopenia On: :14 Request LIPOPROTEIN, BLD, BY NMR (80940)Indication: Other hyperlipidemia On: :14 Request METABOLIC PANEL, COMPREHENSIVE (27906)Indication: Benign Essential Hypertension (Renamed from Benign essential HTN) On: 9-Rvd-117430:14 Request T4, FREE (THYROXINE) (20436)Indication: 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 On: 26-Aml-25503:50 Request TSH (55472)Indication: 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 On: 24-Aho-13233:50 Request Vitamin D Hydroxy (96040)Indication: Other hyperlipidemia On: :51 Request LIPID PANEL (77653)Indication: Other hyperlipidemia On: :51 Request CBC W/AUTO DIFF WBC (40620)Indication: Benign Essential Hypertension (Renamed from Benign essential HTN) On: :51 Request METABOLIC PANEL, COMPREHENSIVE (88569)Indication: Benign Essential Hypertension (Renamed from Benign essential HTN) On: :51 Request URINE SHALINI CULTURE-IDENTIFICATN (82686)Indication: Abdominal pain, acute, right lower quadrant On: 85-Lfd-119365:00 Request METABOLIC PANEL, COMPREHENSIVE (95109)Indication: Abdominal pain, acute, right lower quadrant On: 56-Vjv-755286:56 Request C-REACTIVE PROTEIN (27109)Indication: Abdominal pain, acute, right lower quadrant On: :56 Request SED RATE ERYTHROCYTE (27805)Indication: Abdominal pain, acute, right lower quadrant On: :56 Request CBC WITH MANUAL DIFF (13013)Indication: Abdominal pain, acute, right lower quadrant On: :56 Request METABOLIC PANEL, COMPREHENSIVE (92105)Indication: Migraine On: :36 Request LIPID PANEL (68023)Indication: Other hyperlipidemia On: :36 Request Vitamin D Hydroxy (36012)Indication: Vitamin D deficiency, unspecified On: :36 Request METABOLIC PANEL, COMPREHENSIVE (27498)Indication: Elevated blood pressure (not hypertension) On: :51 Request CBC WITH MANUAL DIFF (18498)Indication: Elevated blood pressure (not hypertension) On: :51 Request LIPID PANEL (11167)Indication: Other hyperlipidemia On: :50 Request Vitamin D Hydroxy (73040)Indication: Vitamin D deficiency, unspecified On: :50 Request CALCIFEDIOL (17353)Indication: Vitamin D deficiency, unspecified On: 85-Gou-947842:24 Request Vitamin D Hydroxy (93945)Indication: Vitamin D deficiency, unspecified On: :51 Request LIPID PANEL (45907)Indication: Elevated blood pressure (not hypertension) On: :57 Request URINALYSIS, W/ MICRO (85514)Indication: Elevated blood pressure (not hypertension) On: :57 Request TSH (69091)Indication: Elevated blood pressure (not hypertension) On: :57 Request METABOLIC PANEL, COMPREHENSIVE (50943)Indication: Elevated blood pressure (not hypertension) On: :57 Request CBC WITH MANUAL DIFF (99910)Indication: Elevated blood pressure (not hypertension) On: :57 Request Vitamin D Hydroxy (78857)Indication: Osteopenia On: :57 Request HEPATIC FUNCTION PANEL (67637)Indication: Other hyperlipidemia On: :14 Request LIPID PANEL (27350)Indication: Other hyperlipidemia On: :14 Request HEPATIC FUNCTION PANEL (16435)Indication: Other hyperlipidemia On: :41 Request LIPID PANEL (16770)Indication: Other hyperlipidemia On: :41 Request URINALYSIS W/O MICRO (91854)Indication: Elevated blood pressure (not hypertension) On: :52 Request TSH (57441)Indication: Elevated blood pressure (not hypertension) On: :52 Request METABOLIC PANEL, COMPREHENSIVE (98786)Indication: Elevated blood pressure (not hypertension) On: :52 Request CBC WITH MANUAL DIFF (33495)Indication: Elevated blood pressure (not hypertension) On: :52 Request LIPID PANEL (51855)Indication: Other hyperlipidemia On: :52 Request HEPATIC FUNCTION PANEL (13070)Indication: Other hyperlipidemia On: :35 Request LIPID PANEL (06727)Indication: Other hyperlipidemia On: :35 Request FECAL OCCULT HGB ASSAY- tubes sent home (05627)Indication: Well woman exam with routine gynecological exam On: :33 Request Thin prep Pap (33989)Indication: Well woman exam with routine gynecological exam On: 32-Qgm-939334:33 Request Planned Encounters Medical; [facility] Pre Wellness Exam (DF Nurse) - On: 06-Sep-2018 8:15 [facility] NURSE, DF Medical; [facility] Wellness Exam (Doctor) - On: 20-Sep-2018 8:00 [facility] Fast DO, Becky A Fast DO, Becky A Planned Procedures Flu Vaccine (Quadrivalent) On: 19-May-2018 Intent 36185Pm: Fannie Madrid Comments: Lot #[id number]/2019Site-L dltd, IMDose prefilled syringegiven by:JENNIFER Viclhis reviewed and ABN signed SCREENING DIGITAL On: 21-Mar-2018 Intent TOMOSYNTHESIS OF BREAST Comments: nov (53554)By: Jono DO, Becky A Fast DO, Becky A ELECTROCARDIOGRAM, COMPLETE On: 21-Sep-2017 Intent (ECG) (50188)By: Jono DO, Comments: ekg showed normal sinus rhythym, normal axis, no acute st/t wave changes Becky A Fast DO, Becky A Flu Vaccine (Quadrivalent) On: 26-Apr-2017 Intent 69202Pe: Visit, Nurse Comments: Lot:[id number]:01/16/18Dose:0.5mLRoute:IMSite:L DltdGiven By:VELIA signed DEXA SCAN AXIAL SKELETON On: 11-Apr-2017 Intent (66695)By: Fast DO, Becky A Fast DO, Becky A SCREENING DIGITAL On: 11-Apr-2017 Intent TOMOSYNTHESIS OF BREAST (56587)By: Fast DO, Becky A Fast DO, Becky A DEXA SCAN AXIAL SKELETON On: 07-Dec-2016 Intent (17110)By: Fast DO, Becky A Comments: sept Fast DO, Becky A PFT - CompleteBy: Fast DO, On: 08-Sep-2016 Intent Becky A Fast DO, Becky A Radiology - Chest- PA and On: 08-Sep-2016 Intent LatBy: Fast DO, Becky A Fast DO, Becky A Ultrasound - RenalBy: Fast On: 08-Sep-2016 Intent DO, Becky A Fast DO, Becky A ELECTROCARDIOGRAM, COMPLETE On: 08-Sep-2016 Intent (ECG) (54932)By: Fast DO, Comments: ekg showed normal sinus rhythym, normal axis, no acute st/t wave changes Becky A Fast DO, Becky A BILATERAL MAMMOGRAMS On: 07-Jun-2016 Intent (60953)By: Fast DO, Becky A Fast DO, Becky A Flu Vaccine (Quadrivalent) On: 22-Apr-2015 Intent 79004Wc: Fast DO, Becky A Comments: Lot #:[id number] date: 11/2015Amount given:prefilled syringeSite given:L Dltd, IMGiven by: ALFREDO Miranda and ABN signed Fast DO, Becky A ADMINISTRATION OF INFLUENZA On: 22-Apr-2015 Intent VIRUS VACCINE (G0008)By: Fast DO, Becky A Fast DO, Becky A Bone Density StudyBy: Fast On: 26-Mar-2015 Intent DO, Becky A Fast DO, Becky A BILATERAL MAMMOGRAMS On: 26-Mar-2015 Intent (82229)By: Fast DO, Becky A Fast DO, Becky A EKG (93869)By: Fast DO, On: 06-Aug-2014 Intent Becky A Fast DO, Becky A Comments: ekg showed normal sinus rhythym, normal axis, no acute st/t wave changes IMMUNIZ ADMNIN, 1 VAC, On: 17-May-2014 Intent SNGL/COMBO (63624)By: Visit, Nurse CHARBEL VAC, SPLIT, >3 YEARS, On: 17-May-2014 Intent INTRAMUSC (12218)By: Visit, Comments: [id number]:04/16Amt:0.5mlRoute:IMSite: L DltdGiven By: KARIN Holt signed Nurse Breast Ultrasound - On: 03-Apr-2014 Intent BilateralBy: Fast DO, Becky A Fast DO, Becky A BILATERAL MAMMOGRAMS On: 03-Apr-2014 Intent (84712)By: Fast DO, Becky A Fast DO, Becky A DEXA SCAN AXIAL SKELETON On: 30-Jan-2014 Intent (77535)By: Fast DO, Becky A Comments: dec Fast DO, Becky A PNEUM VAC ADLT/IMUMNOSPR, On: 09-Apr-2013 Intent SBC/INTRM (45371)By: Jono ARAYA, Comments: lot: [id number]: 02/17/14site/route: L deltoid/IMamt: 0.5mLVIS signed when applicable: KJ Fregoso Becky A Fast DO, Becky A IMMUNIZ ADMNIN, 1 VAC, On: 09-Apr-2013 Intent SNGL/COMBO (30984)By: Fast DO, Becky A Fast DO, Becky A Eprescribed prescriptions On: 09-Apr-2013 Intent (G8553)By: Jessie Sanches Breast Screening - On: 23-Mar-2013 Intent BilateralBy: Fast DO, Becky A Fast DO, Becky A EKG (54116)By: Myron, On: 15-Aug-2012 Intent Jessie Comments: ekg showed normal sinus rhythym, normal axis, no acute st/t wave changes Eprescribed prescriptions On: 15-Aug-2012 Intent (G8553)By: Jessie Sanches DXA, BONE DENSITY, AXIAL On: 07-Feb-2012 Intent SKELETON (29944)By: Fast DO, Comments: nov Becky A Fast DO, Becky A Breast Screening - On: 24-Jan-2012 Intent BilateralBy: Fast DO, Becky A Fast DO, Becky A CT - Abdomen & PelvisBy: Fast On: 25-Oct-2011 Intent DO, Becky A Fast DO, Becky A Comments: stat- call wet read TDAP VACCINE >7 IM (51752)By: On: 23-Jun-2011 Intent Jessie Sanches Comments: Lot #[id number]-L arm, IMDose prefilledgiven by:Myriam EKG (41556)By: Myron, On: 23-Jun-2011 Intent Jessie Comments: ekg showed normal sinus rhythym, normal axis, no acute st/t wave changes FLU VAC, SPLIT, >3 YEARS, On: 23-Jun-2011 Intent INTRAMUSC (61102)By: Myron, Comments: [facility] Breast Screening - On: 06-Jan-2011 Intent BilateralBy: Fast DO, Becky A Fast DO, Becky A IMMUNIZ ADMNIN, 1 VAC, On: 15-May-2010 Intent SNGL/COMBO (13007)By: Carlos Comments: Lot #: [id number] date: mount given: 0.5 mlRoute: IMSite given: left deltoidGiven by: Phani Benson RN RN, Mandy FLU VAC, SPLIT, >3 YEARS, On: 15-May-2010 Intent INTRAMUSC (08943)By: Helene Gonzalez RN DXA, BONE DENSITY, AXIAL On: 02-Mar-2010 Intent SKELETON (45713)By: Jono ARAYA, Comments: due in may Becky A Fast DO, Becky A EKG (80767)By: Myron, On: 02-Mar-2010 Intent Jessie Comments: ekg showed normal sinus rhythym, normal axis, no acute st/t wave changes Radiology - Foot - RightBy: On: 09-Jan-2010 Intent Fast DO, Becky A Fast DO, Comments: stat reading- pain lateral mid foot-trauma- rule out stress fracture Becky A MAMMOGRAM, SCREENING, BOTH On: 06-Jun-2009 Intent BREASTS (48390)By: Tran Paul DO Ear Irrigation (89416)By: On: 09-Sep-2008 Intent Tran Paul DO Comments: rebecca used L pt sun well MAMMOGRAM, SCREENING, BOTH On: 05-Dec-2007 Intent BREASTS (01970)By: Fast DO, Becky A Fast DO, Becky A DXA, BONE DENSITY, AXIAL On: 05-Dec-2007 Intent SKELETON (83675)By: Fast DO, Becky A Fast DO, Becky A IMMUNIZ ADMNIN, 1 VAC, On: 06-Jun-2007 Intent SNGL/COMBO (02027)By: Fast DO, Becky A Fast DO, Becky A PNEUM VAC ADLT/IMUMNOSPR, On: 06-Jun-2007 Intent SBC/INTRM (02175)By: Fast DO, Becky A Fast DO, Becky A Breast Screening - LeftBy: On: 06-Jun-2007 Intent Fast DO, Becky A Fast DO, Becky A MAMMOGRAM, SCREENING, BOTH On: 10-Apr-2007 Intent BREASTS (20648)By: Fast DO, Becky A Fast DO, Becky [...] last year- - foot much better- saw labels molder- told was tendinitis- got inserts in shoes- [...] was negtive- she is willing to see labels molder- had run out of boniva- no gerd [...] of last pap: (02/28/06). Contraceptive history: The ri End: 10-Apr-2007 11:37 fariba is not using [...]
--- OUTSIDE RECORDS SUMMARY | 2018-08-26 16:17 | XMS RPT_ITS ---
[...] Status: F Source: FERNANDO UNILATERAL 10:55 AM [facility] HOSPITAL REPOSITORY [facility] Imaging Services [address] [place] [address] Breast Limited Unilateral MR#: [id number] Acct: [id number] Name: AUDREY STREETER Rep #: [id number] : 1945 F 72 From: Luke Mcmullen MD PCP: Becky De La Cruz DO Status: REG CLI Study: Breast Limited Unilateral Date of Exam: 07/03/18 Exam# [id number] Ordering Dr: Becky De La Cruz DO [...] Luke Mcmullen MD at 14:10 EST Tel [phone], Service support , CC: Becky De La Cruz DO Electrical Research Engineer: Signed SCREENING MAMM (CAD), Observed: 06/30/2018 Status: F Source: FERNANDO BILAT 9:55 AM [facility] Imaging Services [address] [place] [id number] SCREENING MAMM (CAD), BILAT MR#: [id number] Acct: [id number] Name: AUDREY STREETER Rep #: [id number] : 1945 F 72 From: Luke Mcmullen MD PCP: Becky De La Cruz DO Status: REG CLI Study: SCREENING MAMM (CAD), BILAT Date of Exam: 06/30/18 Exam# [id number] Ordering Dr: Becky De La Cruz DO [...] delay biopsy of a clinically suspicious abnormality. [id number] Electronically Signed: Luke Mcmullen MD at 12:24 EST Tel [phone], Service support , CC: Becky De La Cruz DO Electrical Research Engineer: Signed TXT - BLOOD FLOW Observed: 10/11/2017 Status: F Source: ROS[place]E SCREENING 3:54 PM [facility] Cardiovascular Services [address] [address] 10/11/17 0832 MR#: [id number] Acct: [id number] Name: AUDREY STREETER Rep #: [id number] : 1945 71 From: Zack Valdes MD [...] Dictated: 10/11/17 0832 Date Transcribed: 10/11/17 155 Electrical Research Engineer: Signed ALLERGIES ALLERGIES DATE TYPE / CODE NAME / CODE REACTION SEVERITY SOURCE 07/14/2018 Drug No Known Unknown Fernando [facility] Allergy/4160 Allergies/F00 Hospital [address](SNOMED [id number](RXNOR Repository CT) M) ENCOUNTERS ENCOUNTERS ADMIT/DISCHARGE ACCOUNT ADMITTING ENCOUNTER LOCATION SOURCE NUMBER CLASS 07/14/2018/ [id number] [facility] 07/03/2018 [id number] Ambulatory Becker Fernando 1 [facility] ing:OPUS Repository 06/30/2018 [id number] Ambulatory Fernando Becker 7 [facility] ing:OPBI Repository 10/11/2017 [id number] Ambulatory Fernando Fernando 8 [facility] ing:[facility] Repository PAYERS PAYERS ENCOUNTER GUARANTOR PAYER SUBSCRIBER SOURCE 07/14/2018 AUDREY Little Primary AUDREY [address] [id number] Insurance:MAYELIN OSMANOB: [facility] [place]: [id number] [id number] Repository [address]Aip: 330) Date:[id number] [phone] ( [id number] [id number]: 07/14/2018 Secondary NOT GIVENUNK Becker Insurance:SELF PAY [facility] Number: Effective Repository Date:2018-07-14 07/03/2018 AUDREY Little Primary AUDREY Little Fernando [id number] Insurance:AETNA ADAMALEDOB: [facility] Number: [id number] [id number] Repository [address]Kfy: [phone]) Date:4659-22-37UX [phone] () [id number] SYL KRUPA [address]BT: 07/03/2018 Secondary NOT GIVENUNK Fernando Insurance:SELF PAY [facility] Number: Effective Repository Date:2018-06-30 06/30/2018 AUDREY J Primary AUDREY J Becker [id number] Insurance:AETKRISTI OSMANOB: [facility] Number: [id number] [id number] Repository [address]Vop: [phone]) Date:0036-18-02YJ [phone] () [id number] [address]IT: 06/30/2018 Secondary NOT GIVENUNK Fernando Insurance:SELF PAY [facility] Number: Effective Repository Date:2018-03-21 10/11/2017 Audrey Primary NOT GIVENUNK Fernando [id number] Insurance:SELF PAY [place] Number: Effective Repository [id number]: [phone] Date:2017-09-21 [phone] ()
== END ==
PROVIDERS: Family Provider Internal Medicine; PCP Internal Medicine; Visit Provider Internal Medicine
DX: R92.8 Other abnormal and inconclusive findings on diagnostic imaging of breast (principal)
CPT/HCPCS: 76642

== ENCOUNTER → 2018-11-01 12:23 | Outpatient (CLI) | payer SELFPAY ==
[2018-07-14 08:25] VITALS: BMI 29.7
--- NOTE | 2018-11-01 12:28 | CT_ITS ---
STUDY: CT CHEST WITHOUT CONTRAST REASON FOR EXAM: Female, 72 years old. RADIATION DOSAGE (If Supplied By Facility): CTDIvol = ( 12.19 ) mGy, DLP = ( 170.66 ) mGycm TECHNIQUE: Transaxial imaging was performed without the administration of intravenous contrast material. Individualized dose optimization techniques were used for this CT. COMPARISON: None. FINDINGS: Mild increased markings at the right lung base suggestive of mild scarring. There is no demonstrated pleural abnormality. There are calcifications of the coronary arteries. There are multiple small lymph nodes within the mediastinum, which are normal in size and morphology most compatible with reactive lymph hyperplasia. Normal hilar regions. Normal unenhanced pulmonary arteries. Normal aorta arch and descending thoracic aorta. There are multi-level degenerative changes of the thoracic spine. There is no demonstrated abnormality of the visualized upper abdomen. CT/Limited Chest CT w/CCTA IMPRESSION: Coronary artery calcification. Mild increased markings at the right lung base suggestive of scarring. Electronically Signed: Luke Mcmullen, at 14:01 EDT , Service support ,
[2018-11-01 12:52] VITALS: BP 146/60; PULSE 57; RESP 18; O2SAT 100; BMI 28.7
--- NOTE | 2018-11-01 17:14 | CA.SCORE ---
Calcium Scoring Date of Study:: 11/01/18 Coronary Calcium Scoring: High-resolution Computed Tomographic imaging of the chest was performed on [11/01/2018], with particular attention paid to the coronary arteries. Images from the examination were analyzed for the presence and extent of coronary artery calcification , using coronary calcium quantification software. The patient tolerated the procedure well and there were no complications. The results of the coronary calcification analysis are provided below. - Findings Left Main (LM): 0 Left Anterior Descending (LAD): 4 Left Circumflex (LCX): 8 Right Coronary Artery (RCA): 16 Total Agatston Score: 28 Percentile Rankin - Conclusion Calcium Scoring Interpretation: Calcium Score Interpretation 0 No identifiable atherosclerotic plaque. Very low cardiovascular disease risk. <5% chance of presence coronary artery disease A Negative Examination 1-10 Minimal Plaque burden. Significant coronary artery disease very unlikely. 11-100 Mild plaque burden. Likely mild or minimal coronary atherosclerosis. 101-400 Moderate plaque burden Moderate non-obstructive coronary artery disease highly likely. Over 400 Extensive plaque burden. High likelihood of at least one significant coronary stenosis (>50% diameter) Calcium Score: 11 - 100 Likely mild or minimal coronary stenosis - The above is suggestive of mild atherosclerotic cardiovascular disease. A full evaluation of cardiac risk should include assessment of all conventional risk factors.
== END ==
PROVIDERS: Family Provider Internal Medicine; PCP Internal Medicine; Referring Provider Internal Medicine; Visit Provider Internal Medicine
DX: E78.5 Hyperlipidemia, unspecified (principal)
CPT/HCPCS: 75571; 76380

== ENCOUNTER → 2019-07-03 10:26 | Outpatient (CLI) | payer MEDICARE, SELFPAY ==
[2018-11-01 12:52] VITALS: BMI 28.7
--- NOTE | 2019-07-03 10:29 | BI_ITS ---
MAMMOGRAPHY - BILATERAL SCREENING REASON FOR EXAM: Female, 73 years old. Routine annual screening examination. PERTINENT HISTORY: Grandmother with breast cancer. Remote right excisional breast biopsies. TECHNIQUE: Digital bilateral breast josiah (3D mammographic acquisition) in the CC and MLO projections. 2-D mediolateral oblique (MLO) and craniocaudad (CC) views of both breasts were obtained. CAD: Full Field Digital Mammography with Computer Added Detection was performed. COMPARISON: Comparison is made with prior study dated June 30, 2018 and June 29, 2017. FINDINGS: Breast Composition: There are scattered areas of fibroglandular density. There are no dominant masses or suspicious calcifications. Stable subcentimeter well-defined nodules in the retroareolar region of the right breast. These were demonstrated to be small cysts on prior sonogram. Stable small benign-appearing right axillary lymph node. No other significant abnormalities are identified. There has been no significant change since the prior study. BI/SCREEN MAMM (CAD) W/JOSIAH BILAT IMPRESSION: Stable bilateral screening mammogram. Yearly follow-up mammogram recommended. (A) ASSESSMENT CATEGORY: BIRADS Category 2: Benign. A letter regarding these results will be sent to the patient by the facility within 30 days. Approximately 10% of breast cancers are not detected by mammography. A normal mammogram should not delay biopsy of a clinically suspicious abnormality. [id number] Electronically Signed: Luke Mcmullen, at 12:41 EST , Service support ,
--- NOTE | 2019-07-03 10:30 | BD_ITS ---
STUDY: DUAL ENERGY X-RAY ABSORPTIOMETRY / DXA REASON FOR EXAM: Female, 73 years old. The patient is postmenopausal. No loss of height. TECHNIQUE: Bone Mineral Density (BMD) measurements of lumbar spine and bilateral hips were obtained. COMPARISON: Comparison is made with prior study dated April 26, 2017. FINDINGS: Lumbar Spine (L1-L4): g/cm2 (1.116) / T-score (-0.7) / Z-score (1.0) Findings are suggestive of normal bone density with a low fracture risk. Increased thoracic kyphosis. Left Femur Total: g/cm2 (0.847) / T-score (-1.3) / Z-score (0.4) Left Femoral Neck: g/cm2 (0.821) / T-score (-1.6) / Z-score (0.3) Right Femur Total: g/cm2 (0.850) / T-score (-1.3) / Z-score (0.4) Right Femoral Neck: g/cm2 (0.747) / T-score (-2.1) / Z-score (-0.2) The T-Scores on the most recent prior examination were: Lumbar Spine (L1-L4): There has been worsening of bone density since the previous examination. Left Femur Total: which represents a worsening of 0.8%. Right Femur Total: which represents a worsening of 4.4%. BD/Dexa Bone Density Study IMPRESSION: The patient is considered osteopenic as outlined below according to World Wesley Organization (WHO) criteria with a moderate fracture risk. There has been worsening of bone density since the previous examination. Reference Information: The T-score is the number of standard deviations above or below the standard which is normal for young adults at their peak bone mineral density. The World Health Organization (WHO) interprets the T-scores as follows: Above -1 Normal bone density Between -1 and -2.5 Osteopenia Equal to / or below -2.5 Osteoporosis As a practical clinical guideline, osteopenia may be graded as follows: Mild -1 through -1.5 Moderate -1.6 through -2.0 Severe -2.1 through -2.4 The Z-score is the number of standard deviations above or below age-matched controls. A Z-score of less than -1.5 would be considered abnormal. References: 1. NIH Osteoporosis and Related Bone Diseases http://www.osteo.org 2. International Society for Clinical Densitometry http://www.iscd.org 3. National Osteoporosis Foundation http://www.nof.org Electronically Signed: Luke Mcmullen, at 13:41 EST , Service support ,
== END ==
PROVIDERS: Family Provider Internal Medicine; PCP Internal Medicine; Referring Provider Internal Medicine; Visit Provider Internal Medicine
DX: Z12.31 Encounter for screening mammogram for malignant neoplasm of breast (principal); Z78.0 Asymptomatic menopausal state
CPT/HCPCS: 77063; 77067; 77080

== ENCOUNTER → 2019-10-05 14:23 | Outpatient (CLI) | payer MEDICARE, SELFPAY ==
[2018-11-01 12:52] VITALS: BMI 28.7
--- NOTE | 2019-10-05 14:28 | RAD_ITS ---
STUDY: X-RAY - LEFT TIBIA AND FIBULA REASON FOR EXAM: Female, 73 years old. FALL LAST NIGHT, LATERAL LOWER LEG PAIN CLOSER TO KNEE AREA TECHNIQUE: AP and lateral view(s) of the tibia and fibula were obtained. COMPARISON: None. FINDINGS: Normal visualized tibia. Normal visualized fibula. The soft tissue structures are unremarkable. RAD/Tibia & Fibula 2 Views IMPRESSION: Normal x-ray examination of the tibia and fibula. Electronically Signed: Luke Mcmullen, at 14:48 EST , Service support ,
== END ==
PROVIDERS: PCP Internal Medicine; Referring Provider Internal Medicine; Visit Provider Internal Medicine
DX: M79.605 Pain in left leg (principal)
CPT/HCPCS: 73590

== ENCOUNTER → 2020-07-21 15:33 | Outpatient (CLI) | payer MEDICARE, SELFPAY ==
[2018-11-01 12:52] VITALS: BMI 28.7
--- NOTE | 2020-07-21 15:35 | BI_ITS ---
MAMMOGRAPHY - BILATERAL SCREENING REASON FOR EXAM: Female, 74 years old. Routine annual screening examination. PERTINENT HISTORY: Grandmother with breast cancer. Remote right excisional breast biopsy. TECHNIQUE: Digital bilateral breast josiah (3D mammographic acquisition) in the CC and MLO projections. 2-D mediolateral oblique (MLO) and craniocaudad (CC) views of both breasts were obtained. CAD: Full Field Digital Mammography with Computer Added Detection was performed. COMPARISON: Comparison is made with prior study dated 07/03/2019 and 06/30/2008. FINDINGS: Breast Composition: There are scattered areas of fibroglandular density. There are no dominant masses or suspicious calcifications. There are 2 stable small benign-appearing nodules in the retroareolar region of the right breast. These were demonstrated to be small cysts on prior sonogram. No other significant abnormalities are identified. There has been no significant change since the prior study. BI/SCREEN MAMM (CAD) W/JOSIAH BILAT IMPRESSION: Stable bilateral screening mammogram. Yearly follow-up mammogram recommended. (A) ASSESSMENT CATEGORY: BIRADS Category 2: Benign. A letter regarding these results will be sent to the patient by the facility within 30 days. Approximately 10% of breast cancers are not detected by mammography. A normal mammogram should not delay biopsy of a clinically suspicious abnormality. [id number] Electronically Signed: Luke Mcmullen, at 8:17 EST , Service support ,
== END ==
PROVIDERS: PCP Internal Medicine; Referring Provider Internal Medicine; Visit Provider Internal Medicine
DX: Z12.31 Encounter for screening mammogram for malignant neoplasm of breast (principal)
CPT/HCPCS: 77063; 77067

== ENCOUNTER 2021-08-18 13:12 | Outpatient (CLI) | payer MEDICARE, SELFPAY ==
--- NOTE | 2021-08-18 13:17 | BI_ITS ---
MAMMOGRAPHY - BILATERAL SCREENING REASON FOR EXAM: Female, 75 years old. Routine annual screening examination. PERTINENT HISTORY: Grandmother with breast cancer. Remote right excisional breast biopsy. TECHNIQUE: Digital bilateral breast josiah (3D mammographic acquisition) in the CC and MLO projections. 2-D mediolateral oblique (MLO) and craniocaudad (CC) views of both breasts were obtained. CAD: Full Field Digital Mammography with Computer Added Detection was performed. COMPARISON: Comparison is made with prior examination dated 07/21/2020 and 07/03/2019. FINDINGS: Breast Composition: There are scattered areas of fibroglandular density. There are no dominant masses or suspicious calcifications. The previously seen small benign-appearing nodule in the retroareolar region of the right breast have decreased in size. These were demonstrated to be small cysts on prior sonogram. No other significant abnormalities are identified. There has been no significant change since the prior study. BI/SCRN MAMM (CAD)W/JOSIAH BILAT IMPRESSION: Stable bilateral screening mammogram. Yearly follow-up mammogram recommended. (A) ASSESSMENT CATEGORY: BIRADS Category 2: Benign. A letter regarding these results will be sent to the patient by the facility within 30 days. Approximately 10% of breast cancers are not detected by mammography. A normal mammogram should not delay biopsy of a clinically suspicious abnormality. [id number] Electronically Signed: Luke Mcmullen MD at 14:03 EST , Service support ,
--- NOTE | 2021-08-18 13:28 | BD_ITS ---
STUDY: DUAL ENERGY X-RAY ABSORPTIOMETRY / DXA REASON FOR EXAM: Female, 75 years old. Z780. The patient is postmenopausal. TECHNIQUE: Bone Mineral Density (BMD) measurements of lumbar spine and bilateral hips were obtained. COMPARISON: Comparison is made with prior study dated 04/03/2019. FINDINGS: Lumbar Spine (L1-L4): g/cm2 (0.909) / T-score (-1.3) / Z-score (1.2) Findings are suggestive of osteopenia with a low fracture risk. Left Femur Total: g/cm2 (0.789) / T-score (-1.3) / Z-score (0.6) Left Femoral Neck: g/cm2 (0.604) / T-score (-2.2) / Z-score (-0.1) Right Femur Total: g/cm2 (0.811) / T-score (-1.1) / Z-score (0.7) Right Femoral Neck: g/cm2 (0.613) / T-score (-2.1) / Z-score (0.0) The T-Scores on the most recent prior examination were: Lumbar Spine (L1-L4): There has been worsening of bone density since the previous examination. Left Femur Total: which represents an improvement of 0.4%. Right Femur Total: which represents an improvement of 2.9%. BD/Dexa Bone Density Study IMPRESSION: The patient is considered osteopenic as outlined below according to World [employer] Organization (WHO) criteria with a high fracture risk. There has been improvement of bone density since the previous examination. Reference Information: The T-score is the number of standard deviations above or below the standard which is normal for young adults at their peak bone mineral density. The World Health Organization (WHO) interprets the T-scores as follows: Above -1 Normal bone density Between -1 and -2.5 Osteopenia Equal to / or below -2.5 Osteoporosis As a practical clinical guideline, osteopenia may be graded as follows: Mild -1 through -1.5 Moderate -1.6 through -2.0 Severe -2.1 through -2.4 The Z-score is the number of standard deviations above or below age-matched controls. A Z-score of less than -1.5 would be considered abnormal. References: 1. NIH Osteoporosis and Related Bone Diseases www osteo.org 2. International Society for Clinical Densitometry www iscd.org 3. National Osteoporosis Foundation www nof.org Electronically Signed: Luke Mcmullen MD at 13:45 EST , Service support ,
== END 2021-08-18 23:59 | disposition short-term general hospital (02) ==
PROVIDERS: PCP Internal Medicine; Referring Provider Internal Medicine; Visit Provider Internal Medicine
DX: Z12.31 Encounter for screening mammogram for malignant neoplasm of breast (principal); Z78.0 Asymptomatic menopausal state
CPT/HCPCS: 77063; 77067; 77080

== ENCOUNTER → 2022-08-19 | Outpatient (CLI) | payer MEDICARE, SELFPAY ==
--- NOTE | 2022-08-19 10:04 | BI_ITS ---
MAMMOGRAPHY - BILATERAL SCREENING REASON FOR EXAM: Female, 76 years old. Routine annual screening examination. PERTINENT HISTORY: Grandmother with breast cancer. Remote right excisional breast biopsy. TECHNIQUE: Digital bilateral breast josiah (3D mammographic acquisition) in the CC and MLO projections. 2-D mediolateral oblique (MLO) and craniocaudad (CC) views of both breasts were obtained. CAD: Full Field Digital Mammography with Computer Added Detection was performed. COMPARISON: Comparison is made with prior study dated 08/18/2021 and 07/21/2020. FINDINGS: Breast Composition: There are scattered areas of fibroglandular density. There are no dominant masses or suspicious calcifications. No other significant abnormalities are identified. There has been no significant change since the prior study. BI/SCRN MAMM (CAD)W/JOSIAH BILAT IMPRESSION: Stable bilateral screening mammogram. Yearly follow-up mammogram recommended. (A) ASSESSMENT CATEGORY: BIRADS Category 1: Negative. A letter regarding these results will be sent to the patient by the facility within 30 days. Approximately 10% of breast cancers are not detected by mammography. A normal mammogram should not delay biopsy of a clinically suspicious abnormality. [id number] Electronically Signed: Luke Mcmullen MD at 10:50 EST ,
== END | disposition home or self-care (01) ==
LOC: OPBI 10:02
PROVIDERS: PCP Internal Medicine; Visit Provider Internal Medicine
DX: Z12.31 Encounter for screening mammogram for malignant neoplasm of breast (principal); Z80.3 Family history of malignant neoplasm of breast; Z92.89 Personal history of other medical treatment
CPT/HCPCS: 77063; 77067

== ENCOUNTER → 2022-10-25 | Outpatient (CLI) | payer MEDICARE, SELFPAY ==
--- NOTE | 2022-10-25 12:23 | US_ITS ---
EXAM: US renal. HISTORY: microscopic hematuria -- microscopic hematuria TECHNIQUE: US Kidney(s) complete (eg, kidneys and bladder) COMPARISON: Renal ultrasound September 09, 2016. LIMITATIONS: None. RIGHT KIDNEY Size: 9.5 cm in length Echogenicity: Normal. Parenchymal thickness: Normal. Hydronephrosis: None. Calculi: None. Cysts/masses: None. LEFT KIDNEY Size: 10 cm in length Echogenicity: Normal. Parenchymal thickness: Normal. Hydronephrosis: None. Calculi: None. Cysts/masses: None. BLADDER: Normal. Ureteral jets are visualized bilaterally. OTHER: None. CONCLUSION: Normal renal ultrasound. Electronically Signed: Elliot Zimmer MD at 20:31 EDT , US/Kidney and Bladder IMPRESSION: undefined
== END | disposition home or self-care (01) ==
LOC: US 12:21
PROVIDERS: PCP Internal Medicine; Referring Provider Internal Medicine; Visit Provider Internal Medicine
DX: R31.29 Other microscopic hematuria (principal)
CPT/HCPCS: 76770

== ENCOUNTER → 2023-08-25 | Outpatient (CLI) | payer MEDICARE, SELFPAY ==
--- NOTE | 2023-08-25 14:20 | BI_ITS ---
MAMMOGRAPHY - BILATERAL SCREENING REASON FOR EXAM: Female, 77 years old. Routine annual screening examination. PERTINENT HISTORY: Grandmother with breast cancer. Prior right excisional breast biopsy. TECHNIQUE: Digital bilateral breast josiah (3D mammographic acquisition) in the CC and MLO projections. 2-D mediolateral oblique (MLO) and craniocaudad (CC) views of both breasts were obtained. CAD: Full Field Digital Mammography with Computer Added Detection was performed. COMPARISON: Comparison is made with prior study August 19, 2022 and August 18, 2021. FINDINGS: Breast Composition: There are scattered areas of fibroglandular density. There are no dominant masses or suspicious calcifications. No other significant abnormalities are identified. There has been no significant change since the prior study. BI/SCRN MAMM (CAD)W/JOSIAH BILAT IMPRESSION: Stable bilateral screening mammogram. Yearly follow-up mammogram recommended. (A) ASSESSMENT CATEGORY: BIRADS Category 1: Negative. A letter regarding these results will be sent to the patient by the facility within 30 days. Approximately 10% of breast cancers are not detected by mammography. A normal mammogram should not delay biopsy of a clinically suspicious abnormality. [id number] Electronically Signed: Luke Mcmullen MD at 9:17 EST ,
--- NOTE | 2023-08-25 14:45 | BD_ITS ---
STUDY: DUAL ENERGY X-RAY ABSORPTIOMETRY / DXA REASON FOR EXAM: Female, 77 years old. Z78 -- August TECHNIQUE: Bone Mineral Density (BMD) measurements of lumbar spine and bilateral hips were obtained. COMPARISON: Comparison is made with prior study dated August 18, 2021. FINDINGS: Lumbar Spine (L1-L4): g/cm2 (0.919) / T-score (-1.2) / Z-score (1.4) Findings are suggestive of osteopenia with a low fracture risk. Left Femur Total: g/cm2 (0.765) / T-score (-1.5) / Z-score (0.5) Left Femoral Neck: g/cm2 (0.626) / T-score (-2.0) / Z-score (0.2) Right Femur Total: g/cm2 (0.752) / T-score (-1.6) / Z-score (0.4) Right Femoral Neck: g/cm2 (0.568) / T-score (-2.5) / Z-score (-0.3) The T-Scores on the most recent prior examination were: Lumbar Spine (L1-L4): There has been improvement of bone density since the previous examination. Left Femur Total: which represents a worsening of 3%. Right Femur Total: which represents a worsening of 7.3%. BD/Dexa Bone Density Study IMPRESSION: The patient is considered osteopenic as outlined below according to World [employer] Organization (WHO) criteria with a high fracture risk. There has been worsening of bone density since the previous examination. Reference Information: The T-score is the number of standard deviations above or below the standard which is normal for young adults at their peak bone mineral density. The World Health Organization (WHO) interprets the T-scores as follows: Above -1 Normal bone density Between -1 and -2.5 Osteopenia Equal to / or below -2.5 Osteoporosis As a practical clinical guideline, osteopenia may be graded as follows: Mild -1 through -1.5 Moderate -1.6 through -2.0 Severe -2.1 through -2.4 The Z-score is the number of standard deviations above or below age-matched controls. A Z-score of less than -1.5 would be considered abnormal. References: 1. NIH Osteoporosis and Related Bone Diseases www osteo.org 2. International Society for Clinical Densitometry www iscd.org 3. National Osteoporosis Foundation www nof.org Electronically Signed: Luke Mcmullen MD at 10:36 EST ,
== END | disposition home or self-care (01) ==
LOC: OPBD 14:19
PROVIDERS: PCP Internal Medicine; Referring Provider Internal Medicine; Visit Provider Internal Medicine
DX: Z12.31 Encounter for screening mammogram for malignant neoplasm of breast (principal); Z78.0 Asymptomatic menopausal state; Z80.3 Family history of malignant neoplasm of breast
CPT/HCPCS: 77063; 77067; 77080

== ENCOUNTER → 2024-08-27 | Outpatient (CLI) | payer MEDICARE, SELFPAY ==
--- NOTE | 2024-08-27 10:06 | BI_ITS ---
MAMMOGRAPHY - BILATERAL SCREENING REASON FOR EXAM: Female, 78 years old. Routine annual screening examination. PERTINENT HISTORY: Grandmother with breast cancer. History of remote right excisional breast biopsy. TECHNIQUE: Digital bilateral breast josiah (3D mammographic acquisition) in the CC and MLO projections. 2-D mediolateral oblique (MLO) and craniocaudad (CC) views of both breasts were obtained. CAD: Full Field Digital Mammography with Computer Added Detection was performed. COMPARISON: Comparison is made with prior study dated August 25, 2023 and August 19, 2022. FINDINGS: Breast Composition: There are scattered areas of fibroglandular density. There are no dominant masses or suspicious calcifications. No other significant abnormalities are identified. There has been no significant change since the prior study. BI/SCRN MAMM (CAD)W/JOSIAH BILAT IMPRESSION: Stable bilateral screening mammogram. Yearly follow-up mammogram recommended. (A) ASSESSMENT CATEGORY: BIRADS Category 1: Negative. A letter regarding these results will be sent to the patient by the facility within 30 days. Approximately 10% of breast cancers are not detected by mammography. A normal mammogram should not delay biopsy of a clinically suspicious abnormality. [id number] Electronically Signed: Luke Mcmullen MD at 10:44 EST ,
== END | disposition home or self-care (01) ==
LOC: OPBI 10:04
PROVIDERS: PCP Internal Medicine; Referring Provider Nurse Practitioner Family; Visit Provider Nurse Practitioner Family
DX: Z12.31 Encounter for screening mammogram for malignant neoplasm of breast (principal); Z80.3 Family history of malignant neoplasm of breast
CPT/HCPCS: 77063; 77067

== ENCOUNTER → 2025-04-15 | Outpatient (CLI) | payer MEDICARE, SELFPAY ==
[2025-04-15 12:09] LABS: Hematocrit 37.2 % (37-47); Hemoglobin 12.1 g/dL (12.0-15.0); Immature Granulocytes Count 0.030 X10^3/uL (0.0-0.0); Mean Corp Hgb Conc 32.5 g/dL (32-36); Mean Corpuscular Volume 84.7 fL (81-99); Mean Platelet Vol. 9.4 fl (6.2-12.0); NRBC Flagged by Analyzer 0 % (0-5); Platelet Count 222 K/mm3 (150-450); RBC Distribution Width CV 13.6 % (11.6-14.6); RBC Distribution Width SD 42.4 fl (35.1-43.9); Red Blood Count 4.39 M/mm3 (4.2-5.4); White Blood Count 6.5 K/mm3 (4.4-11.0)
[2025-04-15 12:49] LABS: Creatinine, Urine (random) 189.00 mg/dL (28.00-217.00); Microalbumin,Random Urine 25.4 mg/L (<20 mg/L)
[2025-04-15 13:23] LABS: AST(SGOT) 29 U/L (<=31); Alanine Aminotransfer ALT/SGPT 26 U/L (<=34); Albumin, Serum 4.5 g/dL (3.4-4.8); Alkaline Phosphatase 73 U/L (35-104); Anion Gap 12 (5-15); BUN 16 mg/dL (4-19); BUN/Creat Ratio 12.1 RATIO (10-20); Calcium,Total 9.7 mg/dL (7.6-11.0); Carbon Dioxide 22.6 mmol/L (21.0-32.0); Chloride 104 mmol/L (98-108); Cholesterol 156 mg/dL (<=200); Globulin 2.8 g/dL (2.2-4.2); Glucose 96 mg/dL (70-99); Low Density Lipoprotein Calc. 63 mg/dL; Potassium 4.7 mmol/L (3.3-5.1); Triglycerides 201 mg/dL; Very Low Density Lipoprotein 40 mg/dL (5-40); Vitamin D,25 Hydroxy 58.7 ng/mL (30-100); cholesterol:hdl ratio screen 2.93
== END | disposition home or self-care (01) ==
LOC: MTLAB 10:33
PROVIDERS: PCP Internal Medicine; Referring Provider Nurse Practitioner Family; Visit Provider Nurse Practitioner Family
DX: R80.9 Proteinuria, unspecified (principal); N18.31 Chronic kidney disease, stage 3a; E55.9 Vitamin D deficiency, unspecified; E03.8 Other specified hypothyroidism; E78.49 Other hyperlipidemia
CPT/HCPCS: 36415; 80053; 80061; 82043; 82306; 82570; 84443; 85025

== ENCOUNTER → 2025-06-21 | Outpatient (CLI) | payer MEDICARE, SELFPAY | END | disposition home or self-care (01) | LOC: LABSPEC 15:26 | PROVIDERS: PCP Nurse Practitioner Family; Visit Provider Nurse Practitioner Family | DX: N39.0 Urinary tract infection, site not specified (principal) | CPT/HCPCS: 87077; 87086; 87088; 87186 ==